=== PATIENT | female | born 1950 | race Caucasian/White ===

== ENCOUNTER → 2017-02-26 | Outpatient (CLI) | payer MEDICARE, OTHER | LOC: RAD 10:22 | PROVIDERS: ATTEND Nurse Practitioner Family | DX: Z12.31 Encounter for screening mammogram for malignant neoplasm of breast (principal) | CPT/HCPCS: 77067 ==

== ENCOUNTER → 2017-06-26 | Outpatient (CLI) | payer MEDICARE ==
[2017-06-26 11:02] LABS: BASOPHILS % (AUTO) 0 % (0-10); EOSINOPHILS # (AUTO) 0.2 10^3/uL (0.0-0.3); EOSINOPHILS % (AUTO) 4 % (0-10); HEMATOCRIT 37 % (35-52); HEMOGLOBIN 12.7 G/DL (11.5-16.0); LYMPHOCYTES # (AUTO) 1.9 X 10^3 (1.0-4.0); LYMPHOCYTES % (AUTO) 38 % (12-44); MEAN CORPUSCULAR HEMOGLOBIN 31 PG (25-34); MEAN CORPUSCULAR HGB CONC 34 G/DL (32-36); MEAN CORPUSCULAR VOLUME 91 FL (80-99); MONOCYTES # (AUTO) 0.3 X 10^3 (0.0-1.0); MONOCYTES % (AUTO) 6 % (0-12); NEUTROPHILS # (AUTO) 2.6 X 10^3 (1.8-7.8); NEUTROPHILS % (AUTO) 51 % (42-75); PLATELET COUNT 228 10^3/uL (130-400); RED CELL DISTRIBUTION WIDTH 13.8 % (10.0-14.5)
== END ==
LOC: LAB 10:26
PROVIDERS: ATTEND Nurse Practitioner Family
DX: K11.8 Other diseases of salivary glands (principal)
CPT/HCPCS: 36415; 85025; 87804

== ENCOUNTER → 2017-10-02 | Outpatient (CLI) | payer MEDICARE ==
[2017-10-02 16:45] LABS: FREE T4 (FREE THYROXINE) 0.99 NG/DL (0.70-1.48)
== END ==
LOC: LAB 15:38
PROVIDERS: ATTEND Nurse Practitioner Family
DX: R53.83 Other fatigue (principal)
CPT/HCPCS: 36415; 84439; 84443

== ENCOUNTER → 2018-08-01 | Outpatient (CLI) | payer MEDICARE ==
--- NOTE | 2018-08-01 14:21 | Diagnostic Imaging Report ---
PROCEDURE: CT chest without contrast. TECHNIQUE: Multiple contiguous axial images were obtained through the chest without the use of intravenous contrast. INDICATION: Fall approximately 6 days ago with pain to the left lower ribs. No prior studies are available for comparison. No definite mediastinal hematoma is detected. No pericardial or pleural fluid is identified. No parenchymal contusion or pneumothorax is seen. There is some subsegmental atelectasis in the lingula and left lower lobe. Some minimal scarring or subsegmental atelectasis right lower lobe is also seen. A tiny subpleural nodular density right middle lobe laterally measures 5 mm. Subpleural nodule posterolateral right lower lobe measures 5 mm. No other nodules are seen. The upper abdomen is unremarkable. No rib fracture is identified. Thoracic spine is unremarkable apart from degenerative changes. Impression: There is some subsegmental atelectasis in the left lower lobe and lingula. No parenchymal contusion, effusion, pneumothorax or left rib fracture is detected. Dictated by: Dictated on workstation # [id number]
== END ==
LOC: RAD 13:53
PROVIDERS: ATTEND Nurse Practitioner Family
DX: J98.11 Atelectasis (principal); R07.81 Pleurodynia; W19.XXXA Unspecified fall, initial encounter
CPT/HCPCS: 71250

== ENCOUNTER → 2018-10-21 | Outpatient (CLI) | payer MEDICARE ==
--- NOTE | 2018-10-21 14:07 | Diagnostic Imaging Report ---
INDICATION: Routine screening. COMPARISON: 02/26/2017 and 01/31/2016. TECHNIQUE: 2D and 3D bilateral screening mammography was performed with CAD. FINDINGS: Scattered fibroglandular densities are identified bilaterally. The parenchymal pattern is stable. No mass or malignant appearing microcalcifications are seen. The axillae are unremarkable. IMPRESSION: No mammographic features suspicious for malignancy are identified. ACR BI-RADS Category 2: Benign findings. Result letter will be mailed to the patient. Note: At least 10% of breast cancer is not imaged by mammography. Dictated by: Dictated on workstation # [id number]
== END ==
LOC: RAD 10:06
PROVIDERS: ATTEND Family Medicine
DX: Z12.31 Encounter for screening mammogram for malignant neoplasm of breast (principal)
CPT/HCPCS: 77067

== ENCOUNTER → 2018-12-03 | Outpatient (CLI) | payer MEDICARE ==
[~2018-12-03] VITALS: Ht 165.1 cm; Wt 111.6 kg
[~2018-12-03] MED LIST: CATHETER FLUSH 10 ML SYR IV PRN; REGADENOSON 0.4 MG/5 ML SYR (LEXISCAN) IV ONE
[2018-12-03 12:59] VITALS: BP 148/74
[2018-12-03 13:08] VITALS: BP 147/77
--- NOTE | 2018-12-03 15:42 | STRESS TEST ---
DATE OF SERVICE: 12/03/2018 LEXISCAN MYOVIEW STRESS TEST REPORT REFERRING PHYSICIAN: Dr. Milton. Baseline heart rate is 62. Baseline blood pressure 139/80. Baseline EKG is sinus rhythm with no ischemic changes. In summary, the patient was injected with 10.38 mCi of technetium-99 Myoview, was scheduled for exercise stress test, was able to exercise for 2 minutes and 40 seconds on standard Nguyễn protocol. Test was terminated and converted to Lexiscan Myoview stress test. The patient receive 0.4 mg of Lexiscan followed by 28.5 mCi of technetium-99 Myoview. Throughout the test, there were no EKG changes. The resting and stress images were reviewed and compared in the short axis, horizontal long axis and vertical long axis views. Review of the images showed breast attenuation with typical female pattern. There is no significant ischemia or infarction was seen. SSS is 4, SDS 3, TID value 1.03. On the gated images, the left ventricle appeared to be normal size with normal contractility. Calculated ejection fraction 66%. CONCLUSION: 1. The patient was unable to exercise beyond 2 minutes 40 seconds on standard Nguyễn protocol. Test was converted to Lexiscan Myoview stress test. 2. The patient tolerated Lexiscan well. 3. Typical female pattern with no significant ischemia or infarction on SPECT images. 4. Normal left ventricular size with normal contractility. Calculated ejection fraction of 66%. Job ID: [id number] DocumentID: [id number] Dictated Date: 12/03/2018 15:27:22 [place] Date: 12/03/2018 15:41:59 Dictated By: JULIUS DORSEY MD
== END ==
LOC: CARD 10:33
PROVIDERS: ATTEND Internal Medicine Cardiovascular Disease
DX: R07.89 Other chest pain (principal); E78.2 Mixed hyperlipidemia; I10 Essential (primary) hypertension; I08.0 Rheumatic disorders of both mitral and aortic valves; Z98.84 Bariatric surgery status
CPT/HCPCS: 78452; 93017; 93306

== ENCOUNTER → 2019-04-23 | Outpatient (CLI) | payer MEDICARE ==
[~2019-04-23] MED LIST changes: +HOLD METFORMIN - RECEIVED CONTRAST 20 ML VIAL IV SCH; +IOHEXOL 350 MG/ML 100 ML (OMNIPAQUE 350) VIAL IV ONE; +NS 100 ML (IVPB) BAG IV ONE; -REGADENOSON 0.4 MG/5 ML SYR (LEXISCAN) IV ONE
[2019-04-23 08:41] LABS: CREATININE SERUM 0.94 MG/DL (0.60-1.30)
--- NOTE | 2019-04-23 09:34 | Diagnostic Imaging Report ---
PROCEDURE: CT neck soft tissue with contrast. TECHNIQUE: Multiple contiguous axial images were obtained through the neck after the administration of contrast. Auto Exposure Controls were utilized during the CT exam to meet ALARA standards for radiation dose reduction. INDICATION: Swelling and pain in the left side of the mouth since December. Tongue lesion. COMPARISON: None. Findings: The visualized intracranial contents demonstrate no evidence of pathologic intracranial enhancement or intracranial mass effect. Visualized orbital contents are unremarkable. A few small mucous retention cysts are seen in the bilateral maxillary sinuses. The mastoids and middle ears are clear. The patient is edentulous. There is subtle asymmetric enhancement in the lateral aspect of the posterior left tongue within the oral cavity measuring approximately 0.9 x 0.8 cm. No significant mass effect is seen. No evidence of ulceration is present. The base of tongue and floor of the mouth is preserved without evidence of mass. The posterior nasopharynx and oropharynx demonstrate appropriate symmetry. There is no displacement of the parapharyngeal fat planes. There is no abnormal process evident within the prevertebral or retropharyngeal space. There is no evidence of abnormal thickening of the epiglottis or aryepiglottic folds. The vocal folds appear symmetric. The parotid, submandibular and thyroid gland are unremarkable. Mildly prominent cervical lymph nodes are seen bilaterally which are not significant based on size criteria. No focal inflammatory changes are demonstrated. No soft tissue mass or fluid collection demonstrated. The vascular structures the neck demonstrate no evidence of high-grade stenosis on this nondedicated exam. The visualized lung apices are clear. There are mild degenerative features within the cervical spine without CT evidence of an acute or suspicious osseous abnormality. Cervical spine alignment appears within normal limits. Impression: 1. Mild asymmetric enhancement in the lateral aspect of the posterior left tongue within the oral cavity. No mass effect or ulceration is present. This is nonspecific and may represent focal inflammation versus early neoplasm. Recommend direct visualization and tissue sampling if indicated. No evidence of pathologic lymphadenopathy in the neck. The base of tongue and floor of mouth is preserved without evidence of mass. Dictated by: Dictated on workstation # [id number]
== END ==
LOC: RAD 08:04
PROVIDERS: ATTEND Otolaryngology Otolaryngology/Facial Plastic Surgery
DX: K14.8 Other diseases of tongue (principal)
CPT/HCPCS: 36415; 70491; 82565; 84520

== ENCOUNTER 2019-05-13 10:50 | Outpatient (CLI) | payer MEDICARE ==
[~2019-05-13] VITALS: Ht 165.1 cm; Wt 110.9 kg
[2019-05-13 11:09] VITALS: BP 121/63
[2019-05-13 11:32] LABS: BASOPHILS % (AUTO) 1 % (0-10); EOSINOPHILS # (AUTO) 0.3 10^3/uL (0.0-0.3); EOSINOPHILS % (AUTO) 5 % (0-10); HEMATOCRIT 40 % (35-52); HEMOGLOBIN 13.1 G/DL (11.5-16.0); LYMPHOCYTES # (AUTO) 2.1 X 10^3 (1.0-4.0); LYMPHOCYTES % (AUTO) 34 % (12-44); MEAN CORPUSCULAR HEMOGLOBIN 30 PG (25-34); MEAN CORPUSCULAR HGB CONC 33 G/DL (32-36); MEAN CORPUSCULAR VOLUME 91 FL (80-99); MEAN PLATELET VOLUME 9.6 FL (7.4-10.4); MONOCYTES # (AUTO) 0.3 X 10^3 (0.0-1.0); MONOCYTES % (AUTO) 5 % (0-12); NEUTROPHILS # (AUTO) 3.4 X 10^3 (1.8-7.8); NEUTROPHILS % (AUTO) 55 % (42-75); PLATELET COUNT 211 10^3/uL (130-400); RED CELL DISTRIBUTION WIDTH 13.7 % (10.0-14.5); WHITE BLOOD COUNT 6.1 10^3/uL (4.3-11.0)
[2019-05-13] MEDS ORDERED: DOCU100T7 PO (11:53)
[2019-05-13] MEDS ORDERED: MELA1TAB20 PO (11:53)
[2019-05-13] MEDS ORDERED: DULO60CA6 PO (11:53)
[2019-05-13] MEDS ORDERED: TRAZ-222 PO (11:53)
[2019-05-13] MEDS ORDERED: POTA20TA8 PO (11:53)
[2019-05-13] MEDS ORDERED: HYDR25TA4 PO (11:53)
[2019-05-13] MEDS ORDERED: CHOL10003 PO (11:53)
[2019-05-13] MEDS ORDERED: ALPR1TAB2 PO (11:53)
[2019-05-13] MEDS ORDERED: UBID100C17 PO (11:53)
[2019-05-13 12:03] LABS: BUN/CREATININE RATIO 15; CALCIUM 9.5 MG/DL (8.5-10.1); CARBON DIOXIDE 24 MMOL/L (21-32); CHLORIDE 104 MMOL/L (98-107); CREATININE SERUM 0.87 MG/DL (0.60-1.30); GFR ESTIMATED > 60; GLUCOSE 125 MG/DL (70-105); POTASSIUM 3.6 MMOL/L (3.6-5.0); SODIUM 141 MMOL/L (135-145)
== END 2019-05-13 11:25 | disposition home or self-care (01) ==
LOC: PREOP 10:50
PROVIDERS: ATTEND Otolaryngology Otolaryngology/Facial Plastic Surgery
DX: Z01.818 Encounter for other preprocedural examination (principal); J35.1 Hypertrophy of tonsils; K14.8 Other diseases of tongue
CPT/HCPCS: 36415; 80048; 85025; 87081

== ENCOUNTER 2019-05-22 07:51 | Day surgery (SDC) | payer MEDICARE ==
[2019-05-22] VITALS (11 sets, daily range): BP systolic 123–162; BP diastolic 63–92
[~2019-05-22] VITALS: Ht 165.1 cm; Wt 110.9 kg
[~2019-05-22 07:51] MED LIST changes: +ALPR1TAB2 PO; -CATHETER FLUSH 10 ML SYR IV PRN; +CHOL10003 PO; +DOCU100T7 PO; +DULO60CA6 PO; -HOLD METFORMIN - RECEIVED CONTRAST 20 ML VIAL IV SCH; +HYDR25TA4 PO; -IOHEXOL 350 MG/ML 100 ML (OMNIPAQUE 350) VIAL IV ONE; +MELA1TAB20 PO; -NS 100 ML (IVPB) BAG IV ONE; +POTA20TA8 PO; +TRZ50T PO; +UBID100C17 PO
[2019-05-22] MEDS ORDERED: LIDOCAINE/EPI 1%-1:100,000 (XYLOCAINE) 20ML ONE (08:06)
[2019-05-22] MEDS ORDERED: LACTATED RINGERS 1,000 ML IV PRN (08:10)
[2019-05-22] MEDS ORDERED: RT-ALBUTEROL SULF 2.5 MG/3 ML PRE-MIX VIAL ONE (09:14)
--- NOTE | 2019-05-22 09:24 | Progress Note-Pre Operative ---
Pre-Operative Progress Note H&P Reviewed The H&P was reviewed, patient examined and no changes noted. Date Seen by Provider: May 22, 2019 Time Seen by Provider: 08:30 Date H&P Reviewed: May 22, 2019 Time H&P Reviewed: 08:30 Pre-Operative Diagnosis: left psot tongue lesion abnormal tonsil left QUIRINO YOUNG MD May 22, 2019 09:24 POS
--- NOTE | 2019-05-22 09:25 | Progress Note-Post Operative ---
Post-Operative Progess Note Surgeon (s)/Financial Reporting Manager (s) Surgeon QUIRINO YOUNG MD Financial Reporting Manager n/a Pre-Operative Diagnosis left psot tongue lesion abnormal tonsil left Post-Operative Diagnosis same Post-Op Procedure Note Date of Procedure: May 22, 2019 Name of Procedure Performed: Excision of Left Post Tongue Lesion, Direct Laryngosocpy Description & Findings Description and Findings: n/a Anesthesia Type get Estimated Blood Loss minimal Packing none. Specimen(s) collected/removed left post tongue lesion for perm no abnormality found in tonsil QUIRINO YOUNG MD May 22, 2019 09:25 POS
[2019-05-22] MEDS ORDERED: LIDOCAINE 2% VISCOUS 15 ML UDC PO PRN (09:30)
[2019-05-22] MEDS ORDERED: ONDANSETRON 4 MG/2 ML (SDV) Z0FRAN IVP PRN (09:30)
[2019-05-22] MEDS ORDERED: ACETAMINOPHEN 325 MG TABLET PO PRN (09:30)
[2019-05-22] MEDS ORDERED: morphine INJ 10 MG/ML 1ML (SYR OR VIAL) IVP ONE (09:30)
[2019-05-22] MEDS ORDERED: 2% VISCOUS LIDOCAINE PO (10:48)
[2019-05-22] MEDS ORDERED: HYDR15SO8 PO (10:48)
--- NOTE | 2019-05-22 12:42 | Anesthesia-General Post-Op ---
General Patient Condition Mental Status/LOC: Same as Preop Cardiovascular: Satisfactory Nausea/Vomiting: Absent Respiratory: Satisfactory Pain: Controlled Complications: Absent Post Op Complications Complications None Follow Up Care/Instructions Patient Instructions None needed. Anesthesia/Patient Condition Patient Condition Patient was seen after the procedure and she was doing well, no complaints, stable vital signs, no apparent adverse anesthesia problems. ADALBERTO MEJIA DO May 22, 2019 12:42 POS
--- OUTSIDE RECORDS SUMMARY | 2019-06-17 09:16 | XMS REPORT | CCD ---
Author Author Evangelina Milton Organization Stacie Milton MD, [facility] Address [address] [place] [address] Phone Care Team Providers Care Appeals Coordinator Name Role Phone PP Unavailable CCM Unavailable Summary Purpose Interface Exchange Insurance Providers Payer name Policy type / Coverage type Covered libertarian ID Effective Begin Date Effective End Date [facility] Commercial Insurance [id number] Unknown Family history Mother Diagnosis Age At Onset Hyperlipidemia Unknown Stroke Unknown Diabetes mellitus Type 2 Unknown Heart Attack Unknown Colon cancer Unknown Hypertension Unknown Brother Diagnosis Age At Onset Diabetes mellitus Type 2 Unknown Father Diagnosis Age At Onset Diabetes mellitus Type 2 Unknown kidney disease Unknown Heart Attack Unknown Skin cancer Unknown Hypertension Unknown Hyperlipidemia Unknown Social History Social History Element Codes Description Effective Dates Marital status Unknown D ivorced 10/08/2016 Number of children Unknown 0 10/08/2016 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 Unknown Has never used illegal drugs 017 Allergies, Adverse Reactions, Alerts Substance Reaction Codes Entered Date Inactivated Date Status * OTHER REACTION - S EE ANSWER BOX Vitamins CSynthroid Unknown 10/08/2016 No Inactive Date Active * NO KNOWN FOOD MENDEZ RGIES Unknown 10/08/2016 No Inactive Date Active [id number] REDU CTASE INHIBITORS Unknown 07/07/2018 No Inactive Date Active Past Medical History Illness Codes Condition Status Onset Date Resolved Date Essential (primary) hypertension ICD-9: 401.1 ICD-10: I10 Active 10/08/2016 Unknown Impaired fasting glu cose ICD-9: 790.29 ICD-10: R73.01 Active 02/19/2019 Unknown Major depressive dis order, recurrent, moderate ICD-9: 296.32 ICD-10: F33.1 Active 10/08/2016 Unknown Generalized anxiety disorder ICD-9: 300.00 ICD-10: F41.1 Active 10/16/2018 Unknown Candidal stomatitis ICD- 9: 112.0 ICD-10: B37.0 Active 12/15/2018 Unknown Dry mouth, unspecified ICD-9: 527.7 ICD-10: R68.2 Active 12/15/2018 Unknown Encounter for screen ing mammogram for malignant neoplasm of breast ICD-9: V76.10 ICD-10: Z12.31 Active 10/22/2018 Unknown Primary insomnia ICD-9: 307.42 ICD-10: F51.01 Active 10/16/2018 Unknown Adverse effect of an tiallergic and antiemetic drugs, initial encounter ICD-9: E933.0 ICD-10: T45.0X5A Active 09/25/2018 Unknown 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 ICD-10: E03.4 Active 10/08/2016 Unknown Recurrent oral aphthae ICD-9: 528.2 ICD-10: K12.0 Active 07/07/2018 Unknown Other allergic rhinitis ICD-9: 477.8 ICD-10: J30.89 Active 06/25/2017 Unknown Insect bite (nonveno mous), left lower leg, subsequent encounter ICD-9: V58.89 ICD-10: S80.862D Active 01/06/2018 Unknown Insect bite (nonveno mous), right lower leg, subsequent encounter ICD-9: V58.89 ICD-10: S80.861D Active 01/06/2018 Unknown Rash and other nonsp ecific skin eruption ICD-9: 782.1 ICD-10: R21 Active 05/15/2017 Unknown Encounter for genera l adult medical examination with abnormal findings ICD-9: V70.0 ICD-10: Z00.01 Active 10/02/2017 Unknown Otalgia, bilateral ICD- 9: 388.70 ICD-10: H92.03 Active 06/25/2017 Unknown Zoster without compl ications ICD-9: 053.9 ICD-10: B02.9 Active 01/28/[address] [place] ICD-9: V45.86 ICD-10: Z98.84 Active 10/08/2016 Unknown Problems Condition Codes Effectiv e Dates Condition Status Essential (primary) hypertension ICD-9: 401.1 ICD-10: I10 10/08/2016 Active Impaired fasting glu cose ICD-9: 790.29 ICD-10: R73.01 02/19/2019 Active Major depressive dis order, recurrent, moderate ICD-9: 296.32 ICD-10: F33.1 10/08/2016 Active Generalized anxiety disorder ICD-9: 300.00 ICD-10: F41.1 10/16/2018 Active Candidal stomatitis ICD- 9: 112.0 ICD-10: B37.0 12/15/2018 Active Dry mouth, unspecified ICD-9: 527.7 ICD-10: R68.2 12/15/2018 Active Encounter for screen ing mammogram for malignant neoplasm of breast ICD-9: V76.10 ICD-10: Z12.31 10/22/2018 Active Primary insomnia ICD-9: 307.42 ICD-10: F51.01 10/16/2018 Active Adverse effect of an tiallergic and antiemetic drugs, initial encounter ICD-9: E933.0 ICD-10: T45.0X5A 09/25/2018 Active 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 ICD-10: E03.4 10/08/2016 Active Recurrent oral aphthae ICD-9: 528.2 ICD-10: K12.0 07/07/2018 Active Other allergic rhinitis ICD-9: 477.8 ICD-10: J30.89 06/25/2017 Active Insect bite (nonveno mous), left lower leg, subsequent encounter ICD-9: V58.89 ICD-10: S80.862D 01/06/2018 Active Insect bite (nonveno mous), right lower leg, subsequent encounter ICD-9: V58.89 ICD-10: S80.861D 01/06/2018 Active Rash and other nonsp ecific skin eruption ICD-9: 782.1 ICD-10: R21 05/15/2017 Active Encounter for genera l adult medical examination with abnormal findings ICD-9: V70.0 ICD-10: Z00.01 10/02/2017 Active Otalgia, bilateral ICD- 9: 388.70 ICD-10: H92.03 06/25/2017 Active Zoster without compl ications ICD-9: 053.9 ICD-10: B02.9 01/28/[address] [place]us ICD-9: V45.86 ICD-10: Z98.84 10/08/2016 Active Medications Medication Codes Instruc tions Start Date Stop Date Sta tus Fill Instructions trazodone 50 mg tablet RxNorm: 277869 1 Tablet(s) PO QHS 02/19/2019 02/13/2020 Active trazodone 50 mg tablet RxNorm: 486341 1 Tablet(s) PO QHS 02/19/2019 02/18/2019 Inactive potassium chloride E R 20 mEq tablet,extended release RxNorm: 084916 Tablet(s) TAKE ONE TABLET BY MOUTH ONCE DAILY IN THE MORNING 01/07/2019 01/01/2020 Active Pristiq 25 mg tablet ,extended release RxNorm: 1512043 1 Tablet(s) PO daily 01/06/2019 02/18/2019 In active Cymbalta 30 mg capsu le,delayed release RxNorm: 966716 1 Capsule(s) PO daily 12/22/2018 12/22/2018 In active nystatin 100,000 uni t/mL oral suspension RxNorm: 550443 5 Milliliter(s) PO QI D 12/15/2018 12/21/2018 In active hydrochlorothiazide 25 mg tablet RxNorm: 340359 Tablet(s) TAKE ONE TA BLET BY MOUTH ONCE DAILY IN THE MORNING 11/14/2018 11/08/2019 Active Effexor XR 150 mg ca psule,extended release RxNorm: 424891 1 Capsule(s) PO daily 10/16/2018 12/21/2018 In active Xanax 1 mg tablet RxNorm: 580788 Tablet(s) TAKE ONE TABLET BY MOUTH ONCE DAILY AT BEDTIME 09/30/2018 12/28/2018 Inactive Vitamin D3 2,000 uni t capsule RxNorm: 029445 125mcg Capsule(s) PO daily 09/25/2018 12/23/2018 In active Effexor XR 75 mg cap rashid,extended release RxNorm: 655133 1 Capsule(s) PO daily 09/25/2018 09/24/2018 In active Effexor XR 75 mg cap rashid,extended release RxNorm: 675179 1 Capsule(s) PO daily 09/25/2018 10/15/2018 In active trazodone 50 mg tablet RxNorm: 572241 1/2 Tablet(s) PO QHS 09/25/2018 09/24/2018 Inactive trazodone 50 mg tablet RxNorm: 599213 1/2 Tablet(s) PO QHS 09/25/2018 02/18/2019 Inactive acyclovir 400 mg tablet RxNorm: 679123 1 Tablet(s) PO TID 07/07/2018 07/13/2018 Inactive Xanax 1 mg tablet RxNorm: 229990 Tablet(s) TAKE ONE TABLET BY MOUTH ONCE DAILY AT BEDTIME 06/27/2018 09/29/2018 Inactive Livalo 2 mg tablet RxNorm: 227082 1 Tablet(s) PO QHS 06/25/2018 06/24/2018 Inactive Livalo 2 mg tablet RxNorm: 459590 1 Tablet(s) PO QHS 06/25/2018 09/24/2018 Inactive Lexapro 20 mg tablet RxNorm: 332032 TAKE 1/2 (ONE-HALF) TABLET BY MOUTH ONCE DAILY FOR ONE WEEK, THEN INCREASE TO 1 ONCE DAILY IN THE EVENING. 05/05/2018 09/24/2018 Inactive Xanax 1 mg tablet RxNorm: 034901 Tablet(s) TAKE ONE TABLET BY MOUTH ONCE DAILY AT BEDTIME 04/01/2018 06/26/2018 Inactive Lexapro 20 mg tablet RxNorm: 282212 1 Tablet(s) PO QPM 12/31/2017 05/05/2018 Inactive 1/2 tab daily x 1 week then increase to a full tab mupirocin 2 % topica l ointment RxNorm: 327959 1 Application TOP BID 12/31/2017 01/09/2018 Inactive potassium chloride E R 20 mEq tablet,extended release RxNorm: 649736 TAKE ONE TABLET BY MOUTH ONCE DAILY IN THE MORNING 12/11/2017 01/06/2019 Inactive hydrochlorothiazide 25 mg tablet RxNorm: 479844 TAKE ONE TABLET BY MO [facility] ONCE DAILY IN THE MORNING 12/11/2017 11/13/2018 Inactive Effexor XR 75 mg cap rashid,extended release RxNorm: 067019 1 Capsule(s) PO daily 12/09/2017 12/30/2017 In active permethrin 5 % topic al cream RxNorm: 309619 1 Application TOP onc e, may repeat in 14 days. 11/27/2017 01/06/2018 Inactive Xanax 1 mg tablet RxNorm: 685025 1 Tablet(s) PO QHS 09/30/2017 06/24/2018 Inactive citalopram 40 mg tablet RxNorm: 708832 TAKE ONE TABLET BY MOUTH ONCE DAILY IN T HE EVENING 08/05/2017 12/08/2017 Inactive Flagyl 500 mg tablet RxNorm: 910106 1 Tablet(s) PO TID 08/01/2017 08/05/2017 Inactive Xanax 1 mg tablet RxNorm: 003571 1 Tablet(s) PO QHS 07/05/2017 09/29/2017 Inactive Xanax 1 mg tablet RxNorm: 006146 TAKE ONE TABLET BY MOUTH ONCE DAILY AT B EDTIME 07/05/2017 03/31/2018 Inactive Zithromax Z-Cornell 250 mg tablet RxNorm: 442653 1 Tablet(s) PO UD 06/25/2017 07/04/2017 Inactive Trilipix 135 mg caps ule,delayed release RxNorm: 104088 1 Capsule(s) PO daily 05/22/2017 06/24/2018 In active triamcinolone aceton kaity 0.025 % topical cream RxNorm: 4463114 1 Application TOP BI D 05/15/2017 No Stop Date Active ketoconazole 2 % top ical cream RxNorm: 781743 1 TOP daily 05/15/2017 05/21/2017 Inactive Trilipix 135 mg caps ule,delayed release RxNorm: 496020 1 Capsule(s) PO daily 02/12/2017 05/21/2017 In active Trilipix 135 mg caps ule,delayed release RxNorm: 726793 1 Capsule(s) PO daily 02/12/2017 02/11/2017 In active acyclovir 800 mg tablet RxNorm: 877257 1 Tablet(s) PO QID 01/28/2017 02/06/2017 Inactive Fish Oil 1,000 mg ca psule RxNorm: 1 Capsule(s) PO BID 10/17/2016 10/16/2016 Inactive Vitamin D2 50,000 un it capsule RxNorm: 494238 1 Capsule(s) PO QW 10/17/2016 10/16/2016 Inactive Vitamin D3 2,000 uni t capsule RxNorm: 349564 1 Capsule(s) PO daily 10/17/2016 10/16/2016 Inactive Vitamin D2 50,000 un it capsule RxNorm: 865047 1 Capsule(s) PO QW 10/17/2016 01/14/2017 Inactive Vitamin D3 2,000 uni t capsule RxNorm: 412711 1 Capsule(s) PO daily 10/17/2016 01/14/2017 Inactive Fish Oil 1,000 mg ca psule RxNorm: 1 Capsule(s) PO BID 10/17/2016 09/24/2018 Inactive citalopram 40 mg tablet RxNorm: 233997 1 Tablet(s) PO QPM 10/08/2016 07/04/2017 Inactive potassium chloride E R 20 mEq tablet,extended release RxNorm: 803427 1 Tablet(s) PO QAM 10/08/2016 10/02/2017 Inactive hydrochlorothiazide 25 mg tablet RxNorm: 046957 1 Tablet(s) PO QAM 10/08/2016 10/02/2017 Inactive Co Q-10 100 mg capsule RxNorm: 647110 1 Capsule(s) PO daily No Start Date Active Colace 100 mg capsule RxNorm: 9482027 1 Capsule(s) PO BID No Start Date Active melatonin 10 mg tablet RxNorm: 4061354 1 Tablet(s) PO QHS No Start Date Active Cymbalta 60 mg capsu le,delayed release RxNorm: 300028 1 Capsule(s) PO daily No Start Date Active hydrochlorothiazide 25 mg tablet RxNorm: 613828 1 Tablet(s) PO QAM No Start Date 10/07/2016 Inactive folic acid 400 mcg t ablet RxNorm: 888101 1 Tablet(s) PO daily No Start Date 01/05/2019 Inactive fenofibrate microniz ed 130 mg capsule RxNorm: 524628 1 Capsule(s) PO daily No Start Date 01/05/2019 Inactive Xanax 1 mg tablet RxNorm: 413559 1 Tablet(s) PO QHS et PRN as needed No Start Date 07/05/2017 Inactive biotin 1 mg tablet RxNorm: 289744 1 Tablet(s) PO daily No Start Date 01/05/2019 Inactive citalopram 40 mg tablet RxNorm: 983010 1 Tablet(s) PO QPM No Start Date 10/07/2016 Inactive potassium chloride E R 20 mEq tablet,extended release RxNorm: 142990 1 Tablet(s) PO QAM No Start Date 10/07/2016 Inactive permethrin 5 % topic al cream RxNorm: 899204 1 Application TOP onc e, may repeat in 14 days. No Start Date 11/26/2017 Inactive ferrous sulfate 325 mg (65 mg iron) tablet RxNorm: 629155 1 Tablet(s) PO daily No Start Date 01/05/2019 Inactive Unisom Sleepgels 50 mg capsule RxNorm: 8300840 1 Capsule(s) PO QHS No Start Date 09/24/2018 Inactive Medication Administered No Medication Administered data Immunizations No Immunization data Assessments Condition Codes Effectiv e Dates Essential (primary) hypertension ICD -10: I10 ICD-9: 401.1 02/19/2019 Major depressive disorder, recurrent, moderate ICD-10: F33.1 ICD-9: 296.32 02/19/2019 Impaired fasting glucose ICD-10: R73 .01 ICD-9: 790.29 02/19/2019 Generalized anxiety disorder ICD-10: F41.1 ICD-9: 300.00 01/06/2019 Candidal stomatitis ICD-10: B37.0 ICD-9: 112.0 12/15/2018 Dry mouth, unspecified ICD-10: R68.2 ICD-9: 527.7 12/15/2018 Encounter for screening mammogram for ma lignant neoplasm of breast ICD-10: Z12.31 ICD-9: V76.10 10/22/2018 Primary insomnia ICD-10: F51.01 ICD-9: 307.42 10/16/2018 Adverse effect of antiallergic and antie metic drugs, initial encounter ICD-10: T45.0X5A ICD-9: E933.0 09/25/2018 Atrophy of thyroid (acquired) ICD-10 : E03.4 ICD-9: 244.8 09/25/2018 Recurrent oral aphthae ICD-10: K12.0 ICD-9: 528.2 07/07/2018 Other allergic rhinitis ICD-10: J30. 89 ICD-9: 477.8 04/30/2018 Insect bite (nonvenomous), right lower l eg, subsequent encounter ICD-10: S80.861D ICD-9: V58.89 01/06/2018 Insect bite (nonvenomous), left lower le g, subsequent encounter ICD-10: S80.862D ICD-9: V58.89 01/06/2018 Rash and other nonspecific skin eruption ICD-10: R21 ICD-9: 782.1 12/31/2017 Encounter for general adult medical exam ination with abnormal findings ICD-10: Z00.01 ICD-9: V70.0 10/02/2017 Otalgia, bilateral ICD-10: H92.03 ICD-9: 388.70 06/25/2017 Zoster without complications ICD-10: B02.9 ICD-9: 053.9 01/28/2017 Bariatric surgery status ICD-10: Z98 .84 ICD-9: V45.86 10/08/2016 Reason For Visit Reason For Visit Effective Dates Notes Hospital Follow Up 02/19/2019 depression 01/06/2019 depression 12/22/2018 oral pain 12/15/2018 depression 11/17/2018 depression 10/16/2018 depression 09/25/2018 sores in the mouth 07/07/2018 chest pain/pressure 04/30/2018 depression 01/06/2018 depression 12/31/2017 depression 12/09/2017 Annual Medicare Wellness Exam 10/02/2017 hypothyroid 08/01/2017 earache 06/25/2017 rash 05/15/2017 rash 01/28/2017 hypothyroid 10/08/2016 Results Observation Observation Code Item Item Code Result Date Lipid Ord30 CHOL 234 mg/dL 10/16/2018 Lipid Ord30 HDL 40.0 mg/dl 10/16/2018 Lipid Ord30 TRIG 383 mg/dL 10/16/2018 Lipid Ord30 LDL 117 mg/dL 10/16/2018 Lipid Ord30 C/HDL 5.9 Ratio 10/16/2018 Comp Metabolic Kxl904 NA 143 mEq/L 10/16/2018 Comp Metabolic Cdk181 K 4.3 mEq/L 10/16/2018 Comp Metabolic Azz126 CL 101 mEq/L 10/16/2018 Comp Metabolic Fmg795 CO2 31.0 mEq/L 10/16/2018 Comp Metabolic Xld748 AN ION GAP 15 10/16/2018 Comp Metabolic Ejd033 GL UCOSE 90 mg/dL 10/16/2018 Comp Metabolic Xap723 Cr eat 0.9 mg/dL 10/16/2018 Comp Metabolic Fdj831 eG FR 70 ml/min/1.73m2 10/16 Comp Metabolic Fgp348 BUN 14 mg/dL 10/16/2018 Comp Metabolic Ytp911 B/ C Ratio 16.5 Ratio 10/16/2018 Comp Metabolic Gyv252 CA LCIUM 9.8 mg/dL 10/16/2018 Comp Metabolic Vht056 AL K PHOS 76 U/L 10/16/2018 Comp Metabolic Sly995 T(SGOT) 17 U/L 10/16/2018 Comp Metabolic Zpj338 AL T(SGPT) 18 U/L 10/16/2018 Comp Metabolic Wjf624 BI LI T 0.5 mg/dL 10/16/2018 Comp Metabolic Hwv254 AL BUMIN 4.2 g/dL 10/16/2018 Comp Metabolic Lym333 TP RO 6.7 g/dL 10/16/2018 Comp Metabolic Fki452 GL OB 2.5 g/dL 10/16/2018 Comp Metabolic Prj989 A/ G Ratio 1.7 Ratio 10/16/2018 Comp Metabolic Gfm014 Os mo 285 mOsmo 10/16/2018 Cbc With Differential Ord2 WBC 5.36 K/ul 06/18/2018 Cbc With Differential Ord2 RBC 4.17 M/ul 06/18/2018 Cbc With Differential Ord2 HGB 12.5 g/dl 06/18/2018 Cbc With Differential Ord2 HCT 38.4 % 06/18/2018 Cbc With Differential Ord2 Neut% 50.9 % 06/18/2018 Cbc With Differential Ord2 MCV 92.1 fl 06/18/2018 Cbc With Differential Ord2 Lymph% 37.5 % 06/18/2018 Cbc With Differential Ord2 MCH 30.0 pg 06/18/2018 Cbc With Differential Ord2 Hooker% 6.0 % 06/18/2018 Cbc With Differential Ord2 MCHC 32.6 pg 06/18/2018 Cbc With Differential Ord2 Eos% 5.2 % 06/18/2018 Cbc With Differential Ord2 PLT 203 K/ul 06/18/2018 Cbc With Differential Ord2 Baso% 0.4 % 06/18/2018 Cbc With Differential Ord2 RDW 14.9 % 06/18/2018 Cbc With Differential Ord2 Neut ABS# 2.73 K/ul 06/18/2018 Cbc With Differential Ord2 Lymph ABS# 2.01 K/ul 06/18/2018 Cbc With Differential Ord2 Hooker ABS# 0.3 K/ul 06/18/2018 Cbc With Differential Ord2 Eos ABS# 0.3 K/ul 06/18/2018 Cbc With Differential Ord2 Baso ABS# 0.0 K/ul 06/18/2018 Comp Metabolic Zbo146 NA 141 mEq/L 06/18/2018 Comp Metabolic Duc971 K 3.7 mEq/L 06/18/2018 Comp Metabolic Jyl378 CL 101 mEq/L 06/18/2018 Comp Metabolic Mrv198 CO2 31.0 mEq/L 06/18/2018 Comp Metabolic Vtp150 AN ION GAP 13 06/18/2018 Comp Metabolic Ijp450 GL UCOSE 106 mg/dL 06/18/2018 Comp Metabolic Prm446 Cr eat 0.9 mg/dL 06/18/2018 Comp Metabolic Rii828 eG FR 68 ml/min/1.73m2 06/18 Comp Metabolic Usr317 BUN 16 mg/dL 06/18/2018 Comp Metabolic Rnm015 B/ C Ratio 18.2 Ratio 06/18/2018 Comp Metabolic Ocg957 CA LCIUM 9.5 mg/dL 06/18/2018 Comp Metabolic Dol232 AL K PHOS 82 U/L 06/18/2018 Comp Metabolic Hvc650 T(SGOT) 19 U/L 06/18/2018 Comp Metabolic Hny617 AL T(SGPT) 18 U/L 06/18/2018 Comp Metabolic Olr571 BI LI T 0.5 mg/dL 06/18/2018 Comp Metabolic Wtb441 AL BUMIN 4.0 g/dL 06/18/2018 Comp Metabolic Hef638 TP RO 6.5 g/dL 06/18/2018 Comp Metabolic Qyu553 GL OB 2.5 g/dL 06/18/2018 Comp Metabolic Cie014 A/ G Ratio 1.6 Ratio 06/18/2018 Comp Metabolic Xte991 Os mo 283 mOsmo 06/18/2018 Tsh Ord6 TSH (3rd IS) 4.02 uIU/mL 06/18/2018 Lipid Ord30 CHOL 238 mg/dL 06/18/2018 Lipid Ord30 HDL 38.0 mg/dl 06/18/2018 Lipid Ord30 TRIG 369 mg/dL 06/18/2018 Lipid Ord30 LDL Unable to calculate Due to elevated trig lycerides mg/dL 06/18/2018 Lipid Ord30 C/HDL 6.3 Ratio 06/18/2018 Influenza A+B Ogi716 Inf paul A+B Negative 06/18/2018 Free T4 Wub089 FREE T4 0.95 ng/dL 05/15/2017 Tsh Ord6 hTSH II 4.18 uIU/mL 05/15/2017 Lipid Ord30 CHOL 207 mg/dL 05/15/2017 Lipid Ord30 HDL 51.0 mg/dl 05/15/2017 Lipid Ord30 TRIG 211 mg/dL 05/15/2017 Lipid Ord30 LDL 114 mg/dL 05/15/2017 Lipid Ord30 C/HDL 4.1 Ratio 05/15/2017 Cbc With Differential Ord2 WBC 5.82 K/ul 05/15/2017 Cbc With Differential Ord2 RBC 4.24 M/ul 05/15/2017 Cbc With Differential Ord2 HGB 12.9 g/dl 05/15/2017 Cbc With Differential Ord2 HCT 39.7 % 05/15/2017 Cbc With Differential Ord2 Neut% 53.0 % 05/15/2017 Cbc With Differential Ord2 MCV 93.6 fl 05/15/2017 Cbc With Differential Ord2 Lymph% 37.6 % 05/15/2017 Cbc With Differential Ord2 MCH 30.4 pg 05/15/2017 Cbc With Differential Ord2 Hooker% 6.2 % 05/15/2017 Cbc With Differential Ord2 MCHC 32.5 pg 05/15/2017 Cbc With Differential Ord2 Eos% 2.9 % 05/15/2017 Cbc With Differential Ord2 PLT 249 K/ul 05/15/2017 Cbc With Differential Ord2 Baso% 0.3 % 05/15/2017 Cbc With Differential Ord2 RDW 14.3 % 05/15/2017 Cbc With Differential Ord2 Neut ABS# 3.08 K/ul 05/15/2017 Cbc With Differential Ord2 Lymph ABS# 2.19 K/ul 05/15/2017 Cbc With Differential Ord2 Hooker ABS# 0.4 K/ul 05/15/2017 Cbc With Differential Ord2 Eos ABS# 0.2 K/ul 05/15/2017 Cbc With Differential Ord2 Baso ABS# 0.0 K/ul 05/15/2017 Vitamin D 25 Oh Hrp3362 VITAMIN D, 25 HYDROXY 50.18 ng/mL 05/15/2017 Comp Metabolic Jst245 NA 141 mEq/L 05/15/2017 Comp Metabolic Mlk040 K 3.9 mEq/L 05/15/2017 Comp Metabolic Lxh839 CL 103 mEq/L 05/15/2017 Comp Metabolic Izg510 CO2 29.0 mEq/L 05/15/2017 Comp Metabolic Caf318 AN ION GAP 13 05/15/2017 Comp Metabolic Jjx722 GL UCOSE 84 mg/dL 05/15/2017 Comp Metabolic Uii740 Cr eat 1.1 mg/dL 05/15/2017 Comp Metabolic Jwv951 eG FR 55 ml/min/1.73m2 05/15 Comp Metabolic Twn212 BUN 19 mg/dL 05/15/2017 Comp Metabolic Ybw306 B/ C Ratio 18.1 Ratio 05/15/2017 Comp Metabolic Ecj453 CA LCIUM 9.7 mg/dL 05/15/2017 Comp Metabolic Zmw219 AL K PHOS 38 U/L 05/15/2017 Comp Metabolic Fud776 T(SGOT) 21 U/L 05/15/2017 Comp Metabolic Hpu564 AL T(SGPT) 17 U/L 05/15/2017 Comp Metabolic Was340 BI LI T 0.4 mg/dL 05/15/2017 Comp Metabolic Axu017 AL BUMIN 4.3 g/dL 05/15/2017 Comp Metabolic Aiu100 TP RO 6.5 g/dL 05/15/2017 Comp Metabolic Civ103 GL OB 2.3 g/dL 05/15/2017 Comp Metabolic Fpb029 A/ G Ratio 1.9 Ratio 05/15/2017 Comp Metabolic Adn236 Os mo 283 mOsmo 05/15/2017 Lipid Ord30 CHOL 231 mg/dL 01/18/2017 Lipid Ord30 HDL 48.0 mg/dl 01/18/2017 Lipid Ord30 TRIG 213 mg/dL 01/18/2017 Lipid Ord30 LDL 140 mg/dL 01/18/2017 Lipid Ord30 C/HDL 4.8 Ratio 01/18/2017 Vitamin D 25 Oh [id number] VITAMIN D, 25 HYDROXY 33.28 ng/mL 10/10/2016 B12 Ttr863 B12 377.00 pg/ml 10/10/2016 Comp Metabolic Res864 NA 142 mEq/L 10/10/2016 Comp Metabolic Gnw033 K 4.0 mEq/L 10/10/2016 Comp Metabolic Faz794 CL 103 mEq/L 10/10/2016 Comp Metabolic Fjc614 CO2 29.0 mEq/L 10/10/2016 Comp Metabolic Fqp362 AN ION GAP 14 10/10/2016 Comp Metabolic Enw355 GL UCOSE 82 mg/dL 10/10/2016 Comp Metabolic Hfx412 Cr eat 0.8 mg/dL 10/10/2016 Comp Metabolic Ory373 eG FR 77 ml/min/1.73m2 10/10 Comp Metabolic Wfs621 BUN 19 mg/dL 10/10/2016 Comp Metabolic Mcr006 B/ C Ratio 24.1 Ratio 10/10/2016 Comp Metabolic Mnn420 CA LCIUM 9.8 mg/dL 10/10/2016 Comp Metabolic Gas933 AL K PHOS 87 U/L 10/10/2016 Comp Metabolic Med711 T(SGOT) 20 U/L 10/10/2016 Comp Metabolic Bjf372 AL T(SGPT) 16 U/L 10/10/2016 Comp Metabolic Hai619 BI LI T 0.5 mg/dL 10/10/2016 Comp Metabolic Azg084 AL BUMIN 4.0 g/dL 10/10/2016 Comp Metabolic Aek792 TP RO 6.7 g/dL 10/10/2016 Comp Metabolic Dee538 GL OB 2.7 g/dL 10/10/2016 Comp Metabolic Uoa270 A/ G Ratio 1.5 Ratio 10/10/2016 Comp Metabolic Ugo608 Os mo 284 mOsmo 10/10/2016 Free T4 Isr559 FREE T4 0.68 ng/dL 10/10/2016 Cbc With Differential Ord2 WBC 5.53 K/ul 10/10/2016 Cbc With Differential Ord2 RBC 4.28 M/ul 10/10/2016 Cbc With Differential Ord2 HGB 13.1 g/dl 10/10/2016 Cbc With Differential Ord2 HCT 39.7 % 10/10/2016 Cbc With Differential Ord2 Neut% 48.6 % 10/10/2016 Cbc With Differential Ord2 MCV 92.8 fl 10/10/2016 Cbc With Differential Ord2 Lymph% 38.2 % 10/10/2016 Cbc With Differential Ord2 MCH 30.6 pg 10/10/2016 Cbc With Differential Ord2 Hooker% 5.2 % 10/10/2016 Cbc With Differential Ord2 MCHC 33.0 pg 10/10/2016 Cbc With Differential Ord2 Eos% 7.8 % 10/10/2016 Cbc With Differential Ord2 PLT 229 K/ul 10/10/2016 Cbc With Differential Ord2 Baso% 0.2 % 10/10/2016 Cbc With Differential Ord2 RDW 14.6 % 10/10/2016 Cbc With Differential Ord2 Neut ABS# 2.69 K/ul 10/10/2016 Cbc With Differential Ord2 Lymph ABS# 2.11 K/ul 10/10/2016 Cbc With Differential Ord2 Hooker ABS# 0.3 K/ul 10/10/2016 Cbc With Differential Ord2 Eos ABS# 0.4 K/ul 10/10/2016 Cbc With Differential Ord2 Baso ABS# 0.0 K/ul 10/10/2016 Lipid Ord30 CHOL 216 mg/dL 10/10/2016 Lipid Ord30 HDL 44.0 mg/dl 10/10/2016 Lipid Ord30 TRIG 267 mg/dL 10/10/2016 Lipid Ord30 LDL 119 mg/dL 10/10/2016 Lipid Ord30 C/HDL 4.9 Ratio 10/10/2016 Tsh Ord6 hTSH II 3.74 uIU/mL 10/10/2016 Review of Systems System Result Effective Dates Constitutional recent illness 02/19/2019 Constitutional No chills 02/19/2019 Constitutional No diaphoresis 02/19/2019 Constitutional No fever 02/19/2019 Eyes No eye pain 019 Eyes No vision change Ears/Nose/Throat/Neck nasal allergies 02/19/2019 Ears/Nose/Throat/Neck No nasal discharge 02/19/2019 Ears/Nose/Throat/Neck No sore throat 02/19/2019 Cardiovascular No chest pain/pressure 02/19/2019 Cardiovascular No dyspnea 02/19/2019 Respiratory No chest congestion 02/19/2019 Respiratory No cough 10/2018 Respiratory No dyspnea 0 02/19/2019 Gastrointestinal No abdominal pain 02/19/2019 Gastrointestinal No constipation 02/19/2019 Gastrointestinal No diarrhea 02/19/2019 Gastrointestinal No hematochezia 02/19/2019 Gastrointestinal No melena 02/19/2019 Gastrointestinal No nausea 02/19/2019 Gastrointestinal No vomiting 02/19/2019 Dermatologic No rash 10/2018 Neurologic No alteration of consciousness 02/19/2019 Neurologic No mental status change 02/19/2019 Psychiatric anxiety 0910/2018 Psychiatric depression 0 02/19/2019 Psychiatric disturbances of memory 02/19/2019 Constitutional No recent illness 01/06/2019 Constitutional No chills 01/06/2019 Constitutional No diaphoresis 01/06/2019 Constitutional No fever 01/06/2019 Eyes No eye pain 019 Eyes No vision change Ears/Nose/Throat/Neck nasal allergies 01/06/2019 Ears/Nose/Throat/Neck No nasal discharge 01/06/2019 Ears/Nose/Throat/Neck No sore throat 01/06/2019 Cardiovascular No chest pain/pressure 01/06/2019 Cardiovascular No dyspnea 01/06/2019 Respiratory No chest congestion 01/06/2019 Respiratory No cough Respiratory No dyspnea 0 01/06/2019 Gastrointestinal No abdominal pain 01/06/2019 Gastrointestinal No constipation 01/06/2019 Gastrointestinal No diarrhea 01/06/2019 Gastrointestinal No hematochezia 01/06/2019 Gastrointestinal No melena 01/06/2019 Gastrointestinal No nausea 01/06/2019 Gastrointestinal No vomiting 01/06/2019 Dermatologic No rash Neurologic No alteration of consciousness 01/06/2019 Neurologic No mental status change 01/06/2019 Psychiatric anxiety 12/16 Psychiatric depression 0 01/06/2019 Psychiatric disturbances of memory 01/06/2019 Ears/Nose/Throat/Neck oral pain 01/06/2019 Constitutional No recent illness 12/22/2018 Constitutional No chills 12/22/2018 Constitutional No diaphoresis 12/22/2018 Constitutional No fever 12/22/2018 Eyes No eye pain 019 Eyes No vision change Ears/Nose/Throat/Neck No nasal discharge 12/22/2018 Ears/Nose/Throat/Neck No sore throat 12/22/2018 Ears/Nose/Throat/Neck otalgia 12/22/2018 Ears/Nose/Throat/Neck No sinus congestion 12/22/2018 Cardiovascular No chest pain/pressure 12/22/2018 Cardiovascular No dyspnea 12/22/2018 Respiratory No chest congestion 12/22/2018 Respiratory No cough 01/2019 Respiratory No dyspnea 0 12/22/2018 Gastrointestinal No abdominal pain 12/22/2018 Gastrointestinal No constipation 12/22/2018 Gastrointestinal No diarrhea 12/22/2018 Gastrointestinal No hematochezia 12/22/2018 Gastrointestinal No melena 12/22/2018 Gastrointestinal No nausea 12/22/2018 Gastrointestinal No vomiting 12/22/2018 Musculoskeletal joint complaint 12/22/2018 Dermatologic No rash 01/2019 Neurologic No alteration of consciousness 12/22/2018 Neurologic No mental status change 12/22/2018 Psychiatric anxiety 070 01/2019 Psychiatric depression 0 12/22/2018 Psychiatric confusion Psychiatric disturbances of memory 12/22/2018 Psychiatric disturbances of thinking 12/22/2018 Constitutional No recent illness 12/15/2018 Constitutional No anorexia 12/15/2018 Constitutional No night sweats 12/15/2018 Constitutional No chills 12/15/2018 Constitutional No diaphoresis 12/15/2018 Constitutional No fatigue 12/15/2018 Constitutional No fever 12/15/2018 Constitutional No insomnia 12/15/2018 Constitutional No malaise 12/15/2018 Constitutional No weight loss 12/15/2018 Constitutional No weight gain 12/15/2018 Eyes No eye discharge Ears/Nose/Throat/Neck No nasal discharge 12/15/2018 Ears/Nose/Throat/Neck oral pain 12/15/2018 Ears/Nose/Throat/Neck No otalgia 12/15/2018 Cardiovascular No chest pain/pressure 12/15/2018 Cardiovascular No dyspnea 12/15/2018 Cardiovascular No edema 12/15/2018 Respiratory No cough 06/2018 Gastrointestinal No vomiting 12/15/2018 Gastrointestinal No nausea 12/15/2018 Musculoskeletal No joint complaint 12/15/2018 Dermatologic No rash 06/2018 Neurologic No alteration of consciousness 12/15/2018 Constitutional No recent illness 11/17/2018 Constitutional No chills 11/17/2018 Constitutional No diaphoresis 11/17/2018 Constitutional No fever 11/17/2018 Eyes No eye pain 019 Eyes No vision change Ears/Nose/Throat/Neck No nasal discharge 11/17/2018 Ears/Nose/Throat/Neck No sore throat 11/17/2018 Ears/Nose/Throat/Neck otalgia 11/17/2018 Ears/Nose/Throat/Neck No sinus congestion 11/17/2018 Cardiovascular No chest pain/pressure 11/17/2018 Cardiovascular No dyspnea 11/17/2018 Respiratory No chest congestion 11/17/2018 Respiratory No cough 08/2018 Respiratory No dyspnea 0 11/17/2018 Gastrointestinal No abdominal pain 11/17/2018 Gastrointestinal No constipation 11/17/2018 Gastrointestinal No diarrhea 11/17/2018 Gastrointestinal No hematochezia 11/17/2018 Gastrointestinal No melena 11/17/2018 Gastrointestinal No nausea 11/17/2018 Gastrointestinal No vomiting 11/17/2018 Musculoskeletal joint complaint 11/17/2018 Dermatologic No rash 08/2018 Neurologic No alteration of consciousness 11/17/2018 Neurologic No mental status change 11/17/2018 Psychiatric anxiety 06/0 08/2018 Psychiatric depression 0 11/17/2018 Psychiatric confusion Psychiatric disturbances of memory 11/17/2018 Psychiatric disturbances of thinking 11/17/2018 Constitutional No recent illness 10/16/2018 Constitutional No chills 10/16/2018 Constitutional No diaphoresis 10/16/2018 Constitutional No fever 10/16/2018 Eyes No eye pain 019 Eyes No vision change Ears/Nose/Throat/Neck nasal allergies 10/16/2018 Ears/Nose/Throat/Neck No nasal discharge 10/16/2018 Ears/Nose/Throat/Neck No sore throat 10/16/2018 Ears/Nose/Throat/Neck otalgia 10/16/2018 Ears/Nose/Throat/Neck No sinus congestion 10/16/2018 Cardiovascular No chest pain/pressure 10/16/2018 Cardiovascular No dyspnea 10/16/2018 Respiratory No chest congestion 10/16/2018 Respiratory No cough 07/2018 Respiratory No dyspnea 0 10/16/2018 Gastrointestinal No abdominal pain 10/16/2018 Gastrointestinal No constipation 10/16/2018 Gastrointestinal No diarrhea 10/16/2018 Gastrointestinal No hematochezia 10/16/2018 Gastrointestinal No melena 10/16/2018 Gastrointestinal No nausea 10/16/2018 Gastrointestinal No vomiting 10/16/2018 Musculoskeletal joint complaint 10/16/2018 Dermatologic No rash 07/2018 Neurologic No alteration of consciousness 10/16/2018 Neurologic No mental status change 10/16/2018 Psychiatric anxiety 07/2018 Psychiatric depression 0 10/16/2018 Psychiatric confusion Psychiatric disturbances of memory 10/16/2018 Psychiatric disturbances of thinking 10/16/2018 Constitutional No recent illness 09/25/2018 Constitutional No chills 09/25/2018 Constitutional No diaphoresis 09/25/2018 Constitutional No fever 09/25/2018 Eyes No eye pain 019 Eyes No vision change Ears/Nose/Throat/Neck nasal allergies 09/25/2018 Ears/Nose/Throat/Neck No nasal discharge 09/25/2018 Ears/Nose/Throat/Neck otalgia 09/25/2018 Ears/Nose/Throat/Neck No sinus congestion 09/25/2018 Ears/Nose/Throat/Neck No sore throat 09/25/2018 Cardiovascular No chest pain/pressure 09/25/2018 Cardiovascular No dyspnea 09/25/2018 Respiratory No chest congestion 09/25/2018 Respiratory No cough 04/2019 Respiratory No dyspnea 0 09/25/2018 Gastrointestinal No abdominal pain 09/25/2018 Gastrointestinal No constipation 09/25/2018 Gastrointestinal No diarrhea 09/25/2018 Gastrointestinal No hematochezia 09/25/2018 Gastrointestinal No melena 09/25/2018 Gastrointestinal No nausea 09/25/2018 Gastrointestinal No vomiting 09/25/2018 Musculoskeletal joint complaint 09/25/2018 Dermatologic No rash 04/2019 Neurologic No alteration of consciousness 09/25/2018 Neurologic No mental status change 09/25/2018 Psychiatric anxiety 09/15 Psychiatric depression 0 09/25/2018 Psychiatric confusion Psychiatric disturbances of memory 09/25/2018 Psychiatric disturbances of thinking 09/25/2018 Constitutional recent illness 07/07/2018 Constitutional No anorexia 07/07/2018 Constitutional No night sweats 07/07/2018 Constitutional No chills 07/07/2018 Constitutional No fatigue 07/07/2018 Constitutional fever Constitutional No insomnia 07/07/2018 Constitutional No malaise 07/07/2018 Constitutional No weight loss 07/07/2018 Constitutional No weight gain 07/07/2018 Constitutional No diaphoresis 07/07/2018 Eyes No eye erythema Eyes No eye discharge Ears/Nose/Throat/Neck No dizziness 07/07/2018 Ears/Nose/Throat/Neck otalgia 07/07/2018 Ears/Nose/Throat/Neck oral pain 07/07/2018 Cardiovascular No chest pain/pressure 07/07/2018 Respiratory No cough Gastrointestinal No vomiting 07/07/2018 Gastrointestinal nausea 07/07/2018 Gastrointestinal No abdominal pain 07/07/2018 Genitourinary/Nephrology No dysuria 07/07/2018 Musculoskeletal No joint complaint 07/07/2018 Dermatologic sores 07/07 Neurologic No alteration of consciousness 07/07/2018 Constitutional No recent illness 04/30/2018 Constitutional No chills 04/30/2018 Constitutional No diaphoresis 04/30/2018 Constitutional No fever 04/30/2018 Eyes No eye pain 018 Eyes No vision change Cardiovascular No chest pain/pressure 04/30/2018 Cardiovascular No dyspnea 04/30/2018 Respiratory No cough Gastrointestinal No abdominal pain 04/30/2018 Gastrointestinal No constipation 04/30/2018 Gastrointestinal No diarrhea 04/30/2018 Gastrointestinal No nausea 04/30/2018 Gastrointestinal No vomiting 04/30/2018 Ears/Nose/Throat/Neck otalgia 04/30/2018 Ears/Nose/Throat/Neck nasal allergies 04/30/2018 Ears/Nose/Throat/Neck No nasal discharge 04/30/2018 Ears/Nose/Throat/Neck No sore throat 04/30/2018 Ears/Nose/Throat/Neck No sinus congestion 04/30/2018 Respiratory No chest congestion 04/30/2018 Respiratory No dyspnea 1 06/30/2017 Gastrointestinal No melena 04/30/2018 Gastrointestinal No hematochezia 04/30/2018 Musculoskeletal joint complaint 04/30/2018 Dermatologic No rash Neurologic No alteration of consciousness 04/30/2018 Neurologic No mental status change 04/30/2018 Constitutional No recent illness 01/06/2018 Constitutional No anorexia 01/06/2018 Constitutional No night sweats 01/06/2018 Constitutional No chills 01/06/2018 Constitutional No diaphoresis 01/06/2018 Constitutional fatigue 0 01/06/2018 Constitutional No fever 01/06/2018 Constitutional No insomnia 01/06/2018 Ears/Nose/Throat/Neck No dizziness 01/06/2018 Ears/Nose/Throat/Neck No headache 01/06/2018 Cardiovascular No chest pain/pressure 01/06/2018 Cardiovascular No dyspnea 01/06/2018 Respiratory No chest tightness 01/06/2018 Respiratory No cigarette smoking 01/06/2018 Respiratory No cough Gastrointestinal No abdominal pain 01/06/2018 Gastrointestinal No constipation 01/06/2018 Gastrointestinal No diarrhea 01/06/2018 Gastrointestinal No nausea 01/06/2018 Gastrointestinal No vomiting 01/06/2018 Genitourinary/Nephrology No anuria/oliguri a 01/06/2018 Genitourinary/Nephrology No dysuria 01/06/2018 Dermatologic rash 2017 Dermatologic No sores Neurologic No dizziness 01/06/2018 Psychiatric No anxiety 0 01/06/2018 Psychiatric No depression 01/06/2018 Constitutional No recent illness 12/31/2017 Constitutional No anorexia 12/31/2017 Constitutional No night sweats 12/31/2017 Constitutional No chills 12/31/2017 Constitutional No diaphoresis 12/31/2017 Constitutional fatigue 0 12/31/2017 Constitutional No fever 12/31/2017 Constitutional No insomnia 12/31/2017 Eyes No eye pain 018 Eyes No vision change Ears/Nose/Throat/Neck No dizziness 12/31/2017 Ears/Nose/Throat/Neck No headache 12/31/2017 Cardiovascular No chest pain/pressure 12/31/2017 Cardiovascular No dyspnea 12/31/2017 Respiratory No chest tightness 12/31/2017 Respiratory No cigarette smoking 12/31/2017 Respiratory No cough Gastrointestinal No abdominal pain 12/31/2017 Gastrointestinal No constipation 12/31/2017 Gastrointestinal No diarrhea 12/31/2017 Gastrointestinal No nausea 12/31/2017 Gastrointestinal No vomiting 12/31/2017 Genitourinary/Nephrology No anuria/oliguri a 12/31/2017 Genitourinary/Nephrology No dysuria 12/31/2017 Dermatologic rash 2017 Dermatologic No sores Dermatologic skin lesion 12/31/2017 Neurologic No alteration of consciousness 12/31/2017 Neurologic No dizziness 12/31/2017 Neurologic No mental status change 12/31/2017 Psychiatric No anxiety 0 12/31/2017 Psychiatric No depression 12/31/2017 Endocrine No polydipsia 12/31/2017 Endocrine No polyuria Endocrine No sweating Constitutional No recent illness 12/09/2017 Constitutional No anorexia 12/09/2017 Constitutional No night sweats 12/09/2017 Constitutional No chills 12/09/2017 Constitutional No diaphoresis 12/09/2017 Constitutional fatigue 0 12/09/2017 Constitutional No fever 12/09/2017 Constitutional No insomnia 12/09/2017 Constitutional malaise 0 12/09/2017 Constitutional weight loss 12/09/2017 Eyes No eye pain 018 Eyes No vision change Ears/Nose/Throat/Neck No dizziness 12/09/2017 Ears/Nose/Throat/Neck No headache 12/09/2017 Cardiovascular No chest pain/pressure 12/09/2017 Cardiovascular No dyspnea 12/09/2017 Respiratory No chest tightness 12/09/2017 Respiratory No cigarette smoking 12/09/2017 Respiratory No cough Gastrointestinal No abdominal pain 12/09/2017 Gastrointestinal No constipation 12/09/2017 Gastrointestinal No diarrhea 12/09/2017 Gastrointestinal No nausea 12/09/2017 Gastrointestinal No vomiting 12/09/2017 Genitourinary/Nephrology No anuria/oliguri a 12/09/2017 Genitourinary/Nephrology No dysuria 12/09/2017 Musculoskeletal stiffness 12/09/2017 Musculoskeletal swelling 12/09/2017 Musculoskeletal arthralgia(s) 12/09/2017 Musculoskeletal bone pain 12/09/2017 Dermatologic No rash Dermatologic No sores Dermatologic skin lesion 12/09/2017 Neurologic No alteration of consciousness 12/09/2017 Neurologic No dizziness 12/09/2017 Neurologic No mental status change 12/09/2017 Psychiatric No anxiety 0 12/09/2017 Psychiatric No depression 12/09/2017 Endocrine dry or coarse skin 12/09/2017 Endocrine No polydipsia 12/09/2017 Endocrine No polyuria Endocrine No sweating Endocrine diabetes mellitus type 2 12/09/2017 Constitutional No recent illness 10/02/2017 Constitutional No chills 10/02/2017 Constitutional No diaphoresis 10/02/2017 Constitutional No fever 10/02/2017 Eyes No eye erythema Ears/Nose/Throat/Neck No nasal discharge 10/02/2017 Cardiovascular No chest pain/pressure 10/02/2017 Cardiovascular No dyspnea 10/02/2017 Respiratory No cough Respiratory No dyspnea 0 10/02/2017 Neurologic No alteration of consciousness 10/02/2017 Neurologic No mental status change 10/02/2017 Constitutional No recent illness 08/01/2017 Constitutional No anorexia 08/01/2017 Constitutional No night sweats 08/01/2017 Constitutional No chills 08/01/2017 Constitutional No diaphoresis 08/01/2017 Constitutional No fatigue 08/01/2017 Constitutional No fever 08/01/2017 Constitutional No insomnia 08/01/2017 Constitutional malaise 0 08/01/2017 Constitutional weight loss 08/01/2017 Eyes No eye pain 018 Eyes No vision change Ears/Nose/Throat/Neck No dizziness 08/01/2017 Ears/Nose/Throat/Neck No headache 08/01/2017 Cardiovascular No chest pain/pressure 08/01/2017 Cardiovascular No dyspnea 08/01/2017 Respiratory No chest tightness 08/01/2017 Respiratory No cigarette smoking 08/01/2017 Respiratory No cough Gastrointestinal No abdominal pain 08/01/2017 Gastrointestinal No constipation 08/01/2017 Gastrointestinal No diarrhea 08/01/2017 Gastrointestinal No nausea 08/01/2017 Gastrointestinal No vomiting 08/01/2017 Genitourinary/Nephrology No anuria/oliguri a 08/01/2017 Genitourinary/Nephrology No dysuria 08/01/2017 Musculoskeletal stiffness 08/01/2017 Musculoskeletal swelling 08/01/2017 Musculoskeletal arthralgia(s) 08/01/2017 Musculoskeletal bone pain 08/01/2017 Dermatologic No rash Dermatologic No sores Dermatologic skin lesion 08/01/2017 Neurologic No alteration of consciousness 08/01/2017 Neurologic No dizziness 08/01/2017 Neurologic No mental status change 08/01/2017 Psychiatric No anxiety 0 08/01/2017 Psychiatric No depression 08/01/2017 Endocrine dry or coarse skin 08/01/2017 Endocrine No polydipsia 08/01/2017 Endocrine No polyuria Endocrine No sweating Endocrine diabetes mellitus type 2 08/01/2017 Constitutional recent illness 06/25/2017 Constitutional No chills 06/25/2017 Constitutional No diaphoresis 06/25/2017 Constitutional No fever 06/25/2017 Eyes No eye erythema 02/2018 Ears/Nose/Throat/Neck nasal allergies 06/25/2017 Ears/Nose/Throat/Neck nasal discharge 06/25/2017 Ears/Nose/Throat/Neck otalgia 06/25/2017 Ears/Nose/Throat/Neck sinus congestion 06/25/2017 Cardiovascular No chest pain/pressure 06/25/2017 Respiratory No dyspnea 0 06/25/2017 Gastrointestinal No abdominal pain 06/25/2017 Neurologic No alteration of consciousness 06/25/2017 Neurologic No mental status change 06/25/2017 Constitutional No recent illness 05/15/2017 Constitutional No chills 05/15/2017 Constitutional No diaphoresis 05/15/2017 Constitutional No fever 05/15/2017 Eyes No eye erythema Ears/Nose/Throat/Neck No nasal discharge 05/15/2017 Cardiovascular No chest pain/pressure 05/15/2017 Cardiovascular No dyspnea 05/15/2017 Respiratory No cough Respiratory No chest congestion 05/15/2017 Respiratory No dyspnea 1 07/15/2016 Respiratory No dyspnea on exertion 05/15/2017 Dermatologic rash 2016 Neurologic No alteration of consciousness 05/15/2017 Neurologic No mental status change 05/15/2017 Constitutional No recent illness 01/28/2017 Constitutional No anorexia 01/28/2017 Constitutional No night sweats 01/28/2017 Constitutional No chills 01/28/2017 Constitutional No diaphoresis 01/28/2017 Constitutional No fatigue 01/28/2017 Constitutional No fever 01/28/2017 Constitutional No insomnia 01/28/2017 Eyes No eye pain 017 Eyes No vision change Cardiovascular No chest pain/pressure 01/28/2017 Cardiovascular No dyspnea 01/28/2017 Respiratory No chest tightness 01/28/2017 Respiratory No cigarette smoking 01/28/2017 Respiratory No cough Gastrointestinal No abdominal pain 01/28/2017 Gastrointestinal No constipation 01/28/2017 Gastrointestinal No diarrhea 01/28/2017 Gastrointestinal No nausea 01/28/2017 Gastrointestinal No vomiting 01/28/2017 Musculoskeletal stiffness 01/28/2017 Musculoskeletal swelling 01/28/2017 Musculoskeletal arthralgia(s) 01/28/2017 Musculoskeletal bone pain 01/28/2017 Dermatologic rash 2016 Dermatologic No sores Dermatologic skin lesion 01/28/2017 Psychiatric No anxiety 0 01/28/2017 Psychiatric No depression 01/28/2017 Constitutional No recent illness 10/08/2016 Constitutional No anorexia 10/08/2016 Constitutional No night sweats 10/08/2016 Constitutional No chills 10/08/2016 Constitutional No diaphoresis 10/08/2016 Constitutional No fatigue 10/08/2016 Constitutional No fever 10/08/2016 Constitutional No insomnia 10/08/2016 Constitutional malaise 0 10/08/2016 Constitutional weight loss 10/08/2016 Eyes No eye pain 017 Eyes No vision change Ears/Nose/Throat/Neck No dizziness 10/08/2016 Ears/Nose/Throat/Neck No headache 10/08/2016 Cardiovascular No chest pain/pressure 10/08/2016 Cardiovascular No dyspnea 10/08/2016 Respiratory No cough Respiratory No cigarette smoking 10/08/2016 Respiratory No chest tightness 10/08/2016 Gastrointestinal No constipation 10/08/2016 Gastrointestinal No abdominal pain 10/08/2016 Gastrointestinal No diarrhea 10/08/2016 Gastrointestinal No vomiting 10/08/2016 Gastrointestinal No nausea 10/08/2016 Genitourinary/Nephrology No anuria/oliguri a 10/08/2016 Genitourinary/Nephrology No dysuria 10/08/2016 Musculoskeletal stiffness 10/08/2016 Musculoskeletal swelling 10/08/2016 Musculoskeletal arthralgia(s) 10/08/2016 Musculoskeletal bone pain 10/08/2016 Dermatologic No rash Dermatologic No sores Dermatologic skin lesion 10/08/2016 Neurologic No dizziness 10/08/2016 Neurologic No mental status change 10/08/2016 Neurologic No alteration of consciousness 10/08/2016 Psychiatric No anxiety 0 10/08/2016 Psychiatric No depression 10/08/2016 Endocrine No polydipsia 10/08/2016 Endocrine No polyuria Endocrine No sweating Endocrine dry or coarse skin 10/08/2016 Endocrine diabetes mellitus type 2 10/08/2016 Physical Exam Exam Name System Name It em Name Status Result Effective Dates Notes Full Exam - General 1994 Constitutional general appearance Overall: well developed 02/19/2019 None Full Exam - General 1994 Constitutional general appearance Overall: in no acute distress 02/19/2019 None Full Exam - General 1994 Constitutional general appearance Overall: well nourished 02/19/2019 None Full Exam - General 1994 Eyes conjunctiva/eyelids Overall: conjunctiva clear 02/19/2019 None Full Exam - General 1994 Eyes conjunctiva/eyelids Overall: cornea clear 02/19/2019 None Full Exam - General 1994 Eyes conjunctiva/eyelids Overall: eyelids normal 02/19/2019 None Full Exam - General 1994 Eyes pupils and irises Overall: pupils equal, round, reactive to light and accomodation 02/19/2019 None Full Exam - General 1994 Ears/Nose/Throat lips/teeth/gingiva Overall: benign lips 02/19/2019 None Full Exam - General 1994 Ears/Nose/Throat oral cavity/pharynx/larynx Overall: oral mucosa clear 02/19/2019 None Full Exam - General 1994 Respiratory auscultation Overall: breath sounds clear bilaterally 02/19/2019 None Full Exam - General 1994 Respiratory respiratory effort/rhythm Overall: no retractions 02/19/2019 None Full Exam - General 1994 Respiratory respiratory effort/rhythm Overall: normal rate 02/19/2019 None Full Exam - General 1994 Cardiovascular auscultation of heart Overall: regular rate 02/19/2019 None Full Exam - General 1994 Cardiovascular auscultation of heart Overall: normal heart sounds 02/19/2019 None Full Exam - General 1994 Abdomen abdominal exam Overall: no tenderness 02/19/2019 None Full Exam - General 1994 Abdomen abdominal exam Overall: normal bowel sounds 02/19/2019 None Full Exam - General 1994 Musculoskeletal head and neck Overall: head atraumatic 02/19/2019 None Full Exam - General 1994 Musculoskeletal head and neck Overall: cervical spine benign 02/19/2019 None Full Exam - General 1994 Psychiatric orientation/consciousness Overall: oriented to person, place and time 02/19/2019 None Full Exam - General 1994 Psychiatric mood and affect Overall: normal mood and affect 02/19/2019 None Full Exam - General 1994 Psychiatric mood and affect Mood: happy 02/19/2019 None Full Exam - General 1994 Constitutional general appearance Overall: well developed 01/06/2019 None Full Exam - General 1994 Constitutional general appearance Overall: in no acute distress 01/06/2019 None Full Exam - General 1994 Constitutional general appearance Overall: well nourished 01/06/2019 None Full Exam - General 1994 Eyes conjunctiva/eyelids Overall: conjunctiva clear 01/06/2019 None Full Exam - General 1994 Eyes conjunctiva/eyelids Overall: cornea clear 01/06/2019 None Full Exam - General 1994 Eyes conjunctiva/eyelids Overall: eyelids normal 01/06/2019 None Full Exam - General 1994 Eyes pupils and irises Overall: pupils equal, round, reactive to light and accomodation 01/06/2019 None Full Exam - General 1994 Ears/Nose/Throat lips/teeth/gingiva Overall: benign lips 01/06/2019 None Full Exam - General 1994 Ears/Nose/Throat oral cavity/pharynx/larynx Overall: oral mucosa clear 01/06/2019 None Full Exam - General 1994 Respiratory auscultation Overall: breath sounds clear bilaterally 01/06/2019 None Full Exam - General 1994 Respiratory respiratory effort/rhythm Overall: no retractions 01/06/2019 None Full Exam - General 1994 Respiratory respiratory effort/rhythm Overall: normal rate 01/06/2019 None Full Exam - General 1994 Cardiovascular auscultation of heart Overall: regular rate 01/06/2019 None Full Exam - General 1994 Cardiovascular auscultation of heart Overall: normal heart sounds 01/06/2019 None Full Exam - General 1994 Abdomen abdominal exam Overall: no tenderness 01/06/2019 None Full Exam - General 1994 Abdomen abdominal exam Overall: normal bowel sounds 01/06/2019 None Full Exam - General 1994 Musculoskeletal head and neck Overall: head atraumatic 01/06/2019 None Full Exam - General 1994 Musculoskeletal head and neck Overall: cervical spine benign 01/06/2019 None Full Exam - General 1994 Psychiatric orientation/consciousness Overall: oriented to person, place and time 01/06/2019 None Full Exam - General 1994 Psychiatric mood and affect Overall: normal mood and affect 01/06/2019 None Full Exam - General 1994 Psychiatric mood and affect Mood: happy 01/06/2019 None Full Exam - General 1994 Constitutional general appearance Overall: well developed 12/22/2018 None Full Exam - General 1994 Constitutional general appearance Overall: in no acute distress 12/22/2018 None Full Exam - General 1994 Constitutional general appearance Overall: well nourished 12/22/2018 None Full Exam - General 1994 Eyes conjunctiva/eyelids Overall: conjunctiva clear 12/22/2018 None Full Exam - General 1994 Eyes conjunctiva/eyelids Overall: cornea clear 12/22/2018 None Full Exam - General 1994 Eyes conjunctiva/eyelids Overall: eyelids normal 12/22/2018 None Full Exam - General 1994 Eyes pupils and irises Overall: pupils equal, round, reactive to light and accomodation 12/22/2018 None Full Exam - General 1994 Respiratory auscultation Overall: breath sounds clear bilaterally 12/22/2018 None Full Exam - General 1994 Respiratory respiratory effort/rhythm Overall: no retractions 12/22/2018 None Full Exam - General 1994 Respiratory respiratory effort/rhythm Overall: normal rate 12/22/2018 None Full Exam - General 1994 Cardiovascular auscultation of heart Overall: regular rate 12/22/2018 None Full Exam - General 1994 Cardiovascular auscultation of heart Overall: normal heart sounds 12/22/2018 None Full Exam - General 1994 Musculoskeletal gait and station Overall: normal gait 12/22/2018 None Full Exam - General 1994 Musculoskeletal gait and station Overall: normal station 12/22/2018 None Full Exam - General 1994 Musculoskeletal head and neck Overall: head atraumatic 12/22/2018 None Full Exam - General 1994 Psychiatric orientation/consciousness Overall: oriented to person, place and time 12/22/2018 None Full Exam - General 1994 Psychiatric mood and affect Overall: normal mood and affect 12/22/2018 None Full Exam - General 1994 Psychiatric mood and affect Mood: happy 12/22/2018 None Full Exam - General 1994 Constitutional general appearance Overall: well developed 12/15/2018 None Full Exam - General 1994 Constitutional general appearance Overall: in no acute distress 12/15/2018 None Full Exam - General 1994 Constitutional general appearance Overall: well nourished 12/15/2018 None Full Exam - General 1994 Eyes conjunctiva/eyelids Overall: conjunctiva clear 12/15/2018 None Full Exam - General 1994 Eyes conjunctiva/eyelids Overall: cornea clear 12/15/2018 None Full Exam - General 1994 Eyes conjunctiva/eyelids Overall: eyelids normal 12/15/2018 None Full Exam - General 1994 Eyes pupils and irises Overall: pupils equal, round, reactive to light and accomodation 12/15/2018 None Full Exam - General 1994 Respiratory auscultation Overall: breath sounds clear bilaterally 12/15/2018 None Full Exam - General 1994 Respiratory respiratory effort/rhythm Overall: no retractions 12/15/2018 None Full Exam - General 1994 Respiratory respiratory effort/rhythm Overall: normal rate 12/15/2018 None Full Exam - General 1994 Cardiovascular auscultation of heart Overall: regular rate 12/15/2018 None Full Exam - General 1994 Cardiovascular auscultation of heart Overall: normal heart sounds 12/15/2018 None Full Exam - General 1994 Musculoskeletal gait and station Overall: normal gait 12/15/2018 None Full Exam - General 1994 Musculoskeletal gait and station Overall: normal station 12/15/2018 None Full Exam - General 1994 Musculoskeletal head and neck Overall: head atraumatic 12/15/2018 None Full Exam - General 1994 Psychiatric orientation/consciousness Overall: oriented to person, place and time 12/15/2018 None Full Exam - General 1994 Psychiatric mood and affect Overall: normal mood and affect 12/15/2018 None Full Exam - General 1994 Psychiatric mood and affect Mood: happy 12/15/2018 None Full Exam - Cardiology Ears/Nose/Throat oral mucosa Oral mucosa: thrush 12/15/2018 None Full Exam - Cardiology Ears/Nose/Throat oral mucosa Oral mucosa: dry 12/15/2018 None Full Exam - General 1994 Constitutional general appearance Overall: well developed 11/17/2018 None Full Exam - General 1995 Constitutional general appearance Overall: in no acute distress 11/17/2018 None Full Exam - General 1995 Constitutional general appearance Overall: well nourished 11/17/2018 None Full Exam - General 1995 Eyes conjunctiva/eyelids Overall: conjunctiva clear 11/17/2018 None Full Exam - General 1995 Eyes conjunctiva/eyelids Overall: cornea clear 11/17/2018 None Full Exam - General 1995 Eyes conjunctiva/eyelids Overall: eyelids normal 11/17/2018 None Full Exam - General 1995 Eyes pupils and irises Overall: pupils equal, round, reactive to light and accomodation 11/17/2018 None Full Exam - General 1994 Respiratory auscultation Overall: breath sounds clear bilaterally 11/17/2018 None Full Exam - General 1994 Respiratory respiratory effort/rhythm Overall: no retractions 11/17/2018 None Full Exam - General 1994 Respiratory respiratory effort/rhythm Overall: normal rate 11/17/2018 None Full Exam - General 1994 Cardiovascular auscultation of heart Overall: regular rate 11/17/2018 None Full Exam - General 1994 Cardiovascular auscultation of heart Overall: normal heart sounds 11/17/2018 None Full Exam - General 1994 Musculoskeletal gait and station Overall: normal gait 11/17/2018 None Full Exam - General 1994 Musculoskeletal gait and station Overall: normal station 11/17/2018 None Full Exam - General 1994 Musculoskeletal head and neck Overall: head atraumatic 11/17/2018 None Full Exam - General 1994 Psychiatric orientation/consciousness Overall: oriented to person, place and time 11/17/2018 None Full Exam - General 1994 Psychiatric mood and affect Overall: normal mood and affect 11/17/2018 None Full Exam - General 1994 Psychiatric mood and affect Mood: happy 11/17/2018 None Full Exam - General 1994 Constitutional general appearance Overall: well developed 10/16/2018 None Full Exam - General 1994 Constitutional general appearance Overall: in no acute distress 10/16/2018 None Full Exam - General 1994 Constitutional general appearance Overall: well nourished 10/16/2018 None Full Exam - General 1994 Eyes conjunctiva/eyelids Overall: conjunctiva clear 10/16/2018 None Full Exam - General 1994 Eyes conjunctiva/eyelids Overall: cornea clear 10/16/2018 None Full Exam - General 1994 Eyes conjunctiva/eyelids Overall: eyelids normal 10/16/2018 None Full Exam - General 1994 Eyes pupils and irises Overall: pupils equal, round, reactive to light and accomodation 10/16/2018 None Full Exam - General 1994 Ears/Nose/Throat otoscopic exam Overall: external auditory canals clear 10/16/2018 None Full Exam - General 1995 Ears/Nose/Throat otoscopic exam Overall: tympanic membranes clear 10/16/2018 None Full Exam - General 1994 Ears/Nose/Throat otoscopic exam Tympanic membrane: retracted 10/16/2018 None Full Exam - General 1994 Ears/Nose/Throat lips/teeth/gingiva Overall: benign lips 10/16/2018 None Full Exam - General 1994 Ears/Nose/Throat oral cavity/pharynx/larynx Overall: oral mucosa clear 10/16/2018 None Full Exam - General 1994 Respiratory auscultation Overall: breath sounds clear bilaterally 10/16/2018 None Full Exam - General 1994 Respiratory respiratory effort/rhythm Overall: no retractions 10/16/2018 None Full Exam - General 1994 Respiratory respiratory effort/rhythm Overall: normal rate 10/16/2018 None Full Exam - General 1994 Cardiovascular auscultation of heart Overall: regular rate 10/16/2018 None Full Exam - General 1994 Cardiovascular auscultation of heart Overall: normal heart sounds 10/16/2018 None Full Exam - General 1994 Abdomen abdominal exam Overall: no tenderness 10/16/2018 None Full Exam - General 1994 Abdomen abdominal exam Overall: normal bowel sounds 10/16/2018 None Full Exam - General 1994 Musculoskeletal gait and station Overall: normal gait 10/16/2018 None Full Exam - General 1994 Musculoskeletal gait and station Overall: normal station 10/16/2018 None Full Exam - General 1994 Musculoskeletal head and neck Overall: head atraumatic 10/16/2018 None Full Exam - General 1994 Musculoskeletal head and neck Overall: cervical spine benign 10/16/2018 None Full Exam - General 1994 Neurologic cranial nerves Overall: crainial nerves 2 - 12 grossly intact 10/16/2018 None Full Exam - General 1994 Psychiatric orientation/consciousness Overall: oriented to person, place and time 10/16/2018 None Full Exam - General 1994 Psychiatric mood and affect Overall: normal mood and affect 10/16/2018 None Full Exam - General 1994 Psychiatric mood and affect Mood: happy 10/16/2018 None Full Exam - General 1994 Constitutional general appearance Overall: well developed 09/25/2018 None Full Exam - General 1994 Constitutional general appearance Overall: in no acute distress 09/25/2018 None Full Exam - General 1994 Constitutional general appearance Overall: well nourished 09/25/2018 None Full Exam - General 1994 Eyes conjunctiva/eyelids Overall: conjunctiva clear 09/25/2018 None Full Exam - General 1994 Eyes conjunctiva/eyelids Overall: cornea clear 09/25/2018 None Full Exam - General 1994 Eyes conjunctiva/eyelids Overall: eyelids normal 09/25/2018 None Full Exam - General 1994 Eyes pupils and irises Overall: pupils equal, round, reactive to light and accomodation 09/25/2018 None Full Exam - General 1994 Ears/Nose/Throat otoscopic exam Overall: external auditory canals clear 09/25/2018 None Full Exam - General 1994 Ears/Nose/Throat otoscopic exam Overall: tympanic membranes clear 09/25/2018 None Full Exam - General 1994 Ears/Nose/Throat otoscopic exam Tympanic membrane: retracted 09/25/2018 None Full Exam - General 1994 Ears/Nose/Throat lips/teeth/gingiva Overall: benign lips 09/25/2018 None Full Exam - General 1994 Ears/Nose/Throat oral cavity/pharynx/larynx Overall: oral mucosa clear 09/25/2018 None Full Exam - General 1994 Respiratory auscultation Overall: breath sounds clear bilaterally 09/25/2018 None Full Exam - General 1994 Respiratory respiratory effort/rhythm Overall: no retractions 09/25/2018 None Full Exam - General 1994 Respiratory respiratory effort/rhythm Overall: normal rate 09/25/2018 None Full Exam - General 1994 Cardiovascular auscultation of heart Overall: regular rate 09/25/2018 None Full Exam - General 1994 Cardiovascular auscultation of heart Overall: normal heart sounds 09/25/2018 None Full Exam - General 1994 Abdomen abdominal exam Overall: no tenderness 09/25/2018 None Full Exam - General 1994 Abdomen abdominal exam Overall: normal bowel sounds 09/25/2018 None Full Exam - General 1994 Musculoskeletal gait and station Overall: normal gait 09/25/2018 None Full Exam - General 1994 Musculoskeletal gait and station Overall: normal station 09/25/2018 None Full Exam - General 1994 Musculoskeletal head and neck Overall: head atraumatic 09/25/2018 None Full Exam - General 1994 Musculoskeletal head and neck Overall: cervical spine benign 09/25/2018 None Full Exam - General 1994 Neurologic cranial nerves Overall: crainial nerves 2 - 12 grossly intact 09/25/2018 None Full Exam - General 1994 Psychiatric orientation/consciousness Overall: oriented to person, place and time 09/25/2018 None Full Exam - General 1994 Psychiatric mood and affect Overall: normal mood and affect 09/25/2018 None Full Exam - General 1994 Psychiatric mood and affect Mood: happy 09/25/2018 None Full Exam - ENT Constitutional general appearance Overall: well nourished 07/07/2018 None Full Exam - ENT Constitutional general appearance Overall: well developed 07/07/2018 None Full Exam - ENT Constitutional general appearance Overall: in no acute distress 07/07/2018 None Full Exam - ENT Neurologic orientation Overall: oriented to person, place a nd time 07/07/2018 None Full Exam - ENT Integument inspection of skin Overall: no rash, lesions 07/07/2018 None Full Exam - ENT Lymphatic palpation of lymph nodes Overall: shotty lymphadenopathy 07/07/2018 None Full Exam - ENT Cardiovascular auscultation of heart Overall: regular rate 07/07/2018 None Full Exam - ENT Cardiovascular auscultation of heart Overall: normal heart sounds 07/07/2018 None Full Exam - ENT Respiratory auscultation Overall: breath sounds clear bilater ally 07/07/2018 None Full Exam - ENT Respiratory inspection Overall: normal rate None Full Exam - ENT Respiratory inspection Overall: no retractions 07/07/2018 None Full Exam - ENT Face and Head palpation Overall: no sinus tenderness 07/07/2018 None Full Exam - ENT Ears/Nose/Throat otoscopic exam Overall: external auditory canals normal 07/07/2018 None Full Exam - ENT Ears/Nose/Throat otoscopic exam Overall: tympanic membranes normal 07/07/2018 None Full Exam - ENT Ears/Nose/Throat oropharynx Oral mucosa: aphthous ulcer 07/07/2018 on upper gums left and ri ght sides Full Exam - General 1994 Eyes conjunctiva/eyelids Overall: conjunctiva clear 04/30/2018 None Full Exam - General 1994 Eyes conjunctiva/eyelids Overall: cornea clear 04/30/2018 None Full Exam - General 1994 Eyes conjunctiva/eyelids Overall: eyelids normal 04/30/2018 None Full Exam - General 1994 Eyes pupils and irises Overall: pupils equal, round, reactive to light and accomodation 04/30/2018 None Full Exam - General 1994 Ears/Nose/Throat lips/teeth/gingiva Overall: benign lips 04/30/2018 None Full Exam - General 1994 Ears/Nose/Throat oral cavity/pharynx/larynx Overall: oral mucosa clear 04/30/2018 None Full Exam - General 1994 Respiratory auscultation Overall: breath sounds clear bilaterally 04/30/2018 None Full Exam - General 1994 Respiratory respiratory effort/rhythm Overall: no retractions 04/30/2018 None Full Exam - General 1994 Respiratory respiratory effort/rhythm Overall: normal rate 04/30/2018 None Full Exam - General 1994 Cardiovascular auscultation of heart Overall: regular rate 04/30/2018 None Full Exam - General 1994 Cardiovascular auscultation of heart Overall: normal heart sounds 04/30/2018 None Full Exam - General 1994 Musculoskeletal gait and station Overall: normal gait 04/30/2018 None Full Exam - General 1994 Musculoskeletal gait and station Overall: normal station 04/30/2018 None Full Exam - General 1994 Musculoskeletal head and neck Overall: head atraumatic 04/30/2018 None Full Exam - General 1994 Musculoskeletal head and neck Overall: cervical spine benign 04/30/2018 None Full Exam - General 1994 Psychiatric orientation/consciousness Overall: oriented to person, place and time 04/30/2018 None Full Exam - General 1994 Psychiatric mood and affect Overall: normal mood and affect 04/30/2018 None Full Exam - General 1994 Psychiatric mood and affect Mood: happy 04/30/2018 None Full Exam - General 1994 Ears/Nose/Throat otoscopic exam Overall: external auditory canals clear 04/30/2018 None Full Exam - General 1994 Abdomen abdominal exam Overall: no tenderness 04/30/2018 None Full Exam - General 1994 Abdomen abdominal exam Overall: normal bowel sounds 04/30/2018 None Full Exam - General 1994 Constitutional general appearance Overall: well developed 04/30/2018 None Full Exam - General 1994 Constitutional general appearance Overall: in no acute distress 04/30/2018 None Full Exam - General 1994 Constitutional general appearance Overall: well nourished 04/30/2018 None Full Exam - General 1994 Ears/Nose/Throat otoscopic exam Overall: tympanic membranes clear 04/30/2018 None Full Exam - General 1994 Ears/Nose/Throat otoscopic exam Tympanic membrane: retracted 04/30/2018 None Full Exam - General 1994 Neurologic cranial nerves Overall: crainial nerves 2 - 12 grossly intact 04/30/2018 None Full Exam - General 1994 Constitutional general appearance Development: well developed 01/06/2018 None Full Exam - General 1994 Constitutional general appearance Development: appears stated age 0701/06/2018 None Full Exam - General 1994 Eyes conjunctiva/eyelids Overall: conjunctiva clear 01/06/2018 None Full Exam - General 1994 Eyes conjunctiva/eyelids Overall: cornea clear 01/06/2018 None Full Exam - General 1994 Eyes conjunctiva/eyelids Overall: eyelids normal 01/06/2018 None Full Exam - General 1994 Eyes pupils and irises Overall: pupils equal, round, reactive to light and accomodation 01/06/2018 None Full Exam - General 1994 Ears/Nose/Throat lips/teeth/gingiva Overall: benign lips 01/06/2018 None Full Exam - General 1994 Ears/Nose/Throat oral cavity/pharynx/larynx Overall: oral mucosa clear 01/06/2018 None Full Exam - General 1994 Respiratory auscultation Overall: breath sounds clear bilaterally 01/06/2018 None Full Exam - General 1994 Respiratory respiratory effort/rhythm Overall: no retractions 01/06/2018 None Full Exam - General 1994 Respiratory respiratory effort/rhythm Overall: normal rate 01/06/2018 None Full Exam - General 1994 Cardiovascular auscultation of heart Overall: regular rate 01/06/2018 None Full Exam - General 1994 Cardiovascular auscultation of heart Overall: normal heart sounds 01/06/2018 None Full Exam - General 1994 Musculoskeletal gait and station Overall: normal gait 01/06/2018 None Full Exam - General 1994 Musculoskeletal gait and station Overall: normal station 01/06/2018 None Full Exam - General 1994 Musculoskeletal head and neck Overall: head atraumatic 01/06/2018 None Full Exam - General 1994 Musculoskeletal head and neck Overall: cervical spine benign 01/06/2018 None Full Exam - General 1994 Integument inspection of skin Location: left leg 01/06/2018 follicular rash Full Exam - General 1994 Integument inspection of skin Location: right leg 01/06/2018 None Full Exam - General 1994 Psychiatric orientation/consciousness Overall: oriented to person, place and time 01/06/2018 None Full Exam - General 1994 Psychiatric mood and affect Overall: normal mood and affect 01/06/2018 None Full Exam - General 1994 Psychiatric mood and affect Mood: happy 01/06/2018 None Full Exam - General 1994 Constitutional general appearance Development: well developed 12/31/2017 None Full Exam - General 1994 Constitutional general appearance Development: appears stated age 0712/31/2017 None Full Exam - General 1994 Eyes conjunctiva/eyelids Overall: conjunctiva clear 12/31/2017 None Full Exam - General 1994 Eyes conjunctiva/eyelids Overall: cornea clear 12/31/2017 None Full Exam - General 1994 Eyes conjunctiva/eyelids Overall: eyelids normal 12/31/2017 None Full Exam - General 1994 Eyes pupils and irises Overall: pupils equal, round, reactive to light and accomodation 12/31/2017 None Full Exam - General 1994 Ears/Nose/Throat otoscopic exam Overall: external auditory canals clear 12/31/2017 None Full Exam - General 1994 Ears/Nose/Throat otoscopic exam Overall: tympanic membranes clear 12/31/2017 None Full Exam - General 1994 Ears/Nose/Throat lips/teeth/gingiva Overall: benign lips 12/31/2017 None Full Exam - General 1994 Ears/Nose/Throat oral cavity/pharynx/larynx Overall: oral mucosa clear 12/31/2017 None Full Exam - General 1994 Respiratory auscultation Overall: breath sounds clear bilaterally 12/31/2017 None Full Exam - General 1994 Respiratory respiratory effort/rhythm Overall: no retractions 12/31/2017 None Full Exam - General 1994 Respiratory respiratory effort/rhythm Overall: normal rate 12/31/2017 None Full Exam - General 1994 Cardiovascular auscultation of heart Overall: regular rate 12/31/2017 None Full Exam - General 1994 Cardiovascular auscultation of heart Overall: normal heart sounds 12/31/2017 None Full Exam - General 1994 Abdomen abdominal exam Overall: no tenderness 12/31/2017 None Full Exam - General 1994 Abdomen abdominal exam Overall: normal bowel sounds 12/31/2017 None Full Exam - General 1994 Musculoskeletal gait and station Overall: normal gait 12/31/2017 None Full Exam - General 1994 Musculoskeletal gait and station Overall: normal station 12/31/2017 None Full Exam - General 1994 Musculoskeletal head and neck Overall: head atraumatic 12/31/2017 None Full Exam - General 1994 Musculoskeletal head and neck Overall: cervical spine benign 12/31/2017 None Full Exam - General 1994 Psychiatric orientation/consciousness Overall: oriented to person, place and time 12/31/2017 None Full Exam - General 1994 Psychiatric mood and affect Overall: normal mood and affect 12/31/2017 None Full Exam - General 1994 Psychiatric mood and affect Mood: happy 12/31/2017 None Full Exam - General 1994 Integument inspection of skin Location: left leg 12/31/2017 follicular rash Full Exam - General 1994 Integument inspection of skin Location: right leg 12/31/2017 None Full Exam - General 1994 Constitutional general appearance Development: well developed 12/09/2017 None Full Exam - General 1994 Constitutional general appearance Development: appears stated age 0612/09/2017 None Full Exam - General 1994 Eyes conjunctiva/eyelids Overall: conjunctiva clear 12/09/2017 None Full Exam - General 1994 Eyes conjunctiva/eyelids Overall: cornea clear 12/09/2017 None Full Exam - General 1994 Eyes conjunctiva/eyelids Overall: eyelids normal 12/09/2017 None Full Exam - General 1994 Eyes pupils and irises Overall: pupils equal, round, reactive to light and accomodation 12/09/2017 None Full Exam - General 1994 Ears/Nose/Throat otoscopic exam Overall: external auditory canals clear 12/09/2017 None Full Exam - General 1994 Ears/Nose/Throat otoscopic exam Overall: tympanic membranes clear 12/09/2017 None Full Exam - General 1994 Ears/Nose/Throat lips/teeth/gingiva Overall: benign lips 12/09/2017 None Full Exam - General 1994 Ears/Nose/Throat oral cavity/pharynx/larynx Overall: oral mucosa clear 12/09/2017 None Full Exam - General 1994 Respiratory auscultation Overall: breath sounds clear bilaterally 12/09/2017 None Full Exam - General 1994 Respiratory respiratory effort/rhythm Overall: no retractions 12/09/2017 None Full Exam - General 1994 Respiratory respiratory effort/rhythm Overall: normal rate 12/09/2017 None Full Exam - General 1994 Cardiovascular auscultation of heart Overall: regular rate 12/09/2017 None Full Exam - General 1994 Cardiovascular auscultation of heart Overall: normal heart sounds 12/09/2017 None Full Exam - General 1994 Abdomen abdominal exam Overall: no tenderness 12/09/2017 None Full Exam - General 1994 Abdomen abdominal exam Overall: normal bowel sounds 12/09/2017 None Full Exam - General 1994 Musculoskeletal gait and station Overall: normal gait 12/09/2017 None Full Exam - General 1994 Musculoskeletal gait and station Overall: normal station 12/09/2017 None Full Exam - General 1994 Musculoskeletal head and neck Overall: head atraumatic 12/09/2017 None Full Exam - General 1994 Musculoskeletal head and neck Overall: cervical spine benign 12/09/2017 None Full Exam - General 1994 Psychiatric orientation/consciousness Overall: oriented to person, place and time 12/09/2017 None Full Exam - General 1994 Psychiatric mood and affect Overall: normal mood and affect 12/09/2017 None Full Exam - General 1994 Psychiatric mood and affect Mood: happy 12/09/2017 None Full Exam - General 1994 Constitutional general appearance Overall: well developed 10/02/2017 None Full Exam - General 1994 Constitutional general appearance Overall: in no acute distress 10/02/2017 None Full Exam - General 1994 Constitutional general appearance Overall: well nourished 10/02/2017 None Full Exam - General 1994 Eyes conjunctiva/eyelids Overall: conjunctiva clear 10/02/2017 None Full Exam - General 1994 Eyes conjunctiva/eyelids Overall: eyelids normal 10/02/2017 None Full Exam - General 1994 Ears/Nose/Throat lips/teeth/gingiva Overall: benign lips 10/02/2017 None Full Exam - General 1994 Respiratory respiratory effort/rhythm Overall: no retractions 10/02/2017 None Full Exam - General 1994 Respiratory respiratory effort/rhythm Overall: normal rate 10/02/2017 None Full Exam - General 1994 Musculoskeletal head and neck Overall: head atraumatic 10/02/2017 None Full Exam - General 1994 Neurologic cranial nerves Overall: crainial nerves 2 - 12 grossly intact 10/02/2017 None Full Exam - General 1994 Psychiatric orientation/consciousness Overall: oriented to person, place and time 10/02/2017 None Full Exam - General 1994 Psychiatric mood and affect Overall: normal mood and affect 10/02/2017 None Full Exam - General 1994 Psychiatric appearance Overall: well-groomed, good eye contact 10/02/2017 None Full Exam - General 1994 Eyes conjunctiva/eyelids Overall: cornea clear 10/02/2017 None Full Exam - General 1994 Constitutional general appearance Development: well developed 08/01/2017 None Full Exam - General 1994 Constitutional general appearance Development: appears stated age 0208/01/2017 None Full Exam - General 1994 Eyes conjunctiva/eyelids Overall: conjunctiva clear 08/01/2017 None Full Exam - General 1994 Eyes conjunctiva/eyelids Overall: cornea clear 08/01/2017 None Full Exam - General 1994 Eyes conjunctiva/eyelids Overall: eyelids normal 08/01/2017 None Full Exam - General 1994 Eyes pupils and irises Overall: pupils equal, round, reactive to light and accomodation 08/01/2017 None Full Exam - General 1994 Ears/Nose/Throat otoscopic exam Overall: external auditory canals clear 08/01/2017 None Full Exam - General 1994 Ears/Nose/Throat otoscopic exam Overall: tympanic membranes clear 08/01/2017 None Full Exam - General 1994 Ears/Nose/Throat lips/teeth/gingiva Overall: benign lips 08/01/2017 None Full Exam - General 1994 Ears/Nose/Throat oral cavity/pharynx/larynx Overall: oral mucosa clear 08/01/2017 None Full Exam - General 1994 Respiratory auscultation Overall: breath sounds clear bilaterally 08/01/2017 None Full Exam - General 1994 Respiratory respiratory effort/rhythm Overall: no retractions 08/01/2017 None Full Exam - General 1994 Respiratory respiratory effort/rhythm Overall: normal rate 08/01/2017 None Full Exam - General 1994 Cardiovascular auscultation of heart Overall: regular rate 08/01/2017 None Full Exam - General 1994 Cardiovascular auscultation of heart Overall: normal heart sounds 08/01/2017 None Full Exam - General 1994 Abdomen abdominal exam Overall: no tenderness 08/01/2017 None Full Exam - General 1994 Abdomen abdominal exam Overall: normal bowel sounds 08/01/2017 None Full Exam - General 1994 Musculoskeletal gait and station Overall: normal gait 08/01/2017 None Full Exam - General 1994 Musculoskeletal gait and station Overall: normal station 08/01/2017 None Full Exam - General 1994 Musculoskeletal head and neck Overall: head atraumatic 08/01/2017 None Full Exam - General 1994 Musculoskeletal head and neck Overall: cervical spine benign 08/01/2017 None Full Exam - General 1994 Integument inspection of skin Overall: few scattered moles, no gross abnormalities 08/01/2017 seborrheic keratosis of back - under breasts, benign appearing Full Exam - General 1994 Neurologic cranial nerves Overall: crainial nerves 2 - 12 grossly intact 08/01/2017 None Full Exam - General 1994 Psychiatric orientation/consciousness Overall: oriented to person, place and time 08/01/2017 None Full Exam - General 1994 Psychiatric mood and affect Overall: normal mood and affect 08/01/2017 None Full Exam - General 1994 Psychiatric mood and affect Mood: happy 08/01/2017 None Full Exam - ENT Constitutional general appearance Overall: well nourished 06/25/2017 None Full Exam - ENT Constitutional general appearance Overall: well developed 06/25/2017 None Full Exam - ENT Constitutional general appearance Overall: in no acute distress 06/25/2017 None Full Exam - ENT Ears/Nose/Throat otoscopic exam Left external auditory canal: partia l cerumen occlusion 06/25/2017 None Full Exam - ENT Ears/Nose/Throat otoscopic exam Right external auditory canal: parti al cerumen occlusion 06/25/2017 None Full Exam - ENT Ears/Nose/Throat otoscopic exam Left tympanic membrane: erythematous 06/25/2017 None Full Exam - ENT Ears/Nose/Throat otoscopic exam Left tympanic membrane: air-fluid le art 06/25/2017 None Full Exam - ENT Ears/Nose/Throat otoscopic exam Right tympanic membrane: erythematou s 06/25/2017 None Full Exam - ENT Ears/Nose/Throat otoscopic exam Right tympanic membrane: air-fluid level 06/25/2017 None Full Exam - ENT Ears/Nose/Throat lips/teeth/gingiva Overall: benign lips 06/25/2017 None Full Exam - ENT Ears/Nose/Throat oropharynx Overall: oral mucosa clear 06/25/2017 None Full Exam - ENT Ears/Nose/Throat oropharynx Posterior Pharynx: clear post nasal drainage 06/25/2017 None Full Exam - ENT Respiratory auscultation Overall: breath sounds clear bilater ally 06/25/2017 None Full Exam - ENT Respiratory inspection Overall: normal rate 02/2018 None Full Exam - ENT Respiratory inspection Overall: no retractions 06/25/2017 None Full Exam - ENT Cardiovascular auscultation of heart Overall: normal heart sounds 06/25/2017 None Full Exam - ENT Cardiovascular auscultation of heart Overall: regular rate 06/25/2017 None Full Exam - ENT Lymphatic palpation of lymph nodes Overall: shotty lymphadenopathy 06/25/2017 None Full Exam - ENT Musculoskeletal head and neck Overall: head atraumatic 06/25/2017 None Full Exam - ENT Neurologic mood and affect Overall: normal mood 06/25/2017 None Full Exam - ENT Neurologic mood and affect Overall: normal affect 06/25/2017 None Full Exam - ENT Neurologic orientation Overall: oriented to person, place a nd time 06/25/2017 None Full Exam - Dermatology Constitutional general appearance Overall: well nourished 05/15/2017 None Full Exam - Dermatology Constitutional general appearance Overall: well developed 05/15/2017 None Full Exam - Dermatology Constitutional general appearance Overall: in no acute distress 05/15/2017 None Full Exam - Dermatology Eyes conjunctiva/eyelids Overall: clear conjunctiva bilaterally 05/15/2017 None Full Exam - Dermatology Eyes conjunctiva/eyelids Overall: clear corneas 05/15/2017 None Full Exam - Dermatology Eyes conjunctiva/eyelids Overall: normal eyelids 05/15/2017 None Full Exam - Dermatology Ears/Nose/Throat lips/teeth/gingiva Overall: benign lips 05/15/2017 None Full Exam - Dermatology Ears/Nose/Throat oropharynx Overall: clear oral mucosa 05/15/2017 None Full Exam - Dermatology Respiratory respiratory effort/rhythm Overall: no retractions 05/15/2017 None Full Exam - Dermatology Respiratory respiratory effort/rhythm Overall: normal rate 05/15/2017 None Full Exam - Dermatology Musculoskeletal head and neck Overall: head atraumatic 05/15/2017 None Full Exam - Dermatology Musculoskeletal gait and station Overall: normal station 05/15/2017 None Full Exam - Dermatology Musculoskeletal gait and station Overall: normal gait 05/15/2017 None Full Exam - Dermatology Integument insp & palp - chest/axillae Lesion: patch 05/15/2017 irritated Full Exam - Dermatology Integument insp & palp - chest/axillae Location: on the left upper chest 05/15/2017 None Full Exam - Dermatology Integument insp & palp - chest/axillae Color: erythematous 05/15/2017 None Full Exam - Dermatology Integument insp & palp - head/face Location: on the right cheek 05/15/2017 None Full Exam - Dermatology Integument insp & palp - head/face Color: erythematous 05/15/2017 None Full Exam - Dermatology Integument insp & palp - head/face Length: 5-10mm 05/15/2017 None Full Exam - Dermatology Integument insp & palp - head/face Width: 5-10mm 05/15/2017 None Full Exam - Dermatology Psychiatric orientation Overall: oriented to person, place and time 05/15/2017 None Full Exam - Dermatology Psychiatric mood and affect Overall: normal mood and affect 05/15/2017 None Full Exam - General 1994 Constitutional general appearance Development: well developed 01/28/2017 None Full Exam - General 1994 Constitutional general appearance Development: appears stated age 0801/28/2017 None Full Exam - General 1994 Eyes conjunctiva/eyelids Overall: conjunctiva clear 01/28/2017 None Full Exam - General 1994 Eyes conjunctiva/eyelids Overall: cornea clear 01/28/2017 None Full Exam - General 1994 Eyes conjunctiva/eyelids Overall: eyelids normal 01/28/2017 None Full Exam - General 1994 Eyes pupils and irises Overall: pupils equal, round, reactive to light and accomodation 01/28/2017 None Full Exam - General 1994 Respiratory auscultation Overall: breath sounds clear bilaterally 01/28/2017 None Full Exam - General 1994 Respiratory respiratory effort/rhythm Overall: no retractions 01/28/2017 None Full Exam - General 1994 Respiratory respiratory effort/rhythm Overall: normal rate 01/28/2017 None Full Exam - General 1994 Cardiovascular auscultation of heart Overall: regular rate 01/28/2017 None Full Exam - General 1994 Cardiovascular auscultation of heart Overall: normal heart sounds 01/28/2017 None Full Exam - General 1994 Neurologic cranial nerves Overall: crainial nerves 2 - 12 grossly intact 01/28/2017 None Full Exam - General 1994 Psychiatric orientation/consciousness Overall: oriented to person, place and time 01/28/2017 None Full Exam - General 1994 Psychiatric mood and affect Overall: normal mood and affect 01/28/2017 None Full Exam - General 1994 Psychiatric mood and affect Mood: happy 01/28/2017 None Full Exam - General 1994 Integument inspection of skin Location: right arm 01/28/2017 vesicular lesions followi ng dermatomal line Full Exam - General 1994 Constitutional general appearance Development: well developed 10/08/2016 None Full Exam - General 1994 Constitutional general appearance Development: appears stated age 0410/08/2016 None Full Exam - General 1994 Eyes conjunctiva/eyelids Overall: conjunctiva clear 10/08/2016 None Full Exam - General 1994 Eyes conjunctiva/eyelids Overall: cornea clear 10/08/2016 None Full Exam - General 1994 Eyes conjunctiva/eyelids Overall: eyelids normal 10/08/2016 None Full Exam - General 1994 Eyes pupils and irises Overall: pupils equal, round, reactive to light and accomodation 10/08/2016 None Full Exam - General 1994 Ears/Nose/Throat otoscopic exam Overall: external auditory canals clear 10/08/2016 None Full Exam - General 1994 Ears/Nose/Throat otoscopic exam Overall: tympanic membranes clear 10/08/2016 None Full Exam - General 1994 Ears/Nose/Throat oral cavity/pharynx/larynx Overall: oral mucosa clear 10/08/2016 None Full Exam - General 1994 Ears/Nose/Throat lips/teeth/gingiva Overall: benign lips 10/08/2016 None Full Exam - General 1994 Neck thyroid Overall: normal size None Full Exam - General 1994 Neck thyroid Overall: normal consistency 10/08/2016 None Full Exam - General 1994 Neck thyroid Overall: nontender 10/08 None Full Exam - General 1994 Neck inspection of neck Overall: normal size 10/08/2016 None Full Exam - General 1994 Neck inspection of neck Overall: normal appearance 10/08/2016 None Full Exam - General 1994 Neck inspection of neck Overall: no masses 10/08/2016 None Full Exam - General 1994 Respiratory auscultation Overall: breath sounds clear bilaterally 10/08/2016 None Full Exam - General 1994 Respiratory respiratory effort/rhythm Overall: no retractions 10/08/2016 None Full Exam - General 1994 Respiratory respiratory effort/rhythm Overall: normal rate 10/08/2016 None Full Exam - General 1994 Cardiovascular auscultation of heart Overall: regular rate 10/08/2016 None Full Exam - General 1994 Cardiovascular auscultation of heart Overall: normal heart sounds 10/08/2016 None Full Exam - General 1994 Abdomen abdominal exam Overall: no tenderness 10/08/2016 None Full Exam - General 1994 Abdomen abdominal exam Overall: normal bowel sounds 10/08/2016 None Full Exam - General 1994 Musculoskeletal gait and station Overall: normal station 10/08/2016 None Full Exam - General 1994 Musculoskeletal gait and station Overall: normal gait 10/08/2016 None Full Exam - General 1994 Musculoskeletal head and neck Overall: cervical spine benign 10/08/2016 None Full Exam - General 1994 Musculoskeletal head and neck Overall: head atraumatic 10/08/2016 None Full Exam - General 1994 Psychiatric mood and affect Mood: happy 10/08/2016 None Full Exam - General 1994 Psychiatric mood and affect Overall: normal mood and affect 10/08/2016 None Full Exam - General 1994 Psychiatric orientation/consciousness Overall: oriented to person, place and time 10/08/2016 None Full Exam - General 1994 Neurologic cranial nerves Overall: crainial nerves 2 - 12 grossly intact 10/08/2016 None Full Exam - General 1994 Integument inspection of skin Overall: few scattered moles, no gross abnormalities 10/08/2016 seborrheic keratosis of back - under breasts, benign appearing Procedures Procedure Codes Date PPPS, SUBSEQ VISIT CPT- 4: G0439 10/02/2017 Vital Signs Date Vital 02/19/2019 Blood Pressure 1: 132/76 Code: 8480-6 BMI: 40.4 Code: 34126-2 Heart Rate 1: 80 bpm Height: 5'5" SpO2: 98% Weight: 243 lbs 01/06/2019 Blood Pressure 1: 112/82 Code: 8480-6 BMI: 39.9 Code: 50908-8 Heart Rate 1: 77 bpm Height: 5'5" SpO2: 94% Weight: 240 lbs 12/22/2018 Blood Pressure 1: 128/74 Code: 8480-6 BMI: 39.9 Code: 33214-9 Heart Rate 1: 80 bpm Height: 5'5" SpO2: 94% Weight: 240 lbs 12/15/2018 Blood Pressure 1: 130/86 Code: 8480-6 Heart Rate 1: 74 bpm Height: SpO2: 94% Weight: 11/17/2018 Blood Pressure 1: 128/78 Code: 8480-6 BMI: 41.4 Code: 55335-2 Heart Rate 1: 65 bpm Height: 5'5" SpO2: 92% Weight: 248 lbs 10 o z 10/16/2018 Blood Pressure 1: 138/82 Code: 8480-6 BMI: 42.1 Code: 99437-9 Heart Rate 1: 80 bpm Height: 5'5" SpO2: 96% Weight: 253 lbs 09/25/2018 Blood Pressure 1: 138/88 Code: 8480-6 BMI: 41.8 Code: 37632-5 Heart Rate 1: 78 bpm Height: 5'5" SpO2: 91% Weight: 251 lbs 07/07/2018 Blood Pressure 1: 140/90 Code: 8480-6 BMI: 41.3 Code: 16828-3 Heart Rate 1: 82 bpm Height: 5'5" SpO2: 92% Temperature: 36.1 (C ) / 96.9 (F) Weight: 248 lbs 04/30/2018 Blood Pressure 1: 128/64 Code: 8480-6 BMI: 41.3 Code: 30520-7 Heart Rate 1: 68 bpm Height: 5'5" SpO2: 96% Weight: 248 lbs 01/06/2018 Blood Pressure 1: 136/78 Code: 8480-6 Heart Rate 1: 71 bpm Height: 5'5" SpO2: 95% Weight: 12/31/2017 Blood Pressure 1: 134/76 Code: 8480-6 BMI: 39.8 Code: 12825-3 Heart Rate 1: 87 bpm Height: 5'5" SpO2: 97% Weight: 239 lbs 12/09/2017 Blood Pressure 1: 136/82 Code: 8480-6 BMI: 39.8 Code: 83150-7 Heart Rate 1: 73 bpm Height: 5'5" SpO2: 97% Weight: 239 lbs 10/02/2017 Blood Pressure 1: 130/72 Code: 8480-6 BMI: 39.4 Code: 67192-9 Heart Rate 1: 74 bpm Height: 5'5" SpO2: 93% Waist Measure (cm): 104 cm Weight: 237 lbs 08/01/2017 Blood Pressure 1: 132/74 Code: 8480-6 BMI: 39.3 Code: 78503-8 Heart Rate 1: 66 bpm Height: 5'5" SpO2: 92% Weight: 236 lbs 06/25/2017 Blood Pressure 1: 136/74 Code: 8480-6 BMI: 38.6 Code: 25402-7 Heart Rate 1: 61 bpm Height: 5'5" SpO2: 95% Weight: 232 lbs 05/15/2017 Blood Pressure 1: 143/76 Code: 8480-6 BMI: 38.6 Code: 05827-8 Heart Rate 1: 65 bpm Height: 5'5" SpO2: 97% Weight: 232 lbs 01/28/2017 Blood Pressure 1: 120/80 Code: 8480-6 BMI: 38.1 Code: 08736-0 Heart Rate 1: 55 bpm Height: 5'5" SpO2: 96% Weight: 229 lbs 10/08/2016 Blood Pressure 1: 130/74 Code: 8480-6 BMI: 36.9 Code: 47869-5 Heart Rate 1: 62 bpm Height: 5'5" SpO2: 92% Weight: 221 lbs 8 oz Functional Status No Functional Status data History of Present Illness Symptom Name Status Resu lt Effective Date Notes _ Other: _ 02/19/2019 None Quality chronic 02/19/2019 None Onset and Resolution o ngoing 02/19/2019 None Alleviating Factors me dication 02/19/2019 None Quality chronic 01/06/2019 None Onset and Resolution o ngoing 01/06/2019 None Alleviating Factors me dication 01/06/2019 None Pertinent Findings anx iety 01/06/2019 None Pertinent Findings los s of interest in activities 01/06/2019 None Pertinent Findings sle ep disturbance 01/06/2019 None Location diffusely 01/06/2019 None Quality aching 01/06/2019 None Quality burning 01/06/2019 None Quality constant 01/06/2019 None Onset and Resolution o ngoing 01/06/2019 None Quality chronic 12/22/2018 None Onset and Resolution o ngoing 12/22/2018 None Alleviating Factors me dication 12/22/2018 None Pertinent Findings anx iety 12/22/2018 None Pertinent Findings los s of interest in activities 12/22/2018 None Pertinent Findings sle ep disturbance 12/22/2018 None Quality worsening 12/22/2018 None Frequency of Episodes increasing 12/22/2018 None Location diffusely 12/22/2018 None Quality aching 12/22/2018 None Quality burning 12/22/2018 None Quality constant 12/22/2018 None Onset and Resolution o ngoing 12/22/2018 None Location on both sides 12/15/2018 None Location on the mobile tongue 12/15/2018 None Onset and Resolution o ngoing 12/15/2018 None Onset of Symptom 2 mon ths ago 12/15/2018 None Limitation on Activities does not limit oral intake 12/15/2018 but painful to eat yesterday Frequency of Episodes increasing 12/15/2018 None Triggers no known asso ciated factors 12/15/2018 None Pertinent Findings Den ies cough 12/15/2018 None Pertinent Findings Den ies decreased energy level 12/15/2018 None Pertinent Findings Den ies fever 12/15/2018 None Quality chronic 11/17/2018 None Onset and Resolution o ngoing 11/17/2018 None Alleviating Factors me dication 11/17/2018 None Pertinent Findings anx iety 11/17/2018 None Pertinent Findings los s of interest in activities 11/17/2018 None Quality improving 11/17/2018 None Frequency of Episodes decreasing 11/17/2018 None Pertinent Findings sle ep disturbance 11/17/2018 -improved Quality chronic 10/16/2018 None Quality worsening 10/16/2018 None Onset and Resolution o ngoing 10/16/2018 None Frequency of Episodes increasing 10/16/2018 None Alleviating Factors me dication 10/16/2018 None Pertinent Findings anx iety 10/16/2018 None Pertinent Findings Den ies depressed mood 10/16/2018 None Pertinent Findings los s of interest in activities 10/16/2018 None Quality chronic 09/25/2018 None Quality worsening 09/25/2018 None Onset and Resolution o ngoing 09/25/2018 None Frequency of Episodes increasing 09/25/2018 None Alleviating Factors me dication 09/25/2018 None Pertinent Findings los s of interest in activities 09/25/2018 None Pertinent Findings anx iety 09/25/2018 None Pertinent Findings dep ressed mood 09/25/2018 None Frequency of Episodes increasing 07/07/2018 None Location mucous membra edgardo 07/07/2018 None Onset of Symptom 1 wee ks ago 07/07/2018 None depression Quality chron ic 04/30/2018 None depression Quality worse favian 04/30/2018 None depression Onset and Resolution ongoing 04/30/2018 None depression Frequency of Episodes increasing 04/30/2018 None depression Alleviating Factors medication 04/30/2018 None depression Pertinent Findings loss of interest in activities 04/30/2018 None chest pain/pressure Location on the left side of on the chest 04/30/2018 rib pain chest pain/pressure Quality aching 04/30/2018 None chest pain/pressure Quality sharp 04/30/2018 None chest pain/pressure Quality intermittent 04/30/2018 None chest pain/pressure Onset and Resolution sudden in onset 04/30/2018 None chest pain/pressure Onset of Symptom 10 days ago 04/30/2018 None depression Quality chron ic 01/06/2018 None depression Quality worse favian 01/06/2018 None depression Onset and Resolution ongoing 01/06/2018 None depression Frequency of Episodes increasing 01/06/2018 None depression Alleviating Factors medication 01/06/2018 None depression Pertinent Findings loss of interest in activities 01/06/2018 None rash Location-Major on t he legs 01/06/2018 None rash Color red 01/06/2018 None rash Quality pruritic 01/06/2018 None rash Quality recurrent 01/06/2018 None rash Quality acute 01/06/2018 None rash Triggers certain me dications 01/06/2018 None depression Quality chron ic 12/31/2017 None depression Quality worse favian 12/31/2017 None depression Onset and Resolution ongoing 12/31/2017 None depression Frequency of Episodes increasing 12/31/2017 None depression Alleviating Factors medication 12/31/2017 None depression Pertinent Findings loss of interest in activities 12/31/2017 None depression Quality chron ic 12/09/2017 None depression Quality worse favian 12/09/2017 None depression Onset and Resolution ongoing 12/09/2017 None depression Frequency of Episodes increasing 12/09/2017 None depression Alleviating Factors medication 12/09/2017 None Annual Medicare Wellness Exam Alcohol Use does not drink any alcohol 10/02/2017 None Annual Medicare Wellness Exam Aspirin Use no 10/02/2017 None Annual Medicare Wellness Exam Blood Glucose (self reported) borderline high (100-125) 10/02/2017 None Annual Medicare Wellness Exam Blood Pressure (self reported) borderline (120/80 - 139/89) 018 None Annual Medicare Wellness Exam Choles terol (self reported) don't know 10/02/2017 No ne Annual Medicare Wellness Exam Depres candida (last 6 months) some of the time 10/02/2017 None Annual Medicare Wellness Exam Depres candida or Hopelessness some of the time 10/02/2017 None Annual Medicare Wellness Exam Descri be Your Health good 10/02/2017 None Annual Medicare Wellness Exam Exerci se Habits does not exercise 10/02/2017 None Annual Medicare Wellness Exam Handli ng Stress often has problems coping 10/02/2017 None Annual Medicare Wellness Exam Hemagl obin A-1C (self reported) don't know 10/02/2017 No ne Annual Medicare Wellness Exam Hours of Sleep 8 10/02/2017 None Annual Medicare Wellness Exam Intera ction with Friends yes 10/02/2017 None Annual Medicare Wellness Exam Intere sts & Pleasure most of the time 10/02/2017 None Annual Medicare Wellness Exam Life S atisfaction satisfied 10/02/2017 Non e Annual Medicare Wellness Exam Motor Vehicle Safety always fastens seat belt: y 10/03/19 18 None Annual Medicare Wellness Exam Motor Vehicle Safety drives after drinking: n 10/02/2017 None Annual Medicare Wellness Exam Motor Vehicle Safety rides with someone who has been drinking: n 10/02/2017 None Annual Medicare Wellness Exam Nutrition servings of fried food / high fat foods per day: 4 10/02/2017 None Annual Medicare Wellness Exam Nutrition servings of high fiber / whole grain per day: 3 10/02/2017 None Annual Medicare Wellness Exam Nutrition servings of vegetables / fruit per day: 2 10/02/2017 None Annual Medicare Wellness Exam Smokin g and Tobacco Use non smoker 10/02/2017 No ne Annual Medicare Wellness Exam Social & Emotional Support always 10/02/2017 None Annual Medicare Wellness Exam Stress almost all of the time 10/02/2017 None Annual Medicare Wellness Exam Sun Exposure protects skin when outdoors: y 10/02/2017 None 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 [place] 08/01/2017 None hypothyroid Onset and Resolution ongoing 08/01/2017 None hypothyroid Triggers no known associated factors 08/01/2017 None hypothyroid Pertinent Findings Denies brittle nails 08/01/2017 None hypothyroid Pertinent Findings coarse hair 08/01/2017 None hypothyroid Pertinent Findings decreased energy 08/01/2017 None hypothyroid Pertinent Findings dry skin 08/01/2017 None hypothyroid Pertinent Findings Denies dyspnea 08/01/2017 None hypothyroid Pertinent Findings Denies edema 08/01/2017 None hypothyroid Pertinent Findings family history of thyroid disease 08/01/2017 None hypothyroid Pertinent Findings hair loss 08/01/2017 None hypothyroid Pertinent Findings increased need for sleep 08/01/2017 None vaginal discharge Onset and Resolution sudden in onset 08/01/2017 None vaginal discharge Onset of Symptom 3-4 days ago 08/01/2017 None vaginal discharge Quality acute 08/01/2017 None vaginal discharge Quality green 08/01/2017 None vaginal discharge Pertinent Findings back pain 08/01/2017 None vaginal discharge Pertinent Findings Denies bladder pain 08/01/2017 None vaginal discharge Pertinent Findings Denies fever 08/01/2017 None vaginal discharge Pertinent Findings Denies oliguria 08/01/2017 None vaginal discharge Pertinent Findings Denies nocturia 08/01/2017 None vaginal discharge Pertinent Findings Denies urinary urgency 08/01/2017 None vaginal discharge Pertinent Findings Denies vaginal pruritus 08/01/2017 None vaginal discharge Pertinent Findings Denies pelvic pain 08/01/2017 None vaginal discharge Triggers no known associated factors 08/01/2017 None earache Location left ear 06/25/2017 None earache Quality acute 06/25/2017 None earache Onset and Resolution ongoing 06/25/2017 None neck swelling Location o n the right 06/25/2017 None neck swelling Quality ac [place] 06/25/2017 None neck swelling Onset and Resolution sudden in onset 06/25/2017 None neck swelling Onset of Symptom 1 days ago 06/25/2017 None neck swelling Triggers n o known associated factors 06/25/2017 None neck swelling Pertinent Findings Denies fever 06/25/2017 None rash Location-Major on t he neck 05/15/2017 None rash Location-Major on t he chest 05/15/2017 None rash Color red 05/15/2017 None rash Onset and Resolution sudden in onset 05/15/2017 None rash Onset of Symptom 1 weeks ago 05/15/2017 None rash Location-Major on t he arms 01/28/2017 None rash Quality recurrent 01/28/2017 None rash Color red 01/28/2017 None rash Onset and Resolution sudden in onset 01/28/2017 None rash Onset of Symptom 1 days ago 01/28/2017 None rash Pertinent Findings Denies pain 01/28/2017 None rash Pertinent Findings itching 01/28/2017 None 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 [place] 10/08/2016 None hypothyroid Onset and Resolution ongoing 10/08/2016 None hypothyroid Pertinent Findings Denies brittle nails 10/08/2016 None hypothyroid Pertinent Findings coarse hair 10/08/2016 None hypothyroid Pertinent Findings decreased energy 10/08/2016 None hypothyroid Pertinent Findings dry skin 10/08/2016 None hypothyroid Pertinent Findings Denies dyspnea 10/08/2016 None hypothyroid Pertinent Findings Denies edema 10/08/2016 None hypothyroid Pertinent Findings family history of thyroid disease 10/08/2016 None hypothyroid Pertinent Findings hair loss 10/08/2016 None hypothyroid Pertinent Findings increased need for sleep 10/08/2016 None hypothyroid Triggers no known associated factors 10/08/2016 None Advance Directives No Advance Directive data Encounters Encounter Performer Loca tion Codes Date ([id number]) [id number] EST. P ATIENT, LEVEL III Diagnosis: Essential (primary) hypertension[ICD10: I10] Diagnosis: Major depressive disorder, recurrent, moderate[ICD10: F33.1] Diagnosis: Impaired fasting glucose[ICD10: R73.01] [facility] CPT-4: 60618 02/19/2019 ([id number]) 43411 EST. P ATIENT, LEVEL III Diagnosis: Generalized anxiety disorder[ICD10: F41.1] Diagnosis: Major depressive disorder, recurrent, moderate[ICD10: F33.1] [facility] CPT-4: 05000 01/06/2019 ([id number]) 50456 EST. P ATIENT, LEVEL III Diagnosis: Essential (primary) hypertension[ICD10: I10] Diagnosis: Major depressive disorder, recurrent, moderate[ICD10: F33.1] Stacie Milton MD, [facility] CPT-4: 35242 12/22/2018 ([id number]) 02867 EST. P ATIENT, LEVEL III Diagnosis: Candidal stomatitis[ICD10: B37.0] Diagnosis: Dry mouth, unspecified[ICD10: R68.2] Renetta Milton MD, [facility] CPT-4: 05470 12/15/2018 ([id number]) 13228 EST. P ATIENT, LEVEL III Diagnosis: Essential (primary) hypertension[ICD10: I10] Diagnosis: Generalized anxiety disorder[ICD10: F41.1] Stacie Milton MD, [facility] CPT-4: 06563 11/17/2018 ([id number]) 71232 EST. P ATIENT, LEVEL IV Diagnosis: Generalized anxiety disorder[ICD10: F41.1] Diagnosis: Major depressive disorder, recurrent, moderate[ICD10: F33.1] Diagnosis: Primary insomnia[ICD10: F51.01] Stacie Milton MD, [facility] CPT-4: 26617 10/16/2018 ([id number]) 14642 EST. P ATIENT, LEVEL IV Diagnosis: Atrophy of thyroid (acquired)[ICD10: E03.4] Diagnosis: Essential (primary) hypertension[ICD10: I10] Diagnosis: Major depressive disorder, recurrent, moderate[ICD10: F33.1] Diagnosis: Adverse effect of antiallergic and antiemetic drugs, initial encounter[ICD10: T45.0X5A] Stacie Milton MD, [facility] CPT-4: 12728 09/25/2018 64113 EST. 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 PATIENT, LEVEL IV Diagnosis: Essential (primary) hypertension[ICD10: I10] Diagnosis: Major depressive disorder, recurrent, moderate[ICD10: F33.1] Diagnosis: Other allergic rhinitis[ICD10: J30.89] Analisa Milton MD, [facility] CPT-4: 96649 04/30/2018 ([id number]) 78622 EST. P ATIENT, LEVEL III Diagnosis: Insect bite (nonvenomous), left lower leg, subsequent encounter[ICD10: S80.862D] Diagnosis: Insect bite (nonvenomous), right lower leg, subsequent encounter[ICD10: S80.861D] Stacie Milton MD, [facility] CPT-4: 61375 01/06/2018 ([id number]) 73534 EST. P ATIENT, LEVEL III Diagnosis: Rash and other nonspecific skin eruption[ICD10: R21] Diagnosis: Major depressive disorder, recurrent, moderate[ICD10: F33.1] Renetta Milton MD, [facility] CPT-4: 58325 12/31/2017 ([id number]) 15156 EST. P ATIENT, LEVEL III Diagnosis: Essential (primary) hypertension[ICD10: I10] Diagnosis: Major depressive disorder, recurrent, moderate[ICD10: F33.1] Stacie Milton MD, [facility] CPT-4: 85201 12/09/2017 ([id number]) 35918 EST. P ATIENT, LEVEL IV Diagnosis: Atrophy of thyroid (acquired)[ICD10: E03.4] Diagnosis: Essential (primary) hypertension[ICD10: I10] Diagnosis: Other allergic rhinitis[ICD10: J30.89] Stacie Milton MD, [facility] CPT-4: 01885 08/01/2017 48397 EST. PATIENT, LEVEL III Diagnosis: Other allergic rhinitis[ICD10: J30.89] Diagnosis: Otalgia, bilateral[ICD10: H92.03] Analisa Milton MD, [facility] CPT-4: 14402 06/25/2017 10195 EST. PATIENT, LEVEL III Diagnosis: Rash and other nonspecific skin eruption[ICD10: R21] Analisa Milton MD, [facility] CPT-4: 74434 05/15/2017 ([id number]) 94114 EST. P ATIENT, LEVEL III Diagnosis: Zoster without complications[ICD10: B02.9] Stacie Milton MD, [facility] CPT-4: 79395 01/28/2017 ([id number]) OFFICE VISI T, NEW - LEVEL 4 Diagnosis: Essential (primary) hypertension[ICD10: I10] Diagnosis: Bariatric surgery status[ICD10: Z98.84] Diagnosis: Atrophy of thyroid (acquired)[ICD10: E03.4] Diagnosis: Major depressive disorder, recurrent, moderate[ICD10: F33.1] Stacie Milton MD, [facility] CPT-4: 31150 10/08/2016 Plan of Care Planned Activity Notes C odes Status Date Visit Plan: Hypertension - well con trolled - continue with current medications, continue with no added salt diet. Pt has been encouraged to exercise daily. The pt has been advised to call the office if there are any acute concerns about change in blood pressure readings at home. Chronic Depression and anxiety - the pt has symptoms of chronic anxiety and depression that have been fairly well controlled since the last office visit. The pt has expected periods of exacerbation with abatement of the symptoms with change in situational exposure. No change in current medications. 02/19/2019 Patient Education: Patient Medication Summary Completed 02/19/2019 Patient Education: Depression Completed 02/19/2019 Care Plan: %Hba1C LOIN C : 47099-0 Pending 02/19/2019 Care Plan: Comp Metabolic Pending 02/19/2019 Appointment: Stacie Milton WPtel: [facility] (15 min) Moderate 01/19/2019 Appointment: Stacie Milton WPtel: [address] [place], [place] [id number] (15 min) Moderate 01/15/2019 Visit Plan: Anxiety - the patient h as uncontrolled anxiety and will benefit from a higher dose of SNRI/SSRI on a daily basis to attempt control of the symptoms of anxiety (tachycardia, overwhelming sensations, stre ss, insomnia, etc). I also believe that the patient will benefit from very low dose of prn benzodiazepine. Pt is aware of the risks and benefits of treatment with the above medications. Stop the cymbalta - start on pristiq 25mg daily. 01/06/2019 Appointment: Stacie Milton WPtel: [facility] (15 min) Moderate 01/06/2019 Patient Education: Patient Medication Summary Completed 01/06/2019 Patient Education: Depression Completed 01/06/2019 Appointment: Stacie Milton WPtel: [phone] [facility] (15 min) Moderate 01/05/2019 Visit Plan: Hypertension - well con trolled - continue with current medications, continue with no added salt diet. Pt has been encouraged to exercise daily. The pt has been advised to call the office if there are any acute concerns about change in blood pressure readings at home. Depression - uncontrolled - Pt has been counseled about the diagnosis of depression, the potential causes, and risks associated with the diagnosis. The pt denies suicidal ideation, or plans. The patient has been counseled about treatment options, and understands the risks associated with treatment of depression, as well as the risks associated with NOT treating the depression. I believe the pt will benefit from medical intervention and an antidepressant has been appropriately prescribed for this patient. Cymbalta 30mg daily - stop the Wellbutrin. 12/22/2018 Appointment: Stacie Milton WPtel: [phone] [facility] (15 min) Moderate 12/22/2018 Patient Education: Patient Medication Summary Completed 12/22/2018 Patient Education: Depression Completed 12/22/2018 Visit Plan: Thrush -dry mouth -disc ussed natural and expected course of this diagnosis and to alert me if symptoms do not resolve or if any worse- discussed medications as possible cause of dry mouth -patient verbalized understanding of plan. 12/15/2018 Appointment: [phone] [place] (30 min) Complex 12/15/2018 Patient Education: Patient Medication Summary Completed 12/15/2018 Visit Plan: Hypertension - well con trolled - continue with current medications, continue with no added salt diet. Pt has been encouraged to exercise daily. The pt has been advised to call the office if there are any acute concerns about change in blood pressure readings at home. Chronic Depression and anxiety - the pt has symptoms of chronic anxiety and depression that have been fairly well controlled since the last office visit. The pt has expected periods of exacerbation with abatement of the symptoms with change in situational exposure. No change in current medications. 11/17/2018 Appointment: tSacie Milton WPtel[facility] (15 min) Moderate 11/17/2018 Patient Education: Patient Medication Summary Completed 11/17/2018 Patient Education: Patient Medication Summary Completed 10/22/2018 Visit Plan: Anxiety - the patient h as uncontrolled anxiety and will benefit from a higher dose of SNRI/SSRI on a daily basis to attempt control of the symptoms of anxiety (tachycardia, overwhelming sensations, stre ss, insomnia, etc). I also believe that the patient will benefit from very low dose of prn benzodiazepine. Pt is aware of the risks and benefits of treatment with the above medications. increase effexor to 150mg daily - double your current medication of 75mg and take two pills one time daily - then when that is gone, start on the new RX for 150mg effexor one time a day. Insomnia - get extended release MELATONIN - 10mg - take this at bedtime to see if it helps to keep you asleep or if you wake up at 2am - it should help you get back to sleep easier. 10/16/2018 Appointment: Stacie Milton WPtel: [facility] (15 min) Moderate 10/16/2018 Patient Education: Patient Medication Summary Completed 10/16/2018 Patient Education: Depression Completed 10/16/2018 Appointment: Stacie Milton WPtel: [address] [place], [place] [id number] (15 min) Moderate 10/07/2018 Visit Plan: Hypothyroidism - pt wit h chronic hypothyroidism, continue with current medication, will monitor pt to signs or symptoms of lack of adequate supplementation. Pt is to continue with current dose of medication unless directed otherwise. Check labs at regular intervals q 3 months or q 6 months based on previous levels of control. Hypertension - well controlled - continue with current medications, continue with no added salt diet. Pt has been encouraged to exercise daily. The pt has been advised to call the office if there are any acute concerns about change in blood pressure readings at home. Adverse effect of benadryl - recommended pt to stop this medication - for her insomnia - she is to start on trazodone for insomnia instead of the benadryl. Depression - uncontrolled - Pt has been counseled about the diagnosis of depression, the potential causes, and risks associated with the diagnosis. The pt denies suicidal ideation, or plans. The patient has been counseled about treatment options, and understands the risks associated with treatment of depression, as well as the risks associated with NOT treating the depression. I believe the pt will benefit from medical intervention and an antidepressant has been appropriately prescribed for this patient. stop lexapro start on effexor tomorrow morning 09/25/2018 Appointment: Stacie Milton WPtel: [facility] (15 min) Moderate 09/25/2018 Patient Education: Patient Medication Summary Completed 09/25/2018 Patient Education: Depression Completed 09/25/2018 Appointment: Renetta Leigh WPtel: [address] [place], [place] [phone] (30 min) Complex 07/15/2018 Visit Plan: Oral aphthae -rx for ac yclovir provided and instructed on use -follow up in 1 week for re-eval -sooner if needed -call with any concerns or worsening symptoms. 07/07/2018 Appointment: Renetta Leigh WPtel: [facility]5 [phone] (30 min) Complex 07/07/2018 Patient Education: Patient Medication Summary Completed 07/07/2018 Visit Plan: Hypertension - well con trolled - continue with current medications, continue with no added salt diet. Pt has been encouraged to exercise daily. The pt has been advised to call the office if there are any acute concerns about change in blood pressure readings at home. Chronic Depression and anxiety - the pt has symptoms of chronic anxiety and depression that have been fairly well controlled since the last office visit. The pt has expected periods of exacerbation with abatement of the symptoms with change in situational exposure. No change in current medications. Allergies - chronic - recommended pt to use allergy medication as prescribed. Pt has been counseled as to the appropriate use of the medication. Pt to call if allergy symptoms are not controlled with the medication. If using nasal spray, instructions as follows: Nasal spray- use twice daily, one spray per nostril twice daily, after 30 minutes, rinse out nose with saline spray.. Use opposite hand per nostril to spray in the nasal steroid allergy spray. 04/30/2018 Appointment: Analisa Jin WPtel: [phone] [facility] (15 min) Moderate 04/30/2018 Patient Education: Patient Medication Summary Completed 04/30/2018 Patient Education: Depression Completed 04/30/2018 Visit Plan: Rash - not due to her m edication - it is due to the fact that the patient is walking in her pastures with flip-flops and short pants without use of insect spray. I have recommended that the patient wear jeans, boots, and bug spray when going outside. 01/06/2018 Appointment: Stacie Milton WPtel: [facility] (15 min) Moderate 01/06/2018 Patient Education: Patient Medication Summary Completed 01/06/2018 Visit Plan: Rash-bilateral legs-cul ture for bacteria -rx for bactroban ointment provided and instructed on use-no shaving until rash resolves Depression - uncontrolled - Pt has been counseled about the diagnosis of depression, the potential causes, and risks associated with the diagnosis. The pt denies suicidal ideation, or plans. The patient has been counseled about treatment options, and understands the risks associated with treatment of depression, as well as the risks associated with NOT treating the depression. I believe the pt will benefit from medical intervention and an antidepressant has been appropriately prescribed for this patient. Stay off effexor -start lexapro 12/31/2017 Appointment: Renetta Leigh WPtel: [phone] [phone] [place] (15 min) Moderate 12/31/2017 Patient Education: Patient Medication Summary Completed 12/31/2017 Visit Plan: Hypertension - well con trolled - continue with current medications, continue with no added salt diet. Pt has been encouraged to exercise daily. The pt has been advised to call the office if there are any acute concerns about change in blood pressure readings at home. Depression - uncontrolled - Pt has been counseled about the diagnosis of depression, the potential causes, and risks associated with the diagnosis. The pt denies suicidal ideation, or plans. The patient has been counseled about treatment options, and understands the risks associated with treatment of depression, as well as the risks associated with NOT treating the depression. I believe the pt will benefit from medical intervention and an antidepressant has been appropriately prescribed for this patient. Stop citalopram and start on venlafaxine. 12/09/2017 Appointment: Stacie Milton [facility]Ptel[phone] [facility] (15 min) Moderate 12/09/2017 Patient Education: Patient Medication Summary Completed 12/09/2017 Visit Plan: Medicare Exam - today w e discussed the patients past history, immunizations, preventative exams/evaluations - colonoscopy, fecal occult blood testing, routine labs for renal function, glucose, cholesterol, osteoporosis evaluations, cardiovascular testing and cancer screenings. We have also discussed mental health and the signs/symptoms of depression. The patient was advised of home safety evaluations and the need to make sure that as the aging process continues, we need to be aware of different ways to make the home a safer place to reside. The patient has also been counseled that exercise is necessary - and of utmost importance as we age to help decrease fall risk and to maintain independece in the home. Today we discussed the need for the patient to create paperwork for Advanced directives as well as for the patient to provide this office with a copy of her DOPA paperwork for health care surrogate. 10/02/2017 Patient Education: Patient Medication Summary Completed 10/02/2017 Visit Plan: Hypertension - well con trolled - continue with current medications, continue with no added salt diet. Pt has been encouraged to exercise daily. The pt has been advised to call the office if there are any acute concerns about change in blood pressure readings at home. Hypothyroidism - pt with chronic hypothyroidism, continue with current medication, will monitor pt to signs or symptoms of lack of adequate supplementation. Pt is to continue with current dose of medication unless directed otherwise. Check labs at regular intervals wither q 3 months or q 6 months based on previous levels of control. A llergies - recommended - pt to start on claritin or sarah daily. Vaginal discharge - rx for flagyl 08/01/2017 Appointment: Stacie Milton WPtel: [phone] [facility] (15 min) Moderate 08/01/2017 Patient Education: Patient Medication Summary Completed 08/01/2017 Visit Plan: Allergies - chronic - r ecommended pt to use allergy medication as prescribed. Pt has been counseled as to the appropriate use of the medication. Pt to call if allergy symptoms are not controlled with th e medication. If using nasal spray, instructions as follows: Nasal spray- use twice daily, one spray per nostril twice daily, after 30 minutes, rinse out nose with saline spray.. Use opposite hand per nostril to spray in the nasal steroid allergy spray. Otitis Media - discussed the diagnosis with the patient, script sent electronically to the pharmacy for treatment of the infection. The disease course was discussed and the need to notify the clinic if symptoms do not improve or if they acutely worsen. 06/25/2017 Appointment: Analisa Jin WPtel: [facility]4 [facility] (15 min) Moderate 06/25/2017 Patient Education: Patient Medication Summary Completed 06/25/2017 Visit Plan: Rash - Pt is to NOT use bleach on any skin lesions, discussed the risks of using bleach on the skin - The patient was instructed in appropriate wound care. The patient was instructed to use the ointment as per RX. The patient is to call for any change in symptoms, increase in size of the lesion, increase in pain, worsening redness, warmth, discharge. 05/15/2017 Appointment: Analisa Jin WPtel: [phone] [facility] (15 min) Moderate 05/15/2017 Patient Education: Patient Medication Summary Completed 05/15/2017 Patient Education: Obesity Completed 05/15/2017 Visit Plan: Shingles - Herpes Zoste r - acute in onset - pt started on acyclovir and instructed to call if symptoms worsen or if the pt is concerned about the symptoms. Pt has been advised to avoid contact with persons who may be , or infants, or immunocompromised individuals. Pt has been instructed that shingles will continue to break out and eventually scab over a two week period, until all of the vesicles are scabbed, the pt is to be considered contagious. 01/28/2017 Appointment: Stacie Milton WPtel: [facility]5 [place] [id number] (15 min) Moderate 01/28/2017 Patient Education: Patient Medication Summary Completed 01/28/2017 Patient Education: Obesity Completed 01/28/2017 Visit Plan: Hypertension - well con trolled - continue with current medications, continue with no added salt diet. Pt has been encouraged to exercise daily. The pt has been advised to call the office if there are any acute concerns about change in blood pressure readings at home. Chronic Depression and anxiety - the pt has symptoms of chronic anxiety and depression that have been fairly well controlled since the last office visit. The pt has expected periods of exacerbation with abatement of the symptoms with change in situational exposure. No change in current medications. Check labs - pt not on any thyroid medication - if needed pt to start on armour thyroid - continue with supportive care. 10/08/2016 Visit Plan: Hypertension - well con trolled - continue with current medications, continue with no added salt diet. Pt has been encouraged to exercise daily. The pt has been advised to call the office if there are any acute concerns about change in blood pressure readings at home. Chronic Depression and anxiety - the pt has symptoms of chronic anxiety and depression that have been fairly well controlled since the last office visit. The pt has expected periods of exacerbation with abatement of the symptoms with change in situational exposure. No change in current medications. Check labs - pt not on any thyroid medication - if needed pt to start on armour thyroid - continue with supportive care. 10/08/2016 Appointment: Stac[facility] Milton [facility]Ptel[phone] [facility] 10/08/2016 Patient Education: Patient Medication Summary Completed 10/08/2016 Instructions Comment . Hypertension - wel l controlled - continue with current medications, continue with no added salt diet. Pt has been encouraged to exercise daily. The pt has been advised to call the office if there are any acute concerns about change in blood pressure readings at home. Depression - uncontrolled - Pt has been counseled about the diagnosis of depression, the potential causes, and risks associated with the diagnosis. The pt denies suicidal ideation, or plans. The patient has been counseled about treatment options, and understands the risks associated with treatment of depression, as well as the risks associated with NOT treating the depression. I believe the pt will benefit from medical intervention and an antidepressant has been appropriately prescribed for this patient. Stop citalopram and start on venlafaxine. . Hypertension - wel l controlled - continue with current medications, continue with no added salt diet. Pt has been encouraged to exercise daily. The pt has been advised to call the office if there are any acute concerns about change in blood pressure readings at home. Chronic Depression and anxiety - the pt has symptoms of chronic anxiety and depression that have been fairly well controlled since the last office visit. The pt has expected periods of exacerbation with abatement of the symptoms with change in situational exposure. No change in current medications. Allergies - chronic - recommended pt to use allergy medication as prescribed. Pt has been counseled as to the appropriate use of the medication. Pt to call if allergy symptoms are not controlled with the medication. If using nasal spray, instructions as follows: Nasal spray- use twice daily, one spray per nostril twice daily, after 30 minutes, rinse out nose with saline spray.. Use opposite hand per nostril to spray in the nasal steroid allergy spray. increase effexor to 150mg daily - double your current medication of 75mg and take two pills one time daily - then when that is gone, start on the new RX for 150mg effexor one time a day. get extended release MELATONIN - 10mg - take this at bedtime to see if it helps to keep you asleep or if you wake up at 2am - it should help you get back to sleep easier. . Anxiety - the patient has uncontrolled anxiety and will benefit from a higher dose of SNRI/SSRI on a daily basis to attempt control of the symptoms of anxiety (tachycardia, overwhelming sensations, stress, insomnia, etc). I also believe that the patient will benefit from very low dose of prn benzodiazepine. Pt is aware of the risks and benefits of treatment with the above medications. increase effexor to 150mg daily - double your current medication of 75mg and take two pills one time daily - then when that is gone, start on the new RX for 150mg effexor one time a day. Insomnia - get extended release MELATONIN - 10mg - take this at bedtime to see if it helps to keep you asleep or if you wake up at 2am - it should help you get back to sleep easier. . Oral aphthae -rx f or acyclovir provided and instructed on use -follow up in 1 week for re-eval -sooner if needed -call with any concerns or worsening symptoms. . Rash - not due to her medication - it is due to the fact that the patient is walking in her pastures with flip-flops and short pants without use of insect spray. I have recommended that the patient wear jeans, boots, and bug spray when going outside. . Hypertension - wel l controlled - continue with current medications, continue with no added salt diet. Pt has been encouraged to exercise daily. The pt has been advised to call the office if there are any acute concerns about change in blood pressure readings at home. Chronic Depression and anxiety - the pt has symptoms of chronic anxiety and depression that have been fairly well controlled since the last office visit. The pt has expected periods of exacerbation with abatement of the symptoms with change in situational exposure. No change in current medications. . Medicare Exam - to day we discussed the patients past history, immunizations, preventative exams/evaluations - colonoscopy, fecal occult blood testing, routine labs for renal function, glucose, cholesterol, osteoporosis evaluations, cardiovascular testing and cancer screenings. We have also discussed mental health and the signs/symptoms of depression. The patient was advised of home safety evaluations and the need to make sure that as the aging process continues, we need to be aware of different ways to make the home a safer place to reside. The patient has also been counseled that exercise is necessary - and of utmost importance as we age to help decrease fall risk and to maintain independece in the home. Today we discussed the need for the patient to create paperwork for Advanced directives as well as for the patient to provide this office with a copy of her [employer] paperwork for health care surrogate. . Shingles - Herpes Zoster - acute in onset - pt started on acyclovir and instructed to call if symptoms worsen or if the pt is concerned about the symptoms. Pt has been advised to avoid contact with persons who may be , or infants, or immunocompromised individuals. Pt has been instructed that shingles will continue to break out and eventually scab over a two week period, until all of the vesicles are scabbed, the pt is to be considered contagious. . Allergies - chroni c - recommended pt to use allergy medication as prescribed. Pt has been counseled as to the appropriate use of the medication. Pt to call if allergy symptoms are not controlled with the medication. If using nasal spray, instructions as follows: Nasal spray- use twice daily, one spray per nostril twice daily, after 30 minutes, rinse out nose with saline spray.. Use opposite hand per nostril to spray in the nasal steroid allergy spray. Otitis Media - discussed the diagnosis with the patient, script sent electronically to the pharmacy for treatment of the infection. The disease course was discussed and the need to notify the clinic if symptoms do not improve or if they acutely worsen. . Rash - Pt is to NO T use bleach on any skin lesions, discussed the risks of using bleach on the skin - The patient was instructed in appropriate wound care. The patient was instructed to use the ointment as per RX. The patient is to call for any change in symptoms, increase in size of the lesion, increase in pain, worsening redness, warmth, discharge. . Hypertension - wel l controlled - continue with current medications, continue with no added salt diet. Pt has been encouraged to exercise daily. The pt has been advised to call the office if there are any acute concerns about change in blood pressure readings at home. Depression - uncontrolled - Pt has been counseled about the diagnosis of depression, the potential causes, and risks associated with the diagnosis. The pt denies suicidal ideation, or plans. The patient has been counseled about treatment options, and understands the risks associated with treatment of depression, as well as the risks associated with NOT treating the depression. I believe the pt will benefit from medical intervention and an antidepressant has been appropriately prescribed for this patient. Cymbalta 30mg daily - stop the Wellbutrin. No shaving lexapro mupirocin ointment no shaving . Rash-bilateral legs-culture for bacter ia -rx for bactroban ointment provided and instructed on use-no shaving until rash resolves Depression - uncontrolled - Pt has been counseled about the diagnosis of depression, the potential causes, and risks associated with the diagnosis. The pt denies suicidal ideation, or plans. The patient has been counseled about treatment options, and understands the risks associated with treatment of depression, as well as the risks associated with NOT treating the depression. I believe the pt will benefit from medical intervention and an antidepressant has been appropriately prescribed for this patient. Stay off effexor -start lexapro Fasting lab work, in cluding Vitamin D and TSH. Consider [place] thyroid for hypothyroidism Saline spray before using CPAP at night to moisturize nasal passages . Hypertension - well controlled - williams nue with current medications, continue with no added salt diet. Pt has been encouraged to exercise daily. The pt has been advised to call the office if there are any acute concerns about change in blood pressure readings at home. Chronic Depression and anxiety - the pt has symptoms of chronic anxiety and depression that have been fairly well controlled since the last office visit. The pt has expected periods of exacerbation with abatement of the symptoms with change in situational exposure. No change in current medications. Check labs - pt not on any thyroid medication - if needed pt to start on armour thyroid - continue with supportive care. Fasting lab work, in cluding Vitamin D and TSH. Consider [place] thyroid for hypothyroidism Saline spray before using CPAP at night to moisturize nasal passages . Hypertension - well controlled - williams nue with current medications, continue with no added salt diet. Pt has been encouraged to exercise daily. The pt has been advised to call the office if there are any acute concerns about change in blood pressure readings at home. Chronic Depression and anxiety - the pt has symptoms of chronic anxiety and depression that have been fairly well controlled since the last office visit. The pt has expected periods of exacerbation with abatement of the symptoms with change in situational exposure. No change in current medications. Check labs - pt not on any thyroid medication - if needed pt to start on armour thyroid - continue with supportive care. stop lexapro start on effexor tomorrow morning stop the benadryl start on trazodone 1/2 of a tablet at bedtime to help you sleep . Hypothyroidism - pt with chronic hypot hyroidism, continue with current medication, will monitor pt to signs or symptoms of lack of adequate supplementation. Pt is to continue with current dose of medication unless directed otherwise. Check labs at regular intervals q 3 months or q 6 months based on previous levels of control. Hypertension - well controlled - continue with current medications, continue with no added salt diet. Pt has been encouraged to exercise daily. The pt has been advised to call the office if there are any acute concerns about change in blood pressure readings at home. Adverse effect of benadryl - recommended pt to stop this medication - for her insomnia - she is to start on trazodone for insomnia instead of the benadryl. Depression - uncontrolled - Pt has been counseled about the diagnosis of depression, the potential causes, and risks associated with the diagnosis. The pt denies suicidal ideation, or plans. The patient has been counseled about treatment options, and understands the risks associated with treatment of depression, as well as the risks associated with NOT treating the depression. I believe the pt will benefit from medical intervention and an antidepressant has been appropriately prescribed for this patient. stop lexapro start on effexor tomorrow morning claritin or sarah daily - . Hypertension - well controlled - williams nue with current medications, continue with no added salt diet. Pt has been encouraged to exercise daily. The pt has been advised to call the office if there are any acute concerns about change in blood pressure readings at home. Hypothyroidism - pt with chronic hypothyroidism, continue with current medication, will monitor pt to signs or symptoms of lack of adequate supplementation. Pt is to continue with current dose of medication unless directed otherwise. Check labs at regular intervals wither q 3 months or q 6 months based on previous levels of control. Allergies - recommended - pt to start on claritin or sarah daily. Vaginal discharge - rx for flagyl . Anxiety - the clifton ent has uncontrolled anxiety and will benefit from a higher dose of SNRI/SSRI on a daily basis to attempt control of the symptoms of anxiety (tachycardia, overwhelming sensations, stress, insomnia, etc). I also believe that the patient will benefit from very low dose of prn benzodiazepine. Pt is aware of the risks and benefits of treatment with the above medications. Stop the cymbalta - start on pristiq 25mg daily. . Hypertension - wel l controlled - continue with current medications, continue with no added salt diet. Pt has been encouraged to exercise daily. The pt has been advised to call the office if there are any acute concerns about change in blood pressure readings at home. Chronic Depression and anxiety - the pt has symptoms of chronic anxiety and depression that have been fairly well controlled since the last office visit. The pt has expected periods of exacerbation with abatement of the symptoms with change in situational exposure. No change in current medications. . Thrush -dry mouth -discussed natural and expected course of this diagnosis and to alert me if symptoms do not resolve or if any worse- discussed medications as possible cause of dry mouth -patient verbalized understanding of plan.
--- OUTSIDE RECORDS SUMMARY | 2019-06-17 09:17 | XMS REPORT | CCD ---
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 Unknown Has never used illegal drugs 017 Allergies, Adverse Reactions, Alerts Substance Reaction Codes Entered Date Inactivated Date Status * OTHER REACTION - S EE ANSWER BOX Vitamins CSynthroid Unknown 10/08/2016 No Inactive Date Active * NO KNOWN FOOD MENDEZ RGIES Unknown 10/08/2016 No Inactive Date Active [id number] REDU CTASE INHIBITORS Unknown 07/07/2018 No Inactive Date Active Past Medical History Illness Codes Condition Status Onset Date Resolved Date Generalized anxiety disorder ICD-9: 300.00 ICD-10: F41.1 Active 10/16/2018 Unknown Major depressive dis order, recurrent, moderate ICD-9: 296.32 ICD-10: F33.1 Active 10/08/2016 Unknown Essential (primary) hypertension ICD-9: 401.1 ICD-10: I10 Active 10/08/2016 Unknown Candidal stomatitis ICD- 9: 112.0 ICD-10: [...] Condition Codes Effectiv e Dates Condition Status Generalized anxiety disorder ICD-9: 300.00 ICD-10: F41.1 10/16/2018 Active Major depressive dis order, recurrent, moderate ICD-9: 296.32 ICD-10: F33.1 10/08/2016 Active Essential (primary) hypertension ICD-9: 401.1 ICD-10: I10 10/08/2016 Active Candidal stomatitis ICD- 9: 112.0 ICD-10: [...] Fill Instructions trazodone 50 mg tablet RxNorm: 326795 1 Tablet(s) PO QHS 02/19/2019 02/13/2020 Active potassium chloride E R 20 mEq tablet,extended release RxNorm: 004885 Tablet(s) TAKE ONE TABLET BY MOUTH ONCE DAILY IN THE MORNING 01/07/2019 01/01/2020 Active Pristiq 25 mg tablet ,extended release RxNorm: 1612158 1 Tablet(s) PO daily 01/06/2019 02/18/2019 In active Cymbalta 30 mg capsu le,delayed release RxNorm: 927351 1 Capsule(s) PO daily 12/22/2018 12/22/2018 In active nystatin 100,000 uni t/mL oral suspension RxNorm: 579574 5 Milliliter(s) PO QI D 12/15/2018 12/21/2018 In active hydrochlorothiazide 25 mg tablet RxNorm: 433950 Tablet(s) TAKE ONE TA BLET BY MOUTH ONCE DAILY IN THE MORNING 11/14/2018 11/08/2019 Active Effexor XR 150 mg ca psule,extended release RxNorm: 336393 1 Capsule(s) PO daily 10/16/2018 12/21/2018 In active Xanax 1 mg tablet RxNorm: 984144 Tablet(s) TAKE ONE TABLET BY MOUTH ONCE DAILY AT BEDTIME 09/30/2018 12/28/2018 Inactive Vitamin D3 2,000 uni t capsule RxNorm: 630977 125mcg Capsule(s) PO daily 09/25/2018 12/23/2018 In active Effexor XR 75 mg cap rashid,extended release RxNorm: 511717 1 Capsule(s) PO daily 09/25/2018 09/24/2018 In active Effexor XR 75 mg cap rashid,extended release RxNorm: 421117 1 Capsule(s) PO daily 09/25/2018 10/15/2018 In active trazodone 50 mg tablet RxNorm: 488367 1/2 Tablet(s) PO QHS 09/25/2018 09/24/2018 Inactive trazodone 50 mg tablet RxNorm: 802534 1/2 Tablet(s) PO QHS 09/25/2018 02/18/2019 Inactive acyclovir 400 mg tablet RxNorm: 679564 1 Tablet(s) PO TID 07/07/2018 07/13/2018 Inactive Xanax 1 mg tablet RxNorm: 376476 Tablet(s) TAKE ONE TABLET BY MOUTH ONCE DAILY AT BEDTIME 06/27/2018 09/29/2018 Inactive Livalo 2 mg tablet RxNorm: 100090 1 Tablet(s) PO QHS 06/25/2018 06/24/2018 Inactive Livalo 2 mg tablet RxNorm: 483655 1 Tablet(s) PO QHS 06/25/2018 09/24/2018 Inactive Lexapro 20 mg tablet RxNorm: 438662 TAKE 1/2 (ONE-HALF) TABLET BY MOUTH ONCE DAILY FOR ONE WEEK, THEN INCREASE TO 1 ONCE DAILY IN THE EVENING. 05/05/2018 09/24/2018 Inactive Xanax 1 mg tablet RxNorm: 777254 Tablet(s) TAKE ONE TABLET BY MOUTH ONCE DAILY AT BEDTIME 04/01/2018 06/26/2018 Inactive Lexapro 20 mg tablet RxNorm: 748552 1 Tablet(s) PO QPM 12/31/2017 05/05/2018 Inactive 1/2 tab daily x 1 week then increase to a full tab mupirocin 2 % topica l ointment RxNorm: 558751 1 Application TOP BID 12/31/2017 01/09/2018 Inactive potassium chloride E R 20 mEq tablet,extended release RxNorm: 969148 TAKE ONE TABLET BY MOUTH ONCE DAILY IN THE MORNING 12/11/2017 01/06/2019 Inactive hydrochlorothiazide 25 mg tablet RxNorm: 786672 TAKE ONE TABLET BY MO UTH ONCE DAILY IN THE MORNING 12/11/2017 11/13/2018 Inactive Effexor XR 75 mg cap rashid,extended release RxNorm: 329998 1 Capsule(s) PO daily 12/09/2017 12/30/2017 In active permethrin 5 % topic al cream RxNorm: 025318 1 Application TOP onc e, may repeat in 14 days. 11/27/2017 01/06/2018 Inactive Xanax 1 mg tablet RxNorm: 192671 1 Tablet(s) PO QHS 09/30/2017 06/24/2018 Inactive citalopram 40 mg tablet RxNorm: 729387 TAKE ONE TABLET BY MOUTH ONCE DAILY IN T HE EVENING 08/05/2017 12/08/2017 Inactive Flagyl 500 mg tablet RxNorm: 667933 1 Tablet(s) PO TID 08/01/2017 08/05/2017 Inactive Xanax 1 mg tablet RxNorm: 857628 1 Tablet(s) PO QHS 07/05/2017 09/29/2017 Inactive Xanax 1 mg tablet RxNorm: 065611 TAKE ONE TABLET BY MOUTH ONCE DAILY AT B EDTIME 07/05/2017 03/31/2018 Inactive Zithromax Z-Cornell 250 mg tablet RxNorm: 428130 1 Tablet(s) PO UD 06/25/2017 07/04/2017 Inactive Trilipix 135 mg caps ule,delayed release RxNorm: 326982 1 Capsule(s) PO daily 05/22/2017 06/24/2018 In active triamcinolone aceton kaity 0.025 % topical cream RxNorm: 4957096 1 Application TOP BI D 05/15/2017 No Stop Date Active ketoconazole 2 % top ical cream RxNorm: 753330 1 TOP daily 05/15/2017 05/21/2017 Inactive Trilipix 135 mg caps ule,delayed release RxNorm: 891653 1 Capsule(s) PO daily 02/12/2017 05/21/2017 In active Trilipix 135 mg caps ule,delayed release RxNorm: 812332 1 Capsule(s) PO daily 02/12/2017 02/11/2017 In active acyclovir 800 mg tablet RxNorm: 597282 1 Tablet(s) PO QID 01/28/2017 02/06/2017 Inactive Fish Oil 1,000 mg ca psule RxNorm: 1 Capsule(s) PO BID 10/17/2016 10/16/2016 Inactive Vitamin D2 50,000 un it capsule RxNorm: 398929 1 Capsule(s) PO QW 10/17/2016 10/16/2016 Inactive Vitamin D3 2,000 uni t capsule RxNorm: 786357 1 Capsule(s) PO daily 10/17/2016 10/16/2016 Inactive Vitamin D2 50,000 un it capsule RxNorm: 912907 1 Capsule(s) PO QW 10/17/2016 01/14/2017 Inactive Vitamin D3 2,000 uni t capsule RxNorm: 071752 1 Capsule(s) PO daily 10/17/2016 01/14/2017 Inactive Fish Oil 1,000 mg ca psule RxNorm: 1 Capsule(s) PO BID 10/17/2016 09/24/2018 Inactive citalopram 40 mg tablet RxNorm: 627043 1 Tablet(s) PO QPM 10/08/2016 07/04/2017 Inactive potassium chloride E R 20 mEq tablet,extended release RxNorm: 305742 1 Tablet(s) PO QAM 10/08/2016 10/02/2017 Inactive hydrochlorothiazide 25 mg tablet RxNorm: 661301 1 Tablet(s) PO QAM 10/08/2016 10/02/2017 Inactive Co Q-10 100 mg capsule RxNorm: 862795 1 Capsule(s) PO daily No Start Date Active Colace 100 mg capsule RxNorm: 9814364 1 Capsule(s) PO BID No Start Date Active melatonin 10 mg tablet RxNorm: 0843567 1 Tablet(s) PO QHS No Start Date Active Cymbalta 60 mg capsu le,delayed release RxNorm: 206093 1 Capsule(s) PO daily No Start Date Active hydrochlorothiazide 25 mg tablet RxNorm: 233802 1 Tablet(s) PO QAM No Start Date 10/07/2016 Inactive folic acid 400 mcg t ablet RxNorm: 163166 1 Tablet(s) PO daily No Start Date 01/05/2019 Inactive fenofibrate microniz ed 130 mg capsule RxNorm: 542150 1 Capsule(s) PO daily No Start Date 01/05/2019 Inactive Xanax 1 mg tablet RxNorm: 002016 1 Tablet(s) PO QHS et PRN as needed No Start Date 07/05/2017 Inactive biotin 1 mg tablet RxNorm: 988987 1 Tablet(s) PO daily No Start Date 01/05/2019 Inactive citalopram 40 mg tablet RxNorm: 580076 1 Tablet(s) PO QPM No Start Date 10/07/2016 Inactive potassium chloride E R 20 mEq tablet,extended release RxNorm: 080235 1 Tablet(s) PO QAM No Start Date 10/07/2016 Inactive permethrin 5 % topic al cream RxNorm: 989680 1 Application TOP onc e, may repeat in 14 days. No Start Date 11/26/2017 Inactive ferrous sulfate 325 mg (65 mg iron) tablet RxNorm: 371396 1 Tablet(s) PO daily No Start Date 01/05/2019 Inactive Unisom Sleepgels 50 mg capsule RxNorm: 1678602 1 Capsule(s) PO QHS No Start Date 09/24/2018 Inactive Medication Administered No Medication Administered data Immunizations No Immunization data Assessments Condition Codes Effectiv e Dates Major depressive disorder, recurrent, moderate ICD-10: F33.1 ICD-9: 296.32 01/06/2019 Generalized anxiety disorder ICD-10: F41.1 ICD-9: 300.00 01/06/2019 Essential (primary) hypertension ICD -10: I10 ICD-9: 401.1 12/22/2018 Candidal stomatitis ICD-10: B37.0 ICD-9: 112.0 12/15/2018 [...] Visit Reason For Visit Effective Dates Notes depression 01/06/2019 depression 12/22/2018 oral pain 12/15/2018 [...] Ord30 C/HDL 5.9 Ratio 10/16/2018 Comp Metabolic Jdp795 NA 143 mEq/L 10/16/2018 Comp Metabolic Ijl992 K 4.3 mEq/L 10/16/2018 Comp Metabolic Ulw571 CL 101 mEq/L 10/16/2018 Comp Metabolic Pjf401 CO2 31.0 mEq/L 10/16/2018 Comp Metabolic Vmx500 AN ION GAP 15 10/16/2018 Comp Metabolic Ftd703 GL UCOSE 90 mg/dL 10/16/2018 Comp Metabolic Guu481 Cr eat 0.9 mg/dL 10/16/2018 Comp Metabolic Gai871 eG FR 70 ml/min/1.73m2 10/16 Comp Metabolic Yme925 BUN 14 mg/dL 10/16/2018 Comp Metabolic Hzm497 B/ C Ratio 16.5 Ratio 10/16/2018 Comp Metabolic Inw680 CA LCIUM 9.8 mg/dL 10/16/2018 Comp Metabolic Nno588 AL K PHOS 76 U/L 10/16/2018 Comp Metabolic Mkx602 T(SGOT) 17 U/L 10/16/2018 Comp Metabolic Lpj202 AL T(SGPT) 18 U/L 10/16/2018 Comp Metabolic Mlk794 BI LI T 0.5 mg/dL 10/16/2018 Comp Metabolic Vml679 AL BUMIN 4.2 g/dL 10/16/2018 Comp Metabolic Nue852 TP RO 6.7 g/dL 10/16/2018 Comp Metabolic Bnf116 GL OB 2.5 g/dL 10/16/2018 Comp Metabolic Fmp544 A/ G Ratio 1.7 Ratio 10/16/2018 Comp Metabolic Dnn096 Os mo 285 mOsmo 10/16/2018 Cbc With [...] 30.0 pg 06/18/2018 Cbc With Differential Ord2 Bartholomew% 6.0 % 06/18/2018 Cbc With Differential Ord2 [...] 2.01 K/ul 06/18/2018 Cbc With Differential Ord2 Bartholomew ABS# 0.3 K/ul 06/18/2018 Cbc With Differential Ord2 Eos ABS# 0.3 K/ul 06/18/2018 Cbc With Differential Ord2 Baso ABS# 0.0 K/ul 06/18/2018 Comp Metabolic Rjy564 NA 141 mEq/L 06/18/2018 Comp Metabolic Pph137 K 3.7 mEq/L 06/18/2018 Comp Metabolic Ivw080 CL 101 mEq/L 06/18/2018 Comp Metabolic Oby070 CO2 31.0 mEq/L 06/18/2018 Comp Metabolic Vhe880 AN ION GAP 13 06/18/2018 Comp Metabolic Rmt157 GL UCOSE 106 mg/dL 06/18/2018 Comp Metabolic Kyk196 Cr eat 0.9 mg/dL 06/18/2018 Comp Metabolic Cyp601 eG FR 68 ml/min/1.73m2 06/18 Comp Metabolic Cba475 BUN 16 mg/dL 06/18/2018 Comp Metabolic Cmd646 B/ C Ratio 18.2 Ratio 06/18/2018 Comp Metabolic Rif282 CA LCIUM 9.5 mg/dL 06/18/2018 Comp Metabolic Vvu708 AL K PHOS 82 U/L 06/18/2018 Comp Metabolic Vnj992 T(SGOT) 19 U/L 06/18/2018 Comp Metabolic Npe971 AL T(SGPT) 18 U/L 06/18/2018 Comp Metabolic Wyf317 BI LI T 0.5 mg/dL 06/18/2018 Comp Metabolic Zdc172 AL BUMIN 4.0 g/dL 06/18/2018 Comp Metabolic Amj075 TP RO 6.5 g/dL 06/18/2018 Comp Metabolic Bgl530 GL OB 2.5 g/dL 06/18/2018 Comp Metabolic Epl126 A/ G Ratio 1.6 Ratio 06/18/2018 Comp Metabolic Gja829 Os mo 283 mOsmo 06/18/2018 Tsh Ord6 TSH (3rd IS) 4.02 uIU/mL 06/18/2018 Lipid Ord30 CHOL 238 mg/dL 06/18/2018 Lipid Ord30 HDL 38.0 mg/dl 06/18/2018 Lipid Ord30 TRIG 369 mg/dL 06/18/2018 Lipid Ord30 LDL Unable to calculate Due to elevated trig lycerides mg/dL 06/18/2018 Lipid Ord30 C/HDL 6.3 Ratio 06/18/2018 Influenza A+B Cck624 Inf paul A+B Negative 06/18/2018 Free T4 Npb339 FREE T4 0.95 ng/dL 05/15/2017 Tsh Ord6 [...] 30.4 pg 05/15/2017 Cbc With Differential Ord2 Bartholomew% 6.2 % 05/15/2017 Cbc With Differential Ord2 [...] 2.19 K/ul 05/15/2017 Cbc With Differential Ord2 Bartholomew ABS# 0.4 K/ul 05/15/2017 Cbc With Differential Ord2 Eos ABS# 0.2 K/ul 05/15/2017 Cbc With Differential Ord2 Baso ABS# 0.0 K/ul 05/15/2017 Vitamin D 25 Oh Ist1595 VITAMIN D, 25 HYDROXY 50.18 ng/mL 05/15/2017 Comp Metabolic Gbg132 NA 141 mEq/L 05/15/2017 Comp Metabolic Jpu820 K 3.9 mEq/L 05/15/2017 Comp Metabolic Ndm621 CL 103 mEq/L 05/15/2017 Comp Metabolic Kwl690 CO2 29.0 mEq/L 05/15/2017 Comp Metabolic Jxn665 AN ION GAP 13 05/15/2017 Comp Metabolic Jze127 GL UCOSE 84 mg/dL 05/15/2017 Comp Metabolic Rvc269 Cr eat 1.1 mg/dL 05/15/2017 Comp Metabolic Kck138 eG FR 55 ml/min/1.73m2 05/15 Comp Metabolic Rzi924 BUN 19 mg/dL 05/15/2017 Comp Metabolic Ybe018 B/ C Ratio 18.1 Ratio 05/15/2017 Comp Metabolic Krc798 CA LCIUM 9.7 mg/dL 05/15/2017 Comp Metabolic Kei585 AL K PHOS 38 U/L 05/15/2017 Comp Metabolic Jtv471 T(SGOT) 21 U/L 05/15/2017 Comp Metabolic Pym250 AL T(SGPT) 17 U/L 05/15/2017 Comp Metabolic Ira164 BI LI T 0.4 mg/dL 05/15/2017 Comp Metabolic Unr690 AL BUMIN 4.3 g/dL 05/15/2017 Comp Metabolic Eyg623 TP RO 6.5 g/dL 05/15/2017 Comp Metabolic Mud628 GL OB 2.3 g/dL 05/15/2017 Comp Metabolic Vvx585 A/ G Ratio 1.9 Ratio 05/15/2017 Comp Metabolic Ehm725 Os mo 283 mOsmo 05/15/2017 Lipid Ord30 CHOL 231 mg/dL 01/18/2017 Lipid Ord30 HDL 48.0 mg/dl 01/18/2017 Lipid Ord30 TRIG 213 mg/dL 01/18/2017 Lipid Ord30 LDL 140 mg/dL 01/18/2017 Lipid Ord30 C/HDL 4.8 Ratio 01/18/2017 Vitamin D 25 Oh Xpr6025 VITAMIN D, 25 HYDROXY 33.28 ng/mL 10/10/2016 B12 Lvb825 B12 377.00 pg/ml 10/10/2016 Comp Metabolic Smw152 NA 142 mEq/L 10/10/2016 Comp Metabolic Sgs470 K 4.0 mEq/L 10/10/2016 Comp Metabolic Var487 CL 103 mEq/L 10/10/2016 Comp Metabolic Avm161 CO2 29.0 mEq/L 10/10/2016 Comp Metabolic Crw861 AN ION GAP 14 10/10/2016 Comp Metabolic Wqg345 GL UCOSE 82 mg/dL 10/10/2016 Comp Metabolic Ozr729 Cr eat 0.8 mg/dL 10/10/2016 Comp Metabolic Oil398 eG FR 77 ml/min/1.73m2 10/10 Comp Metabolic Ytx088 BUN 19 mg/dL 10/10/2016 Comp Metabolic Drs359 B/ C Ratio 24.1 Ratio 10/10/2016 Comp Metabolic Lsj773 CA LCIUM 9.8 mg/dL 10/10/2016 Comp Metabolic Epn857 AL K PHOS 87 U/L 10/10/2016 Comp Metabolic Obl648 T(SGOT) 20 U/L 10/10/2016 Comp Metabolic Upc811 AL T(SGPT) 16 U/L 10/10/2016 Comp Metabolic Wen568 BI LI T 0.5 mg/dL 10/10/2016 Comp Metabolic Opa021 AL BUMIN 4.0 g/dL 10/10/2016 Comp Metabolic Qzb942 TP RO 6.7 g/dL 10/10/2016 Comp Metabolic Ywi480 GL OB 2.7 g/dL 10/10/2016 Comp Metabolic Cbw556 A/ G Ratio 1.5 Ratio 10/10/2016 Comp Metabolic Vrv628 Os mo 284 mOsmo 10/10/2016 Free T4 Owt044 FREE T4 0.68 ng/dL 10/10/2016 Cbc With [...] 30.6 pg 10/10/2016 Cbc With Differential Ord2 Bartholomew% 5.2 % 10/10/2016 Cbc With Differential Ord2 [...] 2.11 K/ul 10/10/2016 Cbc With Differential Ord2 Bartholomew ABS# 0.3 K/ul 10/10/2016 Cbc With Differential [...] of Systems System Result Effective Dates Constitutional No recent illness 01/06/2019 Constitutional No [...] No mental status change 12/22/2018 Psychiatric anxiety 01/2019 Psychiatric depression 0 12/22/2018 Psychiatric confusion [...] No mental status change 10/16/2018 Psychiatric anxiety 05/0 07/2018 Psychiatric depression 0 10/16/2018 Psychiatric confusion [...] gait 12/15/2018 None Full Exam - General 1995 Musculoskeletal gait and station Overall: normal station [...] developed 11/17/2018 None Full Exam - General 1994 Constitutional general appearance Overall: in no acute distress 11/17/2018 None Full Exam - General 1994 Constitutional general appearance Overall: well nourished 11/17/2018 None Full Exam - General 1994 Eyes conjunctiva/eyelids Overall: conjunctiva clear 11/17/2018 None Full Exam - General 1994 Eyes conjunctiva/eyelids Overall: cornea clear 11/17/2018 None Full Exam - General 1994 Eyes conjunctiva/eyelids Overall: eyelids normal 11/17/2018 None Full Exam - General 1994 Eyes [...] 4: G0439 10/02/2017 Vital Signs Date Vital 01/06/2019 Blood Pressure 1: 112/82 Code: 8480-6 BMI: 39.9 Code: 79035-9 Heart Rate 1: 77 bpm Height: 5'5" SpO2: 94% Weight: 240 lbs 12/22/2018 Blood Pressure 1: 128/74 Code: 8480-6 BMI: 39.9 Code: 42487-4 Heart Rate 1: 80 bpm Height: 5'5" SpO2: 94% Weight: 240 lbs 12/15/2018 Blood Pressure 1: 130/86 Code: 8480-6 Heart Rate 1: 74 bpm Height: SpO2: 94% Weight: 11/17/2018 Blood Pressure 1: 128/78 Code: 8480-6 BMI: 41.4 Code: 50112-2 Heart Rate 1: 65 bpm Height: 5'5" SpO2: 92% Weight: 248 lbs 10 o z 10/16/2018 Blood Pressure 1: 138/82 Code: 8480-6 BMI: 42.1 Code: 82215-1 Heart Rate 1: 80 bpm Height: 5'5" SpO2: 96% Weight: 253 lbs 09/25/2018 Blood Pressure 1: 138/88 Code: 8480-6 BMI: 41.8 Code: 11007-7 Heart Rate 1: 78 bpm Height: 5'5" SpO2: 91% Weight: 251 lbs 07/07/2018 Blood Pressure 1: 140/90 Code: 8480-6 BMI: 41.3 Code: 47357-8 Heart Rate 1: 82 bpm Height: 5'5" SpO2: 92% Temperature: 36.1 (C ) / 96.9 (F) Weight: 248 lbs 04/30/2018 Blood Pressure 1: 128/64 Code: 8480-6 BMI: 41.3 Code: 06830-3 Heart Rate 1: 68 bpm Height: 5'5" SpO2: 96% Weight: 248 lbs 01/06/2018 Blood Pressure 1: 136/78 Code: 8480-6 Heart Rate 1: 71 bpm Height: 5'5" SpO2: 95% Weight: 12/31/2017 Blood Pressure 1: 134/76 Code: 8480-6 BMI: 39.8 Code: 04164-7 Heart Rate 1: 87 bpm Height: 5'5" SpO2: 97% Weight: 239 lbs 12/09/2017 Blood Pressure 1: 136/82 Code: 8480-6 BMI: 39.8 Code: 90542-0 Heart Rate 1: 73 bpm Height: 5'5" SpO2: 97% Weight: 239 lbs 10/02/2017 Blood Pressure 1: 130/72 Code: 8480-6 BMI: 39.4 Code: 97011-9 Heart Rate 1: 74 bpm Height: 5'5" SpO2: 93% Waist Measure (cm): 104 cm Weight: 237 lbs 08/01/2017 Blood Pressure 1: 132/74 Code: 8480-6 BMI: 39.3 Code: 23410-4 Heart Rate 1: 66 bpm Height: 5'5" SpO2: 92% Weight: 236 lbs 06/25/2017 Blood Pressure 1: 136/74 Code: 8480-6 BMI: 38.6 Code: 57657-2 Heart Rate 1: 61 bpm Height: 5'5" SpO2: 95% Weight: 232 lbs 05/15/2017 Blood Pressure 1: 143/76 Code: 8480-6 BMI: 38.6 Code: 74320-1 Heart Rate 1: 65 bpm Height: 5'5" SpO2: 97% Weight: 232 lbs 01/28/2017 Blood Pressure 1: 120/80 Code: 8480-6 BMI: 38.1 Code: 66361-8 Heart Rate 1: 55 bpm Height: 5'5" SpO2: 96% Weight: 229 lbs 10/08/2016 Blood Pressure 1: 130/74 Code: 8480-6 BMI: 36.9 Code: 44601-8 Heart Rate 1: 62 bpm Height: 5'5" SpO2: 92% Weight: 221 lbs 8 oz Functional Status No Functional Status data History of Present Illness Symptom Name Status Resu lt Effective Date Notes Quality chronic 01/06/2019 None Onset and Resolution [...] when outdoors: y 10/02/2017 None hypothyroid 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 P ATIENT, LEVEL III Diagnosis: Generalized anxiety disorder[ICD10: F41.1] Diagnosis: Major depressive disorder, recurrent, moderate[ICD10: F33.1] Stacie Milton MD, [facility] CPT-4: 44093 01/06/2019 ([id number]) 83288 EST. P ATIENT, LEVEL III Diagnosis: Essential (primary) hypertension[ICD10: I10] Diagnosis: Major depressive disorder, recurrent, moderate[ICD10: F33.1] Stacie Milton MD, [facility] CPT-4: 52036 12/22/2018 ([id number]) 68299 EST. P ATIENT, LEVEL III Diagnosis: Candidal stomatitis[ICD10: B37.0] Diagnosis: Dry mouth, unspecified[ICD10: R68.2] Renetta Milton MD, [facility] CPT-4: 76123 12/15/2018 ([id number]) 28838 EST. P ATIENT, LEVEL III Diagnosis: Essential (primary) hypertension[ICD10: I10] Diagnosis: Generalized anxiety disorder[ICD10: F41.1] Stacie Milton MD, [facility] CPT-4: 59840 11/17/2018 ([id number]) 35991 EST. P ATIENT, LEVEL IV Diagnosis: Generalized anxiety disorder[ICD10: F41.1] Diagnosis: Major depressive disorder, recurrent, moderate[ICD10: F33.1] Diagnosis: Primary insomnia[ICD10: F51.01] Stacie Milton MD, [facility] CPT-4: 35296 10/16/2018 ([id number]) 08505 EST. P ATIENT, LEVEL IV Diagnosis: Atrophy of thyroid (acquired)[ICD10: E03.4] Diagnosis: Essential (primary) hypertension[ICD10: I10] Diagnosis: Major depressive disorder, recurrent, moderate[ICD10: F33.1] Diagnosis: Adverse effect of antiallergic and antiemetic drugs, initial encounter[ICD10: T45.0X5A] Stacie Milton MD, [facility] CPT-4: 15259 09/25/2018 15601 EST. 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 PATIENT, LEVEL IV Diagnosis: Essential (primary) hypertension[ICD10: I10] Diagnosis: Major depressive disorder, recurrent, moderate[ICD10: F33.1] Diagnosis: Other allergic rhinitis[ICD10: J30.89] Analisa Milton MD, [facility] CPT-4: 71543 04/30/2018 ([id number]) 21048 EST. P ATIENT, LEVEL III Diagnosis: Insect bite (nonvenomous), left lower leg, subsequent encounter[ICD10: S80.862D] Diagnosis: Insect bite (nonvenomous), right lower leg, subsequent encounter[ICD10: S80.861D] Stacie Milton MD, [facility] CPT-4: 93751 01/06/2018 ([id number]) 86099 EST. P ATIENT, LEVEL III Diagnosis: Rash and other nonspecific skin eruption[ICD10: R21] Diagnosis: Major depressive disorder, recurrent, moderate[ICD10: F33.1] Renetta Milton MD, [facility] CPT-4: 63402 12/31/2017 ([id number]) 25859 EST. P ATIENT, LEVEL III Diagnosis: Essential (primary) hypertension[ICD10: I10] Diagnosis: Major depressive disorder, recurrent, moderate[ICD10: F33.1] Stacie Milton MD, [facility] CPT-4: 61546 12/09/2017 ([id number]) 11469 EST. P ATIENT, LEVEL IV Diagnosis: Atrophy of thyroid (acquired)[ICD10: E03.4] Diagnosis: Essential (primary) hypertension[ICD10: I10] Diagnosis: Other allergic rhinitis[ICD10: J30.89] Stacie Milton MD, [facility] CPT-4: 75770 08/01/2017 67698 EST. PATIENT, LEVEL III Diagnosis: Other allergic rhinitis[ICD10: J30.89] Diagnosis: Otalgia, bilateral[ICD10: H92.03] Analisa Milton MD, [facility] CPT-4: 27217 06/25/2017 35600 EST. PATIENT, LEVEL III Diagnosis: Rash and other nonspecific skin eruption[ICD10: R21] Analisa Milton MD, [facility] CPT-4: 67561 05/15/2017 ([id number]) 67218 EST. P ATIENT, LEVEL III Diagnosis: Zoster without complications[ICD10: B02.9] Stacie Milton MD, [facility] CPT-4: 80544 01/28/2017 ([id number]) OFFICE VISI T, NEW - LEVEL 4 Diagnosis: Essential (primary) hypertension[ICD10: I10] Diagnosis: Bariatric surgery status[ICD10: Z98.84] Diagnosis: Atrophy of thyroid (acquired)[ICD10: E03.4] Diagnosis: Major depressive disorder, recurrent, moderate[ICD10: F33.1] [facility] CPT-4: 64765 10/08/2016 Plan of Care Planned Activity Notes C odes Status Date Appointment: Stacie Milton WPtel: [address] [place] [address] (15 min) Moderate 01/19/2019 Appointment: Stacie Milton WPtel: [address] [place] [address] (15 min) Moderate 01/15/2019 Visit Plan: Anxiety [...] start on pristiq 25mg daily. 01/06/2019 Appointment: Staice Milton WPtel: [address] [place], [place] [id number] (15 min) Moderate 01/06/2019 Patient Education: Patient Medication Summary Completed 01/06/2019 Patient Education: Depression Completed 01/06/2019 Appointment: Stacie Milton WPtel: [address] [place] [address] (15 min) Moderate 01/05/2019 Visit Plan: Hypertension [...] Wellbutrin. 12/22/2018 Appointment: Stacie Milton WPtel: [phone] [facility] (15 min) Moderate 12/22/2018 Patient Education: Patient Medication Summary Completed 12/22/2018 Patient Education: Depression Completed 12/22/2018 Visit Plan: Thrush -dry mouth -disc ussed natural and expected course of this diagnosis and to alert me if symptoms do not resolve or if any worse- discussed medications as possible cause of dry mouth -patient verbalized understanding of plan. 12/15/2018 Appointment: Renetta Leigh WPtel: [phone] [phone] (30 min) Complex 12/15/2018 Patient Education: Patient Medication Summary Completed 12/15/2018 Visit Plan: Hypertension - well parul jced - continue with current medications, continue with [...] No change in current medications. 11/17/2018 Appointment: Stacie Milton WPtel: [phone] [facility] [place] (15 min) Moderate 11/17/2018 Patient Education: Patient [...] sleep easier. 10/16/2018 Appointment: Stacie Milton WPtel: [facility] [facility] (15 min) Moderate 10/16/2018 Patient Education: Patient Medication Summary Completed 10/16/2018 Patient Education: Depression Completed 10/16/2018 Appointment: Stacie Milton [facility]Ptel: [phone] [place] (15 min) Moderate 10/07/2018 Visit Plan: Hypothyroidism [...] tomorrow morning 09/25/2018 Appointment: [facility] Milton [facility]el[id number] [place] (15 min) Moderate 09/25/2018 Patient Education: Patient Medication Summary Completed 09/25/2018 Patient Education: Depression Completed 09/25/2018 Appointment: Reese Renetta WPtel: [phone] (30 min) Complex 07/15/2018 Visit Plan: Oral aphthae -rx for ac yclovir provided and instructed on use -follow up in 1 week for re-eval -sooner if needed -call with any concerns or worsening symptoms. 07/07/2018 Appointment: Renetta Leigh WPtel: [id number] (30 min) Complex 07/07/2018 Patient Education: Patient [...] nasal steroid allergy spray. 04/30/2018 Appointment: Analisa iJn WPtel: [facility]7 [facility] (15 min) Moderate 04/30/2018 Patient Education: Patient [...] going outside. 01/06/2018 Appointment: Stacie Milton WPtel: [facility]7 [facility] (15 min) Moderate 01/06/2018 Patient Education: [...] -start lexapro 12/31/2017 Appointment: Renetta Leigh WPtel: [facility]7 [id number] [place] [address] (15 min) Moderate 12/31/2017 Patient Education: Patient [...] on venlafaxine. 12/09/2017 Appointment: Stacie Milton WPtel: [facility] (15 min) Moderate 12/09/2017 Patient Education: Patient Medication Summary Completed 12/09/2017 Visit Plan: Medicare Exam - today w ant discussed the patients past history, immunizations, preventative [...] for flagyl 08/01/2017 Appointment: Stacie Milton WPtel: [address] [place], [place] [id number] (15 min) Moderate 08/01/2017 Patient Education: Patient [...] acutely worsen. 06/25/2017 Appointment: Analisa Jin WPtel: [facility]5 [facility] (15 min) Moderate 06/25/2017 Patient Education: Patient [...] warmth, discharge. 05/15/2017 Appointment: Analisa Jin WPtel: [facility]5 [facility] (15 min) Moderate 05/15/2017 Patient Education: Patient [...] considered contagious. 01/28/2017 Appointment: Stacie Milton WPtel: [facility] (15 min) Moderate 01/28/2017 Patient Education: Patient [...] care. 10/08/2016 Visit Plan: Hypertension - well parul trujillo - continue with current medications, continue with [...] supportive care. 10/08/2016 Appointment: Stacie Milton WPtel: [address] [place], [place] [id number] New Patient 10/08/2016 Patient Education: Patient Medication Summary Completed 10/08/2016 Instructions Comment increase effexor to 150mg daily - double [...] concerns or worsening symptoms. . Rash - Pt is to NO [...] exposure. No change in current medications. . Anxiety - the [place]if[place] ent has [...] cymbalta - start on pristiq 25mg daily. claritin or sarah daily - . Hypertension [...] daily. Vaginal discharge - rx for flagyl stop lexapro start on effexor tomorrow morning [...] stop lexapro start on effexor tomorrow morning Fasting lab work, in cluding Vitamin D and TSH. Consider [place] thyroid for hypothyroidism Saline spray before using [...] in cluding Vitamin D and TSH. Consider [place] thyroid for hypothyroidism Saline spray before using [...] armour thyroid - continue with supportive care. No shaving lexapro mupirocin ointment no shaving [...] this patient. Stay off effexor -start lexapro . Hypertension - wel l controlled - [...] Cymbalta 30mg daily - stop the Wellbutrin. . Allergies - chroni c - recommended [...] improve or if they acutely worsen. . Shingles - Herpes Zoster - acute [...] pt is to be considered contagious. . 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 . Rash - not due to her [...] spray in the nasal steroid allergy spray. . Hypertension - wel l controlled - [...] Stop citalopram and start on venlafaxine. . Thrush -dry mouth -discussed natural and expected course of this diagnosis and to alert me if symptoms do not resolve or if any worse- discussed medications as possible cause of dry mouth -patient verbalized understanding of plan.
--- OUTSIDE RECORDS SUMMARY | 2019-06-17 09:18 | XMS REPORT | CCD ---
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 Unknown Has never used illegal drugs 017 Allergies, Adverse Reactions, Alerts Substance Reaction Codes Entered Date Inactivated Date Status * OTHER REACTION - S EE ANSWER BOX Vitamins CSynthroid Unknown 10/08/2016 No Inactive Date Active * NO KNOWN FOOD MENDEZ RGIES Unknown 10/08/2016 No Inactive Date Active LAEYHOX-STD-PXH REDU CTASE INHIBITORS Unknown 07/07/2018 No Inactive [...] Date Stop Date Sta tus Fill Instructions potassium chloride E R 20 mEq tablet,extended release RxNorm: 942592 Tablet(s) TAKE ONE TABLET BY MOUTH ONCE DAILY IN THE MORNING 01/07/2019 01/01/2020 Active Pristiq 25 mg tablet ,extended release RxNorm: 7639792 1 Tablet(s) PO daily 01/06/2019 03/06/2019 Ac tive Cymbalta 30 mg capsu le,delayed release RxNorm: 064815 1 Capsule(s) PO daily 12/22/2018 12/22/2018 In active nystatin 100,000 uni t/mL oral suspension RxNorm: 111296 5 Milliliter(s) PO QI D 12/15/2018 12/21/2018 In active hydrochlorothiazide 25 mg tablet RxNorm: 844608 Tablet(s) TAKE ONE TA BLET BY MOUTH ONCE DAILY IN THE MORNING 11/14/2018 11/08/2019 Active Effexor XR 150 mg ca psule,extended release RxNorm: 241539 1 Capsule(s) PO daily 10/16/2018 12/21/2018 In active Xanax 1 mg tablet RxNorm: 972762 Tablet(s) TAKE ONE TABLET BY MOUTH ONCE DAILY AT BEDTIME 09/30/2018 12/28/2018 Inactive Vitamin D3 2,000 uni t capsule RxNorm: 315191 125mcg Capsule(s) PO daily 09/25/2018 12/23/2018 In active trazodone 50 mg tablet RxNorm: 995105 1/2 Tablet(s) PO QHS 09/25/2018 05/22/2019 Active Effexor XR 75 mg cap rashid,extended release RxNorm: 778978 1 Capsule(s) PO daily 09/25/2018 09/24/2018 In active Effexor XR 75 mg cap rashid,extended release RxNorm: 350511 1 Capsule(s) PO daily 09/25/2018 10/15/2018 In active trazodone 50 mg tablet RxNorm: 096712 1/2 Tablet(s) PO QHS 09/25/2018 09/24/2018 Inactive acyclovir 400 mg tablet RxNorm: 992116 1 Tablet(s) PO TID 07/07/2018 07/13/2018 Inactive Xanax 1 mg tablet RxNorm: 902747 Tablet(s) TAKE ONE TABLET BY MOUTH ONCE DAILY AT BEDTIME 06/27/2018 09/29/2018 Inactive Livalo 2 mg tablet RxNorm: 185856 1 Tablet(s) PO QHS 06/25/2018 06/24/2018 Inactive Livalo 2 mg tablet RxNorm: 365229 1 Tablet(s) PO QHS 06/25/2018 09/24/2018 Inactive Lexapro 20 mg tablet RxNorm: 649853 TAKE 1/2 (ONE-HALF) TABLET BY MOUTH ONCE DAILY FOR ONE WEEK, THEN INCREASE TO 1 ONCE DAILY IN THE EVENING. 05/05/2018 09/24/2018 Inactive Xanax 1 mg tablet RxNorm: 504997 Tablet(s) TAKE ONE TABLET BY MOUTH ONCE DAILY AT BEDTIME 04/01/2018 06/26/2018 Inactive Lexapro 20 mg tablet RxNorm: 660743 1 Tablet(s) PO QPM 12/31/2017 05/05/2018 Inactive 1/2 tab daily x 1 week then increase to a full tab mupirocin 2 % topica l ointment RxNorm: 015510 1 Application TOP BID 12/31/2017 01/09/2018 Inactive potassium chloride E R 20 mEq tablet,extended release RxNorm: 552660 TAKE ONE TABLET BY MOUTH ONCE DAILY IN THE MORNING 12/11/2017 01/06/2019 Inactive hydrochlorothiazide 25 mg tablet RxNorm: 667968 TAKE ONE TABLET BY MO WAH ONCE DAILY IN THE MORNING 12/11/2017 11/13/2018 Inactive Effexor XR 75 mg cap rashid,extended release RxNorm: 869203 1 Capsule(s) PO daily 12/09/2017 12/30/2017 In active permethrin 5 % topic al cream RxNorm: 076624 1 Application TOP onc e, may repeat in 14 days. 11/27/2017 01/06/2018 Inactive Xanax 1 mg tablet RxNorm: 858597 1 Tablet(s) PO QHS 09/30/2017 06/24/2018 Inactive citalopram 40 mg tablet RxNorm: 131551 TAKE ONE TABLET BY MOUTH ONCE DAILY IN T HE EVENING 08/05/2017 12/08/2017 Inactive Flagyl 500 mg tablet RxNorm: 476158 1 Tablet(s) PO TID 08/01/2017 08/05/2017 Inactive Xanax 1 mg tablet RxNorm: 251326 1 Tablet(s) PO QHS 07/05/2017 09/29/2017 Inactive Xanax 1 mg tablet RxNorm: 445682 TAKE ONE TABLET BY MOUTH ONCE DAILY AT B EDTIME 07/05/2017 03/31/2018 Inactive Zithromax Z-Cornell 250 mg tablet RxNorm: 844176 1 Tablet(s) PO UD 06/25/2017 07/04/2017 Inactive Trilipix 135 mg caps ule,delayed release RxNorm: 897513 1 Capsule(s) PO daily 05/22/2017 06/24/2018 In active triamcinolone aceton kaity 0.025 % topical cream RxNorm: 6310457 1 Application TOP BI D 05/15/2017 No Stop Date Active ketoconazole 2 % top ical cream RxNorm: 673936 1 TOP daily 05/15/2017 05/21/2017 Inactive Trilipix 135 mg caps ule,delayed release RxNorm: 062469 1 Capsule(s) PO daily 02/12/2017 05/21/2017 In active Trilipix 135 mg caps ule,delayed release RxNorm: 415034 1 Capsule(s) PO daily 02/12/2017 02/11/2017 In active acyclovir 800 mg tablet RxNorm: 593778 1 Tablet(s) PO QID 01/28/2017 02/06/2017 Inactive Fish Oil 1,000 mg ca psule RxNorm: 1 Capsule(s) PO BID 10/17/2016 10/16/2016 Inactive Vitamin D2 50,000 un it capsule RxNorm: 747093 1 Capsule(s) PO QW 10/17/2016 10/16/2016 Inactive Vitamin D3 2,000 uni t capsule RxNorm: 086944 1 Capsule(s) PO daily 10/17/2016 10/16/2016 Inactive Vitamin D2 50,000 un it capsule RxNorm: 014672 1 Capsule(s) PO QW 10/17/2016 01/14/2017 Inactive Vitamin D3 2,000 uni t capsule RxNorm: 115402 1 Capsule(s) PO daily 10/17/2016 01/14/2017 Inactive Fish Oil 1,000 mg ca psule RxNorm: 1 Capsule(s) PO BID 10/17/2016 09/24/2018 Inactive citalopram 40 mg tablet RxNorm: 710398 1 Tablet(s) PO QPM 10/08/2016 07/04/2017 Inactive potassium chloride E R 20 mEq tablet,extended release RxNorm: 147851 1 Tablet(s) PO QAM 10/08/2016 10/02/2017 Inactive hydrochlorothiazide 25 mg tablet RxNorm: 924988 1 Tablet(s) PO QAM 10/08/2016 10/02/2017 Inactive Co Q-10 100 mg capsule RxNorm: 574908 1 Capsule(s) PO daily No Start Date Active Colace 100 mg capsule RxNorm: 6439049 1 Capsule(s) PO BID No Start Date Active melatonin 10 mg tablet RxNorm: 4056524 1 Tablet(s) PO QHS No Start Date Active hydrochlorothiazide 25 mg tablet RxNorm: 100865 1 Tablet(s) PO QAM No Start Date 10/07/2016 Inactive folic acid 400 mcg t ablet RxNorm: 614564 1 Tablet(s) PO daily No Start Date 01/05/2019 Inactive fenofibrate microniz ed 130 mg capsule RxNorm: 395024 1 Capsule(s) PO daily No Start Date 01/05/2019 Inactive Xanax 1 mg tablet RxNorm: 261952 1 Tablet(s) PO QHS et PRN as needed No Start Date 07/05/2017 Inactive biotin 1 mg tablet RxNorm: 781983 1 Tablet(s) PO daily No Start Date 01/05/2019 Inactive citalopram 40 mg tablet RxNorm: 819450 1 Tablet(s) PO QPM No Start Date 10/07/2016 Inactive potassium chloride E R 20 mEq tablet,extended release RxNorm: 940663 1 Tablet(s) PO QAM No Start Date 10/07/2016 Inactive permethrin 5 % topic al cream RxNorm: 004147 1 Application TOP onc e, may repeat in 14 days. No Start Date 11/26/2017 Inactive ferrous sulfate 325 mg (65 mg iron) tablet RxNorm: 776011 1 Tablet(s) PO daily No Start Date 01/05/2019 Inactive Unisom Sleepgels 50 mg capsule RxNorm: 0183748 1 Capsule(s) PO QHS No Start Date [...] Ord30 C/HDL 5.9 Ratio 10/16/2018 Comp Metabolic Fwb270 NA 143 mEq/L 10/16/2018 Comp Metabolic Ucl116 K 4.3 mEq/L 10/16/2018 Comp Metabolic Uwz779 CL 101 mEq/L 10/16/2018 Comp Metabolic Rii964 CO2 31.0 mEq/L 10/16/2018 Comp Metabolic Trv656 AN ION GAP 15 10/16/2018 Comp Metabolic Dvb349 GL UCOSE 90 mg/dL 10/16/2018 Comp Metabolic Byq347 Cr eat 0.9 mg/dL 10/16/2018 Comp Metabolic Cmb605 eG FR 70 ml/min/1.73m2 10/16 Comp Metabolic Ica778 BUN 14 mg/dL 10/16/2018 Comp Metabolic Nuv582 B/ C Ratio 16.5 Ratio 10/16/2018 Comp Metabolic Wlw508 CA LCIUM 9.8 mg/dL 10/16/2018 Comp Metabolic Vke122 AL K PHOS 76 U/L 10/16/2018 Comp Metabolic Rvh941 T(SGOT) 17 U/L 10/16/2018 Comp Metabolic Xin979 AL T(SGPT) 18 U/L 10/16/2018 Comp Metabolic Rpe541 BI LI T 0.5 mg/dL 10/16/2018 Comp Metabolic Qua157 AL BUMIN 4.2 g/dL 10/16/2018 Comp Metabolic Qwi301 TP RO 6.7 g/dL 10/16/2018 Comp Metabolic Les051 GL OB 2.5 g/dL 10/16/2018 Comp Metabolic Aiy488 A/ G Ratio 1.7 Ratio 10/16/2018 Comp Metabolic Xwz538 Os mo 285 mOsmo 10/16/2018 Cbc With [...] 30.0 pg 06/18/2018 Cbc With Differential Ord2 Kerr% 6.0 % 06/18/2018 Cbc With Differential Ord2 [...] 2.01 K/ul 06/18/2018 Cbc With Differential Ord2 Kerr ABS# 0.3 K/ul 06/18/2018 Cbc With Differential Ord2 Eos ABS# 0.3 K/ul 06/18/2018 Cbc With Differential Ord2 Baso ABS# 0.0 K/ul 06/18/2018 Comp Metabolic Vwe709 NA 141 mEq/L 06/18/2018 Comp Metabolic Aza090 K 3.7 mEq/L 06/18/2018 Comp Metabolic Ylc848 CL 101 mEq/L 06/18/2018 Comp Metabolic Xrp273 CO2 31.0 mEq/L 06/18/2018 Comp Metabolic Pvn961 AN ION GAP 13 06/18/2018 Comp Metabolic Keh033 GL UCOSE 106 mg/dL 06/18/2018 Comp Metabolic Bmb192 Cr eat 0.9 mg/dL 06/18/2018 Comp Metabolic Pgu513 eG FR 68 ml/min/1.73m2 06/18 Comp Metabolic Wrm777 BUN 16 mg/dL 06/18/2018 Comp Metabolic Cto521 B/ C Ratio 18.2 Ratio 06/18/2018 Comp Metabolic Uep323 CA LCIUM 9.5 mg/dL 06/18/2018 Comp Metabolic Ozs559 AL K PHOS 82 U/L 06/18/2018 Comp Metabolic Vqs057 T(SGOT) 19 U/L 06/18/2018 Comp Metabolic Pkk417 AL T(SGPT) 18 U/L 06/18/2018 Comp Metabolic Vbc093 BI LI T 0.5 mg/dL 06/18/2018 Comp Metabolic Sek603 AL BUMIN 4.0 g/dL 06/18/2018 Comp Metabolic Lgc272 TP RO 6.5 g/dL 06/18/2018 Comp Metabolic Xll465 GL OB 2.5 g/dL 06/18/2018 Comp Metabolic Kki343 A/ G Ratio 1.6 Ratio 06/18/2018 Comp Metabolic Ixg989 Os mo 283 mOsmo 06/18/2018 Tsh Ord6 TSH (3rd IS) 4.02 uIU/mL 06/18/2018 Lipid Ord30 CHOL 238 mg/dL 06/18/2018 Lipid Ord30 HDL 38.0 mg/dl 06/18/2018 Lipid Ord30 TRIG 369 mg/dL 06/18/2018 Lipid Ord30 LDL Unable to calculate Due to elevated trig lycerides mg/dL 06/18/2018 Lipid Ord30 C/HDL 6.3 Ratio 06/18/2018 Influenza A+B Oot176 Inf paul A+B Negative 06/18/2018 Free T4 Czm546 FREE T4 0.95 ng/dL 05/15/2017 Tsh Ord6 [...] 30.4 pg 05/15/2017 Cbc With Differential Ord2 Kerr% 6.2 % 05/15/2017 Cbc With Differential Ord2 [...] 2.19 K/ul 05/15/2017 Cbc With Differential Ord2 Kerr ABS# 0.4 K/ul 05/15/2017 Cbc With Differential Ord2 Eos ABS# 0.2 K/ul 05/15/2017 Cbc With Differential Ord2 Baso ABS# 0.0 K/ul 05/15/2017 Vitamin D 25 Oh Jjf8486 VITAMIN D, 25 HYDROXY 50.18 ng/mL 05/15/2017 Comp Metabolic Xjm955 NA 141 mEq/L 05/15/2017 Comp Metabolic Bxe637 K 3.9 mEq/L 05/15/2017 Comp Metabolic Nlp942 CL 103 mEq/L 05/15/2017 Comp Metabolic Knq579 CO2 29.0 mEq/L 05/15/2017 Comp Metabolic Ufg601 AN ION GAP 13 05/15/2017 Comp Metabolic Khf263 GL UCOSE 84 mg/dL 05/15/2017 Comp Metabolic Pey732 Cr eat 1.1 mg/dL 05/15/2017 Comp Metabolic Qqr363 eG FR 55 ml/min/1.73m2 05/15 Comp Metabolic Wov339 BUN 19 mg/dL 05/15/2017 Comp Metabolic Ajv751 B/ C Ratio 18.1 Ratio 05/15/2017 Comp Metabolic Xwq937 CA LCIUM 9.7 mg/dL 05/15/2017 Comp Metabolic Pwk484 AL K PHOS 38 U/L 05/15/2017 Comp Metabolic Pje584 T(SGOT) 21 U/L 05/15/2017 Comp Metabolic Zxa246 AL T(SGPT) 17 U/L 05/15/2017 Comp Metabolic Bem177 BI LI T 0.4 mg/dL 05/15/2017 Comp Metabolic Lwv929 AL BUMIN 4.3 g/dL 05/15/2017 Comp Metabolic Rzt659 TP RO 6.5 g/dL 05/15/2017 Comp Metabolic Nci245 GL OB 2.3 g/dL 05/15/2017 Comp Metabolic Qro260 A/ G Ratio 1.9 Ratio 05/15/2017 Comp Metabolic Aeh993 Os mo 283 mOsmo 05/15/2017 Lipid Ord30 CHOL 231 mg/dL 01/18/2017 Lipid Ord30 HDL 48.0 mg/dl 01/18/2017 Lipid Ord30 TRIG 213 mg/dL 01/18/2017 Lipid Ord30 LDL 140 mg/dL 01/18/2017 Lipid Ord30 C/HDL 4.8 Ratio 01/18/2017 Vitamin D 25 Oh Ltt4249 VITAMIN D, 25 HYDROXY 33.28 ng/mL 10/10/2016 B12 Vjf073 B12 377.00 pg/ml 10/10/2016 Comp Metabolic Vbj344 NA 142 mEq/L 10/10/2016 Comp Metabolic Iqn961 K 4.0 mEq/L 10/10/2016 Comp Metabolic Nmv016 CL 103 mEq/L 10/10/2016 Comp Metabolic Rfb983 CO2 29.0 mEq/L 10/10/2016 Comp Metabolic Cct366 AN ION GAP 14 10/10/2016 Comp Metabolic Rbg534 GL UCOSE 82 mg/dL 10/10/2016 Comp Metabolic Ujy196 Cr eat 0.8 mg/dL 10/10/2016 Comp Metabolic Etw663 eG FR 77 ml/min/1.73m2 10/10 Comp Metabolic Guj669 BUN 19 mg/dL 10/10/2016 Comp Metabolic Ovr520 B/ C Ratio 24.1 Ratio 10/10/2016 Comp Metabolic Tqb803 CA LCIUM 9.8 mg/dL 10/10/2016 Comp Metabolic Jpe343 AL K PHOS 87 U/L 10/10/2016 Comp Metabolic Hfv750 T(SGOT) 20 U/L 10/10/2016 Comp Metabolic Uhn454 AL T(SGPT) 16 U/L 10/10/2016 Comp Metabolic Tgw134 BI LI T 0.5 mg/dL 10/10/2016 Comp Metabolic Flk601 AL BUMIN 4.0 g/dL 10/10/2016 Comp Metabolic Tud047 TP RO 6.7 g/dL 10/10/2016 Comp Metabolic Swb522 GL OB 2.7 g/dL 10/10/2016 Comp Metabolic Dwe779 A/ G Ratio 1.5 Ratio 10/10/2016 Comp Metabolic Lgc498 Os mo 284 mOsmo 10/10/2016 Free T4 Vtj303 FREE T4 0.68 ng/dL 10/10/2016 Cbc With [...] 30.6 pg 10/10/2016 Cbc With Differential Ord2 Kerr% 5.2 % 10/10/2016 Cbc With Differential Ord2 [...] 2.11 K/ul 10/10/2016 Cbc With Differential Ord2 Kerr ABS# 0.3 K/ul 10/10/2016 Cbc With Differential [...] No mental status change 12/22/2018 Psychiatric anxiety 07/0 01/2019 Psychiatric depression 0 12/22/2018 Psychiatric confusion [...] No mental status change 10/16/2018 Psychiatric anxiety 050 07/2018 Psychiatric depression 0 10/16/2018 Psychiatric confusion [...] time 12/15/2018 None Full Exam - General 1995 Psychiatric mood and affect Overall: normal mood [...] 1: 112/82 Code: 8480-6 BMI: 39.9 Code: 66214-2 Heart Rate 1: 77 bpm Height: 5'5" SpO2: 94% Weight: 240 lbs 12/22/2018 Blood Pressure 1: 128/74 Code: 8480-6 BMI: 39.9 Code: 52581-9 Heart Rate 1: 80 bpm Height: 5'5" SpO2: 94% Weight: 240 lbs 12/15/2018 Blood Pressure 1: 130/86 Code: 8480-6 Heart Rate 1: 74 bpm Height: SpO2: 94% Weight: 11/17/2018 Blood Pressure 1: 128/78 Code: 8480-6 BMI: 41.4 Code: 35833-8 Heart Rate 1: 65 bpm Height: 5'5" SpO2: 92% Weight: 248 lbs 10 o z 10/16/2018 Blood Pressure 1: 138/82 Code: 8480-6 BMI: 42.1 Code: 43219-2 Heart Rate 1: 80 bpm Height: 5'5" SpO2: 96% Weight: 253 lbs 09/25/2018 Blood Pressure 1: 138/88 Code: 8480-6 BMI: 41.8 Code: 62840-3 Heart Rate 1: 78 bpm Height: 5'5" SpO2: 91% Weight: 251 lbs 07/07/2018 Blood Pressure 1: 140/90 Code: 8480-6 BMI: 41.3 Code: 67781-8 Heart Rate 1: 82 bpm Height: 5'5" SpO2: 92% Temperature: 36.1 (C ) / 96.9 (F) Weight: 248 lbs 04/30/2018 Blood Pressure 1: 128/64 Code: 8480-6 BMI: 41.3 Code: 26052-1 Heart Rate 1: 68 bpm Height: 5'5" SpO2: 96% Weight: 248 lbs 01/06/2018 Blood Pressure 1: 136/78 Code: 8480-6 Heart Rate 1: 71 bpm Height: 5'5" SpO2: 95% Weight: 12/31/2017 Blood Pressure 1: 134/76 Code: 8480-6 BMI: 39.8 Code: 55646-1 Heart Rate 1: 87 bpm Height: 5'5" SpO2: 97% Weight: 239 lbs 12/09/2017 Blood Pressure 1: 136/82 Code: 8480-6 BMI: 39.8 Code: 10180-9 Heart Rate 1: 73 bpm Height: 5'5" SpO2: 97% Weight: 239 lbs 10/02/2017 Blood Pressure 1: 130/72 Code: 8480-6 BMI: 39.4 Code: 58465-6 Heart Rate 1: 74 bpm Height: 5'5" SpO2: 93% Waist Measure (cm): 104 cm Weight: 237 lbs 08/01/2017 Blood Pressure 1: 132/74 Code: 8480-6 BMI: 39.3 Code: 27690-4 Heart Rate 1: 66 bpm Height: 5'5" SpO2: 92% Weight: 236 lbs 06/25/2017 Blood Pressure 1: 136/74 Code: 8480-6 BMI: 38.6 Code: 51052-4 Heart Rate 1: 61 bpm Height: 5'5" SpO2: 95% Weight: 232 lbs 05/15/2017 Blood Pressure 1: 143/76 Code: 8480-6 BMI: 38.6 Code: 62950-1 Heart Rate 1: 65 bpm Height: 5'5" SpO2: 97% Weight: 232 lbs 01/28/2017 Blood Pressure 1: 120/80 Code: 8480-6 BMI: 38.1 Code: 47335-7 Heart Rate 1: 55 bpm Height: 5'5" SpO2: 96% Weight: 229 lbs 10/08/2016 Blood Pressure 1: 130/74 Code: 8480-6 BMI: 36.9 Code: 21869-5 Heart Rate 1: 62 bpm Height: 5'5" [...] when outdoors: y 10/02/2017 None 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 P ATIENT, LEVEL III Diagnosis: Generalized anxiety disorder[ICD10: F41.1] Diagnosis: Major depressive disorder, recurrent, moderate[ICD10: F33.1] [facility] CPT-4: 70008 01/06/2019 ([id number]) 62279 EST. P ATIENT, LEVEL III Diagnosis: Essential (primary) hypertension[ICD10: I10] Diagnosis: Major depressive disorder, recurrent, moderate[ICD10: F33.1] [facility] CPT-4: 33261 12/22/2018 ([id number]) 67544 EST. P ATIENT, LEVEL III Diagnosis: Candidal stomatitis[ICD10: B37.0] Diagnosis: Dry mouth, unspecified[ICD10: R68.2] Renetta Milton MD, [facility] CPT-4: 81642 12/15/2018 ([id number]) 95747 EST. P ATIENT, LEVEL III Diagnosis: Essential (primary) hypertension[ICD10: I10] Diagnosis: Generalized anxiety disorder[ICD10: F41.1] Stacie Milton MD, [facility] CPT-4: 97228 11/17/2018 ([id number]) 14253 EST. P ATIENT, LEVEL IV Diagnosis: Generalized anxiety disorder[ICD10: F41.1] Diagnosis: Major depressive disorder, recurrent, moderate[ICD10: F33.1] Diagnosis: Primary insomnia[ICD10: F51.01] Stacie Milton MD, [facility] CPT-4: 95723 10/16/2018 ([id number]) 97692 EST. P ATIENT, LEVEL IV Diagnosis: Atrophy of thyroid (acquired)[ICD10: E03.4] Diagnosis: Essential (primary) hypertension[ICD10: I10] Diagnosis: Major depressive disorder, recurrent, moderate[ICD10: F33.1] Diagnosis: Adverse effect of antiallergic and antiemetic drugs, initial encounter[ICD10: T45.0X5A] Stacie Milton MD, [facility] CPT-4: 52515 09/25/2018 35732 EST. 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 PATIENT, LEVEL IV Diagnosis: Essential (primary) hypertension[ICD10: I10] Diagnosis: Major depressive disorder, recurrent, moderate[ICD10: F33.1] Diagnosis: Other allergic rhinitis[ICD10: J30.89] Analisa Milton MD, [facility] CPT-4: 54405 04/30/2018 ([id number]) 34473 EST. P ATIENT, LEVEL III Diagnosis: Insect bite (nonvenomous), left lower leg, subsequent encounter[ICD10: S80.862D] Diagnosis: Insect bite (nonvenomous), right lower leg, subsequent encounter[ICD10: S80.861D] Stacie Milton MD, [facility] CPT-4: 07201 01/06/2018 ([id number]) 77409 EST. P ATIENT, LEVEL III Diagnosis: Rash and other nonspecific skin eruption[ICD10: R21] Diagnosis: Major depressive disorder, recurrent, moderate[ICD10: F33.1] Renetta Milton MD, [facility] CPT-4: 25141 12/31/2017 ([id number]) 38207 EST. P ATIENT, LEVEL III Diagnosis: Essential (primary) hypertension[ICD10: I10] Diagnosis: Major depressive disorder, recurrent, moderate[ICD10: F33.1] Stacie Milton MD, [facility] CPT-4: 34160 12/09/2017 ([id number]) 70888 EST. P ATIENT, LEVEL IV Diagnosis: Atrophy of thyroid (acquired)[ICD10: E03.4] Diagnosis: Essential (primary) hypertension[ICD10: I10] Diagnosis: Other allergic rhinitis[ICD10: J30.89] Stacie Milton MD, [facility] CPT-4: 54659 08/01/2017 96998 EST. PATIENT, LEVEL III Diagnosis: Other allergic rhinitis[ICD10: J30.89] Diagnosis: Otalgia, bilateral[ICD10: H92.03] Analisa Milton MD, [facility] CPT-4: 56028 06/25/2017 59437 EST. PATIENT, LEVEL III Diagnosis: Rash and other nonspecific skin eruption[ICD10: R21] Analisa Milton MD, [facility] CPT-4: 41393 05/15/2017 ([id number]) 07791 EST. 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 01/06/2019 Appointment: Stacie Milton WPtel: [phone] [facility] (15 min) Moderate 01/06/2019 Patient Education: Patient Medication Summary Completed 01/06/2019 Patient Education: Depression Completed 01/06/2019 Appointment: Stacie Milton WPtel: [phone] [phone] (15 min) Moderate 01/05/2019 Visit Plan: Hypertension [...] Wellbutrin. 12/22/2018 Appointment: Stacie Milton WPtel: [phone] [phone] (15 min) Moderate 12/22/2018 Patient Education: Patient Medication Summary Completed 12/22/2018 Patient Education: Depression Completed 12/22/2018 Visit Plan: Thrush -dry mouth -disc ussed natural and expected course of this diagnosis and to alert me if symptoms do not resolve or if any worse- discussed medications as possible cause of dry mouth -patient verbalized understanding of plan. 12/15/2018 Appointment: Renetta Leigh WPtel: [facility]4 [phone] (30 min) Complex 12/15/2018 Patient Education: Patient [...] current medications. 11/17/2018 Appointment: Stacie Milton WPtel: [facility]0 [phone] (15 min) Moderate 11/17/2018 Patient Education: Patient [...] sleep easier. 10/16/2018 Appointment: Stacie Milton WPtel: [phone] [phone] (15 min) Moderate 10/16/2018 Patient Education: Patient Medication Summary Completed 10/16/2018 Patient Education: Depression Completed 10/16/2018 Appointment: Stacie Milton WPtel: [facility] (15 min) Moderate 10/07/2018 Visit Plan: Hypothyroidism [...] morning 09/25/2018 Appointment: [facility] Milton [facility]el[phone] (15 min) Moderate 09/25/2018 Patient Education: Patient Medication Summary Completed 09/25/2018 Patient Education: Depression Completed 09/25/2018 Appointment: Renetta Leigh WPtel: [phone] (30 min) Complex 07/15/2018 Visit Plan: Oral aphthae -rx for ac yclovir provided and instructed on use -follow up in 1 week for re-eval -sooner if needed -call with any concerns or worsening symptoms. 07/07/2018 Appointment: Renetta Leigh WPtel: [facility]4 [phone] (30 min) Complex 07/07/2018 Patient [...] allergy spray. 04/30/2018 Appointment: Analisa Jin [phone] (15 min) Moderate 04/30/2018 Patient Education: Patient [...] going outside. 01/06/2018 Appointment: [facility] Milton [facility]el[phone] (15 min) Moderate 01/06/2018 Patient Education: Patient [...] lexapro 12/31/2017 Appointment: Renetta Leigh WPtel: [phone] [phone] [place] [address] (15 min) Moderate 12/31/2017 Patient Education: Patient [...] on venlafaxine. 12/09/2017 Appointment: Stacie Milton WPtel: [phone] [facility] [place] (15 min) Moderate 12/09/2017 Patient Education: Patient [...] 10/02/2017 Visit Plan: Hypertension - well con babitaed - continue with current medications, continue with [...] for flagyl 08/01/2017 Appointment: Stacie Milton WPtel: [phone] [phone] (15 min) Moderate 08/01/2017 Patient Education: Patient [...] acutely worsen. 06/25/2017 Appointment: Analisa Jin [phone] (15 min) Moderate 06/25/2017 Patient Education: Patient [...] warmth, discharge. 05/15/2017 Appointment: Analisa Jin WPtel: [phone] [facility] (15 min) Moderate 05/15/2017 Patient Education: Patient [...] considered contagious. 01/28/2017 Appointment: Stacie Milton WPtel: [phone] [phone] (15 min) Moderate 01/28/2017 Patient Education: Patient [...] supportive care. 10/08/2016 Appointment: Stacie Milton [facility]: [facility] [id number] [facility] 10/08/2016 Patient Education: Patient Medication [...] and bug spray when going outside. . Medicare Exam - to day we [...] in cluding Vitamin D and TSH. Consider [place] thyroid for hypothyroidism Saline spray before using [...] in cluding Vitamin D and TSH. Consider [place] thyroid for hypothyroidism Saline spray before using [...]
--- OUTSIDE RECORDS SUMMARY | 2019-06-17 09:19 | XMS REPORT | CCD ---
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 Unknown Has never used illegal drugs 017 Allergies, Adverse Reactions, Alerts Substance Reaction Codes Entered Date Inactivated Date Status * OTHER REACTION - S EE ANSWER BOX Vitamins CSynthroid Unknown 10/08/2016 No Inactive Date Active * NO KNOWN FOOD MENDEZ RGIES Unknown 10/08/2016 No Inactive Date Active [id number] REDU CTASE INHIBITORS Unknown 07/07/2018 No Inactive [...] Date Stop Date Sta tus Fill Instructions Pristiq 25 mg tablet ,extended release RxNorm: 5198403 1 Tablet(s) PO daily 01/06/2019 03/06/2019 Ac tive Cymbalta 30 mg capsu le,delayed release RxNorm: 221126 1 Capsule(s) PO daily 12/22/2018 12/22/2018 In active nystatin 100,000 uni t/mL oral suspension RxNorm: 781383 5 Milliliter(s) PO QI D 12/15/2018 12/21/2018 In active hydrochlorothiazide 25 mg tablet RxNorm: 530658 Tablet(s) TAKE ONE TA BLET BY MOUTH ONCE DAILY IN THE MORNING 11/14/2018 11/08/2019 Active Effexor XR 150 mg ca psule,extended release RxNorm: 596911 1 Capsule(s) PO daily 10/16/2018 12/21/2018 In active Xanax 1 mg tablet RxNorm: 464214 Tablet(s) TAKE ONE TABLET BY MOUTH ONCE DAILY AT BEDTIME 09/30/2018 12/28/2018 Inactive Vitamin D3 2,000 uni t capsule RxNorm: 662428 125mcg Capsule(s) PO daily 09/25/2018 12/23/2018 In active trazodone 50 mg tablet RxNorm: 993207 1/2 Tablet(s) PO QHS 09/25/2018 05/22/2019 Active Effexor XR 75 mg cap rashid,extended release RxNorm: 078023 1 Capsule(s) PO daily 09/25/2018 09/24/2018 In active Effexor XR 75 mg cap rashid,extended release RxNorm: 133996 1 Capsule(s) PO daily 09/25/2018 10/15/2018 In active trazodone 50 mg tablet RxNorm: 828971 1/2 Tablet(s) PO QHS 09/25/2018 09/24/2018 Inactive acyclovir 400 mg tablet RxNorm: 882271 1 Tablet(s) PO TID 07/07/2018 07/13/2018 Inactive Xanax 1 mg tablet RxNorm: 885726 Tablet(s) TAKE ONE TABLET BY MOUTH ONCE DAILY AT BEDTIME 06/27/2018 09/29/2018 Inactive Livalo 2 mg tablet RxNorm: 759427 1 Tablet(s) PO QHS 06/25/2018 06/24/2018 Inactive Livalo 2 mg tablet RxNorm: 213563 1 Tablet(s) PO QHS 06/25/2018 09/24/2018 Inactive Lexapro 20 mg tablet RxNorm: 532024 TAKE 1/2 (ONE-HALF) TABLET BY MOUTH ONCE DAILY FOR ONE WEEK, THEN INCREASE TO 1 ONCE DAILY IN THE EVENING. 05/05/2018 09/24/2018 Inactive Xanax 1 mg tablet RxNorm: 404523 Tablet(s) TAKE ONE TABLET BY MOUTH ONCE DAILY AT BEDTIME 04/01/2018 06/26/2018 Inactive Lexapro 20 mg tablet RxNorm: 139204 1 Tablet(s) PO QPM 12/31/2017 05/05/2018 Inactive 1/2 tab daily x 1 week then increase to a full tab mupirocin 2 % topica l ointment RxNorm: 923655 1 Application TOP BID 12/31/2017 01/09/2018 Inactive potassium chloride E R 20 mEq tablet,extended release RxNorm: 967318 TAKE ONE TABLET BY MOUTH ONCE DAILY IN THE MORNING 12/11/2017 No Stop Date Active hydrochlorothiazide 25 mg tablet RxNorm: 185922 TAKE ONE TABLET BY MO OKH ONCE DAILY IN THE MORNING 12/11/2017 11/13/2018 Inactive Effexor XR 75 mg cap rashid,extended release RxNorm: 008199 1 Capsule(s) PO daily 12/09/2017 12/30/2017 In active permethrin 5 % topic al cream RxNorm: 669030 1 Application TOP onc e, may repeat in 14 days. 11/27/2017 01/06/2018 Inactive Xanax 1 mg tablet RxNorm: 172979 1 Tablet(s) PO QHS 09/30/2017 06/24/2018 Inactive citalopram 40 mg tablet RxNorm: 549418 TAKE ONE TABLET BY MOUTH ONCE DAILY IN T HE EVENING 08/05/2017 12/08/2017 Inactive Flagyl 500 mg tablet RxNorm: 804611 1 Tablet(s) PO TID 08/01/2017 08/05/2017 Inactive Xanax 1 mg tablet RxNorm: 911008 1 Tablet(s) PO QHS 07/05/2017 09/29/2017 Inactive Xanax 1 mg tablet RxNorm: 982011 TAKE ONE TABLET BY MOUTH ONCE DAILY AT B EDTIME 07/05/2017 03/31/2018 Inactive Zithromax Z-Cornell 250 mg tablet RxNorm: 811625 1 Tablet(s) PO UD 06/25/2017 07/04/2017 Inactive Trilipix 135 mg caps ule,delayed release RxNorm: 243227 1 Capsule(s) PO daily 05/22/2017 06/24/2018 In active triamcinolone aceton kaity 0.025 % topical cream RxNorm: 1093506 1 Application TOP BI D 05/15/2017 No Stop Date Active ketoconazole 2 % top ical cream RxNorm: 329692 1 TOP daily 05/15/2017 05/21/2017 Inactive Trilipix 135 mg caps ule,delayed release RxNorm: 641981 1 Capsule(s) PO daily 02/12/2017 05/21/2017 In active Trilipix 135 mg caps ule,delayed release RxNorm: 835544 1 Capsule(s) PO daily 02/12/2017 02/11/2017 In active acyclovir 800 mg tablet RxNorm: 451357 1 Tablet(s) PO QID 01/28/2017 02/06/2017 Inactive Fish Oil 1,000 mg ca psule RxNorm: 1 Capsule(s) PO BID 10/17/2016 10/16/2016 Inactive Vitamin D2 50,000 un it capsule RxNorm: 084355 1 Capsule(s) PO QW 10/17/2016 10/16/2016 Inactive Vitamin D3 2,000 uni t capsule RxNorm: 884983 1 Capsule(s) PO daily 10/17/2016 10/16/2016 Inactive Vitamin D2 50,000 un it capsule RxNorm: 585558 1 Capsule(s) PO QW 10/17/2016 01/14/2017 Inactive Vitamin D3 2,000 uni t capsule RxNorm: 155522 1 Capsule(s) PO daily 10/17/2016 01/14/2017 Inactive Fish Oil 1,000 mg ca psule RxNorm: 1 Capsule(s) PO BID 10/17/2016 09/24/2018 Inactive citalopram 40 mg tablet RxNorm: 863466 1 Tablet(s) PO QPM 10/08/2016 07/04/2017 Inactive potassium chloride E R 20 mEq tablet,extended release RxNorm: 120838 1 Tablet(s) PO QAM 10/08/2016 10/02/2017 Inactive hydrochlorothiazide 25 mg tablet RxNorm: 034505 1 Tablet(s) PO QAM 10/08/2016 10/02/2017 Inactive Co Q-10 100 mg capsule RxNorm: 486326 1 Capsule(s) PO daily No Start Date Active Colace 100 mg capsule RxNorm: 4796616 1 Capsule(s) PO BID No Start Date Active melatonin 10 mg tablet RxNorm: 0240864 1 Tablet(s) PO QHS No Start Date Active hydrochlorothiazide 25 mg tablet RxNorm: 316383 1 Tablet(s) PO QAM No Start Date 10/07/2016 Inactive folic acid 400 mcg t ablet RxNorm: 930257 1 Tablet(s) PO daily No Start Date 01/05/2019 Inactive fenofibrate microniz ed 130 mg capsule RxNorm: 778157 1 Capsule(s) PO daily No Start Date 01/05/2019 Inactive Xanax 1 mg tablet RxNorm: 449574 1 Tablet(s) PO QHS et PRN as needed No Start Date 07/05/2017 Inactive biotin 1 mg tablet RxNorm: 158777 1 Tablet(s) PO daily No Start Date 01/05/2019 Inactive citalopram 40 mg tablet RxNorm: 780058 1 Tablet(s) PO QPM No Start Date 10/07/2016 Inactive potassium chloride E R 20 mEq tablet,extended release RxNorm: 613693 1 Tablet(s) PO QAM No Start Date 10/07/2016 Inactive permethrin 5 % topic al cream RxNorm: 119014 1 Application TOP onc e, may repeat in 14 days. No Start Date 11/26/2017 Inactive ferrous sulfate 325 mg (65 mg iron) tablet RxNorm: 151518 1 Tablet(s) PO daily No Start Date 01/05/2019 Inactive Unisom Sleepgels 50 mg capsule RxNorm: 4530623 1 Capsule(s) PO QHS No Start Date [...] Ord30 C/HDL 5.9 Ratio 10/16/2018 Comp Metabolic Qct931 NA 143 mEq/L 10/16/2018 Comp Metabolic Bdk062 K 4.3 mEq/L 10/16/2018 Comp Metabolic Nja586 CL 101 mEq/L 10/16/2018 Comp Metabolic Khp760 CO2 31.0 mEq/L 10/16/2018 Comp Metabolic Own912 AN ION GAP 15 10/16/2018 Comp Metabolic Blb533 GL UCOSE 90 mg/dL 10/16/2018 Comp Metabolic Znx559 Cr eat 0.9 mg/dL 10/16/2018 Comp Metabolic Sur426 eG FR 70 ml/min/1.73m2 10/16 Comp Metabolic Lgn442 BUN 14 mg/dL 10/16/2018 Comp Metabolic Cnu289 B/ C Ratio 16.5 Ratio 10/16/2018 Comp Metabolic Vmb391 CA LCIUM 9.8 mg/dL 10/16/2018 Comp Metabolic Fxy518 AL K PHOS 76 U/L 10/16/2018 Comp Metabolic Xnt575 T(SGOT) 17 U/L 10/16/2018 Comp Metabolic Nns799 AL T(SGPT) 18 U/L 10/16/2018 Comp Metabolic Tzr861 BI LI T 0.5 mg/dL 10/16/2018 Comp Metabolic Ugu520 AL BUMIN 4.2 g/dL 10/16/2018 Comp Metabolic Zqt909 TP RO 6.7 g/dL 10/16/2018 Comp Metabolic Xtt580 GL OB 2.5 g/dL 10/16/2018 Comp Metabolic Zih872 A/ G Ratio 1.7 Ratio 10/16/2018 Comp Metabolic Uyn440 Os mo 285 mOsmo 10/16/2018 Cbc With [...] 30.0 pg 06/18/2018 Cbc With Differential Ord2 Payette% 6.0 % 06/18/2018 Cbc With Differential Ord2 [...] 2.01 K/ul 06/18/2018 Cbc With Differential Ord2 Payette ABS# 0.3 K/ul 06/18/2018 Cbc With Differential Ord2 Eos ABS# 0.3 K/ul 06/18/2018 Cbc With Differential Ord2 Baso ABS# 0.0 K/ul 06/18/2018 Comp Metabolic Bdu795 NA 141 mEq/L 06/18/2018 Comp Metabolic Tin163 K 3.7 mEq/L 06/18/2018 Comp Metabolic Mwa937 CL 101 mEq/L 06/18/2018 Comp Metabolic Mld930 CO2 31.0 mEq/L 06/18/2018 Comp Metabolic Ivl754 AN ION GAP 13 06/18/2018 Comp Metabolic Ncs846 GL UCOSE 106 mg/dL 06/18/2018 Comp Metabolic Xzu018 Cr eat 0.9 mg/dL 06/18/2018 Comp Metabolic Fgj681 eG FR 68 ml/min/1.73m2 06/18 Comp Metabolic Lgf457 BUN 16 mg/dL 06/18/2018 Comp Metabolic Dyu287 B/ C Ratio 18.2 Ratio 06/18/2018 Comp Metabolic Emu845 CA LCIUM 9.5 mg/dL 06/18/2018 Comp Metabolic Qiv689 AL K PHOS 82 U/L 06/18/2018 Comp Metabolic Qgc938 T(SGOT) 19 U/L 06/18/2018 Comp Metabolic Cyt792 AL T(SGPT) 18 U/L 06/18/2018 Comp Metabolic Fbu857 BI LI T 0.5 mg/dL 06/18/2018 Comp Metabolic Qnk369 AL BUMIN 4.0 g/dL 06/18/2018 Comp Metabolic Vul479 TP RO 6.5 g/dL 06/18/2018 Comp Metabolic Aow428 GL OB 2.5 g/dL 06/18/2018 Comp Metabolic Uas562 A/ G Ratio 1.6 Ratio 06/18/2018 Comp Metabolic Dls385 Os mo 283 mOsmo 06/18/2018 Tsh Ord6 TSH (3rd IS) 4.02 uIU/mL 06/18/2018 Lipid Ord30 CHOL 238 mg/dL 06/18/2018 Lipid Ord30 HDL 38.0 mg/dl 06/18/2018 Lipid Ord30 TRIG 369 mg/dL 06/18/2018 Lipid Ord30 LDL Unable to calculate Due to elevated trig lycerides mg/dL 06/18/2018 Lipid Ord30 C/HDL 6.3 Ratio 06/18/2018 Influenza A+B Nvy961 Inf paul A+B Negative 06/18/2018 Free T4 Anz680 FREE T4 0.95 ng/dL 05/15/2017 Tsh Ord6 [...] 30.4 pg 05/15/2017 Cbc With Differential Ord2 Payette% 6.2 % 05/15/2017 Cbc With Differential Ord2 [...] 2.19 K/ul 05/15/2017 Cbc With Differential Ord2 Payette ABS# 0.4 K/ul 05/15/2017 Cbc With Differential Ord2 Eos ABS# 0.2 K/ul 05/15/2017 Cbc With Differential Ord2 Baso ABS# 0.0 K/ul 05/15/2017 Vitamin D 25 Oh Cln7301 VITAMIN D, 25 HYDROXY 50.18 ng/mL 05/15/2017 Comp Metabolic Eyz509 NA 141 mEq/L 05/15/2017 Comp Metabolic Uyb867 K 3.9 mEq/L 05/15/2017 Comp Metabolic Rgl405 CL 103 mEq/L 05/15/2017 Comp Metabolic Ywq247 CO2 29.0 mEq/L 05/15/2017 Comp Metabolic Bef668 AN ION GAP 13 05/15/2017 Comp Metabolic Kkp356 GL UCOSE 84 mg/dL 05/15/2017 Comp Metabolic Wpm623 Cr eat 1.1 mg/dL 05/15/2017 Comp Metabolic Dvz190 eG FR 55 ml/min/1.73m2 05/15 Comp Metabolic Ejk158 BUN 19 mg/dL 05/15/2017 Comp Metabolic Bkc876 B/ C Ratio 18.1 Ratio 05/15/2017 Comp Metabolic Frr014 CA LCIUM 9.7 mg/dL 05/15/2017 Comp Metabolic Kwh238 AL K PHOS 38 U/L 05/15/2017 Comp Metabolic Fub252 T(SGOT) 21 U/L 05/15/2017 Comp Metabolic Wzr177 AL T(SGPT) 17 U/L 05/15/2017 Comp Metabolic Vqs314 BI LI T 0.4 mg/dL 05/15/2017 Comp Metabolic Sjd374 AL BUMIN 4.3 g/dL 05/15/2017 Comp Metabolic Khl387 TP RO 6.5 g/dL 05/15/2017 Comp Metabolic Xsk138 GL OB 2.3 g/dL 05/15/2017 Comp Metabolic Wnv172 A/ G Ratio 1.9 Ratio 05/15/2017 Comp Metabolic Llt432 Os mo 283 mOsmo 05/15/2017 Lipid Ord30 CHOL 231 mg/dL 01/18/2017 Lipid Ord30 HDL 48.0 mg/dl 01/18/2017 Lipid Ord30 TRIG 213 mg/dL 01/18/2017 Lipid Ord30 LDL 140 mg/dL 01/18/2017 Lipid Ord30 C/HDL 4.8 Ratio 01/18/2017 Vitamin D 25 Oh Rfc9398 VITAMIN D, 25 HYDROXY 33.28 ng/mL 10/10/2016 B12 Hik296 B12 377.00 pg/ml 10/10/2016 Comp Metabolic Pet258 NA 142 mEq/L 10/10/2016 Comp Metabolic Zbs948 K 4.0 mEq/L 10/10/2016 Comp Metabolic Myr330 CL 103 mEq/L 10/10/2016 Comp Metabolic Wtg439 CO2 29.0 mEq/L 10/10/2016 Comp Metabolic Xkv991 AN ION GAP 14 10/10/2016 Comp Metabolic Nwn935 GL UCOSE 82 mg/dL 10/10/2016 Comp Metabolic Arv122 Cr eat 0.8 mg/dL 10/10/2016 Comp Metabolic Seq852 eG FR 77 ml/min/1.73m2 10/10 Comp Metabolic Uin403 BUN 19 mg/dL 10/10/2016 Comp Metabolic Bup182 B/ C Ratio 24.1 Ratio 10/10/2016 Comp Metabolic Vem174 CA LCIUM 9.8 mg/dL 10/10/2016 Comp Metabolic Jii283 AL K PHOS 87 U/L 10/10/2016 Comp Metabolic Jsl655 T(SGOT) 20 U/L 10/10/2016 Comp Metabolic Kjn508 AL T(SGPT) 16 U/L 10/10/2016 Comp Metabolic Feo103 BI LI T 0.5 mg/dL 10/10/2016 Comp Metabolic Edj708 AL BUMIN 4.0 g/dL 10/10/2016 Comp Metabolic Yqr748 TP RO 6.7 g/dL 10/10/2016 Comp Metabolic Mvk276 GL OB 2.7 g/dL 10/10/2016 Comp Metabolic Xeg328 A/ G Ratio 1.5 Ratio 10/10/2016 Comp Metabolic Npv942 Os mo 284 mOsmo 10/10/2016 Free T4 Bwg328 FREE T4 0.68 ng/dL 10/10/2016 Cbc With [...] 30.6 pg 10/10/2016 Cbc With Differential Ord2 Payette% 5.2 % 10/10/2016 Cbc With Differential Ord2 [...] 2.11 K/ul 10/10/2016 Cbc With Differential Ord2 Payette ABS# 0.3 K/ul 10/10/2016 Cbc With Differential [...] atraumatic 12/22/2018 None Full Exam - General 1995 Psychiatric orientation/consciousness Overall: oriented to person, place and time 12/22/2018 None Full Exam - General 1995 Psychiatric mood and affect Overall: normal mood and affect 12/22/2018 None Full Exam - General 1994 Psychiatric mood and affect Mood: happy 12/22/2018 None Full Exam - General 1995 Constitutional general appearance Overall: well developed 12/15/2018 None Full Exam - General 1995 Constitutional general appearance Overall: in no acute distress 12/15/2018 None Full Exam - General 1995 Constitutional general appearance Overall: well nourished 12/15/2018 None Full Exam - General 1995 Eyes conjunctiva/eyelids Overall: conjunctiva clear 12/15/2018 None [...] affect 08/01/2017 None Full Exam - General 1995 Psychiatric mood and affect Mood: happy 08/01/2017 [...] 1: 112/82 Code: 8480-6 BMI: 39.9 Code: 53193-9 Heart Rate 1: 77 bpm Height: 5'5" SpO2: 94% Weight: 240 lbs 12/22/2018 Blood Pressure 1: 128/74 Code: 8480-6 BMI: 39.9 Code: 97483-3 Heart Rate 1: 80 bpm Height: 5'5" SpO2: 94% Weight: 240 lbs 12/15/2018 Blood Pressure 1: 130/86 Code: 8480-6 Heart Rate 1: 74 bpm Height: SpO2: 94% Weight: 11/17/2018 Blood Pressure 1: 128/78 Code: 8480-6 BMI: 41.4 Code: 13162-6 Heart Rate 1: 65 bpm Height: 5'5" SpO2: 92% Weight: 248 lbs 10 o z 10/16/2018 Blood Pressure 1: 138/82 Code: 8480-6 BMI: 42.1 Code: 96296-2 Heart Rate 1: 80 bpm Height: 5'5" SpO2: 96% Weight: 253 lbs 09/25/2018 Blood Pressure 1: 138/88 Code: 8480-6 BMI: 41.8 Code: 31587-3 Heart Rate 1: 78 bpm Height: 5'5" SpO2: 91% Weight: 251 lbs 07/07/2018 Blood Pressure 1: 140/90 Code: 8480-6 BMI: 41.3 Code: 76018-6 Heart Rate 1: 82 bpm Height: 5'5" SpO2: 92% Temperature: 36.1 (C ) / 96.9 (F) Weight: 248 lbs 04/30/2018 Blood Pressure 1: 128/64 Code: 8480-6 BMI: 41.3 Code: 50882-8 Heart Rate 1: 68 bpm Height: 5'5" SpO2: 96% Weight: 248 lbs 01/06/2018 Blood Pressure 1: 136/78 Code: 8480-6 Heart Rate 1: 71 bpm Height: 5'5" SpO2: 95% Weight: 12/31/2017 Blood Pressure 1: 134/76 Code: 8480-6 BMI: 39.8 Code: 39180-5 Heart Rate 1: 87 bpm Height: 5'5" SpO2: 97% Weight: 239 lbs 12/09/2017 Blood Pressure 1: 136/82 Code: 8480-6 BMI: 39.8 Code: 96910-3 Heart Rate 1: 73 bpm Height: 5'5" SpO2: 97% Weight: 239 lbs 10/02/2017 Blood Pressure 1: 130/72 Code: 8480-6 BMI: 39.4 Code: 05959-3 Heart Rate 1: 74 bpm Height: 5'5" SpO2: 93% Waist Measure (cm): 104 cm Weight: 237 lbs 08/01/2017 Blood Pressure 1: 132/74 Code: 8480-6 BMI: 39.3 Code: 04290-1 Heart Rate 1: 66 bpm Height: 5'5" SpO2: 92% Weight: 236 lbs 06/25/2017 Blood Pressure 1: 136/74 Code: 8480-6 BMI: 38.6 Code: 81822-8 Heart Rate 1: 61 bpm Height: 5'5" SpO2: 95% Weight: 232 lbs 05/15/2017 Blood Pressure 1: 143/76 Code: 8480-6 BMI: 38.6 Code: 67899-6 Heart Rate 1: 65 bpm Height: 5'5" SpO2: 97% Weight: 232 lbs 01/28/2017 Blood Pressure 1: 120/80 Code: 8480-6 BMI: 38.1 Code: 63281-8 Heart Rate 1: 55 bpm Height: 5'5" SpO2: 96% Weight: 229 lbs 10/08/2016 Blood Pressure 1: 130/74 Code: 8480-6 BMI: 36.9 Code: 71671-2 Heart Rate 1: 62 bpm Height: 5'5" [...] when outdoors: y 10/02/2017 None hypothyroid 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 P ATIENT, LEVEL III Diagnosis: Generalized anxiety disorder[ICD10: F41.1] Diagnosis: Major depressive disorder, recurrent, moderate[ICD10: F33.1] [facility] CPT-4: 80107 01/06/2019 [id number] 45400 EST. P ATIENT, LEVEL III Diagnosis: Essential (primary) hypertension[ICD10: I10] Diagnosis: Major depressive disorder, recurrent, moderate[ICD10: F33.1] [facility] CPT-4: 87865 12/22/2018 [id number] 60309 EST. P ATIENT, LEVEL III Diagnosis: Candidal stomatitis[ICD10: B37.0] Diagnosis: Dry mouth, unspecified[ICD10: R68.2] [facility] CPT-4: 36033 12/15/2018 ([id number]) 73119 EST. P ATIENT, LEVEL III Diagnosis: Essential (primary) hypertension[ICD10: I10] Diagnosis: Generalized anxiety disorder[ICD10: F41.1] Stacie Milton MD, [facility] CPT-4: 68527 11/17/2018 ([id number]) 12977 EST. P ATIENT, LEVEL IV Diagnosis: Generalized anxiety disorder[ICD10: F41.1] Diagnosis: Major depressive disorder, recurrent, moderate[ICD10: F33.1] Diagnosis: Primary insomnia[ICD10: F51.01] Stacie Milton MD, [facility] CPT-4: 20232 10/16/2018 ([id number]) 52903 EST. P ATIENT, LEVEL IV Diagnosis: Atrophy of thyroid (acquired)[ICD10: E03.4] Diagnosis: Essential (primary) hypertension[ICD10: I10] Diagnosis: Major depressive disorder, recurrent, moderate[ICD10: F33.1] Diagnosis: Adverse effect of antiallergic and antiemetic drugs, initial encounter[ICD10: T45.0X5A] Stacie Milton MD, [facility] CPT-4: 64736 09/25/2018 17352 EST. 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 PATIENT, LEVEL IV Diagnosis: Essential (primary) hypertension[ICD10: I10] Diagnosis: Major depressive disorder, recurrent, moderate[ICD10: F33.1] Diagnosis: Other allergic rhinitis[ICD10: J30.89] Analisa Milton MD, [facility] CPT-4: 20082 04/30/2018 ([id number]) 42769 EST. P ATIENT, LEVEL III Diagnosis: Insect bite (nonvenomous), left lower leg, subsequent encounter[ICD10: S80.862D] Diagnosis: Insect bite (nonvenomous), right lower leg, subsequent encounter[ICD10: S80.861D] Stacie Milton MD, [facility] CPT-4: 42165 01/06/2018 ([id number]) 52051 EST. P ATIENT, LEVEL III Diagnosis: Rash and other nonspecific skin eruption[ICD10: R21] Diagnosis: Major depressive disorder, recurrent, moderate[ICD10: F33.1] Renetta Milton MD, [facility] CPT-4: 32603 12/31/2017 ([id number]) 54537 EST. P ATIENT, LEVEL III Diagnosis: Essential (primary) hypertension[ICD10: I10] Diagnosis: Major depressive disorder, recurrent, moderate[ICD10: F33.1] Stacie Milton MD, [facility] CPT-4: 67357 12/09/2017 ([id number]) 02170 EST. P ATIENT, LEVEL IV Diagnosis: Atrophy of thyroid (acquired)[ICD10: E03.4] Diagnosis: Essential (primary) hypertension[ICD10: I10] Diagnosis: Other allergic rhinitis[ICD10: J30.89] Stacie Milton MD, [facility] CPT-4: 03330 08/01/2017 49275 EST. PATIENT, LEVEL III Diagnosis: Other allergic rhinitis[ICD10: J30.89] Diagnosis: Otalgia, bilateral[ICD10: H92.03] Analisa Milton MD, [facility] CPT-4: 02637 06/25/2017 83050 EST. PATIENT, LEVEL III Diagnosis: Rash and other nonspecific skin eruption[ICD10: R21] Analisa Milton MD, [facility] CPT-4: 29135 05/15/2017 ([id number]) 90169 EST. P ATIENT, LEVEL III Diagnosis: Zoster without complications[ICD10: B02.9] Stacie Milton MD [facility] CPT-4: 10768 01/28/2017 ([id number]) OFFICE VISI T, NEW - LEVEL 4 Diagnosis: Essential (primary) hypertension[ICD10: I10] Diagnosis: Bariatric surgery status[ICD10: Z98.84] Diagnosis: Atrophy of thyroid (acquired)[ICD10: E03.4] Diagnosis: Major depressive disorder, recurrent, moderate[ICD10: F33.1] Stacie Milton MD, [facility] CPT-4: 38793 10/08/2016 Plan of Care Planned Activity Notes [...] - start on pristiq 25mg daily. 01/06/2019 Patient Education: Patient Medication Summary Completed 01/06/2019 Patient Education: Depression Completed 01/06/2019 Appointment: Stcaie Milton WPtel: [phone] [facility] (15 min) Moderate 01/05/2019 Visit Plan: Hypertension [...] the Wellbutrin. 12/22/2018 Appointment: Stacie Milton WPtel: [facility] (15 min) Moderate 12/22/2018 Patient Education: Patient Medication Summary Completed 12/22/2018 Patient Education: Depression Completed 12/22/2018 Visit Plan: Thrush -dry mouth -disc ussed natural and expected course of this diagnosis and to alert me if symptoms do not resolve or if any worse- discussed medications as possible cause of dry mouth -patient verbalized understanding of plan. 12/15/2018 Appointment: Renetta Leigh WPtel: [phone] [phone] (30 min) Complex 12/15/2018 Patient Education: Patient [...] current medications. 11/17/2018 Appointment: Stacie Milton WPtel: [facility] (15 min) Moderate 11/17/2018 Patient Education: Patient [...] sleep easier. 10/16/2018 Appointment: [facility] Milton WPtel[facility] ([facility] min) Moderate 10/16/2018 Patient Education: Patient Medication Summary Completed 10/16/2018 Patient Education: Depression Completed 10/16/2018 Appointment: Stacie Milton WPtel[facility] (15 min) Moderate 10/07/2018 Visit Plan: Hypothyroidism [...] tomorrow morning 09/25/2018 Appointment: Stacie Milton WPtel: [address] [place], [place] [phone] (15 min) Moderate 09/25/2018 Patient Education: Patient Medication Summary Completed 09/25/2018 Patient Education: Depression Completed 09/25/2018 Appointment: Renetta Leigh WPtel: [address] [place], [place] [phone] (30 min) Complex 07/15/2018 Visit Plan: Oral aphthae -rx for ac yclovir provided and instructed on use -follow up in 1 week for re-eval -sooner if needed -call with any concerns or worsening symptoms. 07/07/2018 Appointment: Renetta Leigh WPtel: [phone] (30 min) Complex 07/07/2018 Patient Education: [...] spray. 04/30/2018 Appointment: Analisa Jin WPtel: [phone] [facility] (15 min) Moderate 04/30/2018 Patient Education: [...] outside. 01/06/2018 Appointment: Stacie Milton WPtel: [phone] [facility] (15 min) Moderate 01/06/2018 Patient Education: Patient [...] lexapro 12/31/2017 Appointment: Renetta Leigh WPtel: [phone] [phone] [place] (15 min) Moderate 12/31/2017 Patient [...] on venlafaxine. 12/09/2017 Appointment: Stacie Milton WPtel: [facility] [place] (15 min) Moderate 12/09/2017 Patient Education: [...] for flagyl 08/01/2017 Appointment: Stacie Milton WPtel: [facility] (15 min) Moderate 08/01/2017 Patient Education: Patient [...] worsen. 06/25/2017 Appointment: Analisa Jin WPtel: [phone] [facility] (15 min) Moderate 06/25/2017 Patient Education: [...] warmth, discharge. 05/15/2017 Appointment: Analisa Jin WPtel: [facility] (15 min) Moderate 05/15/2017 Patient Education: [...] considered contagious. 01/28/2017 Appointment: Stacie Milton WPtel: [facility] (15 min) Moderate 01/28/2017 Patient Education: Patient [...] supportive care. 10/08/2016 Appointment: Stacie Milton WPtel: [facility] New Patient 10/08/2016 Patient Education: Patient Medication [...] in cluding Vitamin D and TSH. Consider [place] thyroid for hypothyroidism Saline spray before using [...] in cluding Vitamin D and TSH. Consider [place] thyroid for hypothyroidism Saline spray before using [...]
--- OUTSIDE RECORDS SUMMARY | 2019-06-17 09:20 | XMS REPORT | CCD ---
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 Unknown Has never used illegal drugs 017 Allergies, Adverse Reactions, Alerts Substance Reaction Codes Entered Date Inactivated Date Status * OTHER REACTION - S EE ANSWER BOX Vitamins CSynthroid Unknown 10/08/2016 No Inactive Date Active * NO KNOWN FOOD MENDEZ RGIES Unknown 10/08/2016 No Inactive Date Active [id number] REDU CTASE INHIBITORS Unknown 07/07/2018 No Inactive Date Active Past Medical History Illness Codes Condition Status Onset Date Resolved Date Candidal stomatitis ICD- 9: 112.0 ICD-10: B37.0 Active 12/15/2018 Unknown Dry mouth, unspecified ICD-9: 527.7 ICD-10: R68.2 Active 12/15/2018 Unknown Essential (primary) hypertension ICD-9: 401.1 ICD-10: I10 Active 10/08/2016 Unknown Generalized anxiety disorder ICD-9: 300.00 ICD-10: F41.1 Active 10/16/2018 Unknown Encounter for screen ing mammogram for malignant neoplasm of breast ICD-9: V76.10 ICD-10: Z12.31 Active 10/22/2018 Unknown Major depressive dis order, recurrent, moderate ICD-9: 296.32 ICD-10: F33.1 Active 10/08/2016 Unknown Primary insomnia ICD-9: 307.42 ICD-10: F51.01 [...] Condition Codes Effectiv e Dates Condition Status Candidal stomatitis ICD- 9: 112.0 ICD-10: B37.0 12/15/2018 Active Dry mouth, unspecified ICD-9: 527.7 ICD-10: R68.2 12/15/2018 Active Essential (primary) hypertension ICD-9: 401.1 ICD-10: I10 10/08/2016 Active Generalized anxiety disorder ICD-9: 300.00 ICD-10: F41.1 10/16/2018 Active Encounter for screen ing mammogram for malignant neoplasm of breast ICD-9: V76.10 ICD-10: Z12.31 10/22/2018 Active Major depressive dis order, recurrent, moderate ICD-9: 296.32 ICD-10: F33.1 10/08/2016 Active Primary insomnia ICD-9: 307.42 ICD-10: F51.01 [...] Date Stop Date Sta tus Fill Instructions nystatin 100,000 uni t/mL oral suspension RxNorm: 514983 5 Milliliter(s) PO QI D 12/15/2018 01/11/2019 Ac tive hydrochlorothiazide 25 mg tablet RxNorm: 094238 Tablet(s) TAKE ONE TA BLET BY MOUTH ONCE DAILY IN THE MORNING 11/14/2018 11/08/2019 Active Effexor XR 150 mg ca psule,extended release RxNorm: 224192 1 Capsule(s) PO daily 10/16/2018 10/10/2019 Ac tive Xanax 1 mg tablet RxNorm: 292470 Tablet(s) TAKE ONE TABLET BY MOUTH ONCE DAILY AT BEDTIME 09/30/2018 12/28/2018 Active Vitamin D3 2,000 uni t capsule RxNorm: 109663 125mcg Capsule(s) PO daily 09/25/2018 12/23/2018 Ac tive trazodone 50 mg tablet RxNorm: 776729 1/2 Tablet(s) PO QHS 09/25/2018 05/22/2019 Active Effexor XR 75 mg cap rashid,extended release RxNorm: 357285 1 Capsule(s) PO daily 09/25/2018 09/24/2018 In active Effexor XR 75 mg cap rashid,extended release RxNorm: 628251 1 Capsule(s) PO daily 09/25/2018 10/15/2018 In active trazodone 50 mg tablet RxNorm: 029487 1/2 Tablet(s) PO QHS 09/25/2018 09/24/2018 Inactive acyclovir 400 mg tablet RxNorm: 768730 1 Tablet(s) PO TID 07/07/2018 07/13/2018 Inactive Xanax 1 mg tablet RxNorm: 480491 Tablet(s) TAKE ONE TABLET BY MOUTH ONCE DAILY AT BEDTIME 06/27/2018 09/29/2018 Inactive Livalo 2 mg tablet RxNorm: 296081 1 Tablet(s) PO QHS 06/25/2018 06/24/2018 Inactive Livalo 2 mg tablet RxNorm: 189237 1 Tablet(s) PO QHS 06/25/2018 09/24/2018 Inactive Lexapro 20 mg tablet RxNorm: 102216 TAKE 1/2 (ONE-HALF) TABLET BY MOUTH ONCE DAILY FOR ONE WEEK, THEN INCREASE TO 1 ONCE DAILY IN THE EVENING. 05/05/2018 09/24/2018 Inactive Xanax 1 mg tablet RxNorm: 354650 Tablet(s) TAKE ONE TABLET BY MOUTH ONCE DAILY AT BEDTIME 04/01/2018 06/26/2018 Inactive Lexapro 20 mg tablet RxNorm: 118588 1 Tablet(s) PO QPM 12/31/2017 05/05/2018 Inactive 1/2 tab daily x 1 week then increase to a full tab mupirocin 2 % topica l ointment RxNorm: 400961 1 Application TOP BID 12/31/2017 01/09/2018 Inactive potassium chloride E R 20 mEq tablet,extended release RxNorm: 779761 TAKE ONE TABLET BY MOUTH ONCE DAILY IN THE MORNING 12/11/2017 No Stop Date Active hydrochlorothiazide 25 mg tablet RxNorm: 733370 TAKE ONE TABLET BY MO UTH ONCE DAILY IN THE MORNING 12/11/2017 11/13/2018 Inactive Effexor XR 75 mg cap rashid,extended release RxNorm: 217008 1 Capsule(s) PO daily 12/09/2017 12/30/2017 In active permethrin 5 % topic al cream RxNorm: 966247 1 Application TOP onc e, may repeat in 14 days. 11/27/2017 01/06/2018 Inactive Xanax 1 mg tablet RxNorm: 407473 1 Tablet(s) PO QHS 09/30/2017 06/24/2018 Inactive citalopram 40 mg tablet RxNorm: 472047 TAKE ONE TABLET BY MOUTH ONCE DAILY IN T HE EVENING 08/05/2017 12/08/2017 Inactive Flagyl 500 mg tablet RxNorm: 665085 1 Tablet(s) PO TID 08/01/2017 08/05/2017 Inactive Xanax 1 mg tablet RxNorm: 325181 1 Tablet(s) PO QHS 07/05/2017 09/29/2017 Inactive Xanax 1 mg tablet RxNorm: 777996 TAKE ONE TABLET BY MOUTH ONCE DAILY AT B EDTIME 07/05/2017 03/31/2018 Inactive Zithromax Z-Cornell 250 mg tablet RxNorm: 503567 1 Tablet(s) PO UD 06/25/2017 07/04/2017 Inactive Trilipix 135 mg caps ule,delayed release RxNorm: 890603 1 Capsule(s) PO daily 05/22/2017 06/24/2018 In active triamcinolone aceton kaity 0.025 % topical cream RxNorm: 0182961 1 Application TOP BI D 05/15/2017 No Stop Date Active ketoconazole 2 % top ical cream RxNorm: 831634 1 TOP daily 05/15/2017 05/21/2017 Inactive Trilipix 135 mg caps ule,delayed release RxNorm: 382190 1 Capsule(s) PO daily 02/12/2017 05/21/2017 In active Trilipix 135 mg caps ule,delayed release RxNorm: 892766 1 Capsule(s) PO daily 02/12/2017 02/11/2017 In active acyclovir 800 mg tablet RxNorm: 394313 1 Tablet(s) PO QID 01/28/2017 02/06/2017 Inactive Fish Oil 1,000 mg ca psule RxNorm: 1 Capsule(s) PO BID 10/17/2016 10/16/2016 Inactive Vitamin D2 50,000 un it capsule RxNorm: 632336 1 Capsule(s) PO QW 10/17/2016 10/16/2016 Inactive Vitamin D3 2,000 uni t capsule RxNorm: 624161 1 Capsule(s) PO daily 10/17/2016 10/16/2016 Inactive Vitamin D2 50,000 un it capsule RxNorm: 500396 1 Capsule(s) PO QW 10/17/2016 01/14/2017 Inactive Vitamin D3 2,000 uni t capsule RxNorm: 443965 1 Capsule(s) PO daily 10/17/2016 01/14/2017 Inactive Fish Oil 1,000 mg ca psule RxNorm: 1 Capsule(s) PO BID 10/17/2016 09/24/2018 Inactive citalopram 40 mg tablet RxNorm: 866116 1 Tablet(s) PO QPM 10/08/2016 07/04/2017 Inactive potassium chloride E R 20 mEq tablet,extended release RxNorm: 895038 1 Tablet(s) PO QAM 10/08/2016 10/02/2017 Inactive hydrochlorothiazide 25 mg tablet RxNorm: 603012 1 Tablet(s) PO QAM 10/08/2016 10/02/2017 Inactive folic acid 400 mcg t ablet RxNorm: 031773 1 Tablet(s) PO daily No Start Date Active fenofibrate microniz ed 130 mg capsule RxNorm: 102363 1 Capsule(s) PO daily No Start Date Active biotin 1 mg tablet RxNorm: 083618 1 Tablet(s) PO daily No Start Date Active Co Q-10 100 mg capsule RxNorm: 456562 1 Capsule(s) PO daily No Start Date Active Colace 100 mg capsule RxNorm: 4944213 1 Capsule(s) PO BID No Start Date Active ferrous sulfate 325 mg (65 mg iron) tablet RxNorm: 496929 1 Tablet(s) PO daily No Start Date Active hydrochlorothiazide 25 mg tablet RxNorm: 723411 1 Tablet(s) PO QAM No Start Date 10/07/2016 Inactive Xanax 1 mg tablet RxNorm: 187593 1 Tablet(s) PO QHS et PRN as needed No Start Date 07/05/2017 Inactive citalopram 40 mg tablet RxNorm: 519869 1 Tablet(s) PO QPM No Start Date 10/07/2016 Inactive potassium chloride E R 20 mEq tablet,extended release RxNorm: 959741 1 Tablet(s) PO QAM No Start Date 10/07/2016 Inactive permethrin 5 % topic al cream RxNorm: 869576 1 Application TOP onc e, may repeat in 14 days. No Start Date 11/26/2017 Inactive Unisom Sleepgels 50 mg capsule RxNorm: 1934973 1 Capsule(s) PO QHS No Start Date 09/24/2018 Inactive Medication Administered No Medication Administered data Immunizations No Immunization data Assessments Condition Codes Effectiv e Dates Candidal stomatitis ICD-10: B37.0 ICD-9: 112.0 12/15/2018 Dry mouth, unspecified ICD-10: R68.2 ICD-9: 527.7 12/15/2018 Generalized anxiety disorder ICD-10: F41.1 ICD-9: 300.00 11/17/2018 Essential (primary) hypertension ICD -10: I10 ICD-9: 401.1 11/17/2018 Encounter for screening mammogram for ma lignant neoplasm of breast ICD-10: Z12.31 ICD-9: V76.10 10/22/2018 Major depressive disorder, recurrent, moderate ICD-10: F33.1 ICD-9: 296.32 10/16/2018 Primary insomnia ICD-10: F51.01 ICD-9: 307.42 10/16/2018 [...] Visit Reason For Visit Effective Dates Notes oral pain 12/15/2018 depression 11/17/2018 depression 10/16/2018 [...] Ord30 C/HDL 5.9 Ratio 10/16/2018 Comp Metabolic Ymz937 NA 143 mEq/L 10/16/2018 Comp Metabolic Fdy376 K 4.3 mEq/L 10/16/2018 Comp Metabolic Nhx799 CL 101 mEq/L 10/16/2018 Comp Metabolic Ixz336 CO2 31.0 mEq/L 10/16/2018 Comp Metabolic Eyv018 AN ION GAP 15 10/16/2018 Comp Metabolic Hxa482 GL UCOSE 90 mg/dL 10/16/2018 Comp Metabolic Bpq666 Cr eat 0.9 mg/dL 10/16/2018 Comp Metabolic Ati167 eG FR 70 ml/min/1.73m2 10/16 Comp Metabolic Vgy644 BUN 14 mg/dL 10/16/2018 Comp Metabolic Zqn588 B/ C Ratio 16.5 Ratio 10/16/2018 Comp Metabolic Eff190 CA LCIUM 9.8 mg/dL 10/16/2018 Comp Metabolic Vqg088 AL K PHOS 76 U/L 10/16/2018 Comp Metabolic Hhb014 T(SGOT) 17 U/L 10/16/2018 Comp Metabolic Ajo814 AL T(SGPT) 18 U/L 10/16/2018 Comp Metabolic Zvp908 BI LI T 0.5 mg/dL 10/16/2018 Comp Metabolic Pee826 AL BUMIN 4.2 g/dL 10/16/2018 Comp Metabolic Moo944 TP RO 6.7 g/dL 10/16/2018 Comp Metabolic Qdj881 GL OB 2.5 g/dL 10/16/2018 Comp Metabolic Zaz761 A/ G Ratio 1.7 Ratio 10/16/2018 Comp Metabolic Opg838 Os mo 285 mOsmo 10/16/2018 Cbc With [...] 30.0 pg 06/18/2018 Cbc With Differential Ord2 [place]% 6.0 % 06/18/2018 Cbc With Differential Ord2 [...] 2.01 K/ul 06/18/2018 Cbc With Differential Ord2 [place] ABS# 0.3 K/ul 06/18/2018 Cbc With Differential Ord2 Eos ABS# 0.3 K/ul 06/18/2018 Cbc With Differential Ord2 Baso ABS# 0.0 K/ul 06/18/2018 Comp Metabolic Zin962 NA 141 mEq/L 06/18/2018 Comp Metabolic Wgu892 K 3.7 mEq/L 06/18/2018 Comp Metabolic Hce337 CL 101 mEq/L 06/18/2018 Comp Metabolic Mwo055 CO2 31.0 mEq/L 06/18/2018 Comp Metabolic Pjt089 AN ION GAP 13 06/18/2018 Comp Metabolic Qrq330 GL UCOSE 106 mg/dL 06/18/2018 Comp Metabolic Mfy645 Cr eat 0.9 mg/dL 06/18/2018 Comp Metabolic Gad425 eG FR 68 ml/min/1.73m2 06/18 Comp Metabolic Bxv583 BUN 16 mg/dL 06/18/2018 Comp Metabolic Jjc608 B/ C Ratio 18.2 Ratio 06/18/2018 Comp Metabolic Zzj566 CA LCIUM 9.5 mg/dL 06/18/2018 Comp Metabolic Utv474 AL K PHOS 82 U/L 06/18/2018 Comp Metabolic Ojq481 T(SGOT) 19 U/L 06/18/2018 Comp Metabolic Mrd926 AL T(SGPT) 18 U/L 06/18/2018 Comp Metabolic Uyu323 BI LI T 0.5 mg/dL 06/18/2018 Comp Metabolic Hcw028 AL BUMIN 4.0 g/dL 06/18/2018 Comp Metabolic Oli650 TP RO 6.5 g/dL 06/18/2018 Comp Metabolic Dpk799 GL OB 2.5 g/dL 06/18/2018 Comp Metabolic Lgb888 A/ G Ratio 1.6 Ratio 06/18/2018 Comp Metabolic Ixt115 Os mo 283 mOsmo 06/18/2018 Tsh Ord6 TSH (3rd IS) 4.02 uIU/mL 06/18/2018 Lipid Ord30 CHOL 238 mg/dL 06/18/2018 Lipid Ord30 HDL 38.0 mg/dl 06/18/2018 Lipid Ord30 TRIG 369 mg/dL 06/18/2018 Lipid Ord30 LDL Unable to calculate Due to elevated trig lycerides mg/dL 06/18/2018 Lipid Ord30 C/HDL 6.3 Ratio 06/18/2018 Influenza A+B Hdi211 Inf paul A+B Negative 06/18/2018 Free T4 Gkk868 FREE T4 0.95 ng/dL 05/15/2017 Tsh Ord6 [...] 30.4 pg 05/15/2017 Cbc With Differential Ord2 [place]% 6.2 % 05/15/2017 Cbc With Differential Ord2 [...] 2.19 K/ul 05/15/2017 Cbc With Differential Ord2 [place] ABS# 0.4 K/ul 05/15/2017 Cbc With Differential Ord2 Eos ABS# 0.2 K/ul 05/15/2017 Cbc With Differential Ord2 Baso ABS# 0.0 K/ul 05/15/2017 Vitamin D 25 Oh Ero4741 VITAMIN D, 25 HYDROXY 50.18 ng/mL 05/15/2017 Comp Metabolic Yig290 NA 141 mEq/L 05/15/2017 Comp Metabolic Npv779 K 3.9 mEq/L 05/15/2017 Comp Metabolic Isv342 CL 103 mEq/L 05/15/2017 Comp Metabolic Xjh825 CO2 29.0 mEq/L 05/15/2017 Comp Metabolic Tws214 AN ION GAP 13 05/15/2017 Comp Metabolic Mwo796 GL UCOSE 84 mg/dL 05/15/2017 Comp Metabolic Kkg371 Cr eat 1.1 mg/dL 05/15/2017 Comp Metabolic Hip900 eG FR 55 ml/min/1.73m2 05/15 Comp Metabolic Srw343 BUN 19 mg/dL 05/15/2017 Comp Metabolic Iff271 B/ C Ratio 18.1 Ratio 05/15/2017 Comp Metabolic Jrj145 CA LCIUM 9.7 mg/dL 05/15/2017 Comp Metabolic Oos813 AL K PHOS 38 U/L 05/15/2017 Comp Metabolic Vzx598 T(SGOT) 21 U/L 05/15/2017 Comp Metabolic Srb566 AL T(SGPT) 17 U/L 05/15/2017 Comp Metabolic Sqp217 BI LI T 0.4 mg/dL 05/15/2017 Comp Metabolic Jax292 AL BUMIN 4.3 g/dL 05/15/2017 Comp Metabolic Xvg101 TP RO 6.5 g/dL 05/15/2017 Comp Metabolic Fey202 GL OB 2.3 g/dL 05/15/2017 Comp Metabolic Xpr698 A/ G Ratio 1.9 Ratio 05/15/2017 Comp Metabolic Fda559 Os mo 283 mOsmo 05/15/2017 Lipid Ord30 CHOL 231 mg/dL 01/18/2017 Lipid Ord30 HDL 48.0 mg/dl 01/18/2017 Lipid Ord30 TRIG 213 mg/dL 01/18/2017 Lipid Ord30 LDL 140 mg/dL 01/18/2017 Lipid Ord30 C/HDL 4.8 Ratio 01/18/2017 Vitamin D 25 Oh Fvq9099 VITAMIN D, 25 HYDROXY 33.28 ng/mL 10/10/2016 B12 Ofc339 B12 377.00 pg/ml 10/10/2016 Comp Metabolic Exo126 NA 142 mEq/L 10/10/2016 Comp Metabolic Xxy603 K 4.0 mEq/L 10/10/2016 Comp Metabolic Fpb163 CL 103 mEq/L 10/10/2016 Comp Metabolic Nxy507 CO2 29.0 mEq/L 10/10/2016 Comp Metabolic Ugq141 AN ION GAP 14 10/10/2016 Comp Metabolic Mob818 GL UCOSE 82 mg/dL 10/10/2016 Comp Metabolic Zek890 Cr eat 0.8 mg/dL 10/10/2016 Comp Metabolic Frk726 eG FR 77 ml/min/1.73m2 10/10 Comp Metabolic Nwq255 BUN 19 mg/dL 10/10/2016 Comp Metabolic Nsc325 B/ C Ratio 24.1 Ratio 10/10/2016 Comp Metabolic Jaz002 CA LCIUM 9.8 mg/dL 10/10/2016 Comp Metabolic Sxi661 AL K PHOS 87 U/L 10/10/2016 Comp Metabolic Qbw934 T(SGOT) 20 U/L 10/10/2016 Comp Metabolic Kit361 AL T(SGPT) 16 U/L 10/10/2016 Comp Metabolic Ylz076 BI LI T 0.5 mg/dL 10/10/2016 Comp Metabolic Yeu114 AL BUMIN 4.0 g/dL 10/10/2016 Comp Metabolic Hfe967 TP RO 6.7 g/dL 10/10/2016 Comp Metabolic Ryr171 GL OB 2.7 g/dL 10/10/2016 Comp Metabolic Cmo421 A/ G Ratio 1.5 Ratio 10/10/2016 Comp Metabolic Gcy169 Os mo 284 mOsmo 10/10/2016 Free T4 Oqu890 FREE T4 0.68 ng/dL 10/10/2016 Cbc With [...] 30.6 pg 10/10/2016 Cbc With Differential Ord2 [place]% 5.2 % 10/10/2016 Cbc With Differential Ord2 [...] 2.11 K/ul 10/10/2016 Cbc With Differential Ord2 [place] ABS# 0.3 K/ul 10/10/2016 Cbc With Differential [...] Result Effective Dates Constitutional No recent illness 12/15/2018 Constitutional No [...] No mental status change 11/17/2018 Psychiatric anxiety 0608/2018 Psychiatric depression 0 11/17/2018 Psychiatric confusion Psychiatric [...] age 0801/28/2017 None Full Exam - General 1996 Eyes conjunctiva/eyelids Overall: conjunctiva clear 01/28/2017 None [...] 4: G0439 10/02/2017 Vital Signs Date Vital 12/15/2018 Blood Pressure 1: 130/86 Code: 8480-6 Heart Rate 1: 74 bpm Height: SpO2: 94% Weight: 11/17/2018 Blood Pressure 1: 128/78 Code: 8480-6 BMI: 41.4 Code: 64685-6 Heart Rate 1: 65 bpm Height: 5'5" SpO2: 92% Weight: 248 lbs 10 o z 10/16/2018 Blood Pressure 1: 138/82 Code: 8480-6 BMI: 42.1 Code: 91857-1 Heart Rate 1: 80 bpm Height: 5'5" SpO2: 96% Weight: 253 lbs 09/25/2018 Blood Pressure 1: 138/88 Code: 8480-6 BMI: 41.8 Code: 97403-3 Heart Rate 1: 78 bpm Height: 5'5" SpO2: 91% Weight: 251 lbs 07/07/2018 Blood Pressure 1: 140/90 Code: 8480-6 BMI: 41.3 Code: 44407-5 Heart Rate 1: 82 bpm Height: 5'5" SpO2: 92% Temperature: 36.1 (C ) / 96.9 (F) Weight: 248 lbs 04/30/2018 Blood Pressure 1: 128/64 Code: 8480-6 BMI: 41.3 Code: 23587-0 Heart Rate 1: 68 bpm Height: 5'5" SpO2: 96% Weight: 248 lbs 01/06/2018 Blood Pressure 1: 136/78 Code: 8480-6 Heart Rate 1: 71 bpm Height: 5'5" SpO2: 95% Weight: 12/31/2017 Blood Pressure 1: 134/76 Code: 8480-6 BMI: 39.8 Code: 99889-5 Heart Rate 1: 87 bpm Height: 5'5" SpO2: 97% Weight: 239 lbs 12/09/2017 Blood Pressure 1: 136/82 Code: 8480-6 BMI: 39.8 Code: 30995-4 Heart Rate 1: 73 bpm Height: 5'5" SpO2: 97% Weight: 239 lbs 10/02/2017 Blood Pressure 1: 130/72 Code: 8480-6 BMI: 39.4 Code: 04069-3 Heart Rate 1: 74 bpm Height: 5'5" SpO2: 93% Waist Measure (cm): 104 cm Weight: 237 lbs 08/01/2017 Blood Pressure 1: 132/74 Code: 8480-6 BMI: 39.3 Code: 95107-6 Heart Rate 1: 66 bpm Height: 5'5" SpO2: 92% Weight: 236 lbs 06/25/2017 Blood Pressure 1: 136/74 Code: 8480-6 BMI: 38.6 Code: 77998-4 Heart Rate 1: 61 bpm Height: 5'5" SpO2: 95% Weight: 232 lbs 05/15/2017 Blood Pressure 1: 143/76 Code: 8480-6 BMI: 38.6 Code: 48885-6 Heart Rate 1: 65 bpm Height: 5'5" SpO2: 97% Weight: 232 lbs 01/28/2017 Blood Pressure 1: 120/80 Code: 8480-6 BMI: 38.1 Code: 57945-8 Heart Rate 1: 55 bpm Height: 5'5" SpO2: 96% Weight: 229 lbs 10/08/2016 Blood Pressure 1: 130/74 Code: 8480-6 BMI: 36.9 Code: 36103-6 Heart Rate 1: 62 bpm Height: 5'5" SpO2: 92% Weight: 221 lbs 8 oz Functional Status No Functional Status data History of Present Illness Symptom Name Status Resu lt Effective Date Notes Location on both sides 12/15/2018 None Location [...] when outdoors: y 10/02/2017 None hypothyroid 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 P ATIENT, LEVEL III Diagnosis: Candidal stomatitis[ICD10: B37.0] Diagnosis: Dry mouth, unspecified[ICD10: R68.2] Renetta Milton MD, [facility] CPT-4: 32574 12/15/2018 ([id number]) 90355 EST. P ATIENT, LEVEL III Diagnosis: Essential (primary) hypertension[ICD10: I10] Diagnosis: Generalized anxiety disorder[ICD10: F41.1] Stacie Milton MD, [facility] CPT-4: 39464 11/17/2018 ([id number]) 15882 EST. P ATIENT, LEVEL IV Diagnosis: Generalized anxiety disorder[ICD10: F41.1] Diagnosis: Major depressive disorder, recurrent, moderate[ICD10: F33.1] Diagnosis: Primary insomnia[ICD10: F51.01] Stacie Milton MD, [facility] CPT-4: 82351 10/16/2018 ([id number]) 79846 EST. P ATIENT, LEVEL IV Diagnosis: Atrophy of thyroid (acquired)[ICD10: E03.4] Diagnosis: Essential (primary) hypertension[ICD10: I10] Diagnosis: Major depressive disorder, recurrent, moderate[ICD10: F33.1] Diagnosis: Adverse effect of antiallergic and antiemetic drugs, initial encounter[ICD10: T45.0X5A] Stacie Milton MD, [facility] CPT-4: 02170 09/25/2018 [id number] EST. PATIENT, LEVEL III Diagnosis: Recurrent oral aphthae[ICD10: K12.0] Renetta Milton MD, [facility] CPT-4: 62717 07/07/2018 [id number] EST. PATIENT, LEVEL IV Diagnosis: Essential (primary) hypertension[ICD10: I10] Diagnosis: Major depressive disorder, recurrent, moderate[ICD10: F33.1] Diagnosis: Other allergic rhinitis[ICD10: J30.89] Analisa Milton MD, [facility] CPT-4: 05315 04/30/2018 ([id number]) 40286 EST. P ATIENT, LEVEL III Diagnosis: Insect bite (nonvenomous), left lower leg, subsequent encounter[ICD10: S80.862D] Diagnosis: Insect bite (nonvenomous), right lower leg, subsequent encounter[ICD10: S80.861D] Stacie Milton MD, [facility] CPT-4: 87624 01/06/2018 ([id number]) 16592 EST. P ATIENT, LEVEL III Diagnosis: Rash and other nonspecific skin eruption[ICD10: R21] Diagnosis: Major depressive disorder, recurrent, moderate[ICD10: F33.1] Renetta Milton MD, [facility] CPT-4: 38629 12/31/2017 ([id number]) 24401 EST. P ATIENT, LEVEL III Diagnosis: Essential (primary) hypertension[ICD10: I10] Diagnosis: Major depressive disorder, recurrent, moderate[ICD10: F33.1] Stacie Milton MD, [facility] CPT-4: 71055 12/09/2017 ([id number]) 42984 EST. P ATIENT, LEVEL IV Diagnosis: Atrophy of thyroid (acquired)[ICD10: E03.4] Diagnosis: Essential (primary) hypertension[ICD10: I10] Diagnosis: Other allergic rhinitis[ICD10: J30.89] Stacie Milton MD, [facility] CPT-4: 30173 08/01/2017 [id number] EST. PATIENT, LEVEL III Diagnosis: Other allergic rhinitis[ICD10: J30.89] Diagnosis: Otalgia, bilateral[ICD10: H92.03] Analisa Milton MD, [facility] CPT-4: 60236 06/25/2017 [id number] EST. PATIENT, LEVEL III Diagnosis: Rash and other nonspecific skin eruption[ICD10: R21] Analisa Milton MD, [facility] CPT-4: 64774 05/15/2017 ([id number]) 08511 EST. P ATIENT, LEVEL III Diagnosis: Zoster without complications[ICD10: B02.9] Stacie Milton MD, [facility] CPT-4: 71534 01/28/2017 ([id number]) OFFICE VISI T, NEW - LEVEL 4 Diagnosis: Essential (primary) hypertension[ICD10: I10] Diagnosis: Bariatric surgery status[ICD10: Z98.84] Diagnosis: Atrophy of thyroid (acquired)[ICD10: E03.4] Diagnosis: Major depressive disorder, recurrent, moderate[ICD10: F33.1] Stacie Milton MD, [facility] CPT-4: 84953 10/08/2016 Plan of Care Planned Activity Notes C odes Status Date Visit Plan: Thrush -dry mouth -disc ussed natural and expected course of this diagnosis and to alert me if symptoms do not resolve or if any worse- discussed medications as possible cause of dry mouth -patient verbalized understanding of plan. 12/15/2018 Patient Education: Patient Medication Summary Completed 12/15/2018 Visit Plan: Hypertension - well con tromaggied - continue with current medications, continue with [...] current medications. 11/17/2018 Appointment: Stacie Milton WPtel: [address] [place] [address] (15 min) Moderate 11/17/2018 Patient Education: Patient [...] sleep easier. 10/16/2018 Appointment: Stacie Milton WPtel: [address] [place], [place] [phone] (15 min) Moderate 10/16/2018 Patient Education: Patient Medication Summary Completed 10/16/2018 Patient Education: Depression Completed 10/16/2018 Appointment: Stacie Milton WPtel: [facility] (15 min) Moderate 10/07/2018 Visit Plan: Hypothyroidism [...] tomorrow morning 09/25/2018 Appointment: Stacie Milton WPtel: [facility] (15 min) Moderate 09/25/2018 Patient Education: Patient Medication Summary Completed 09/25/2018 Patient Education: Depression Completed 09/25/2018 Appointment: Renetta Leigh WPtel: [phone] (30 min) Complex 07/15/2018 Visit Plan: Oral aphthae -rx for ac yclovir provided and instructed on use -follow up in 1 week for re-eval -sooner if needed -call with any concerns or worsening symptoms. 07/07/2018 Appointment: Renetta Leigh WPtel: [facility]5 [facility] [place] [address] (30 min) Complex 07/07/2018 Patient Education: Patient [...] allergy spray. 04/30/2018 Appointment: Analisa Jin WPtel: [facility] (15 min) Moderate 04/30/2018 Patient Education: Patient [...] going outside. 01/06/2018 Appointment: Stacie Milton WPtel: [facility]5 [facility] (15 min) Moderate 01/06/2018 Patient Education: [...] -start lexapro 12/31/2017 Appointment: Renetta Leigh WPtel[phone] (15 min) Moderate 12/31/2017 Patient Education: Patient [...] venlafaxine. 12/09/2017 Appointment: Stacie Milton WPtel: [phone] [facility] (15 min) Moderate 12/09/2017 Patient Education: Patient [...] for flagyl 08/01/2017 Appointment: Stacie Milton W[facility]el[facility] [facility] (15 min) Moderate 08/01/2017 Patient Education: [...] acutely worsen. 06/25/2017 Appointment: Analisa Jin WPtel: [facility]3 [id number] (15 min) Moderate 06/25/2017 Patient Education: Patient [...] warmth, discharge. 05/15/2017 Appointment: Analisa Jin WPtel: [id number] (15 min) Moderate 05/15/2017 Patient Education: Patient [...] considered contagious. 01/28/2017 App[facility]ment[phone] (15 min) Moderate 01/28/2017 Patient Education: Patient [...] supportive care. 10/08/2016 App[facility]ment: [phone] [facility] Patient 10/08/2016 Patient Education: Patient Medication [...] increase in pain, worsening redness, warmth, discharge. No shaving lexapro mupirocin ointment no shaving [...] in cluding Vitamin D and TSH. Consider [place] thyroid for hypothyroidism Saline spray before using [...] in cluding Vitamin D and TSH. Consider [place] thyroid for hypothyroidism Saline spray before using [...] Vaginal discharge - rx for flagyl . Hypertension - wel l controlled - [...]
--- OUTSIDE RECORDS SUMMARY | 2019-06-17 09:20 | XMS REPORT | CCD ---
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 Unknown Has never used illegal drugs 017 Allergies, Adverse Reactions, Alerts Substance Reaction Codes Entered Date Inactivated Date Status * OTHER REACTION - S EE ANSWER BOX Vitamins CSynthroid Unknown 10/08/2016 No Inactive Date Active * NO KNOWN FOOD MENDEZ RGIES Unknown 10/08/2016 No Inactive Date Active [id number]-[id number] REDU CTASE INHIBITORS Unknown 07/07/2018 No Inactive Date Active Past Medical History Illness Codes Condition Status Onset Date Resolved Date Essential (primary) hypertension ICD-9: 401.1 ICD-10: I10 Active 10/08/2016 Unknown Major depressive dis order, recurrent, moderate ICD-9: 296.32 ICD-10: F33.1 Active 10/08/2016 Unknown Candidal stomatitis ICD- 9: 112.0 ICD-10: B37.0 Active 12/15/2018 Unknown Dry mouth, unspecified ICD-9: 527.7 ICD-10: R68.2 Active 12/15/2018 Unknown Generalized anxiety disorder ICD-9: 300.00 ICD-10: [...] hypertension ICD-9: 401.1 ICD-10: I10 10/08/2016 Active Major depressive dis order, recurrent, moderate ICD-9: 296.32 ICD-10: F33.1 10/08/2016 Active Candidal stomatitis ICD- 9: 112.0 ICD-10: B37.0 12/15/2018 Active Dry mouth, unspecified ICD-9: 527.7 ICD-10: R68.2 12/15/2018 Active Generalized anxiety disorder ICD-9: 300.00 ICD-10: [...] Date Stop Date Sta tus Fill Instructions Cymbalta 30 mg capsu le,delayed release RxNorm: 181644 1 Capsule(s) PO daily 12/22/2018 04/20/2019 Ac tive nystatin 100,000 uni t/mL oral suspension RxNorm: 493892 5 Milliliter(s) PO QI D 12/15/2018 12/21/2018 In active hydrochlorothiazide 25 mg tablet RxNorm: 509007 Tablet(s) TAKE ONE TA BLET BY MOUTH ONCE DAILY IN THE MORNING 11/14/2018 11/08/2019 Active Effexor XR 150 mg ca psule,extended release RxNorm: 737035 1 Capsule(s) PO daily 10/16/2018 12/21/2018 In active Xanax 1 mg tablet RxNorm: 051897 Tablet(s) TAKE ONE TABLET BY MOUTH ONCE DAILY AT BEDTIME 09/30/2018 12/28/2018 Active Vitamin D3 2,000 uni t capsule RxNorm: 109791 125mcg Capsule(s) PO daily 09/25/2018 12/23/2018 Ac tive trazodone 50 mg tablet RxNorm: 212043 1/2 Tablet(s) PO QHS 09/25/2018 05/22/2019 Active Effexor XR 75 mg cap rashid,extended release RxNorm: 701826 1 Capsule(s) PO daily 09/25/2018 09/24/2018 In active Effexor XR 75 mg cap rashid,extended release RxNorm: 314218 1 Capsule(s) PO daily 09/25/2018 10/15/2018 In active trazodone 50 mg tablet RxNorm: 627466 1/2 Tablet(s) PO QHS 09/25/2018 09/24/2018 Inactive acyclovir 400 mg tablet RxNorm: 160083 1 Tablet(s) PO TID 07/07/2018 07/13/2018 Inactive Xanax 1 mg tablet RxNorm: 285654 Tablet(s) TAKE ONE TABLET BY MOUTH ONCE DAILY AT BEDTIME 06/27/2018 09/29/2018 Inactive Livalo 2 mg tablet RxNorm: 547053 1 Tablet(s) PO QHS 06/25/2018 06/24/2018 Inactive Livalo 2 mg tablet RxNorm: 469633 1 Tablet(s) PO QHS 06/25/2018 09/24/2018 Inactive Lexapro 20 mg tablet RxNorm: 603057 TAKE 1/2 (ONE-HALF) TABLET BY MOUTH ONCE DAILY FOR ONE WEEK, THEN INCREASE TO 1 ONCE DAILY IN THE EVENING. 05/05/2018 09/24/2018 Inactive Xanax 1 mg tablet RxNorm: 191188 Tablet(s) TAKE ONE TABLET BY MOUTH ONCE DAILY AT BEDTIME 04/01/2018 06/26/2018 Inactive Lexapro 20 mg tablet RxNorm: 917169 1 Tablet(s) PO QPM 12/31/2017 05/05/2018 Inactive 1/2 tab daily x 1 week then increase to a full tab mupirocin 2 % topica l ointment RxNorm: 627071 1 Application TOP BID 12/31/2017 01/09/2018 Inactive potassium chloride E R 20 mEq tablet,extended release RxNorm: 663714 TAKE ONE TABLET BY MOUTH ONCE DAILY IN THE MORNING 12/11/2017 No Stop Date Active hydrochlorothiazide 25 mg tablet RxNorm: 270488 TAKE ONE TABLET BY MO UTH ONCE DAILY IN THE MORNING 12/11/2017 11/13/2018 Inactive Effexor XR 75 mg cap rashid,extended release RxNorm: 298293 1 Capsule(s) PO daily 12/09/2017 12/30/2017 In active permethrin 5 % topic al cream RxNorm: 713119 1 Application TOP onc e, may repeat in 14 days. 11/27/2017 01/06/2018 Inactive Xanax 1 mg tablet RxNorm: 251158 1 Tablet(s) PO QHS 09/30/2017 06/24/2018 Inactive citalopram 40 mg tablet RxNorm: 545163 TAKE ONE TABLET BY MOUTH ONCE DAILY IN T HE EVENING 08/05/2017 12/08/2017 Inactive Flagyl 500 mg tablet RxNorm: 941800 1 Tablet(s) PO TID 08/01/2017 08/05/2017 Inactive Xanax 1 mg tablet RxNorm: 801616 1 Tablet(s) PO QHS 07/05/2017 09/29/2017 Inactive Xanax 1 mg tablet RxNorm: 525931 TAKE ONE TABLET BY MOUTH ONCE DAILY AT B EDTIME 07/05/2017 03/31/2018 Inactive Zithromax Z-Cornell 250 mg tablet RxNorm: 689253 1 Tablet(s) PO UD 06/25/2017 07/04/2017 Inactive Trilipix 135 mg caps ule,delayed release RxNorm: 149526 1 Capsule(s) PO daily 05/22/2017 06/24/2018 In active triamcinolone aceton kaity 0.025 % topical cream RxNorm: 9037698 1 Application TOP BI D 05/15/2017 No Stop Date Active ketoconazole 2 % top ical cream RxNorm: 806982 1 TOP daily 05/15/2017 05/21/2017 Inactive Trilipix 135 mg caps ule,delayed release RxNorm: 293714 1 Capsule(s) PO daily 02/12/2017 05/21/2017 In active Trilipix 135 mg caps ule,delayed release RxNorm: 424958 1 Capsule(s) PO daily 02/12/2017 02/11/2017 In active acyclovir 800 mg tablet RxNorm: 410553 1 Tablet(s) PO QID 01/28/2017 02/06/2017 Inactive Fish Oil 1,000 mg ca psule RxNorm: 1 Capsule(s) PO BID 10/17/2016 10/16/2016 Inactive Vitamin D2 50,000 un it capsule RxNorm: 095252 1 Capsule(s) PO QW 10/17/2016 10/16/2016 Inactive Vitamin D3 2,000 uni t capsule RxNorm: 947664 1 Capsule(s) PO daily 10/17/2016 10/16/2016 Inactive Vitamin D2 50,000 un it capsule RxNorm: 398081 1 Capsule(s) PO QW 10/17/2016 01/14/2017 Inactive Vitamin D3 2,000 uni t capsule RxNorm: 422732 1 Capsule(s) PO daily 10/17/2016 01/14/2017 Inactive Fish Oil 1,000 mg ca psule RxNorm: 1 Capsule(s) PO BID 10/17/2016 09/24/2018 Inactive citalopram 40 mg tablet RxNorm: 953093 1 Tablet(s) PO QPM 10/08/2016 07/04/2017 Inactive potassium chloride E R 20 mEq tablet,extended release RxNorm: 894351 1 Tablet(s) PO QAM 10/08/2016 10/02/2017 Inactive hydrochlorothiazide 25 mg tablet RxNorm: 577209 1 Tablet(s) PO QAM 10/08/2016 10/02/2017 Inactive folic acid 400 mcg t ablet RxNorm: 189206 1 Tablet(s) PO daily No Start Date Active fenofibrate microniz ed 130 mg capsule RxNorm: 557072 1 Capsule(s) PO daily No Start Date Active biotin 1 mg tablet RxNorm: 288887 1 Tablet(s) PO daily No Start Date Active Co Q-10 100 mg capsule RxNorm: 553341 1 Capsule(s) PO daily No Start Date Active Colace 100 mg capsule RxNorm: 8113835 1 Capsule(s) PO BID No Start Date Active ferrous sulfate 325 mg (65 mg iron) tablet RxNorm: 923106 1 Tablet(s) PO daily No Start Date Active hydrochlorothiazide 25 mg tablet RxNorm: 733121 1 Tablet(s) PO QAM No Start Date 10/07/2016 Inactive Xanax 1 mg tablet RxNorm: 598900 1 Tablet(s) PO QHS et PRN as needed No Start Date 07/05/2017 Inactive citalopram 40 mg tablet RxNorm: 418260 1 Tablet(s) PO QPM No Start Date 10/07/2016 Inactive potassium chloride E R 20 mEq tablet,extended release RxNorm: 936510 1 Tablet(s) PO QAM No Start Date 10/07/2016 Inactive permethrin 5 % topic al cream RxNorm: 980470 1 Application TOP onc e, may repeat in 14 days. No Start Date 11/26/2017 Inactive Unisom Sleepgels 50 mg capsule RxNorm: 1138174 1 Capsule(s) PO QHS No Start Date 09/24/2018 Inactive Medication Administered No Medication Administered data Immunizations No Immunization data Assessments Condition Codes Effectiv e Dates Essential (primary) hypertension ICD -10: I10 ICD-9: 401.1 12/22/2018 Major depressive disorder, recurrent, moderate ICD-10: F33.1 ICD-9: 296.32 12/22/2018 Candidal stomatitis ICD-10: B37.0 ICD-9: 112.0 12/15/2018 Dry mouth, unspecified ICD-10: R68.2 ICD-9: 527.7 12/15/2018 Generalized anxiety disorder ICD-10: F41.1 ICD-9: 300.00 11/17/2018 Encounter for screening mammogram for ma [...] Reason For Visit Effective Dates Notes depression 12/22/2018 oral pain 12/15/2018 depression 11/17/2018 [...] Ord30 C/HDL 5.9 Ratio 10/16/2018 Comp Metabolic Wlv302 NA 143 mEq/L 10/16/2018 Comp Metabolic Iuy248 K 4.3 mEq/L 10/16/2018 Comp Metabolic Knq700 CL 101 mEq/L 10/16/2018 Comp Metabolic Ldv068 CO2 31.0 mEq/L 10/16/2018 Comp Metabolic Xmr992 AN ION GAP 15 10/16/2018 Comp Metabolic Ihe957 GL UCOSE 90 mg/dL 10/16/2018 Comp Metabolic Jcv175 Cr eat 0.9 mg/dL 10/16/2018 Comp Metabolic Lvt901 eG FR 70 ml/min/1.73m2 10/16 Comp Metabolic Lrz044 BUN 14 mg/dL 10/16/2018 Comp Metabolic Meb117 B/ C Ratio 16.5 Ratio 10/16/2018 Comp Metabolic Yhh830 CA LCIUM 9.8 mg/dL 10/16/2018 Comp Metabolic Fwp709 AL K PHOS 76 U/L 10/16/2018 Comp Metabolic Xom233 T(SGOT) 17 U/L 10/16/2018 Comp Metabolic Jax398 AL T(SGPT) 18 U/L 10/16/2018 Comp Metabolic Vzu559 BI LI T 0.5 mg/dL 10/16/2018 Comp Metabolic Did141 AL BUMIN 4.2 g/dL 10/16/2018 Comp Metabolic Yzr562 TP RO 6.7 g/dL 10/16/2018 Comp Metabolic Xfj892 GL OB 2.5 g/dL 10/16/2018 Comp Metabolic Sit672 A/ G Ratio 1.7 Ratio 10/16/2018 Comp Metabolic Ofk812 Os mo 285 mOsmo 10/16/2018 Cbc With [...] 30.0 pg 06/18/2018 Cbc With Differential Ord2 Ector% 6.0 % 06/18/2018 Cbc With Differential Ord2 [...] 2.01 K/ul 06/18/2018 Cbc With Differential Ord2 Ector ABS# 0.3 K/ul 06/18/2018 Cbc With Differential Ord2 Eos ABS# 0.3 K/ul 06/18/2018 Cbc With Differential Ord2 Baso ABS# 0.0 K/ul 06/18/2018 Comp Metabolic Xqf274 NA 141 mEq/L 06/18/2018 Comp Metabolic Bvm367 K 3.7 mEq/L 06/18/2018 Comp Metabolic Yxg259 CL 101 mEq/L 06/18/2018 Comp Metabolic Now547 CO2 31.0 mEq/L 06/18/2018 Comp Metabolic Udn335 AN ION GAP 13 06/18/2018 Comp Metabolic Kms942 GL UCOSE 106 mg/dL 06/18/2018 Comp Metabolic Qsu929 Cr eat 0.9 mg/dL 06/18/2018 Comp Metabolic Bjt703 eG FR 68 ml/min/1.73m2 06/18 Comp Metabolic Ufn568 BUN 16 mg/dL 06/18/2018 Comp Metabolic Jwh092 B/ C Ratio 18.2 Ratio 06/18/2018 Comp Metabolic Gpl001 CA LCIUM 9.5 mg/dL 06/18/2018 Comp Metabolic Bel480 AL K PHOS 82 U/L 06/18/2018 Comp Metabolic Xom206 T(SGOT) 19 U/L 06/18/2018 Comp Metabolic Igz852 AL T(SGPT) 18 U/L 06/18/2018 Comp Metabolic Ukc604 BI LI T 0.5 mg/dL 06/18/2018 Comp Metabolic Hgu588 AL BUMIN 4.0 g/dL 06/18/2018 Comp Metabolic Iox923 TP RO 6.5 g/dL 06/18/2018 Comp Metabolic Fmz359 GL OB 2.5 g/dL 06/18/2018 Comp Metabolic Wvc926 A/ G Ratio 1.6 Ratio 06/18/2018 Comp Metabolic Zvt630 Os mo 283 mOsmo 06/18/2018 Tsh Ord6 TSH (3rd IS) 4.02 uIU/mL 06/18/2018 Lipid Ord30 CHOL 238 mg/dL 06/18/2018 Lipid Ord30 HDL 38.0 mg/dl 06/18/2018 Lipid Ord30 TRIG 369 mg/dL 06/18/2018 Lipid Ord30 LDL Unable to calculate Due to elevated trig lycerides mg/dL 06/18/2018 Lipid Ord30 C/HDL 6.3 Ratio 06/18/2018 Influenza A+B Pwd086 Inf apul A+B Negative 06/18/2018 Free T4 Xja760 FREE T4 0.95 ng/dL 05/15/2017 Tsh Ord6 [...] 30.4 pg 05/15/2017 Cbc With Differential Ord2 Ector% 6.2 % 05/15/2017 Cbc With Differential Ord2 [...] 2.19 K/ul 05/15/2017 Cbc With Differential Ord2 Ector ABS# 0.4 K/ul 05/15/2017 Cbc With Differential Ord2 Eos ABS# 0.2 K/ul 05/15/2017 Cbc With Differential Ord2 Baso ABS# 0.0 K/ul 05/15/2017 Vitamin D 25 Oh Nvw9360 VITAMIN D, 25 HYDROXY 50.18 ng/mL 05/15/2017 Comp Metabolic Jxc022 NA 141 mEq/L 05/15/2017 Comp Metabolic Goc199 K 3.9 mEq/L 05/15/2017 Comp Metabolic Arj248 CL 103 mEq/L 05/15/2017 Comp Metabolic Rdc991 CO2 29.0 mEq/L 05/15/2017 Comp Metabolic Kys058 AN ION GAP 13 05/15/2017 Comp Metabolic Mww639 GL UCOSE 84 mg/dL 05/15/2017 Comp Metabolic Eyi219 Cr eat 1.1 mg/dL 05/15/2017 Comp Metabolic Cym926 eG FR 55 ml/min/1.73m2 05/15 Comp Metabolic Xdk939 BUN 19 mg/dL 05/15/2017 Comp Metabolic Eam574 B/ C Ratio 18.1 Ratio 05/15/2017 Comp Metabolic Ynk516 CA LCIUM 9.7 mg/dL 05/15/2017 Comp Metabolic Cgs398 AL K PHOS 38 U/L 05/15/2017 Comp Metabolic Ujv787 T(SGOT) 21 U/L 05/15/2017 Comp Metabolic Frt495 AL T(SGPT) 17 U/L 05/15/2017 Comp Metabolic Uxc578 BI LI T 0.4 mg/dL 05/15/2017 Comp Metabolic Yix742 AL BUMIN 4.3 g/dL 05/15/2017 Comp Metabolic Hdy854 TP RO 6.5 g/dL 05/15/2017 Comp Metabolic Xga876 GL OB 2.3 g/dL 05/15/2017 Comp Metabolic Dng128 A/ G Ratio 1.9 Ratio 05/15/2017 Comp Metabolic Mst150 Os mo 283 mOsmo 05/15/2017 Lipid Ord30 CHOL 231 mg/dL 01/18/2017 Lipid Ord30 HDL 48.0 mg/dl 01/18/2017 Lipid Ord30 TRIG 213 mg/dL 01/18/2017 Lipid Ord30 LDL 140 mg/dL 01/18/2017 Lipid Ord30 C/HDL 4.8 Ratio 01/18/2017 Vitamin D 25 Oh Fdx4880 VITAMIN D, 25 HYDROXY 33.28 ng/mL 10/10/2016 B12 Mpr213 B12 377.00 pg/ml 10/10/2016 Comp Metabolic Wam289 NA 142 mEq/L 10/10/2016 Comp Metabolic Lte769 K 4.0 mEq/L 10/10/2016 Comp Metabolic Skv288 CL 103 mEq/L 10/10/2016 Comp Metabolic Smz161 CO2 29.0 mEq/L 10/10/2016 Comp Metabolic Utr798 AN ION GAP 14 10/10/2016 Comp Metabolic Jtg530 GL UCOSE 82 mg/dL 10/10/2016 Comp Metabolic Gus470 Cr eat 0.8 mg/dL 10/10/2016 Comp Metabolic Xpb616 eG FR 77 ml/min/1.73m2 10/10 Comp Metabolic Fnk159 BUN 19 mg/dL 10/10/2016 Comp Metabolic Hkf224 B/ C Ratio 24.1 Ratio 10/10/2016 Comp Metabolic Zkg440 CA LCIUM 9.8 mg/dL 10/10/2016 Comp Metabolic Vgd310 AL K PHOS 87 U/L 10/10/2016 Comp Metabolic Fzi976 T(SGOT) 20 U/L 10/10/2016 Comp Metabolic Qik787 AL T(SGPT) 16 U/L 10/10/2016 Comp Metabolic Djn747 BI LI T 0.5 mg/dL 10/10/2016 Comp Metabolic Acs937 AL BUMIN 4.0 g/dL 10/10/2016 Comp Metabolic Sep069 TP RO 6.7 g/dL 10/10/2016 Comp Metabolic Aok103 GL OB 2.7 g/dL 10/10/2016 Comp Metabolic Ide520 A/ G Ratio 1.5 Ratio 10/10/2016 Comp Metabolic Lbh501 Os mo 284 mOsmo 10/10/2016 Free T4 Wbm890 FREE T4 0.68 ng/dL 10/10/2016 Cbc With [...] 30.6 pg 10/10/2016 Cbc With Differential Ord2 Ector% 5.2 % 10/10/2016 Cbc With Differential Ord2 [...] 2.11 K/ul 10/10/2016 Cbc With Differential Ord2 Ector ABS# 0.3 K/ul 10/10/2016 Cbc With Differential [...] Result Effective Dates Constitutional No recent illness 12/22/2018 Constitutional No [...] No mental status change 12/22/2018 Psychiatric anxiety 0 01/2019 Psychiatric depression 0 12/22/2018 Psychiatric confusion [...] sounds 12/15/2018 None Full Exam - General 1995 Musculoskeletal gait and station Overall: normal gait [...] ri ght sides Full Exam - General 1995 Eyes conjunctiva/eyelids Overall: conjunctiva clear 04/30/2018 None [...] 4: G0439 10/02/2017 Vital Signs Date Vital 12/22/2018 Blood Pressure 1: 128/74 Code: 8480-6 BMI: 39.9 Code: 50347-1 Heart Rate 1: 80 bpm Height: 5'5" SpO2: 94% Weight: 240 lbs 12/15/2018 Blood Pressure 1: 130/86 Code: 8480-6 Heart Rate 1: 74 bpm Height: SpO2: 94% Weight: 11/17/2018 Blood Pressure 1: 128/78 Code: 8480-6 BMI: 41.4 Code: 71324-2 Heart Rate 1: 65 bpm Height: 5'5" SpO2: 92% Weight: 248 lbs 10 o z 10/16/2018 Blood Pressure 1: 138/82 Code: 8480-6 BMI: 42.1 Code: 66389-9 Heart Rate 1: 80 bpm Height: 5'5" SpO2: 96% Weight: 253 lbs 09/25/2018 Blood Pressure 1: 138/88 Code: 8480-6 BMI: 41.8 Code: 15372-4 Heart Rate 1: 78 bpm Height: 5'5" SpO2: 91% Weight: 251 lbs 07/07/2018 Blood Pressure 1: 140/90 Code: 8480-6 BMI: 41.3 Code: 38629-3 Heart Rate 1: 82 bpm Height: 5'5" SpO2: 92% Temperature: 36.1 (C ) / 96.9 (F) Weight: 248 lbs 04/30/2018 Blood Pressure 1: 128/64 Code: 8480-6 BMI: 41.3 Code: 26974-6 Heart Rate 1: 68 bpm Height: 5'5" SpO2: 96% Weight: 248 lbs 01/06/2018 Blood Pressure 1: 136/78 Code: 8480-6 Heart Rate 1: 71 bpm Height: 5'5" SpO2: 95% Weight: 12/31/2017 Blood Pressure 1: 134/76 Code: 8480-6 BMI: 39.8 Code: 37592-2 Heart Rate 1: 87 bpm Height: 5'5" SpO2: 97% Weight: 239 lbs 12/09/2017 Blood Pressure 1: 136/82 Code: 8480-6 BMI: 39.8 Code: 44834-0 Heart Rate 1: 73 bpm Height: 5'5" SpO2: 97% Weight: 239 lbs 10/02/2017 Blood Pressure 1: 130/72 Code: 8480-6 BMI: 39.4 Code: 79171-4 Heart Rate 1: 74 bpm Height: 5'5" SpO2: 93% Waist Measure (cm): 104 cm Weight: 237 lbs 08/01/2017 Blood Pressure 1: 132/74 Code: 8480-6 BMI: 39.3 Code: 08977-4 Heart Rate 1: 66 bpm Height: 5'5" SpO2: 92% Weight: 236 lbs 06/25/2017 Blood Pressure 1: 136/74 Code: 8480-6 BMI: 38.6 Code: 72525-6 Heart Rate 1: 61 bpm Height: 5'5" SpO2: 95% Weight: 232 lbs 05/15/2017 Blood Pressure 1: 143/76 Code: 8480-6 BMI: 38.6 Code: 03768-2 Heart Rate 1: 65 bpm Height: 5'5" SpO2: 97% Weight: 232 lbs 01/28/2017 Blood Pressure 1: 120/80 Code: 8480-6 BMI: 38.1 Code: 14373-1 Heart Rate 1: 55 bpm Height: 5'5" SpO2: 96% Weight: 229 lbs 10/08/2016 Blood Pressure 1: 130/74 Code: 8480-6 BMI: 36.9 Code: 96066-5 Heart Rate 1: 62 bpm Height: 5'5" SpO2: 92% Weight: 221 lbs 8 oz Functional Status No Functional Status data History of Present Illness Symptom Name Status Resu lt Effective Date Notes Quality chronic 12/22/2018 None Onset and Resolution [...] when outdoors: y 10/02/2017 None hypothyroid 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 P ATIENT, LEVEL III Diagnosis: Essential (primary) hypertension[ICD10: I10] Diagnosis: Major depressive disorder, recurrent, moderate[ICD10: F33.1] Stacie Milton MD, [facility] CPT-4: 41298 12/22/2018 ([id number]) 43514 EST. P ATIENT, LEVEL III Diagnosis: Candidal stomatitis[ICD10: B37.0] Diagnosis: Dry mouth, unspecified[ICD10: R68.2] Renetta Milton MD, [facility] CPT-4: 70079 12/15/[id number]) 23813 EST. P ATIENT, LEVEL III Diagnosis: Essential (primary) hypertension[ICD10: I10] Diagnosis: Generalized anxiety disorder[ICD10: F41.1] Stacie Milton MD, [facility] CPT-4: 49473 11/17/2018 ([id number]) 90593 EST. P ATIENT, LEVEL IV Diagnosis: Generalized anxiety disorder[ICD10: F41.1] Diagnosis: Major depressive disorder, recurrent, moderate[ICD10: F33.1] Diagnosis: Primary insomnia[ICD10: F51.01] Stacie Milton MD, [facility] CPT-4: 00553 10/16/2018 ([id number]) 96579 EST. P ATIENT, LEVEL IV Diagnosis: Atrophy of thyroid (acquired)[ICD10: E03.4] Diagnosis: Essential (primary) hypertension[ICD10: I10] Diagnosis: Major depressive disorder, recurrent, moderate[ICD10: F33.1] Diagnosis: Adverse effect of antiallergic and antiemetic drugs, initial encounter[ICD10: T45.0X5A] Stacie Milton MD, [facility] CPT-4: 82379 09/25/2018 27710 EST. PATIENT, LEVEL III Diagnosis: Recurrent oral aphthae[ICD10: K12.0] Renetta Milton MD, [facility] CPT-4: 28118 07/07/2018 42082 EST. PATIENT, LEVEL IV Diagnosis: Essential (primary) hypertension[ICD10: I10] Diagnosis: Major depressive disorder, recurrent, moderate[ICD10: F33.1] Diagnosis: Other allergic rhinitis[ICD10: J30.89] Analisa Milton MD, [facility] CPT-4: 08659 04/30/2018 ([id number]) 38641 EST. P ATIENT, LEVEL III Diagnosis: Insect bite (nonvenomous), left lower leg, subsequent encounter[ICD10: S80.862D] Diagnosis: Insect bite (nonvenomous), right lower leg, subsequent encounter[ICD10: S80.861D] Stacie Milton MD, [facility] CPT-4: 60640 01/06/2018 ([id number]) 69524 EST. P ATIENT, LEVEL III Diagnosis: Rash and other nonspecific skin eruption[ICD10: R21] Diagnosis: Major depressive disorder, recurrent, moderate[ICD10: F33.1] Renetta Milton MD, [facility] CPT-4: 39104 12/31/2017 ([id number]) 99703 EST. P ATIENT, LEVEL III Diagnosis: Essential (primary) hypertension[ICD10: I10] Diagnosis: Major depressive disorder, recurrent, moderate[ICD10: F33.1] Stacie Milton MD, [facility] CPT-4: 96449 12/09/2017 ([id number]) 75901 EST. P ATIENT, LEVEL IV Diagnosis: Atrophy of thyroid (acquired)[ICD10: E03.4] Diagnosis: Essential (primary) hypertension[ICD10: I10] Diagnosis: Other allergic rhinitis[ICD10: J30.89] Stacie Milton MD, [facility] CPT-4: 18398 08/01/2017 40200 EST. PATIENT, LEVEL III Diagnosis: Other allergic rhinitis[ICD10: J30.89] Diagnosis: Otalgia, bilateral[ICD10: H92.03] Analisa Milton MD, [facility] CPT-4: 25251 06/25/2017 32518 EST. PATIENT, LEVEL III Diagnosis: Rash and other nonspecific skin eruption[ICD10: R21] Analisa Milton MD, [facility] CPT-4: 35927 05/15/2017 ([id number]) 20890 EST. P ATIENT, LEVEL III Diagnosis: Zoster without complications[ICD10: B02.9] Stacie Milton MD, [facility] CPT-4: 51225 01/28/2017 ([id number]) OFFICE VISI T, NEW - LEVEL 4 Diagnosis: Essential (primary) hypertension[ICD10: I10] Diagnosis: Bariatric surgery status[ICD10: Z98.84] Diagnosis: Atrophy of thyroid (acquired)[ICD10: E03.4] Diagnosis: Major depressive disorder, recurrent, moderate[ICD10: F33.1] Stacie Milton MD, [facility] CPT-4: 59270 10/08/2016 Plan of Care Planned Activity Notes [...] 30mg daily - stop the Wellbutrin. 12/22/2018 Patient Education: Patient Medication Summary Completed 12/22/2018 Patient Education: Depression Completed 12/22/2018 Visit Plan: Thrush -dry mouth -disc ussed natural and expected course of this diagnosis and to alert me if symptoms do not resolve or if any worse- discussed medications as possible cause of dry mouth -patient verbalized understanding of plan. 12/15/2018 Appointment: Renetta Leigh WPtel: [phone] [phone] (30 min) Complex 12/15/2018 Patient Education: [...] current medications. 11/17/2018 [phone] [facility] ([facility]) Moderate 11/17/2018 Patient Education: Patient [...] sleep easier. 10/16/2018 [facility]ment[phone] [facility] ([facility] min) Moderate 10/16/2018 Patient Education: Patient Medication Summary Completed 10/16/2018 Patient Education: Depression Completed 10/16/2018 [facility] [phone] [facility] (15 min) Moderate 10/07/2018 Visit Plan: [...] morning 09/25/2018 [facility]ment: [facility] [phone] [facility] (15 min) Moderate 09/25/2018 Patient Education: Patient Medication Summary Completed 09/25/2018 Patient Education: Depression Completed 09/25/2018 Appointment: Renetta Leigh WPtel: [phone] (30 min) Complex 07/15/2018 Visit Plan: Oral aphthae -rx for ac yclovir provided and instructed on use -follow up in 1 week for re-eval -sooner if needed -call with any concerns or worsening symptoms. 07/07/2018 Appointment: [phone] ([facility] min) Complex 07/07/2018 Patient Education: Patient [...] allergy spray. 04/30/2018 [facility]ment[phone] [facility] (15 min) Moderate 04/30/2018 Patient Education: Patient [...] outside. 01/06/2018 Appointment: Stacie Milton WPtel: [facility] (15 min) Moderate 01/06/2018 Patient Education: [...] -start lexapro 12/31/2017 Appointment: Renetta Leigh WPtel: [facility] (15 min) Moderate 12/31/2017 Patient Education: Patient [...] on venlafaxine. 12/09/2017 Appointment: Stacie Milton WPtel: [facility] (15 min) Moderate 12/09/2017 Patient Education: Patient [...] for flagyl 08/01/2017 Appointment: Stacie Milton WPtel[facility] (15 min) Moderate 08/01/2017 Patient Education: Patient [...] worsen. 06/25/2017 Appointment: Analisa Jin WPtel: [phone] [facility] (15 min) Moderate 06/25/2017 Patient Education: Patient [...] warmth, discharge. 05/15/2017 Appointment: Analisa Jin WPtel: [phone] [facility] (15 min) Moderate 05/15/2017 Patient Education: Patient [...] contagious. 01/28/2017 Appointment: Stacie Milton WPtel: [facility] [id number] (15 min) Moderate 01/28/2017 Patient Education: Patient [...] supportive care. 10/08/2016 Appointment: Stacie Milton WPtel[facility] [facility] 10/08/2016 Patient Education: Patient [...] in cluding Vitamin D and TSH. Consider [facility] for hypothyroidism Saline spray before using [...] in cluding Vitamin D and TSH. Consider [facility] for hypothyroidism Saline spray before using [...]
--- OUTSIDE RECORDS SUMMARY | 2019-06-17 09:21 | XMS REPORT | CCD ---
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 Unknown Has never used illegal drugs 017 Allergies, Adverse Reactions, Alerts Substance Reaction Codes Entered Date Inactivated Date Status * OTHER REACTION - S EE ANSWER BOX Vitamins CSynthroid Unknown 10/08/2016 No Inactive Date Active * NO KNOWN FOOD MENDEZ RGIES Unknown 10/08/2016 No Inactive Date Active HQWJMJY-WIY-FAL REDU CTASE INHIBITORS Unknown 07/07/2018 No Inactive [...] nystatin 100,000 uni t/mL oral suspension RxNorm: 589807 5 Milliliter(s) PO QI D 12/15/2018 01/11/2019 Ac tive hydrochlorothiazide 25 mg tablet RxNorm: 948872 Tablet(s) TAKE ONE TA BLET BY MOUTH ONCE DAILY IN THE MORNING 11/14/2018 11/08/2019 Active Effexor XR 150 mg ca psule,extended release RxNorm: 349983 1 Capsule(s) PO daily 10/16/2018 10/10/2019 Ac tive Xanax 1 mg tablet RxNorm: 568696 Tablet(s) TAKE ONE TABLET BY MOUTH ONCE DAILY AT BEDTIME 09/30/2018 12/28/2018 Active Vitamin D3 2,000 uni t capsule RxNorm: 986479 125mcg Capsule(s) PO daily 09/25/2018 12/23/2018 Ac tive trazodone 50 mg tablet RxNorm: 104663 1/2 Tablet(s) PO QHS 09/25/2018 05/22/2019 Active Effexor XR 75 mg cap rashid,extended release RxNorm: 566703 1 Capsule(s) PO daily 09/25/2018 09/24/2018 In active Effexor XR 75 mg cap rashid,extended release RxNorm: 812347 1 Capsule(s) PO daily 09/25/2018 10/15/2018 In active trazodone 50 mg tablet RxNorm: 437478 1/2 Tablet(s) PO QHS 09/25/2018 09/24/2018 Inactive acyclovir 400 mg tablet RxNorm: 001571 1 Tablet(s) PO TID 07/07/2018 07/13/2018 Inactive Xanax 1 mg tablet RxNorm: 748880 Tablet(s) TAKE ONE TABLET BY MOUTH ONCE DAILY AT BEDTIME 06/27/2018 09/29/2018 Inactive Livalo 2 mg tablet RxNorm: 057524 1 Tablet(s) PO QHS 06/25/2018 06/24/2018 Inactive Livalo 2 mg tablet RxNorm: 071197 1 Tablet(s) PO QHS 06/25/2018 09/24/2018 Inactive Lexapro 20 mg tablet RxNorm: 585939 TAKE 1/2 (ONE-HALF) TABLET BY MOUTH ONCE DAILY FOR ONE WEEK, THEN INCREASE TO 1 ONCE DAILY IN THE EVENING. 05/05/2018 09/24/2018 Inactive Xanax 1 mg tablet RxNorm: 157431 Tablet(s) TAKE ONE TABLET BY MOUTH ONCE DAILY AT BEDTIME 04/01/2018 06/26/2018 Inactive Lexapro 20 mg tablet RxNorm: 766318 1 Tablet(s) PO QPM 12/31/2017 05/05/2018 Inactive 1/2 tab daily x 1 week then increase to a full tab mupirocin 2 % topica l ointment RxNorm: 545791 1 Application TOP BID 12/31/2017 01/09/2018 Inactive potassium chloride E R 20 mEq tablet,extended release RxNorm: 126414 TAKE ONE TABLET BY MOUTH ONCE DAILY IN THE MORNING 12/11/2017 No Stop Date Active hydrochlorothiazide 25 mg tablet RxNorm: 629374 TAKE ONE TABLET BY MO UTH ONCE DAILY IN THE MORNING 12/11/2017 11/13/2018 Inactive Effexor XR 75 mg cap rashid,extended release RxNorm: 521390 1 Capsule(s) PO daily 12/09/2017 12/30/2017 In active permethrin 5 % topic al cream RxNorm: 734218 1 Application TOP onc e, may repeat in 14 days. 11/27/2017 01/06/2018 Inactive Xanax 1 mg tablet RxNorm: 690155 1 Tablet(s) PO QHS 09/30/2017 06/24/2018 Inactive citalopram 40 mg tablet RxNorm: 428197 TAKE ONE TABLET BY MOUTH ONCE DAILY IN T HE EVENING 08/05/2017 12/08/2017 Inactive Flagyl 500 mg tablet RxNorm: 775812 1 Tablet(s) PO TID 08/01/2017 08/05/2017 Inactive Xanax 1 mg tablet RxNorm: 499655 1 Tablet(s) PO QHS 07/05/2017 09/29/2017 Inactive Xanax 1 mg tablet RxNorm: 827175 TAKE ONE TABLET BY MOUTH ONCE DAILY AT B EDTIME 07/05/2017 03/31/2018 Inactive Zithromax Z-Cornell 250 mg tablet RxNorm: 816608 1 Tablet(s) PO UD 06/25/2017 07/04/2017 Inactive Trilipix 135 mg caps ule,delayed release RxNorm: 287242 1 Capsule(s) PO daily 05/22/2017 06/24/2018 In active triamcinolone aceton kaity 0.025 % topical cream RxNorm: 4884362 1 Application TOP BI D 05/15/2017 No Stop Date Active ketoconazole 2 % top ical cream RxNorm: 633234 1 TOP daily 05/15/2017 05/21/2017 Inactive Trilipix 135 mg caps ule,delayed release RxNorm: 033544 1 Capsule(s) PO daily 02/12/2017 05/21/2017 In active Trilipix 135 mg caps ule,delayed release RxNorm: 236241 1 Capsule(s) PO daily 02/12/2017 02/11/2017 In active acyclovir 800 mg tablet RxNorm: 854211 1 Tablet(s) PO QID 01/28/2017 02/06/2017 Inactive Fish Oil 1,000 mg ca psule RxNorm: 1 Capsule(s) PO BID 10/17/2016 10/16/2016 Inactive Vitamin D2 50,000 un it capsule RxNorm: 066257 1 Capsule(s) PO QW 10/17/2016 10/16/2016 Inactive Vitamin D3 2,000 uni t capsule RxNorm: 209266 1 Capsule(s) PO daily 10/17/2016 10/16/2016 Inactive Vitamin D2 50,000 un it capsule RxNorm: 055623 1 Capsule(s) PO QW 10/17/2016 01/14/2017 Inactive Vitamin D3 2,000 uni t capsule RxNorm: 180769 1 Capsule(s) PO daily 10/17/2016 01/14/2017 Inactive Fish Oil 1,000 mg ca psule RxNorm: 1 Capsule(s) PO BID 10/17/2016 09/24/2018 Inactive citalopram 40 mg tablet RxNorm: 012573 1 Tablet(s) PO QPM 10/08/2016 07/04/2017 Inactive potassium chloride E R 20 mEq tablet,extended release RxNorm: 203936 1 Tablet(s) PO QAM 10/08/2016 10/02/2017 Inactive hydrochlorothiazide 25 mg tablet RxNorm: 245307 1 Tablet(s) PO QAM 10/08/2016 10/02/2017 Inactive folic acid 400 mcg t ablet RxNorm: 209214 1 Tablet(s) PO daily No Start Date Active fenofibrate microniz ed 130 mg capsule RxNorm: 046696 1 Capsule(s) PO daily No Start Date Active biotin 1 mg tablet RxNorm: 948848 1 Tablet(s) PO daily No Start Date Active Co Q-10 100 mg capsule RxNorm: 797788 1 Capsule(s) PO daily No Start Date Active Colace 100 mg capsule RxNorm: 4259725 1 Capsule(s) PO BID No Start Date Active ferrous sulfate 325 mg (65 mg iron) tablet RxNorm: 682628 1 Tablet(s) PO daily No Start Date Active hydrochlorothiazide 25 mg tablet RxNorm: 097950 1 Tablet(s) PO QAM No Start Date 10/07/2016 Inactive Xanax 1 mg tablet RxNorm: 078307 1 Tablet(s) PO QHS et PRN as needed No Start Date 07/05/2017 Inactive citalopram 40 mg tablet RxNorm: 316659 1 Tablet(s) PO QPM No Start Date 10/07/2016 Inactive potassium chloride E R 20 mEq tablet,extended release RxNorm: 283437 1 Tablet(s) PO QAM No Start Date 10/07/2016 Inactive permethrin 5 % topic al cream RxNorm: 240879 1 Application TOP onc e, may repeat in 14 days. No Start Date 11/26/2017 Inactive Unisom Sleepgels 50 mg capsule RxNorm: 8880574 1 Capsule(s) PO QHS No Start Date [...] Ord30 C/HDL 5.9 Ratio 10/16/2018 Comp Metabolic Lnm266 NA 143 mEq/L 10/16/2018 Comp Metabolic Xjq631 K 4.3 mEq/L 10/16/2018 Comp Metabolic Drh291 CL 101 mEq/L 10/16/2018 Comp Metabolic Iij206 CO2 31.0 mEq/L 10/16/2018 Comp Metabolic Ndq207 AN ION GAP 15 10/16/2018 Comp Metabolic Ttr702 GL UCOSE 90 mg/dL 10/16/2018 Comp Metabolic Nkb242 Cr eat 0.9 mg/dL 10/16/2018 Comp Metabolic Kza761 eG FR 70 ml/min/1.73m2 10/16 Comp Metabolic Ayq414 BUN 14 mg/dL 10/16/2018 Comp Metabolic Vrp489 B/ C Ratio 16.5 Ratio 10/16/2018 Comp Metabolic Zrr379 CA LCIUM 9.8 mg/dL 10/16/2018 Comp Metabolic Zzg789 AL K PHOS 76 U/L 10/16/2018 Comp Metabolic Qyp959 T(SGOT) 17 U/L 10/16/2018 Comp Metabolic Pfq421 AL T(SGPT) 18 U/L 10/16/2018 Comp Metabolic Oax824 BI LI T 0.5 mg/dL 10/16/2018 Comp Metabolic Iju128 AL BUMIN 4.2 g/dL 10/16/2018 Comp Metabolic Gzd571 TP RO 6.7 g/dL 10/16/2018 Comp Metabolic Xex593 GL OB 2.5 g/dL 10/16/2018 Comp Metabolic Mln328 A/ G Ratio 1.7 Ratio 10/16/2018 Comp Metabolic Rbv205 Os mo 285 mOsmo 10/16/2018 Cbc With [...] 30.0 pg 06/18/2018 Cbc With Differential Ord2 [place]% 6.0 % 06/18/2018 Cbc With Differential Ord2 [...] 2.01 K/ul 06/18/2018 Cbc With Differential Ord2 [place] ABS# 0.3 K/ul 06/18/2018 Cbc With Differential Ord2 Eos ABS# 0.3 K/ul 06/18/2018 Cbc With Differential Ord2 Baso ABS# 0.0 K/ul 06/18/2018 Comp Metabolic Rxg056 NA 141 mEq/L 06/18/2018 Comp Metabolic Xth133 K 3.7 mEq/L 06/18/2018 Comp Metabolic Nau559 CL 101 mEq/L 06/18/2018 Comp Metabolic Dug453 CO2 31.0 mEq/L 06/18/2018 Comp Metabolic Eme922 AN ION GAP 13 06/18/2018 Comp Metabolic Edh445 GL UCOSE 106 mg/dL 06/18/2018 Comp Metabolic Xqd360 Cr eat 0.9 mg/dL 06/18/2018 Comp Metabolic Oyb889 eG FR 68 ml/min/1.73m2 06/18 Comp Metabolic Ify005 BUN 16 mg/dL 06/18/2018 Comp Metabolic Nuk827 B/ C Ratio 18.2 Ratio 06/18/2018 Comp Metabolic Fez596 CA LCIUM 9.5 mg/dL 06/18/2018 Comp Metabolic Cul759 AL K PHOS 82 U/L 06/18/2018 Comp Metabolic Swp621 T(SGOT) 19 U/L 06/18/2018 Comp Metabolic Poe280 AL T(SGPT) 18 U/L 06/18/2018 Comp Metabolic Rzk172 BI LI T 0.5 mg/dL 06/18/2018 Comp Metabolic Djn177 AL BUMIN 4.0 g/dL 06/18/2018 Comp Metabolic Seh958 TP RO 6.5 g/dL 06/18/2018 Comp Metabolic Yqw305 GL OB 2.5 g/dL 06/18/2018 Comp Metabolic Kxx393 A/ G Ratio 1.6 Ratio 06/18/2018 Comp Metabolic Oap830 Os mo 283 mOsmo 06/18/2018 Tsh Ord6 TSH (3rd IS) 4.02 uIU/mL 06/18/2018 Lipid Ord30 CHOL 238 mg/dL 06/18/2018 Lipid Ord30 HDL 38.0 mg/dl 06/18/2018 Lipid Ord30 TRIG 369 mg/dL 06/18/2018 Lipid Ord30 LDL Unable to calculate Due to elevated trig lycerides mg/dL 06/18/2018 Lipid Ord30 C/HDL 6.3 Ratio 06/18/2018 Influenza A+B Wyo855 Inf paul A+B Negative 06/18/2018 Free T4 Hma536 FREE T4 0.95 ng/dL 05/15/2017 Tsh Ord6 [...] 30.4 pg 05/15/2017 Cbc With Differential Ord2 [place]% 6.2 % 05/15/2017 Cbc With Differential Ord2 [...] 2.19 K/ul 05/15/2017 Cbc With Differential Ord2 [place] ABS# 0.4 K/ul 05/15/2017 Cbc With Differential Ord2 Eos ABS# 0.2 K/ul 05/15/2017 Cbc With Differential Ord2 Baso ABS# 0.0 K/ul 05/15/2017 Vitamin D 25 Oh Twa5474 VITAMIN D, 25 HYDROXY 50.18 ng/mL 05/15/2017 Comp Metabolic Kff948 NA 141 mEq/L 05/15/2017 Comp Metabolic Eta258 K 3.9 mEq/L 05/15/2017 Comp Metabolic Des049 CL 103 mEq/L 05/15/2017 Comp Metabolic Vae221 CO2 29.0 mEq/L 05/15/2017 Comp Metabolic Tkg357 AN ION GAP 13 05/15/2017 Comp Metabolic Vdk829 GL UCOSE 84 mg/dL 05/15/2017 Comp Metabolic Vjf321 Cr eat 1.1 mg/dL 05/15/2017 Comp Metabolic Ggw664 eG FR 55 ml/min/1.73m2 05/15 Comp Metabolic Dtj005 BUN 19 mg/dL 05/15/2017 Comp Metabolic Oxu491 B/ C Ratio 18.1 Ratio 05/15/2017 Comp Metabolic Kse501 CA LCIUM 9.7 mg/dL 05/15/2017 Comp Metabolic Uiy012 AL K PHOS 38 U/L 05/15/2017 Comp Metabolic Gye642 T(SGOT) 21 U/L 05/15/2017 Comp Metabolic Nvn986 AL T(SGPT) 17 U/L 05/15/2017 Comp Metabolic Bkf956 BI LI T 0.4 mg/dL 05/15/2017 Comp Metabolic Puz138 AL BUMIN 4.3 g/dL 05/15/2017 Comp Metabolic Kan097 TP RO 6.5 g/dL 05/15/2017 Comp Metabolic Byu896 GL OB 2.3 g/dL 05/15/2017 Comp Metabolic Yee113 A/ G Ratio 1.9 Ratio 05/15/2017 Comp Metabolic Bnw168 Os mo 283 mOsmo 05/15/2017 Lipid Ord30 CHOL 231 mg/dL 01/18/2017 Lipid Ord30 HDL 48.0 mg/dl 01/18/2017 Lipid Ord30 TRIG 213 mg/dL 01/18/2017 Lipid Ord30 LDL 140 mg/dL 01/18/2017 Lipid Ord30 C/HDL 4.8 Ratio 01/18/2017 Vitamin D 25 Oh Xbj7524 VITAMIN D, 25 HYDROXY 33.28 ng/mL 10/10/2016 B12 Lpk071 B12 377.00 pg/ml 10/10/2016 Comp Metabolic Jwz985 NA 142 mEq/L 10/10/2016 Comp Metabolic Vmg659 K 4.0 mEq/L 10/10/2016 Comp Metabolic Oil709 CL 103 mEq/L 10/10/2016 Comp Metabolic Rvh927 CO2 29.0 mEq/L 10/10/2016 Comp Metabolic Ggp938 AN ION GAP 14 10/10/2016 Comp Metabolic Tpm785 GL UCOSE 82 mg/dL 10/10/2016 Comp Metabolic Oyk158 Cr eat 0.8 mg/dL 10/10/2016 Comp Metabolic Ihb693 eG FR 77 ml/min/1.73m2 10/10 Comp Metabolic Mam677 BUN 19 mg/dL 10/10/2016 Comp Metabolic Zfh198 B/ C Ratio 24.1 Ratio 10/10/2016 Comp Metabolic Oth406 CA LCIUM 9.8 mg/dL 10/10/2016 Comp Metabolic Mws291 AL K PHOS 87 U/L 10/10/2016 Comp Metabolic Ebn708 T(SGOT) 20 U/L 10/10/2016 Comp Metabolic Okc989 AL T(SGPT) 16 U/L 10/10/2016 Comp Metabolic Jrp812 BI LI T 0.5 mg/dL 10/10/2016 Comp Metabolic Cib099 AL BUMIN 4.0 g/dL 10/10/2016 Comp Metabolic Qjb296 TP RO 6.7 g/dL 10/10/2016 Comp Metabolic Mls641 GL OB 2.7 g/dL 10/10/2016 Comp Metabolic Iss291 A/ G Ratio 1.5 Ratio 10/10/2016 Comp Metabolic Pui254 Os mo 284 mOsmo 10/10/2016 Free T4 Kis420 FREE T4 0.68 ng/dL 10/10/2016 Cbc With [...] 30.6 pg 10/10/2016 Cbc With Differential Ord2 [place]% 5.2 % 10/10/2016 Cbc With Differential Ord2 [...] 2.11 K/ul 10/10/2016 Cbc With Differential Ord2 [place] ABS# 0.3 K/ul 10/10/2016 Cbc With Differential [...] 1: 128/78 Code: 8480-6 BMI: 41.4 Code: 57431-8 Heart Rate 1: 65 bpm Height: 5'5" SpO2: 92% Weight: 248 lbs 10 o z 10/16/2018 Blood Pressure 1: 138/82 Code: 8480-6 BMI: 42.1 Code: 12850-9 Heart Rate 1: 80 bpm Height: 5'5" SpO2: 96% Weight: 253 lbs 09/25/2018 Blood Pressure 1: 138/88 Code: 8480-6 BMI: 41.8 Code: 30699-8 Heart Rate 1: 78 bpm Height: 5'5" SpO2: 91% Weight: 251 lbs 07/07/2018 Blood Pressure 1: 140/90 Code: 8480-6 BMI: 41.3 Code: 49417-3 Heart Rate 1: 82 bpm Height: 5'5" SpO2: 92% Temperature: 36.1 (C ) / 96.9 (F) Weight: 248 lbs 04/30/2018 Blood Pressure 1: 128/64 Code: 8480-6 BMI: 41.3 Code: 23685-1 Heart Rate 1: 68 bpm Height: 5'5" SpO2: 96% Weight: 248 lbs 01/06/2018 Blood Pressure 1: 136/78 Code: 8480-6 Heart Rate 1: 71 bpm Height: 5'5" SpO2: 95% Weight: 12/31/2017 Blood Pressure 1: 134/76 Code: 8480-6 BMI: 39.8 Code: 28775-1 Heart Rate 1: 87 bpm Height: 5'5" SpO2: 97% Weight: 239 lbs 12/09/2017 Blood Pressure 1: 136/82 Code: 8480-6 BMI: 39.8 Code: 09776-7 Heart Rate 1: 73 bpm Height: 5'5" SpO2: 97% Weight: 239 lbs 10/02/2017 Blood Pressure 1: 130/72 Code: 8480-6 BMI: 39.4 Code: 26614-0 Heart Rate 1: 74 bpm Height: 5'5" SpO2: 93% Waist Measure (cm): 104 cm Weight: 237 lbs 08/01/2017 Blood Pressure 1: 132/74 Code: 8480-6 BMI: 39.3 Code: 05790-2 Heart Rate 1: 66 bpm Height: 5'5" SpO2: 92% Weight: 236 lbs 06/25/2017 Blood Pressure 1: 136/74 Code: 8480-6 BMI: 38.6 Code: 41174-9 Heart Rate 1: 61 bpm Height: 5'5" SpO2: 95% Weight: 232 lbs 05/15/2017 Blood Pressure 1: 143/76 Code: 8480-6 BMI: 38.6 Code: 81474-2 Heart Rate 1: 65 bpm Height: 5'5" SpO2: 97% Weight: 232 lbs 01/28/2017 Blood Pressure 1: 120/80 Code: 8480-6 BMI: 38.1 Code: 50041-3 Heart Rate 1: 55 bpm Height: 5'5" SpO2: 96% Weight: 229 lbs 10/08/2016 Blood Pressure 1: 130/74 Code: 8480-6 BMI: 36.9 Code: 97925-6 Heart Rate 1: 62 bpm Height: 5'5" [...] when outdoors: y 10/02/2017 None 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 P ATIENT, LEVEL III Diagnosis: Candidal stomatitis[ICD10: B37.0] Diagnosis: Dry mouth, unspecified[ICD10: R68.2] Renetta Milton MD, [facility] CPT-4: 32487 12/15/2018 ([id number]) 18608 EST. P ATIENT, LEVEL III Diagnosis: Essential (primary) hypertension[ICD10: I10] Diagnosis: Generalized anxiety disorder[ICD10: F41.1] Stacie Milton MD, [facility] CPT-4: 54137 11/17/2018 ([id number]) 80012 EST. P ATIENT, LEVEL IV Diagnosis: Generalized anxiety disorder[ICD10: F41.1] Diagnosis: Major depressive disorder, recurrent, moderate[ICD10: F33.1] Diagnosis: Primary insomnia[ICD10: F51.01] Stacie Milton MD, [facility] CPT-4: 08618 10/16/2018 ([id number]) 06460 EST. P ATIENT, LEVEL IV Diagnosis: Atrophy of thyroid (acquired)[ICD10: E03.4] Diagnosis: Essential (primary) hypertension[ICD10: I10] Diagnosis: Major depressive disorder, recurrent, moderate[ICD10: F33.1] Diagnosis: Adverse effect of antiallergic and antiemetic drugs, initial encounter[ICD10: T45.0X5A] Stacie Milton MD, [facility] CPT-4: 40887 09/25/2018 74219 EST. 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 PATIENT, LEVEL IV Diagnosis: Essential (primary) hypertension[ICD10: I10] Diagnosis: Major depressive disorder, recurrent, moderate[ICD10: F33.1] Diagnosis: Other allergic rhinitis[ICD10: J30.89] Analisa Milton MD, [facility] CPT-4: 33791 04/30/2018 ([id number]) 12695 EST. P ATIENT, LEVEL III Diagnosis: Insect bite (nonvenomous), left lower leg, subsequent encounter[ICD10: S80.862D] Diagnosis: Insect bite (nonvenomous), right lower leg, subsequent encounter[ICD10: S80.861D] Stacie Milton MD, [facility] CPT-4: 73557 01/06/2018 ([id number]) 29526 EST. P ATIENT, LEVEL III Diagnosis: Rash and other nonspecific skin eruption[ICD10: R21] Diagnosis: Major depressive disorder, recurrent, moderate[ICD10: F33.1] Renetta Milton MD, [facility] CPT-4: 64046 12/31/2017 ([id number]) 30802 EST. P ATIENT, LEVEL III Diagnosis: Essential (primary) hypertension[ICD10: I10] Diagnosis: Major depressive disorder, recurrent, moderate[ICD10: F33.1] Stacie Milton MD, [facility] CPT-4: 71848 12/09/2017 ([id number]) 16338 EST. P ATIENT, LEVEL IV Diagnosis: Atrophy of thyroid (acquired)[ICD10: E03.4] Diagnosis: Essential (primary) hypertension[ICD10: I10] Diagnosis: Other allergic rhinitis[ICD10: J30.89] Stacie Milton MD, [facility] CPT-4: 90387 08/01/2017 65466 EST. PATIENT, LEVEL III Diagnosis: Other allergic rhinitis[ICD10: J30.89] Diagnosis: Otalgia, bilateral[ICD10: H92.03] Analisa Milton MD, [facility] CPT-4: 44920 06/25/2017 [id number] EST. PATIENT, LEVEL III Diagnosis: Rash and other nonspecific skin eruption[ICD10: R21] Analisa Milton MD, [facility] CPT-4: 41432 05/15/2017 ([id number]) 33035 EST. 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 11/17/2018 Appointment: Stacie Milton WPtel: [address] [place] [address] (15 min) Moderate 11/17/2018 Patient Education: Patient [...] sleep easier. 10/16/2018 Appointment: Stacie Milton WPtel: [address] [place], [place] [id number] (15 min) Moderate 10/16/2018 Patient Education: Patient Medication Summary Completed 10/16/2018 Patient Education: Depression Completed 10/16/2018 Appointment: Stacie Milton WPtel: [facility] (15 min) Moderate 10/07/2018 Visit Plan: Hypothyroidism [...] tomorrow morning 09/25/2018 Appointment: Stacie Milton WPtel: [facility] (15 min) Moderate 09/25/2018 Patient Education: Patient Medication Summary Completed 09/25/2018 Patient Education: Depression Completed 09/25/2018 Appointment: Renetta Leigh WPtel: [facility]5 [phone] (30 min) Complex 07/15/2018 Visit Plan: Oral aphthae -rx for ac yclovir provided and instructed on use -follow up in 1 week for re-eval -sooner if needed -call with any concerns or worsening symptoms. 07/07/2018 Appointment: Renetta Leigh WPtel: [facility]5 [facility] [place] [address] (30 min) Complex 07/07/2018 Patient Education: Patient [...] allergy spray. 04/30/2018 Appointment: Analisa Jin WPtel: [facility]6 [facility] (15 min) Moderate 04/30/2018 Patient Education: [...] going outside. 01/06/2018 Appointment: Stacie Milton WPtel: [facility]5 [facility] (15 min) Moderate 01/06/2018 Patient Education: Patient [...] -start lexapro 12/31/2017 Appointment: [facility] Leigh [facility]el[phone] (15 min) Moderate 12/31/2017 Patient Education: Patient [...] venlafaxine. 12/09/2017 Appointment: Stacie Milton WPtel: [phone] [facility] (15 min) Moderate 12/09/2017 Patient Education: Patient [...] for flagyl 08/01/2017 Appointment: Stacie Milton WPtel: [facility] (15 min) Moderate 08/01/2017 Patient Education: Patient [...] acutely worsen. 06/25/2017 Appointment: Analisa Jin WPtel: [facility]4 [facility] (15 min) Moderate 06/25/2017 Patient Education: [...] warmth, discharge. 05/15/2017 Appointment: Analisa Jin WPtel: [facility] (15 min) Moderate 05/15/2017 Patient Education: [...] considered contagious. 01/28/2017 [facility]ment[phone] ([facility] min) Moderate 01/28/2017 Patient Education: [...] supportive care. 10/08/2016 Appointment: [phone] [facility] 10/08/2016 Patient Education: Patient [...] in cluding Vitamin D and TSH. Consider [place] thyroid for hypothyroidism Saline spray before using [...] in cluding Vitamin D and TSH. Consider [place] thyroid for hypothyroidism Saline spray before using [...]
--- OUTSIDE RECORDS SUMMARY | 2019-06-17 09:22 | XMS REPORT | CCD ---
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 Unknown Has never used illegal drugs 017 Allergies, Adverse Reactions, Alerts Substance Reaction Codes Entered Date Inactivated Date Status * OTHER REACTION - S EE ANSWER BOX Vitamins CSynthroid Unknown 10/08/2016 No Inactive Date Active * NO KNOWN FOOD MENDEZ RGIES Unknown 10/08/2016 No Inactive Date Active QOLZNLT-QXC-MCO REDU CTASE INHIBITORS Unknown 07/07/2018 No Inactive [...] Instruc tions Start Date Stop Date Sta s Fill Instructions hydrochlorothiazide 25 mg tablet RxNorm: 981899 Tablet(s) TAKE ONE TA BLET BY MOUTH ONCE DAILY IN THE MORNING 11/14/2018 11/08/2019 Active Effexor XR 150 mg ca psule,extended release RxNorm: 047792 1 Capsule(s) PO daily 10/16/2018 10/10/2019 Ac tive Xanax 1 mg tablet RxNorm: 471415 Tablet(s) TAKE ONE TABLET BY MOUTH ONCE DAILY AT BEDTIME 09/30/2018 12/28/2018 Active Vitamin D3 2,000 uni t capsule RxNorm: 726640 125mcg Capsule(s) PO daily 09/25/2018 12/23/2018 Ac tive trazodone 50 mg tablet RxNorm: 197034 1/2 Tablet(s) PO QHS 09/25/2018 05/22/2019 Active Effexor XR 75 mg cap rashid,extended release RxNorm: 835571 1 Capsule(s) PO daily 09/25/2018 09/24/2018 In active Effexor XR 75 mg cap rashid,extended release RxNorm: 699008 1 Capsule(s) PO daily 09/25/2018 10/15/2018 In active trazodone 50 mg tablet RxNorm: 265763 1/2 Tablet(s) PO QHS 09/25/2018 09/24/2018 Inactive acyclovir 400 mg tablet RxNorm: 286352 1 Tablet(s) PO TID 07/07/2018 07/13/2018 Inactive Xanax 1 mg tablet RxNorm: 466548 Tablet(s) TAKE ONE TABLET BY MOUTH ONCE DAILY AT BEDTIME 06/27/2018 09/29/2018 Inactive Livalo 2 mg tablet RxNorm: 421157 1 Tablet(s) PO QHS 06/25/2018 06/24/2018 Inactive Livalo 2 mg tablet RxNorm: 817299 1 Tablet(s) PO QHS 06/25/2018 09/24/2018 Inactive Lexapro 20 mg tablet RxNorm: 347642 TAKE 1/2 (ONE-HALF) TABLET BY MOUTH ONCE DAILY FOR ONE WEEK, THEN INCREASE TO 1 ONCE DAILY IN THE EVENING. 05/05/2018 09/24/2018 Inactive Xanax 1 mg tablet RxNorm: 479450 Tablet(s) TAKE ONE TABLET BY MOUTH ONCE DAILY AT BEDTIME 04/01/2018 06/26/2018 Inactive Lexapro 20 mg tablet RxNorm: 292459 1 Tablet(s) PO QPM 12/31/2017 05/05/2018 Inactive 1/2 tab daily x 1 week then increase to a full tab mupirocin 2 % topica l ointment RxNorm: 293531 1 Application TOP BID 12/31/2017 01/09/2018 Inactive potassium chloride E R 20 mEq tablet,extended release RxNorm: 587370 TAKE ONE TABLET BY MOUTH ONCE DAILY IN THE MORNING 12/11/2017 No Stop Date Active hydrochlorothiazide 25 mg tablet RxNorm: 333912 TAKE ONE TABLET BY MO UTH ONCE DAILY IN THE MORNING 12/11/2017 11/13/2018 Inactive Effexor XR 75 mg cap rashid,extended release RxNorm: 899731 1 Capsule(s) PO daily 12/09/2017 12/30/2017 In active permethrin 5 % topic al cream RxNorm: 882086 1 Application TOP onc e, may repeat in 14 days. 11/27/2017 01/06/2018 Inactive Xanax 1 mg tablet RxNorm: 509099 1 Tablet(s) PO QHS 09/30/2017 06/24/2018 Inactive citalopram 40 mg tablet RxNorm: 810730 TAKE ONE TABLET BY MOUTH ONCE DAILY IN T HE EVENING 08/05/2017 12/08/2017 Inactive Flagyl 500 mg tablet RxNorm: 854226 1 Tablet(s) PO TID 08/01/2017 08/05/2017 Inactive Xanax 1 mg tablet RxNorm: 963800 1 Tablet(s) PO QHS 07/05/2017 09/29/2017 Inactive Xanax 1 mg tablet RxNorm: 377572 TAKE ONE TABLET BY MOUTH ONCE DAILY AT B EDTIME 07/05/2017 03/31/2018 Inactive Zithromax Z-Cornell 250 mg tablet RxNorm: 711675 1 Tablet(s) PO UD 06/25/2017 07/04/2017 Inactive Trilipix 135 mg caps ule,delayed release RxNorm: 170581 1 Capsule(s) PO daily 05/22/2017 06/24/2018 In active triamcinolone aceton kaity 0.025 % topical cream RxNorm: 8549067 1 Application TOP BI D 05/15/2017 No Stop Date Active ketoconazole 2 % top ical cream RxNorm: 786288 1 TOP daily 05/15/2017 05/21/2017 Inactive Trilipix 135 mg caps ule,delayed release RxNorm: 498700 1 Capsule(s) PO daily 02/12/2017 05/21/2017 In active Trilipix 135 mg caps ule,delayed release RxNorm: 758776 1 Capsule(s) PO daily 02/12/2017 02/11/2017 In active acyclovir 800 mg tablet RxNorm: 680954 1 Tablet(s) PO QID 01/28/2017 02/06/2017 Inactive Fish Oil 1,000 mg ca psule RxNorm: 1 Capsule(s) PO BID 10/17/2016 10/16/2016 Inactive Vitamin D2 50,000 un it capsule RxNorm: 083886 1 Capsule(s) PO QW 10/17/2016 10/16/2016 Inactive Vitamin D3 2,000 uni t capsule RxNorm: 974389 1 Capsule(s) PO daily 10/17/2016 10/16/2016 Inactive Vitamin D2 50,000 un it capsule RxNorm: 532782 1 Capsule(s) PO QW 10/17/2016 01/14/2017 Inactive Vitamin D3 2,000 uni t capsule RxNorm: 126551 1 Capsule(s) PO daily 10/17/2016 01/14/2017 Inactive Fish Oil 1,000 mg ca psule RxNorm: 1 Capsule(s) PO BID 10/17/2016 09/24/2018 Inactive citalopram 40 mg tablet RxNorm: 693794 1 Tablet(s) PO QPM 10/08/2016 07/04/2017 Inactive potassium chloride E R 20 mEq tablet,extended release RxNorm: 389248 1 Tablet(s) PO QAM 10/08/2016 10/02/2017 Inactive hydrochlorothiazide 25 mg tablet RxNorm: 128068 1 Tablet(s) PO QAM 10/08/2016 10/02/2017 Inactive folic acid 400 mcg t ablet RxNorm: 530128 1 Tablet(s) PO daily No Start Date Active fenofibrate microniz ed 130 mg capsule RxNorm: 810218 1 Capsule(s) PO daily No Start Date Active biotin 1 mg tablet RxNorm: 249162 1 Tablet(s) PO daily No Start Date Active Co Q-10 100 mg capsule RxNorm: 212630 1 Capsule(s) PO daily No Start Date Active Colace 100 mg capsule RxNorm: 8963321 1 Capsule(s) PO BID No Start Date Active ferrous sulfate 325 mg (65 mg iron) tablet RxNorm: 753297 1 Tablet(s) PO daily No Start Date Active hydrochlorothiazide 25 mg tablet RxNorm: 575856 1 Tablet(s) PO QAM No Start Date 10/07/2016 Inactive Xanax 1 mg tablet RxNorm: 832622 1 Tablet(s) PO QHS et PRN as needed No Start Date 07/05/2017 Inactive citalopram 40 mg tablet RxNorm: 283723 1 Tablet(s) PO QPM No Start Date 10/07/2016 Inactive potassium chloride E R 20 mEq tablet,extended release RxNorm: 447551 1 Tablet(s) PO QAM No Start Date 10/07/2016 Inactive permethrin 5 % topic al cream RxNorm: 583630 1 Application TOP onc e, may repeat in 14 days. No Start Date 11/26/2017 Inactive Unisom Sleepgels 50 mg capsule RxNorm: 1624914 1 Capsule(s) PO QHS No Start Date 09/24/2018 Inactive Medication Administered No Medication Administered data Immunizations No Immunization data Assessments Condition Codes Effectiv e Dates Generalized anxiety disorder ICD-10: F41.1 ICD-9: 300.00 [...] Reason For Visit Effective Dates Notes depression 11/17/2018 depression 10/16/2018 depression 09/25/2018 sores [...] Ord30 C/HDL 5.9 Ratio 10/16/2018 Comp Metabolic Gij143 NA 143 mEq/L 10/16/2018 Comp Metabolic Fxq970 K 4.3 mEq/L 10/16/2018 Comp Metabolic Vkb666 CL 101 mEq/L 10/16/2018 Comp Metabolic Cwu041 CO2 31.0 mEq/L 10/16/2018 Comp Metabolic Haq642 AN ION GAP 15 10/16/2018 Comp Metabolic Bmf623 GL UCOSE 90 mg/dL 10/16/2018 Comp Metabolic Vpg166 Cr eat 0.9 mg/dL 10/16/2018 Comp Metabolic Dss376 eG FR 70 ml/min/1.73m2 10/16 Comp Metabolic Std479 BUN 14 mg/dL 10/16/2018 Comp Metabolic Ynt170 B/ C Ratio 16.5 Ratio 10/16/2018 Comp Metabolic Hqm469 CA LCIUM 9.8 mg/dL 10/16/2018 Comp Metabolic Cem425 AL K PHOS 76 U/L 10/16/2018 Comp Metabolic Xoq504 T(SGOT) 17 U/L 10/16/2018 Comp Metabolic Bde397 AL T(SGPT) 18 U/L 10/16/2018 Comp Metabolic Tpr564 BI LI T 0.5 mg/dL 10/16/2018 Comp Metabolic Zbc986 AL BUMIN 4.2 g/dL 10/16/2018 Comp Metabolic Epu424 TP RO 6.7 g/dL 10/16/2018 Comp Metabolic Lfx708 GL OB 2.5 g/dL 10/16/2018 Comp Metabolic Vzw363 A/ G Ratio 1.7 Ratio 10/16/2018 Comp Metabolic Eju883 Os mo 285 mOsmo 10/16/2018 Cbc With [...] 30.0 pg 06/18/2018 Cbc With Differential Ord2 [place]% 6.0 % 06/18/2018 Cbc With Differential Ord2 [...] 2.01 K/ul 06/18/2018 Cbc With Differential Ord2 [place] ABS# 0.3 K/ul 06/18/2018 Cbc With Differential Ord2 Eos ABS# 0.3 K/ul 06/18/2018 Cbc With Differential Ord2 Baso ABS# 0.0 K/ul 06/18/2018 Comp Metabolic Kab026 NA 141 mEq/L 06/18/2018 Comp Metabolic Kti863 K 3.7 mEq/L 06/18/2018 Comp Metabolic Ycz077 CL 101 mEq/L 06/18/2018 Comp Metabolic Rig882 CO2 31.0 mEq/L 06/18/2018 Comp Metabolic Qbu127 AN ION GAP 13 06/18/2018 Comp Metabolic Oxy710 GL UCOSE 106 mg/dL 06/18/2018 Comp Metabolic Eqy116 Cr eat 0.9 mg/dL 06/18/2018 Comp Metabolic Iny612 eG FR 68 ml/min/1.73m2 06/18 Comp Metabolic Nwj626 BUN 16 mg/dL 06/18/2018 Comp Metabolic Abf424 B/ C Ratio 18.2 Ratio 06/18/2018 Comp Metabolic Ngt104 CA LCIUM 9.5 mg/dL 06/18/2018 Comp Metabolic Zkm563 AL K PHOS 82 U/L 06/18/2018 Comp Metabolic Xjr104 T(SGOT) 19 U/L 06/18/2018 Comp Metabolic Xdr316 AL T(SGPT) 18 U/L 06/18/2018 Comp Metabolic Xdo354 BI LI T 0.5 mg/dL 06/18/2018 Comp Metabolic Zdr521 AL BUMIN 4.0 g/dL 06/18/2018 Comp Metabolic Hjq118 TP RO 6.5 g/dL 06/18/2018 Comp Metabolic Mcb482 GL OB 2.5 g/dL 06/18/2018 Comp Metabolic Yom771 A/ G Ratio 1.6 Ratio 06/18/2018 Comp Metabolic Cgn855 Os mo 283 mOsmo 06/18/2018 Tsh Ord6 TSH (3rd IS) 4.02 uIU/mL 06/18/2018 Lipid Ord30 CHOL 238 mg/dL 06/18/2018 Lipid Ord30 HDL 38.0 mg/dl 06/18/2018 Lipid Ord30 TRIG 369 mg/dL 06/18/2018 Lipid Ord30 LDL Unable to calculate Due to elevated trig lycerides mg/dL 06/18/2018 Lipid Ord30 C/HDL 6.3 Ratio 06/18/2018 Influenza A+B Ckn910 Inf paul A+B Negative 06/18/2018 Free T4 Yyy038 FREE T4 0.95 ng/dL 05/15/2017 Tsh Ord6 [...] 30.4 pg 05/15/2017 Cbc With Differential Ord2 [place]% 6.2 % 05/15/2017 Cbc With Differential Ord2 [...] 2.19 K/ul 05/15/2017 Cbc With Differential Ord2 [place] ABS# 0.4 K/ul 05/15/2017 Cbc With Differential Ord2 Eos ABS# 0.2 K/ul 05/15/2017 Cbc With Differential Ord2 Baso ABS# 0.0 K/ul 05/15/2017 Vitamin D 25 Oh Kpr1359 VITAMIN D, 25 HYDROXY 50.18 ng/mL 05/15/2017 Comp Metabolic Qft274 NA 141 mEq/L 05/15/2017 Comp Metabolic Wpy162 K 3.9 mEq/L 05/15/2017 Comp Metabolic Krh799 CL 103 mEq/L 05/15/2017 Comp Metabolic Ymy339 CO2 29.0 mEq/L 05/15/2017 Comp Metabolic Anu431 AN ION GAP 13 05/15/2017 Comp Metabolic Jxr167 GL UCOSE 84 mg/dL 05/15/2017 Comp Metabolic Gvk750 Cr eat 1.1 mg/dL 05/15/2017 Comp Metabolic Kcn359 eG FR 55 ml/min/1.73m2 05/15 Comp Metabolic Mhq089 BUN 19 mg/dL 05/15/2017 Comp Metabolic Omt166 B/ C Ratio 18.1 Ratio 05/15/2017 Comp Metabolic Lam508 CA LCIUM 9.7 mg/dL 05/15/2017 Comp Metabolic Fhi048 AL K PHOS 38 U/L 05/15/2017 Comp Metabolic Zrq693 T(SGOT) 21 U/L 05/15/2017 Comp Metabolic Wme688 AL T(SGPT) 17 U/L 05/15/2017 Comp Metabolic Kfc755 BI LI T 0.4 mg/dL 05/15/2017 Comp Metabolic Plm311 AL BUMIN 4.3 g/dL 05/15/2017 Comp Metabolic Ttc495 TP RO 6.5 g/dL 05/15/2017 Comp Metabolic Gvi139 GL OB 2.3 g/dL 05/15/2017 Comp Metabolic Uzs140 A/ G Ratio 1.9 Ratio 05/15/2017 Comp Metabolic Osa158 Os mo 283 mOsmo 05/15/2017 Lipid Ord30 CHOL 231 mg/dL 01/18/2017 Lipid Ord30 HDL 48.0 mg/dl 01/18/2017 Lipid Ord30 TRIG 213 mg/dL 01/18/2017 Lipid Ord30 LDL 140 mg/dL 01/18/2017 Lipid Ord30 C/HDL 4.8 Ratio 01/18/2017 Vitamin D 25 Oh Bno9673 VITAMIN D, 25 HYDROXY 33.28 ng/mL 10/10/2016 B12 Oqy567 B12 377.00 pg/ml 10/10/2016 Comp Metabolic Bum594 NA 142 mEq/L 10/10/2016 Comp Metabolic Yyi997 K 4.0 mEq/L 10/10/2016 Comp Metabolic Xvv288 CL 103 mEq/L 10/10/2016 Comp Metabolic Wdg188 CO2 29.0 mEq/L 10/10/2016 Comp Metabolic Bha073 AN ION GAP 14 10/10/2016 Comp Metabolic Aal978 GL UCOSE 82 mg/dL 10/10/2016 Comp Metabolic Vet663 Cr eat 0.8 mg/dL 10/10/2016 Comp Metabolic Avo584 eG FR 77 ml/min/1.73m2 10/10 Comp Metabolic Mlf097 BUN 19 mg/dL 10/10/2016 Comp Metabolic Gmd880 B/ C Ratio 24.1 Ratio 10/10/2016 Comp Metabolic Rkg469 CA LCIUM 9.8 mg/dL 10/10/2016 Comp Metabolic Kbs866 AL K PHOS 87 U/L 10/10/2016 Comp Metabolic Vmx059 T(SGOT) 20 U/L 10/10/2016 Comp Metabolic Tul663 AL T(SGPT) 16 U/L 10/10/2016 Comp Metabolic Avy192 BI LI T 0.5 mg/dL 10/10/2016 Comp Metabolic Axc660 AL BUMIN 4.0 g/dL 10/10/2016 Comp Metabolic Cog709 TP RO 6.7 g/dL 10/10/2016 Comp Metabolic Owv304 GL OB 2.7 g/dL 10/10/2016 Comp Metabolic Jex274 A/ G Ratio 1.5 Ratio 10/10/2016 Comp Metabolic Fut173 Os mo 284 mOsmo 10/10/2016 Free T4 Wpl246 FREE T4 0.68 ng/dL 10/10/2016 Cbc With [...] 30.6 pg 10/10/2016 Cbc With Differential Ord2 [place]% 5.2 % 10/10/2016 Cbc With Differential Ord2 [...] 2.11 K/ul 10/10/2016 Cbc With Differential Ord2 [place] ABS# 0.3 K/ul 10/10/2016 Cbc With Differential [...] Result Effective Dates Constitutional No recent illness 11/17/2018 Constitutional No [...] No mental status change 11/17/2018 Psychiatric anxiety 06/08/2018 Psychiatric depression 0 11/17/2018 Psychiatric confusion Psychiatric [...] Effective Dates Notes Full Exam - General 1995 Constitutional general appearance Overall: well developed 11/17/2018 [...] 4: G0439 10/02/2017 Vital Signs Date Vital 11/17/2018 Blood Pressure 1: 128/78 Code: 8480-6 BMI: 41.4 Code: 80626-3 Heart Rate 1: 65 bpm Height: 5'5" SpO2: 92% Weight: 248 lbs 10 o z 10/16/2018 Blood Pressure 1: 138/82 Code: 8480-6 BMI: 42.1 Code: 62850-0 Heart Rate 1: 80 bpm Height: 5'5" SpO2: 96% Weight: 253 lbs 09/25/2018 Blood Pressure 1: 138/88 Code: 8480-6 BMI: 41.8 Code: 94982-2 Heart Rate 1: 78 bpm Height: 5'5" SpO2: 91% Weight: 251 lbs 07/07/2018 Blood Pressure 1: 140/90 Code: 8480-6 BMI: 41.3 Code: 27372-5 Heart Rate 1: 82 bpm Height: 5'5" SpO2: 92% Temperature: 36.1 (C ) / 96.9 (F) Weight: 248 lbs 04/30/2018 Blood Pressure 1: 128/64 Code: 8480-6 BMI: 41.3 Code: 33686-9 Heart Rate 1: 68 bpm Height: 5'5" SpO2: 96% Weight: 248 lbs 01/06/2018 Blood Pressure 1: 136/78 Code: 8480-6 Heart Rate 1: 71 bpm Height: 5'5" SpO2: 95% Weight: 12/31/2017 Blood Pressure 1: 134/76 Code: 8480-6 BMI: 39.8 Code: 17587-2 Heart Rate 1: 87 bpm Height: 5'5" SpO2: 97% Weight: 239 lbs 12/09/2017 Blood Pressure 1: 136/82 Code: 8480-6 BMI: 39.8 Code: 21183-4 Heart Rate 1: 73 bpm Height: 5'5" SpO2: 97% Weight: 239 lbs 10/02/2017 Blood Pressure 1: 130/72 Code: 8480-6 BMI: 39.4 Code: 50906-1 Heart Rate 1: 74 bpm Height: 5'5" SpO2: 93% Waist Measure (cm): 104 cm Weight: 237 lbs 08/01/2017 Blood Pressure 1: 132/74 Code: 8480-6 BMI: 39.3 Code: 00803-1 Heart Rate 1: 66 bpm Height: 5'5" SpO2: 92% Weight: 236 lbs 06/25/2017 Blood Pressure 1: 136/74 Code: 8480-6 BMI: 38.6 Code: 85433-7 Heart Rate 1: 61 bpm Height: 5'5" SpO2: 95% Weight: 232 lbs 05/15/2017 Blood Pressure 1: 143/76 Code: 8480-6 BMI: 38.6 Code: 91979-5 Heart Rate 1: 65 bpm Height: 5'5" SpO2: 97% Weight: 232 lbs 01/28/2017 Blood Pressure 1: 120/80 Code: 8480-6 BMI: 38.1 Code: 51516-5 Heart Rate 1: 55 bpm Height: 5'5" SpO2: 96% Weight: 229 lbs 10/08/2016 Blood Pressure 1: 130/74 Code: 8480-6 BMI: 36.9 Code: 80680-9 Heart Rate 1: 62 bpm Height: 5'5" SpO2: 92% Weight: 221 lbs 8 oz Functional Status No Functional Status data History of Present Illness Symptom Name Status Resu lt Effective Date Notes Quality chronic 11/17/2018 None Onset and Resolution [...] when outdoors: y 10/02/2017 None hypothyroid 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 P ATIENT, LEVEL III Diagnosis: Essential (primary) hypertension[ICD10: I10] Diagnosis: Generalized anxiety disorder[ICD10: F41.1] Stacie Milton MD, [facility] CPT-4: 41044 11/17/2018 ([id number]) 00001 EST. P ATIENT, LEVEL IV Diagnosis: Generalized anxiety disorder[ICD10: F41.1] Diagnosis: Major depressive disorder, recurrent, moderate[ICD10: F33.1] Diagnosis: Primary insomnia[ICD10: F51.01] Stacie Milton MD, [facility] CPT-4: 42957 10/16/2018 ([id number]) 08315 EST. P ATIENT, LEVEL IV Diagnosis: Atrophy of thyroid (acquired)[ICD10: E03.4] Diagnosis: Essential (primary) hypertension[ICD10: I10] Diagnosis: Major depressive disorder, recurrent, moderate[ICD10: F33.1] Diagnosis: Adverse effect of antiallergic and antiemetic drugs, initial encounter[ICD10: T45.0X5A] Stacie Milton MD, [facility] CPT-4: 09533 09/25/2018 04413 EST. 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 PATIENT, LEVEL IV Diagnosis: Essential (primary) hypertension[ICD10: I10] Diagnosis: Major depressive disorder, recurrent, moderate[ICD10: F33.1] Diagnosis: Other allergic rhinitis[ICD10: J30.89] Analisa Milton MD, [facility] CPT-4: 46319 04/30/2018 ([id number]) 25941 EST. P ATIENT, LEVEL III Diagnosis: Insect bite (nonvenomous), left lower leg, subsequent encounter[ICD10: S80.862D] Diagnosis: Insect bite (nonvenomous), right lower leg, subsequent encounter[ICD10: S80.861D] Stacie Milton MD, [facility] CPT-4: 63660 01/06/2018 ([id number]) 52128 EST. P ATIENT, LEVEL III Diagnosis: Rash and other nonspecific skin eruption[ICD10: R21] Diagnosis: Major depressive disorder, recurrent, moderate[ICD10: F33.1] Renetta Milton MD, [facility] CPT-4: 70153 12/31/2017 ([id number]) 62735 EST. P ATIENT, LEVEL III Diagnosis: Essential (primary) hypertension[ICD10: I10] Diagnosis: Major depressive disorder, recurrent, moderate[ICD10: F33.1] Stacie Milton MD, [facility] CPT-4: 72934 12/09/2017 ([id number]) 45736 EST. P ATIENT, LEVEL IV Diagnosis: Atrophy of thyroid (acquired)[ICD10: E03.4] Diagnosis: Essential (primary) hypertension[ICD10: I10] Diagnosis: Other allergic rhinitis[ICD10: J30.89] Stacie Milton MD, [facility] CPT-4: 06748 08/01/2017 96896 EST. PATIENT, LEVEL III Diagnosis: Other allergic rhinitis[ICD10: J30.89] Diagnosis: Otalgia, bilateral[ICD10: H92.03] Analisa Milton MD, [facility] CPT-4: 55240 06/25/2017 78553 EST. PATIENT, LEVEL III Diagnosis: Rash and other nonspecific skin eruption[ICD10: R21] Analisa Milton MD, [facility] CPT-4: 86591 05/15/2017 ([id number]) 82214 EST. P ATIENT, LEVEL III Diagnosis: Zoster without complications[ICD10: B02.9] Stacie Milton MD, [facility] CPT-4: 38467 01/28/2017 ([id number]) OFFICE VISI T, NEW - LEVEL 4 Diagnosis: Essential (primary) hypertension[ICD10: I10] Diagnosis: Bariatric surgery status[ICD10: Z98.84] Diagnosis: Atrophy of thyroid (acquired)[ICD10: E03.4] Diagnosis: Major depressive disorder, recurrent, moderate[ICD10: F33.1] Stacie Milton MD, [facility] CPT-4: 18853 10/08/2016 Plan of Care Planned Activity Notes [...] exposure. No change in current medications. 11/17/2018 Patient Education: Patient Medication Summary Completed [...] sleep easier. 10/16/2018 Appointment: Stacie Milton WPtel: [facility]5 [facility] (15 min) Moderate 10/16/2018 Patient Education: Patient Medication Summary Completed 10/16/2018 Patient Education: Depression Completed 10/16/2018 Appointment: Stac[facility] Milton [facility]Ptel[facility] ([facility] min) Moderate 10/07/2018 Visit Plan: Hypothyroidism [...] on effexor tomorrow morning 09/25/2018 Appointment: Stacie Mliton WPtel: [phone] [id number] (15 min) Moderate 09/25/2018 Patient Education: Patient Medication Summary Completed 09/25/2018 Patient Education: Depression Completed 09/25/2018 Appointment: Renetta Leigh WPtel: [facility]2 [address] (30 min) Complex 07/15/2018 Visit Plan: Oral aphthae -rx for ac yclovir provided and instructed on use -follow up in 1 week for re-eval -sooner if needed -call with any concerns or worsening symptoms. 07/07/2018 Appointment: Renetta Leigh WPtel: [facility]6 [phone] (30 min) Complex 07/07/2018 Patient Education: Patient [...] allergy spray. 04/30/2018 Appointment: Analisa Jin WPtel: [phone] [facility] (15 min) Moderate 04/30/2018 Patient Education: Patient [...] outside. 01/06/2018 Appointment: Stacie Milton WPtel: [phone] (15 min) Moderate 01/06/2018 Patient Education: Patient [...] lexapro 12/31/2017 Appointment: Renetta Leigh WPtel: [phone] [place] [phone] [place] [address] (15 min) Moderate 12/31/2017 Patient Education: Patient [...] venlafaxine. 12/09/2017 Appointment: [phone] (15 min) Moderate 12/09/2017 Patient Education: Patient [...] for flagyl 08/01/2017 Appointment: [phone] (15 min) Moderate 08/01/2017 Patient Education: Patient [...] acutely worsen. 06/25/2017 Appointment: Analisa Jin WPtel: [facility] (15 min) Moderate 06/25/2017 Patient Education: Patient [...] warmth, discharge. 05/15/2017 Appointment: Analisa Jin WPtel: [facility] (15 min) Moderate 05/15/2017 Patient Education: Patient [...] considered contagious. 01/28/2017 Appointment: Stacie Milton WPtel: [phone] (15 min) Moderate 01/28/2017 Patient Education: Patient [...] supportive care. 10/08/2016 Appointment: Stacie Milton WPtel: [address] [place], [place] [address] [place] New Patient 10/08/2016 Patient Education: Patient Medication [...] in cluding Vitamin D and TSH. Consider [place] thyroid for hypothyroidism Saline spray before using [...] in cluding Vitamin D and TSH. Consider [place] thyroid for hypothyroidism Saline spray before using [...]
--- OUTSIDE RECORDS SUMMARY | 2019-06-17 09:23 | XMS REPORT | CCD ---
Author Author Evangelina Milton Organization Stacie Milton MD, [facility] Address [address] [place] [address] Phone Care Team Providers Care Salesperson Parts Name Role Phone PP Unavailable CCM Unavailable Summary Purpose Interface Exchange Insurance Providers Payer name Policy type / Coverage type Covered constitution party ID Effective Begin Date Effective End Date 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 Unknown Has never used illegal drugs 017 Allergies, Adverse Reactions, Alerts Substance Reaction Codes Entered Date Inactivated Date Status * OTHER REACTION - S EE ANSWER BOX Vitamins CSynthroid Unknown 10/08/2016 No Inactive Date Active * NO KNOWN FOOD MENDEZ RGIES Unknown 10/08/2016 No Inactive Date Active [id number] REDU CTASE INHIBITORS Unknown 07/07/2018 No Inactive Date Active Past Medical History Illness Codes Condition Status Onset Date Resolved Date Encounter for screen ing mammogram for malignant neoplasm of breast ICD-9: V76.10 ICD-10: Z12.31 Active 10/22/2018 Unknown Generalized anxiety disorder ICD-9: 300.00 ICD-10: F41.1 Active 10/16/2018 Unknown Major depressive dis order, recurrent, moderate ICD-9: 296.32 ICD-10: F33.1 Active 10/08/2016 Unknown Primary insomnia ICD-9: 307.42 ICD-10: F51.01 Active 10/16/2018 Unknown Adverse effect of an tiallergic and antiemetic drugs, initial encounter ICD-9: E933.0 ICD-10: T45.0X5A Active 09/25/2018 Unknown 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 ICD-10: E03.4 Active 10/08/2016 Unknown Essential (primary) hypertension ICD-9: 401.1 ICD-10: I10 Active 10/08/2016 Unknown Recurrent oral aphthae ICD-9: [...] Condition Codes Effectiv e Dates Condition Status Encounter for screen ing mammogram for malignant neoplasm of breast ICD-9: V76.10 ICD-10: Z12.31 10/22/2018 Active Generalized anxiety disorder ICD-9: 300.00 ICD-10: F41.1 10/16/2018 Active Major depressive dis order, recurrent, moderate ICD-9: 296.32 ICD-10: F33.1 10/08/2016 Active Primary insomnia ICD-9: 307.42 ICD-10: F51.01 10/16/2018 Active Adverse effect of an tiallergic and antiemetic drugs, initial encounter ICD-9: E933.0 ICD-10: T45.0X5A 09/25/2018 Active 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 ICD-10: E03.4 10/08/2016 Active Essential (primary) hypertension ICD-9: 401.1 ICD-10: I10 10/08/2016 Active Recurrent oral aphthae ICD-9: 528.2 [...] Fill Instructions hydrochlorothiazide 25 mg tablet RxNorm: 077106 Tablet(s) TAKE ONE TA BLET BY MOUTH ONCE DAILY IN THE MORNING 11/14/2018 11/08/2019 Active Effexor XR 150 mg ca psule,extended release RxNorm: 430011 1 Capsule(s) PO daily 10/16/2018 10/10/2019 Ac tive Xanax 1 mg tablet RxNorm: 317715 Tablet(s) TAKE ONE TABLET BY MOUTH ONCE DAILY AT BEDTIME 09/30/2018 12/28/2018 Active Vitamin D3 2,000 uni t capsule RxNorm: 824988 125mcg Capsule(s) PO daily 09/25/2018 12/23/2018 Ac tive trazodone 50 mg tablet RxNorm: 629087 1/2 Tablet(s) PO QHS 09/25/2018 05/22/2019 Active Effexor XR 75 mg cap rashid,extended release RxNorm: 981581 1 Capsule(s) PO daily 09/25/2018 09/24/2018 In active Effexor XR 75 mg cap rashid,extended release RxNorm: 003634 1 Capsule(s) PO daily 09/25/2018 10/15/2018 In active trazodone 50 mg tablet RxNorm: 750802 1/2 Tablet(s) PO QHS 09/25/2018 09/24/2018 Inactive acyclovir 400 mg tablet RxNorm: 601693 1 Tablet(s) PO TID 07/07/2018 07/13/2018 Inactive Xanax 1 mg tablet RxNorm: 322082 Tablet(s) TAKE ONE TABLET BY MOUTH ONCE DAILY AT BEDTIME 06/27/2018 09/29/2018 Inactive Livalo 2 mg tablet RxNorm: 174641 1 Tablet(s) PO QHS 06/25/2018 06/24/2018 Inactive Livalo 2 mg tablet RxNorm: 027812 1 Tablet(s) PO QHS 06/25/2018 09/24/2018 Inactive Lexapro 20 mg tablet RxNorm: 649215 TAKE 1/2 (ONE-HALF) TABLET BY MOUTH ONCE DAILY FOR ONE WEEK, THEN INCREASE TO 1 ONCE DAILY IN THE EVENING. 05/05/2018 09/24/2018 Inactive Xanax 1 mg tablet RxNorm: 355745 Tablet(s) TAKE ONE TABLET BY MOUTH ONCE DAILY AT BEDTIME 04/01/2018 06/26/2018 Inactive Lexapro 20 mg tablet RxNorm: 149921 1 Tablet(s) PO QPM 12/31/2017 05/05/2018 Inactive 1/2 tab daily x 1 week then increase to a full tab mupirocin 2 % topica l ointment RxNorm: 864257 1 Application TOP BID 12/31/2017 01/09/2018 Inactive potassium chloride E R 20 mEq tablet,extended release RxNorm: 543288 TAKE ONE TABLET BY MOUTH ONCE DAILY IN THE MORNING 12/11/2017 No Stop Date Active hydrochlorothiazide 25 mg tablet RxNorm: 258274 TAKE ONE TABLET BY MO UTH ONCE DAILY IN THE MORNING 12/11/2017 11/13/2018 Inactive Effexor XR 75 mg cap rashid,extended release RxNorm: 706633 1 Capsule(s) PO daily 12/09/2017 12/30/2017 In active permethrin 5 % topic al cream RxNorm: 580562 1 Application TOP onc e, may repeat in 14 days. 11/27/2017 01/06/2018 Inactive Xanax 1 mg tablet RxNorm: 834696 1 Tablet(s) PO QHS 09/30/2017 06/24/2018 Inactive citalopram 40 mg tablet RxNorm: 405837 TAKE ONE TABLET BY MOUTH ONCE DAILY IN T HE EVENING 08/05/2017 12/08/2017 Inactive Flagyl 500 mg tablet RxNorm: 440763 1 Tablet(s) PO TID 08/01/2017 08/05/2017 Inactive Xanax 1 mg tablet RxNorm: 715568 1 Tablet(s) PO QHS 07/05/2017 09/29/2017 Inactive Xanax 1 mg tablet RxNorm: 038561 TAKE ONE TABLET BY MOUTH ONCE DAILY AT B EDTIME 07/05/2017 03/31/2018 Inactive Zithromax Z-Cornell 250 mg tablet RxNorm: 572574 1 Tablet(s) PO UD 06/25/2017 07/04/2017 Inactive Trilipix 135 mg caps ule,delayed release RxNorm: 284270 1 Capsule(s) PO daily 05/22/2017 06/24/2018 In active triamcinolone aceton kaity 0.025 % topical cream RxNorm: 1021554 1 Application TOP BI D 05/15/2017 No Stop Date Active ketoconazole 2 % top ical cream RxNorm: 906511 1 TOP daily 05/15/2017 05/21/2017 Inactive Trilipix 135 mg caps ule,delayed release RxNorm: 823522 1 Capsule(s) PO daily 02/12/2017 05/21/2017 In active Trilipix 135 mg caps ule,delayed release RxNorm: 443775 1 Capsule(s) PO daily 02/12/2017 02/11/2017 In active acyclovir 800 mg tablet RxNorm: 174130 1 Tablet(s) PO QID 01/28/2017 02/06/2017 Inactive Fish Oil 1,000 mg ca psule RxNorm: 1 Capsule(s) PO BID 10/17/2016 10/16/2016 Inactive Vitamin D2 50,000 un it capsule RxNorm: 813999 1 Capsule(s) PO QW 10/17/2016 10/16/2016 Inactive Vitamin D3 2,000 uni t capsule RxNorm: 881320 1 Capsule(s) PO daily 10/17/2016 10/16/2016 Inactive Vitamin D2 50,000 un it capsule RxNorm: 495413 1 Capsule(s) PO QW 10/17/2016 01/14/2017 Inactive Vitamin D3 2,000 uni t capsule RxNorm: 572821 1 Capsule(s) PO daily 10/17/2016 01/14/2017 Inactive Fish Oil 1,000 mg ca psule RxNorm: 1 Capsule(s) PO BID 10/17/2016 09/24/2018 Inactive citalopram 40 mg tablet RxNorm: 195530 1 Tablet(s) PO QPM 10/08/2016 07/04/2017 Inactive potassium chloride E R 20 mEq tablet,extended release RxNorm: 601873 1 Tablet(s) PO QAM 10/08/2016 10/02/2017 Inactive hydrochlorothiazide 25 mg tablet RxNorm: 887924 1 Tablet(s) PO QAM 10/08/2016 10/02/2017 Inactive folic acid 400 mcg t ablet RxNorm: 970642 1 Tablet(s) PO daily No Start Date Active biotin 1 mg tablet RxNorm: 449560 1 Tablet(s) PO daily No Start Date Active Co Q-10 100 mg capsule RxNorm: 376494 1 Capsule(s) PO daily No Start Date Active Colace 100 mg capsule RxNorm: 4412917 1 Capsule(s) PO BID No Start Date Active ferrous sulfate 325 mg (65 mg iron) tablet RxNorm: 604863 1 Tablet(s) PO daily No Start Date Active hydrochlorothiazide 25 mg tablet RxNorm: 041896 1 Tablet(s) PO QAM No Start Date 10/07/2016 Inactive Xanax 1 mg tablet RxNorm: 131858 1 Tablet(s) PO QHS et PRN as needed No Start Date 07/05/2017 Inactive citalopram 40 mg tablet RxNorm: 208526 1 Tablet(s) PO QPM No Start Date 10/07/2016 Inactive potassium chloride E R 20 mEq tablet,extended release RxNorm: 216900 1 Tablet(s) PO QAM No Start Date 10/07/2016 Inactive permethrin 5 % topic al cream RxNorm: 665368 1 Application TOP onc e, may repeat in 14 days. No Start Date 11/26/2017 Inactive Unisom Sleepgels 50 mg capsule RxNorm: 6229551 1 Capsule(s) PO QHS No Start Date 09/24/2018 Inactive Medication Administered No Medication Administered data Immunizations No Immunization data Assessments Condition Codes Effectiv e Dates Encounter for screening mammogram for ma lignant neoplasm of breast ICD-10: Z12.31 ICD-9: V76.10 10/22/2018 Major depressive disorder, recurrent, moderate ICD-10: F33.1 ICD-9: 296.32 10/16/2018 Generalized anxiety disorder ICD-10: F41.1 ICD-9: 300.00 10/16/2018 Primary insomnia ICD-10: F51.01 ICD-9: 307.42 10/16/2018 Adverse effect of antiallergic and antie metic drugs, initial encounter ICD-10: T45.0X5A ICD-9: E933.0 09/25/2018 Essential (primary) hypertension ICD -10: I10 ICD-9: 401.1 09/25/2018 Atrophy of thyroid (acquired) ICD-10 : [...] Reason For Visit Effective Dates Notes depression 10/16/2018 depression 09/25/2018 sores in the [...] Ord30 C/HDL 5.9 Ratio 10/16/2018 Comp Metabolic Ooq020 NA 143 mEq/L 10/16/2018 Comp Metabolic Hpf749 K 4.3 mEq/L 10/16/2018 Comp Metabolic Tzr923 CL 101 mEq/L 10/16/2018 Comp Metabolic Emo738 CO2 31.0 mEq/L 10/16/2018 Comp Metabolic Nzv347 AN ION GAP 15 10/16/2018 Comp Metabolic Jpj509 GL UCOSE 90 mg/dL 10/16/2018 Comp Metabolic Xos405 Cr eat 0.9 mg/dL 10/16/2018 Comp Metabolic Xhs526 eG FR 70 ml/min/1.73m2 10/16 Comp Metabolic Krj117 BUN 14 mg/dL 10/16/2018 Comp Metabolic Gev969 B/ C Ratio 16.5 Ratio 10/16/2018 Comp Metabolic Kps483 CA LCIUM 9.8 mg/dL 10/16/2018 Comp Metabolic Tfb734 AL K PHOS 76 U/L 10/16/2018 Comp Metabolic Xql321 T(SGOT) 17 U/L 10/16/2018 Comp Metabolic Vax096 AL T(SGPT) 18 U/L 10/16/2018 Comp Metabolic Zun696 BI LI T 0.5 mg/dL 10/16/2018 Comp Metabolic Tyq284 AL BUMIN 4.2 g/dL 10/16/2018 Comp Metabolic Jiz332 TP RO 6.7 g/dL 10/16/2018 Comp Metabolic Ydk140 GL OB 2.5 g/dL 10/16/2018 Comp Metabolic Fgi942 A/ G Ratio 1.7 Ratio 10/16/2018 Comp Metabolic Vew312 Os mo 285 mOsmo 10/16/2018 Cbc With [...] 30.0 pg 06/18/2018 Cbc With Differential Ord2 [place]% 6.0 % 06/18/2018 Cbc With Differential Ord2 [...] 2.01 K/ul 06/18/2018 Cbc With Differential Ord2 [place] ABS# 0.3 K/ul 06/18/2018 Cbc With Differential Ord2 Eos ABS# 0.3 K/ul 06/18/2018 Cbc With Differential Ord2 Baso ABS# 0.0 K/ul 06/18/2018 Comp Metabolic Kiv612 NA 141 mEq/L 06/18/2018 Comp Metabolic Ufb129 K 3.7 mEq/L 06/18/2018 Comp Metabolic Ioh892 CL 101 mEq/L 06/18/2018 Comp Metabolic Dvv797 CO2 31.0 mEq/L 06/18/2018 Comp Metabolic Irp601 AN ION GAP 13 06/18/2018 Comp Metabolic Lbe465 GL UCOSE 106 mg/dL 06/18/2018 Comp Metabolic Rqb716 Cr eat 0.9 mg/dL 06/18/2018 Comp Metabolic Ooa148 eG FR 68 ml/min/1.73m2 06/18 Comp Metabolic Skc369 BUN 16 mg/dL 06/18/2018 Comp Metabolic Kxi657 B/ C Ratio 18.2 Ratio 06/18/2018 Comp Metabolic Mlo079 CA LCIUM 9.5 mg/dL 06/18/2018 Comp Metabolic Pnc294 AL K PHOS 82 U/L 06/18/2018 Comp Metabolic Wvt774 T(SGOT) 19 U/L 06/18/2018 Comp Metabolic Qbd142 AL T(SGPT) 18 U/L 06/18/2018 Comp Metabolic Ijo008 BI LI T 0.5 mg/dL 06/18/2018 Comp Metabolic Eio518 AL BUMIN 4.0 g/dL 06/18/2018 Comp Metabolic Jde882 TP RO 6.5 g/dL 06/18/2018 Comp Metabolic Vqi190 GL OB 2.5 g/dL 06/18/2018 Comp Metabolic Hrg962 A/ G Ratio 1.6 Ratio 06/18/2018 Comp Metabolic Tkd602 Os mo 283 mOsmo 06/18/2018 Tsh Ord6 TSH (3rd IS) 4.02 uIU/mL 06/18/2018 Lipid Ord30 CHOL 238 mg/dL 06/18/2018 Lipid Ord30 HDL 38.0 mg/dl 06/18/2018 Lipid Ord30 TRIG 369 mg/dL 06/18/2018 Lipid Ord30 LDL Unable to calculate Due to elevated trig lycerides mg/dL 06/18/2018 Lipid Ord30 C/HDL 6.3 Ratio 06/18/2018 Influenza A+B Jex543 Inf paul A+B Negative 06/18/2018 Free T4 Qsv386 FREE T4 0.95 ng/dL 05/15/2017 Tsh Ord6 [...] 30.4 pg 05/15/2017 Cbc With Differential Ord2 [place]% 6.2 % 05/15/2017 Cbc With Differential Ord2 [...] 2.19 K/ul 05/15/2017 Cbc With Differential Ord2 [place] ABS# 0.4 K/ul 05/15/2017 Cbc With Differential Ord2 Eos ABS# 0.2 K/ul 05/15/2017 Cbc With Differential Ord2 Baso ABS# 0.0 K/ul 05/15/2017 Vitamin D 25 Oh Ekr8303 VITAMIN D, 25 HYDROXY 50.18 ng/mL 05/15/2017 Comp Metabolic Xaq534 NA 141 mEq/L 05/15/2017 Comp Metabolic Znc682 K 3.9 mEq/L 05/15/2017 Comp Metabolic Nez573 CL 103 mEq/L 05/15/2017 Comp Metabolic Kvi307 CO2 29.0 mEq/L 05/15/2017 Comp Metabolic Uly643 AN ION GAP 13 05/15/2017 Comp Metabolic Vaz906 GL UCOSE 84 mg/dL 05/15/2017 Comp Metabolic Bzq510 Cr eat 1.1 mg/dL 05/15/2017 Comp Metabolic Sdo042 eG FR 55 ml/min/1.73m2 05/15 Comp Metabolic Siw278 BUN 19 mg/dL 05/15/2017 Comp Metabolic Dak118 B/ C Ratio 18.1 Ratio 05/15/2017 Comp Metabolic Sbm029 CA LCIUM 9.7 mg/dL 05/15/2017 Comp Metabolic Lge344 AL K PHOS 38 U/L 05/15/2017 Comp Metabolic Jnc784 T(SGOT) 21 U/L 05/15/2017 Comp Metabolic Rlu967 AL T(SGPT) 17 U/L 05/15/2017 Comp Metabolic Ryl857 BI LI T 0.4 mg/dL 05/15/2017 Comp Metabolic Vza604 AL BUMIN 4.3 g/dL 05/15/2017 Comp Metabolic Whg786 TP RO 6.5 g/dL 05/15/2017 Comp Metabolic Hio805 GL OB 2.3 g/dL 05/15/2017 Comp Metabolic Fsx985 A/ G Ratio 1.9 Ratio 05/15/2017 Comp Metabolic Lsg111 Os mo 283 mOsmo 05/15/2017 Lipid Ord30 CHOL 231 mg/dL 01/18/2017 Lipid Ord30 HDL 48.0 mg/dl 01/18/2017 Lipid Ord30 TRIG 213 mg/dL 01/18/2017 Lipid Ord30 LDL 140 mg/dL 01/18/2017 Lipid Ord30 C/HDL 4.8 Ratio 01/18/2017 Vitamin D 25 Oh Wnw7359 VITAMIN D, 25 HYDROXY 33.28 ng/mL 10/10/2016 B12 Jdz528 B12 377.00 pg/ml 10/10/2016 Comp Metabolic Lel318 NA 142 mEq/L 10/10/2016 Comp Metabolic Itk144 K 4.0 mEq/L 10/10/2016 Comp Metabolic Ptx877 CL 103 mEq/L 10/10/2016 Comp Metabolic Yqu805 CO2 29.0 mEq/L 10/10/2016 Comp Metabolic Lhh273 AN ION GAP 14 10/10/2016 Comp Metabolic Qja397 GL UCOSE 82 mg/dL 10/10/2016 Comp Metabolic Iil191 Cr eat 0.8 mg/dL 10/10/2016 Comp Metabolic Fxn069 eG FR 77 ml/min/1.73m2 10/10 Comp Metabolic Mdq843 BUN 19 mg/dL 10/10/2016 Comp Metabolic Npt730 B/ C Ratio 24.1 Ratio 10/10/2016 Comp Metabolic Lsy502 CA LCIUM 9.8 mg/dL 10/10/2016 Comp Metabolic Php191 AL K PHOS 87 U/L 10/10/2016 Comp Metabolic Zpa679 T(SGOT) 20 U/L 10/10/2016 Comp Metabolic Ypf195 AL T(SGPT) 16 U/L 10/10/2016 Comp Metabolic Wqy121 BI LI T 0.5 mg/dL 10/10/2016 Comp Metabolic Kph699 AL BUMIN 4.0 g/dL 10/10/2016 Comp Metabolic Ofj469 TP RO 6.7 g/dL 10/10/2016 Comp Metabolic Jsq360 GL OB 2.7 g/dL 10/10/2016 Comp Metabolic Oyc547 A/ G Ratio 1.5 Ratio 10/10/2016 Comp Metabolic Amt632 Os mo 284 mOsmo 10/10/2016 Free T4 Ncp427 FREE T4 0.68 ng/dL 10/10/2016 Cbc With [...] 30.6 pg 10/10/2016 Cbc With Differential Ord2 [place]% 5.2 % 10/10/2016 Cbc With Differential Ord2 [...] 2.11 K/ul 10/10/2016 Cbc With Differential Ord2 [place] ABS# 0.3 K/ul 10/10/2016 Cbc With Differential [...] Result Effective Dates Constitutional No recent illness 10/16/2018 Constitutional No [...] No mental status change 10/16/2018 Psychiatric anxiety 05/07/2018 Psychiatric depression 0 10/16/2018 Psychiatric confusion Psychiatric [...] 4: G0439 10/02/2017 Vital Signs Date Vital 10/16/2018 Blood Pressure 1: 138/82 Code: 8480-6 BMI: 42.1 Code: 61403-8 Heart Rate 1: 80 bpm Height: 5'5" SpO2: 96% Weight: 253 lbs 09/25/2018 Blood Pressure 1: 138/88 Code: 8480-6 BMI: 41.8 Code: 61798-0 Heart Rate 1: 78 bpm Height: 5'5" SpO2: 91% Weight: 251 lbs 07/07/2018 Blood Pressure 1: 140/90 Code: 8480-6 BMI: 41.3 Code: 92466-6 Heart Rate 1: 82 bpm Height: 5'5" SpO2: 92% Temperature: 36.1 (C ) / 96.9 (F) Weight: 248 lbs 04/30/2018 Blood Pressure 1: 128/64 Code: 8480-6 BMI: 41.3 Code: 26106-4 Heart Rate 1: 68 bpm Height: 5'5" SpO2: 96% Weight: 248 lbs 01/06/2018 Blood Pressure 1: 136/78 Code: 8480-6 Heart Rate 1: 71 bpm Height: 5'5" SpO2: 95% Weight: 12/31/2017 Blood Pressure 1: 134/76 Code: 8480-6 BMI: 39.8 Code: 61828-8 Heart Rate 1: 87 bpm Height: 5'5" SpO2: 97% Weight: 239 lbs 12/09/2017 Blood Pressure 1: 136/82 Code: 8480-6 BMI: 39.8 Code: 01306-1 Heart Rate 1: 73 bpm Height: 5'5" SpO2: 97% Weight: 239 lbs 10/02/2017 Blood Pressure 1: 130/72 Code: 8480-6 BMI: 39.4 Code: 88832-4 Heart Rate 1: 74 bpm Height: 5'5" SpO2: 93% Waist Measure (cm): 104 cm Weight: 237 lbs 08/01/2017 Blood Pressure 1: 132/74 Code: 8480-6 BMI: 39.3 Code: 82656-4 Heart Rate 1: 66 bpm Height: 5'5" SpO2: 92% Weight: 236 lbs 06/25/2017 Blood Pressure 1: 136/74 Code: 8480-6 BMI: 38.6 Code: 49093-3 Heart Rate 1: 61 bpm Height: 5'5" SpO2: 95% Weight: 232 lbs 05/15/2017 Blood Pressure 1: 143/76 Code: 8480-6 BMI: 38.6 Code: 54151-5 Heart Rate 1: 65 bpm Height: 5'5" SpO2: 97% Weight: 232 lbs 01/28/2017 Blood Pressure 1: 120/80 Code: 8480-6 BMI: 38.1 Code: 58381-6 Heart Rate 1: 55 bpm Height: 5'5" SpO2: 96% Weight: 229 lbs 10/08/2016 Blood Pressure 1: 130/74 Code: 8480-6 BMI: 36.9 Code: 70795-0 Heart Rate 1: 62 bpm Height: 5'5" SpO2: 92% Weight: 221 lbs 8 oz Functional Status No Functional Status data History of Present Illness Symptom Name Status Resu lt Effective Date Notes Quality chronic 10/16/2018 None Quality worsening 10/16/2018 [...] when outdoors: y 10/02/2017 None hypothyroid 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 P ATIENT, LEVEL IV Diagnosis: Generalized anxiety disorder[ICD10: F41.1] Diagnosis: Major depressive disorder, recurrent, moderate[ICD10: F33.1] Diagnosis: Primary insomnia[ICD10: F51.01] Stacie Milton MD, [facility] CPT-4: 86251 10/16/2018 ([id number]) 26748 EST. P ATIENT, LEVEL IV Diagnosis: Atrophy of thyroid (acquired)[ICD10: E03.4] Diagnosis: Essential (primary) hypertension[ICD10: I10] Diagnosis: Major depressive disorder, recurrent, moderate[ICD10: F33.1] Diagnosis: Adverse effect of antiallergic and antiemetic drugs, initial encounter[ICD10: T45.0X5A] Stacie Milton MD, [facility] CPT-4: 20697 09/25/2018 [id number] EST. PATIENT, LEVEL III Diagnosis: Recurrent oral aphthae[ICD10: K12.0] Renetta Milton MD, [facility] CPT-4: 34925 07/07/2018 95541 EST. PATIENT, LEVEL IV Diagnosis: Essential (primary) hypertension[ICD10: I10] Diagnosis: Major depressive disorder, recurrent, moderate[ICD10: F33.1] Diagnosis: Other allergic rhinitis[ICD10: J30.89] Analisa Milton MD, [facility] CPT-4: 42637 04/30/2018 ([id number]) 65116 EST. P ATIENT, LEVEL III Diagnosis: Insect bite (nonvenomous), left lower leg, subsequent encounter[ICD10: S80.862D] Diagnosis: Insect bite (nonvenomous), right lower leg, subsequent encounter[ICD10: S80.861D] Stacie Milton MD, [facility] CPT-4: 85895 01/06/2018 ([id number]) 49331 EST. P ATIENT, LEVEL III Diagnosis: Rash and other nonspecific skin eruption[ICD10: R21] Diagnosis: Major depressive disorder, recurrent, moderate[ICD10: F33.1] Renetta Milton MD, [facility] CPT-4: 60890 12/31/2017 ([id number]) 11548 EST. P ATIENT, LEVEL III Diagnosis: Essential (primary) hypertension[ICD10: I10] Diagnosis: Major depressive disorder, recurrent, moderate[ICD10: F33.1] Stacie Milton MD, [facility] CPT-4: 77319 12/09/2017 ([id number]) 52880 EST. P ATIENT, LEVEL IV Diagnosis: Atrophy of thyroid (acquired)[ICD10: E03.4] Diagnosis: Essential (primary) hypertension[ICD10: I10] Diagnosis: Other allergic rhinitis[ICD10: J30.89] Stacie Milton MD, [facility] CPT-4: 66576 08/01/2017 32456 EST. PATIENT, LEVEL III Diagnosis: Other allergic rhinitis[ICD10: J30.89] Diagnosis: Otalgia, bilateral[ICD10: H92.03] Analisa Milton MD, [facility] CPT-4: 41961 06/25/2017 95832 EST. PATIENT, LEVEL III Diagnosis: Rash and other nonspecific skin eruption[ICD10: R21] Analisa Milton MD, [facility] CPT-4: 28599 05/15/2017 ([id number]) 17770 EST. P ATIENT, LEVEL III Diagnosis: Zoster without complications[ICD10: B02.9] Stacie Milton MD, [facility] CPT-4: 66642 01/28/2017 ([id number]) OFFICE VISI T, NEW - LEVEL 4 Diagnosis: Essential (primary) hypertension[ICD10: I10] Diagnosis: Bariatric surgery status[ICD10: Z98.84] Diagnosis: Atrophy of thyroid (acquired)[ICD10: E03.4] Diagnosis: Major depressive disorder, recurrent, moderate[ICD10: F33.1] Stacie Milton MD, [facility] CPT-4: 77633 10/08/2016 Plan of Care Planned Activity Notes C odes Status Date Patient Education: Patient Medication Summary Completed 10/22/2018 [...] sleep easier. 10/16/2018 Appointment: Stacie Milton WPtel: [facility] (15 min) Moderate 10/16/2018 Patient Education: Patient Medication Summary Completed 10/16/2018 Patient Education: Depression Completed 10/16/2018 Appointment: Stacie Milton WPtel: [phone] [facility] (15 min) Moderate 10/07/2018 Visit Plan: [...] tomorrow morning 09/25/2018 [phone] ([facility] min) Moderate 09/25/2018 Patient Education: Patient Medication Summary Completed 09/25/2018 Patient Education: Depression Completed 09/25/2018 Appointment: Renetta Leigh WPtel: [phone] (30 min) Complex 07/15/2018 Visit Plan: Oral aphthae -rx for ac yclovir provided and instructed on use -follow up in 1 week for re-eval -sooner if needed -call with any concerns or worsening symptoms. 07/07/2018 Appointment: Renetta Leigh WPtel: [phone] [phone] (30 min) Complex 07/07/2018 Patient Education: [...] allergy spray. 04/30/2018 [phone] ([facility] min) Moderate 04/30/2018 Patient Education: Patient [...] going outside. 01/06/2018 Appointment: Stacie Milton WPtel: [facility] [address] (15 min) Moderate 01/06/2018 Patient Education: [...] -start lexapro 12/31/2017 Appointment: Renetta Leigh WPtel: [facility] [address] (15 min) Moderate 12/31/2017 Patient Education: [...] on venlafaxine. 12/09/2017 Appointment: Stacie Milton WPtel: [facility] [place] [phone] (15 min) Moderate 12/09/2017 Patient Education: Patient [...] Completed 10/02/2017 Visit Plan: Hypertension - well parul babitaed - continue with current medications, continue [...] for flagyl 08/01/2017 Appointment: Stacie Milton WPtel: [address] [place], [place] [address] (15 min) Moderate 08/01/2017 Patient Education: Patient [...] acutely worsen. 06/25/2017 Appointment: Analisa Jin WPtel: [facility] (15 min) Moderate 06/25/2017 Patient Education: [...] warmth, discharge. 05/15/2017 Appointment: Analisa Jin WPtel: [facility] (15 min) Moderate 05/15/2017 Patient Education: [...] considered contagious. 01/28/2017 Appointment: Stacie Milton WPtel: [facility] (15 min) Moderate 01/28/2017 Patient Education: Patient [...] supportive care. 10/08/2016 Appointment: Stacie Milton WPtel: [address] [place], [place] [address] New Patient 10/08/2016 Patient Education: Patient Medication [...] in cluding Vitamin D and TSH. Consider [place] thyroid for hypothyroidism Saline spray before using [...] in cluding Vitamin D and TSH. Consider [place] thyroid for hypothyroidism Saline spray before using [...]
--- OUTSIDE RECORDS SUMMARY | 2019-06-17 09:23 | XMS REPORT | CCD ---
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 Unknown Has never used illegal drugs 017 Allergies, Adverse Reactions, Alerts Substance Reaction Codes Entered Date Inactivated Date Status * OTHER REACTION - S EE ANSWER BOX Vitamins CSynthroid Unknown 10/08/2016 No Inactive Date Active * NO KNOWN FOOD MENDEZ RGIES Unknown 10/08/2016 No Inactive Date Active [id number] REDU CTASE INHIBITORS Unknown 07/07/2018 No Inactive [...] Date Stop Date Sta tus Fill Instructions Effexor XR 150 mg ca psule,extended release RxNorm: 767439 1 Capsule(s) PO daily 10/16/2018 10/10/2019 Ac tive Xanax 1 mg tablet RxNorm: 485397 Tablet(s) TAKE ONE TABLET BY MOUTH ONCE DAILY AT BEDTIME 09/30/2018 12/28/2018 Active Vitamin D3 2,000 uni t capsule RxNorm: 257494 125mcg Capsule(s) PO daily 09/25/2018 12/23/2018 Ac tive trazodone 50 mg tablet RxNorm: 053560 1/2 Tablet(s) PO QHS 09/25/2018 05/22/2019 Active Effexor XR 75 mg cap rashid,extended release RxNorm: 924842 1 Capsule(s) PO daily 09/25/2018 09/24/2018 In active Effexor XR 75 mg cap rashid,extended release RxNorm: 682165 1 Capsule(s) PO daily 09/25/2018 10/15/2018 In active trazodone 50 mg tablet RxNorm: 217243 1/2 Tablet(s) PO QHS 09/25/2018 09/24/2018 Inactive acyclovir 400 mg tablet RxNorm: 222261 1 Tablet(s) PO TID 07/07/2018 07/13/2018 Inactive Xanax 1 mg tablet RxNorm: 291328 Tablet(s) TAKE ONE TABLET BY MOUTH ONCE DAILY AT BEDTIME 06/27/2018 09/29/2018 Inactive Livalo 2 mg tablet RxNorm: 474994 1 Tablet(s) PO QHS 06/25/2018 06/24/2018 Inactive Livalo 2 mg tablet RxNorm: 910458 1 Tablet(s) PO QHS 06/25/2018 09/24/2018 Inactive Lexapro 20 mg tablet RxNorm: 304550 TAKE 1/2 (ONE-HALF) TABLET BY MOUTH ONCE DAILY FOR ONE WEEK, THEN INCREASE TO 1 ONCE DAILY IN THE EVENING. 05/05/2018 09/24/2018 Inactive Xanax 1 mg tablet RxNorm: 959221 Tablet(s) TAKE ONE TABLET BY MOUTH ONCE DAILY AT BEDTIME 04/01/2018 06/26/2018 Inactive Lexapro 20 mg tablet RxNorm: 069706 1 Tablet(s) PO QPM 12/31/2017 05/05/2018 Inactive 1/2 tab daily x 1 week then increase to a full tab mupirocin 2 % topica l ointment RxNorm: 663019 1 Application TOP BID 12/31/2017 01/09/2018 Inactive potassium chloride E R 20 mEq tablet,extended release RxNorm: 331171 TAKE ONE TABLET BY MOUTH ONCE DAILY IN THE MORNING 12/11/2017 No Stop Date Active hydrochlorothiazide 25 mg tablet RxNorm: 465920 TAKE ONE TABLET BY MO UTH ONCE DAILY IN THE MORNING 12/11/2017 No Stop Date Active Effexor XR 75 mg cap rashid,extended release RxNorm: 989057 1 Capsule(s) PO daily 12/09/2017 12/30/2017 In active permethrin 5 % topic al cream RxNorm: 645463 1 Application TOP onc e, may repeat in 14 days. 11/27/2017 01/06/2018 Inactive Xanax 1 mg tablet RxNorm: 129453 1 Tablet(s) PO QHS 09/30/2017 06/24/2018 Inactive citalopram 40 mg tablet RxNorm: 569352 TAKE ONE TABLET BY MOUTH ONCE DAILY IN T HE EVENING 08/05/2017 12/08/2017 Inactive Flagyl 500 mg tablet RxNorm: 659156 1 Tablet(s) PO TID 08/01/2017 08/05/2017 Inactive Xanax 1 mg tablet RxNorm: 105118 1 Tablet(s) PO QHS 07/05/2017 09/29/2017 Inactive Xanax 1 mg tablet RxNorm: 758262 TAKE ONE TABLET BY MOUTH ONCE DAILY AT B EDTIME 07/05/2017 03/31/2018 Inactive Zithromax Z-Cornell 250 mg tablet RxNorm: 637544 1 Tablet(s) PO UD 06/25/2017 07/04/2017 Inactive Trilipix 135 mg caps ule,delayed release RxNorm: 559170 1 Capsule(s) PO daily 05/22/2017 06/24/2018 In active triamcinolone aceton kaity 0.025 % topical cream RxNorm: 2754799 1 Application TOP BI D 05/15/2017 No Stop Date Active ketoconazole 2 % top ical cream RxNorm: 760463 1 TOP daily 05/15/2017 05/21/2017 Inactive Trilipix 135 mg caps ule,delayed release RxNorm: 882773 1 Capsule(s) PO daily 02/12/2017 05/21/2017 In active Trilipix 135 mg caps ule,delayed release RxNorm: 935988 1 Capsule(s) PO daily 02/12/2017 02/11/2017 In active acyclovir 800 mg tablet RxNorm: 334373 1 Tablet(s) PO QID 01/28/2017 02/06/2017 Inactive Fish Oil 1,000 mg ca psule RxNorm: 1 Capsule(s) PO BID 10/17/2016 10/16/2016 Inactive Vitamin D2 50,000 un it capsule RxNorm: 757780 1 Capsule(s) PO QW 10/17/2016 10/16/2016 Inactive Vitamin D3 2,000 uni t capsule RxNorm: 602378 1 Capsule(s) PO daily 10/17/2016 10/16/2016 Inactive Vitamin D2 50,000 un it capsule RxNorm: 506121 1 Capsule(s) PO QW 10/17/2016 01/14/2017 Inactive Vitamin D3 2,000 uni t capsule RxNorm: 682891 1 Capsule(s) PO daily 10/17/2016 01/14/2017 Inactive Fish Oil 1,000 mg ca psule RxNorm: 1 Capsule(s) PO BID 10/17/2016 09/24/2018 Inactive citalopram 40 mg tablet RxNorm: 727863 1 Tablet(s) PO QPM 10/08/2016 07/04/2017 Inactive potassium chloride E R 20 mEq tablet,extended release RxNorm: 113607 1 Tablet(s) PO QAM 10/08/2016 10/02/2017 Inactive hydrochlorothiazide 25 mg tablet RxNorm: 318181 1 Tablet(s) PO QAM 10/08/2016 10/02/2017 Inactive folic acid 400 mcg t ablet RxNorm: 531726 1 Tablet(s) PO daily No Start Date Active biotin 1 mg tablet RxNorm: 107698 1 Tablet(s) PO daily No Start Date Active Co Q-10 100 mg capsule RxNorm: 659300 1 Capsule(s) PO daily No Start Date Active Colace 100 mg capsule RxNorm: 5994418 1 Capsule(s) PO BID No Start Date Active ferrous sulfate 325 mg (65 mg iron) tablet RxNorm: 819244 1 Tablet(s) PO daily No Start Date Active hydrochlorothiazide 25 mg tablet RxNorm: 419647 1 Tablet(s) PO QAM No Start Date 10/07/2016 Inactive Xanax 1 mg tablet RxNorm: 194432 1 Tablet(s) PO QHS et PRN as needed No Start Date 07/05/2017 Inactive citalopram 40 mg tablet RxNorm: 595496 1 Tablet(s) PO QPM No Start Date 10/07/2016 Inactive potassium chloride E R 20 mEq tablet,extended release RxNorm: 086667 1 Tablet(s) PO QAM No Start Date 10/07/2016 Inactive permethrin 5 % topic al cream RxNorm: 012269 1 Application TOP onc e, may repeat in 14 days. No Start Date 11/26/2017 Inactive Unisom Sleepgels 50 mg capsule RxNorm: 7688275 1 Capsule(s) PO QHS No Start Date [...] Ord30 C/HDL 5.9 Ratio 10/16/2018 Comp Metabolic Spv293 NA 143 mEq/L 10/16/2018 Comp Metabolic Omf098 K 4.3 mEq/L 10/16/2018 Comp Metabolic Fpj981 CL 101 mEq/L 10/16/2018 Comp Metabolic Yek526 CO2 31.0 mEq/L 10/16/2018 Comp Metabolic Rxe550 AN ION GAP 15 10/16/2018 Comp Metabolic Ezl609 GL UCOSE 90 mg/dL 10/16/2018 Comp Metabolic Jys082 Cr eat 0.9 mg/dL 10/16/2018 Comp Metabolic Mck279 eG FR 70 ml/min/1.73m2 10/16 Comp Metabolic Kzs288 BUN 14 mg/dL 10/16/2018 Comp Metabolic Hsh325 B/ C Ratio 16.5 Ratio 10/16/2018 Comp Metabolic Xei788 CA LCIUM 9.8 mg/dL 10/16/2018 Comp Metabolic Obz340 AL K PHOS 76 U/L 10/16/2018 Comp Metabolic Xrf687 T(SGOT) 17 U/L 10/16/2018 Comp Metabolic Nnt110 AL T(SGPT) 18 U/L 10/16/2018 Comp Metabolic Ifv392 BI LI T 0.5 mg/dL 10/16/2018 Comp Metabolic Ovv386 AL BUMIN 4.2 g/dL 10/16/2018 Comp Metabolic Kcx928 TP RO 6.7 g/dL 10/16/2018 Comp Metabolic Eeq471 GL OB 2.5 g/dL 10/16/2018 Comp Metabolic Qgs922 A/ G Ratio 1.7 Ratio 10/16/2018 Comp Metabolic Shv767 Os mo 285 mOsmo 10/16/2018 Cbc With [...] 30.0 pg 06/18/2018 Cbc With Differential Ord2 Forest% 6.0 % 06/18/2018 Cbc With Differential Ord2 [...] 2.01 K/ul 06/18/2018 Cbc With Differential Ord2 [place] ABS# 0.3 K/ul 06/18/2018 Cbc With Differential Ord2 Eos ABS# 0.3 K/ul 06/18/2018 Cbc With Differential Ord2 Baso ABS# 0.0 K/ul 06/18/2018 Comp Metabolic Ygs496 NA 141 mEq/L 06/18/2018 Comp Metabolic Qxh831 K 3.7 mEq/L 06/18/2018 Comp Metabolic Qta010 CL 101 mEq/L 06/18/2018 Comp Metabolic Crk790 CO2 31.0 mEq/L 06/18/2018 Comp Metabolic Ngp981 AN ION GAP 13 06/18/2018 Comp Metabolic Hkb317 GL UCOSE 106 mg/dL 06/18/2018 Comp Metabolic Zcs288 Cr eat 0.9 mg/dL 06/18/2018 Comp Metabolic Vcq722 eG FR 68 ml/min/1.73m2 06/18 Comp Metabolic Rlb029 BUN 16 mg/dL 06/18/2018 Comp Metabolic Eoa785 B/ C Ratio 18.2 Ratio 06/18/2018 Comp Metabolic Kiw413 CA LCIUM 9.5 mg/dL 06/18/2018 Comp Metabolic Qrq627 AL K PHOS 82 U/L 06/18/2018 Comp Metabolic Hgc281 T(SGOT) 19 U/L 06/18/2018 Comp Metabolic Ozt349 AL T(SGPT) 18 U/L 06/18/2018 Comp Metabolic Fsj552 BI LI T 0.5 mg/dL 06/18/2018 Comp Metabolic Yqn011 AL BUMIN 4.0 g/dL 06/18/2018 Comp Metabolic Zeq058 TP RO 6.5 g/dL 06/18/2018 Comp Metabolic Kna098 GL OB 2.5 g/dL 06/18/2018 Comp Metabolic Jzo160 A/ G Ratio 1.6 Ratio 06/18/2018 Comp Metabolic Zqs041 Os mo 283 mOsmo 06/18/2018 Tsh Ord6 TSH (3rd IS) 4.02 uIU/mL 06/18/2018 Lipid Ord30 CHOL 238 mg/dL 06/18/2018 Lipid Ord30 HDL 38.0 mg/dl 06/18/2018 Lipid Ord30 TRIG 369 mg/dL 06/18/2018 Lipid Ord30 LDL Unable to calculate Due to elevated trig lycerides mg/dL 06/18/2018 Lipid Ord30 C/HDL 6.3 Ratio 06/18/2018 Influenza A+B Zqe222 Inf paul A+B Negative 06/18/2018 Free T4 Ppp647 FREE T4 0.95 ng/dL 05/15/2017 Tsh Ord6 [...] 30.4 pg 05/15/2017 Cbc With Differential Ord2 [place]% 6.2 % 05/15/2017 Cbc With Differential Ord2 [...] 2.19 K/ul 05/15/2017 Cbc With Differential Ord2 [place] ABS# 0.4 K/ul 05/15/2017 Cbc With Differential Ord2 Eos ABS# 0.2 K/ul 05/15/2017 Cbc With Differential Ord2 Baso ABS# 0.0 K/ul 05/15/2017 Vitamin D 25 Oh Lge8693 VITAMIN D, 25 HYDROXY 50.18 ng/mL 05/15/2017 Comp Metabolic Wtf344 NA 141 mEq/L 05/15/2017 Comp Metabolic Xmz817 K 3.9 mEq/L 05/15/2017 Comp Metabolic Gdy799 CL 103 mEq/L 05/15/2017 Comp Metabolic Eay693 CO2 29.0 mEq/L 05/15/2017 Comp Metabolic Oym690 AN ION GAP 13 05/15/2017 Comp Metabolic Liw706 GL UCOSE 84 mg/dL 05/15/2017 Comp Metabolic Idb904 Cr eat 1.1 mg/dL 05/15/2017 Comp Metabolic Kxs204 eG FR 55 ml/min/1.73m2 05/15 Comp Metabolic Rls331 BUN 19 mg/dL 05/15/2017 Comp Metabolic Mnr034 B/ C Ratio 18.1 Ratio 05/15/2017 Comp Metabolic Bcn494 CA LCIUM 9.7 mg/dL 05/15/2017 Comp Metabolic Mrl324 AL K PHOS 38 U/L 05/15/2017 Comp Metabolic Cfa430 T(SGOT) 21 U/L 05/15/2017 Comp Metabolic Xxx694 AL T(SGPT) 17 U/L 05/15/2017 Comp Metabolic Ngy995 BI LI T 0.4 mg/dL 05/15/2017 Comp Metabolic Dat823 AL BUMIN 4.3 g/dL 05/15/2017 Comp Metabolic Seg612 TP RO 6.5 g/dL 05/15/2017 Comp Metabolic Ruo276 GL OB 2.3 g/dL 05/15/2017 Comp Metabolic Oec313 A/ G Ratio 1.9 Ratio 05/15/2017 Comp Metabolic Hha939 Os mo 283 mOsmo 05/15/2017 Lipid Ord30 CHOL 231 mg/dL 01/18/2017 Lipid Ord30 HDL 48.0 mg/dl 01/18/2017 Lipid Ord30 TRIG 213 mg/dL 01/18/2017 Lipid Ord30 LDL 140 mg/dL 01/18/2017 Lipid Ord30 C/HDL 4.8 Ratio 01/18/2017 Vitamin D 25 Oh Amv8541 VITAMIN D, 25 HYDROXY 33.28 ng/mL 10/10/2016 B12 Szn405 B12 377.00 pg/ml 10/10/2016 Comp Metabolic Luj775 NA 142 mEq/L 10/10/2016 Comp Metabolic Muq678 K 4.0 mEq/L 10/10/2016 Comp Metabolic Ovr430 CL 103 mEq/L 10/10/2016 Comp Metabolic Fsl509 CO2 29.0 mEq/L 10/10/2016 Comp Metabolic Mve306 AN ION GAP 14 10/10/2016 Comp Metabolic Cyy724 GL UCOSE 82 mg/dL 10/10/2016 Comp Metabolic Vob720 Cr eat 0.8 mg/dL 10/10/2016 Comp Metabolic Mzl024 eG FR 77 ml/min/1.73m2 10/10 Comp Metabolic Bbz047 BUN 19 mg/dL 10/10/2016 Comp Metabolic Tow175 B/ C Ratio 24.1 Ratio 10/10/2016 Comp Metabolic Xrz917 CA LCIUM 9.8 mg/dL 10/10/2016 Comp Metabolic Qae636 AL K PHOS 87 U/L 10/10/2016 Comp Metabolic Daq565 T(SGOT) 20 U/L 10/10/2016 Comp Metabolic Mpw824 AL T(SGPT) 16 U/L 10/10/2016 Comp Metabolic Dja141 BI LI T 0.5 mg/dL 10/10/2016 Comp Metabolic Bqu459 AL BUMIN 4.0 g/dL 10/10/2016 Comp Metabolic Ydh267 TP RO 6.7 g/dL 10/10/2016 Comp Metabolic Lbg304 GL OB 2.7 g/dL 10/10/2016 Comp Metabolic Kxv498 A/ G Ratio 1.5 Ratio 10/10/2016 Comp Metabolic Qsy813 Os mo 284 mOsmo 10/10/2016 Free T4 Tan988 FREE T4 0.68 ng/dL 10/10/2016 Cbc With [...] 30.6 pg 10/10/2016 Cbc With Differential Ord2 [place]% 5.2 % 10/10/2016 Cbc With Differential Ord2 [...] 2.11 K/ul 10/10/2016 Cbc With Differential Ord2 [place] ABS# 0.3 K/ul 10/10/2016 Cbc With Differential [...] 1: 138/82 Code: 8480-6 BMI: 42.1 Code: 52456-3 Heart Rate 1: 80 bpm Height: 5'5" SpO2: 96% Weight: 253 lbs 09/25/2018 Blood Pressure 1: 138/88 Code: 8480-6 BMI: 41.8 Code: 35612-9 Heart Rate 1: 78 bpm Height: 5'5" SpO2: 91% Weight: 251 lbs 07/07/2018 Blood Pressure 1: 140/90 Code: 8480-6 BMI: 41.3 Code: 43635-6 Heart Rate 1: 82 bpm Height: 5'5" SpO2: 92% Temperature: 36.1 (C ) / 96.9 (F) Weight: 248 lbs 04/30/2018 Blood Pressure 1: 128/64 Code: 8480-6 BMI: 41.3 Code: 73991-9 Heart Rate 1: 68 bpm Height: 5'5" SpO2: 96% Weight: 248 lbs 01/06/2018 Blood Pressure 1: 136/78 Code: 8480-6 Heart Rate 1: 71 bpm Height: 5'5" SpO2: 95% Weight: 12/31/2017 Blood Pressure 1: 134/76 Code: 8480-6 BMI: 39.8 Code: 09550-8 Heart Rate 1: 87 bpm Height: 5'5" SpO2: 97% Weight: 239 lbs 12/09/2017 Blood Pressure 1: 136/82 Code: 8480-6 BMI: 39.8 Code: 21144-3 Heart Rate 1: 73 bpm Height: 5'5" SpO2: 97% Weight: 239 lbs 10/02/2017 Blood Pressure 1: 130/72 Code: 8480-6 BMI: 39.4 Code: 97517-5 Heart Rate 1: 74 bpm Height: 5'5" SpO2: 93% Waist Measure (cm): 104 cm Weight: 237 lbs 08/01/2017 Blood Pressure 1: 132/74 Code: 8480-6 BMI: 39.3 Code: 16871-0 Heart Rate 1: 66 bpm Height: 5'5" SpO2: 92% Weight: 236 lbs 06/25/2017 Blood Pressure 1: 136/74 Code: 8480-6 BMI: 38.6 Code: 59975-9 Heart Rate 1: 61 bpm Height: 5'5" SpO2: 95% Weight: 232 lbs 05/15/2017 Blood Pressure 1: 143/76 Code: 8480-6 BMI: 38.6 Code: 49991-2 Heart Rate 1: 65 bpm Height: 5'5" SpO2: 97% Weight: 232 lbs 01/28/2017 Blood Pressure 1: 120/80 Code: 8480-6 BMI: 38.1 Code: 23979-6 Heart Rate 1: 55 bpm Height: 5'5" SpO2: 96% Weight: 229 lbs 10/08/2016 Blood Pressure 1: 130/74 Code: 8480-6 BMI: 36.9 Code: 13634-5 Heart Rate 1: 62 bpm Height: 5'5" [...] when outdoors: y 10/02/2017 None hypothyroid 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 P ATIENT, LEVEL IV Diagnosis: Generalized anxiety disorder[ICD10: F41.1] Diagnosis: Major depressive disorder, recurrent, moderate[ICD10: F33.1] Diagnosis: Primary insomnia[ICD10: F51.01] Stacie Milton MD, [facility] CPT-4: 98502 10/16/2018 ([id number]) 50562 EST. 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 PATIENT, LEVEL IV Diagnosis: Essential (primary) hypertension[ICD10: I10] Diagnosis: Major depressive disorder, recurrent, moderate[ICD10: F33.1] Diagnosis: Other allergic rhinitis[ICD10: J30.89] Analisa Milton MD, [facility] CPT-4: 54433 04/30/2018 ([id number]) 65843 EST. P ATIENT, LEVEL III Diagnosis: Insect bite (nonvenomous), left lower leg, subsequent encounter[ICD10: S80.862D] Diagnosis: Insect bite (nonvenomous), right lower leg, subsequent encounter[ICD10: S80.861D] Stacie Milton MD, [facility] CPT-4: 93618 01/06/2018 ([id number]) 29314 EST. P ATIENT, LEVEL III Diagnosis: Rash and other nonspecific skin eruption[ICD10: R21] Diagnosis: Major depressive disorder, recurrent, moderate[ICD10: F33.1] Renetta Milton MD, [facility] CPT-4: 64688 12/31/2017 ([id number]) 39040 EST. P ATIENT, LEVEL III Diagnosis: Essential (primary) hypertension[ICD10: I10] Diagnosis: Major depressive disorder, recurrent, moderate[ICD10: F33.1] Stacie Milton MD, [facility] CPT-4: 06167 12/09/2017 ([id number] 47556 EST. P ATIENT, LEVEL IV Diagnosis: Atrophy of thyroid (acquired)[ICD10: E03.4] Diagnosis: Essential (primary) hypertension[ICD10: I10] Diagnosis: Other allergic rhinitis[ICD10: J30.89] Stacie Milton MD, [facility] CPT-4: 49522 08/01/2017 39279 EST. PATIENT, LEVEL III Diagnosis: Other allergic rhinitis[ICD10: J30.89] Diagnosis: Otalgia, bilateral[ICD10: H92.03] Analisa Milton MD, [facility] CPT-4: 56436 06/25/2017 35945 EST. PATIENT, LEVEL III Diagnosis: Rash and other nonspecific skin eruption[ICD10: R21] Analisa Milton MD, [facility] CPT-4: 76373 05/15/2017 ([id number]) 07115 EST. 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 10/16/2018 Appointment: Stacie Milton WPtel: [phone] [facility] (15 min) Moderate 10/16/2018 Patient Education: Patient Medication Summary Completed 10/16/2018 Patient Education: Depression Completed 10/16/2018 Appointment: Stacie Milton WPtel: [phone] [facility] (15 min) Moderate 10/07/2018 Visit Plan: [...] morning 09/25/2018 [phone] ([facility]) Moderate 09/25/2018 Patient Education: Patient Medication Summary Completed 09/25/2018 Patient Education: Depression Completed 09/25/2018 Appointment: Renetta Leigh WPtel: [phone] (30 min) Complex 07/15/2018 Visit Plan: Oral aphthae -rx for ac yclovir provided and instructed on use -follow up in 1 week for re-eval -sooner if needed -call with any concerns or worsening symptoms. 07/07/2018 Appointment: Renetta Leigh WPtel: [phone] (30 min) Complex 07/07/2018 Patient Education: [...] allergy spray. 04/30/2018 Appointment: [facility] ([facility]) Moderate 04/30/2018 Patient Education: [...] going outside. 01/06/2018 Appointment: Stacie Milton WPtel: [phone] [facility] (15 min) Moderate 01/06/2018 Patient Education: [...] -start lexapro 12/31/2017 Appointment: Renetta Leigh WPtel: [phone] [phone] [place] (15 min) Moderate 12/31/2017 Patient [...] venlafaxine. 12/09/2017 Appointment: Stacie Milton WPtel: [phone] [facility] [place] (15 min) Moderate 12/09/2017 Patient Education: [...] 10/02/2017 Visit Plan: Hypertension - well parul jced [...] for flagyl 08/01/2017 Appointment: Stacie Milton WPtel: [address] [place], [place] [address] (15 min) Moderate 08/01/2017 Patient Education: Patient [...] worsen. 06/25/2017 Appointment: Analisa Jin WPtel: [phone] [facility] (15 min) Moderate 06/25/2017 Patient Education: [...] warmth, discharge. 05/15/2017 Appointment: Analisa Jin WPtel: [phone] [facility] (15 min) Moderate 05/15/2017 Patient Education: [...] contagious. 01/28/2017 Appointment: Stacie Milton WPtel: [phone] [facility] (15 min) Moderate 01/28/2017 Patient Education: [...] supportive care. 10/08/2016 Appointment: Stacie Milton WPtel: [address] [place], [place] [address] [place] New Patient 10/08/2016 Patient Education: Patient [...] in cluding Vitamin D and TSH. Consider [place] thyroid for hypothyroidism Saline spray before using [...] in cluding Vitamin D and TSH. Consider [place] thyroid for hypothyroidism Saline spray before using [...]
--- OUTSIDE RECORDS SUMMARY | 2019-06-17 09:24 | XMS REPORT | CCD ---
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 Unknown Has never used illegal drugs 017 Allergies, Adverse Reactions, Alerts Substance Reaction Codes Entered Date Inactivated Date Status * OTHER REACTION - S EE ANSWER BOX Vitamins CSynthroid Unknown 10/08/2016 No Inactive Date Active * NO KNOWN FOOD MENDEZ RGIES Unknown 10/08/2016 No Inactive Date Active TXPMCEL-AZI-QFH REDU CTASE INHIBITORS Unknown 07/07/2018 No Inactive [...] XR 150 mg ca psule,extended release RxNorm: 614884 1 Capsule(s) PO daily 10/16/2018 10/10/2019 Ac tive Xanax 1 mg tablet RxNorm: 160963 Tablet(s) TAKE ONE TABLET BY MOUTH ONCE DAILY AT BEDTIME 09/30/2018 12/28/2018 Active Vitamin D3 2,000 uni t capsule RxNorm: 714921 125mcg Capsule(s) PO daily 09/25/2018 12/23/2018 Ac tive trazodone 50 mg tablet RxNorm: 563601 1/2 Tablet(s) PO QHS 09/25/2018 05/22/2019 Active Effexor XR 75 mg cap rashid,extended release RxNorm: 985295 1 Capsule(s) PO daily 09/25/2018 09/24/2018 In active Effexor XR 75 mg cap rashid,extended release RxNorm: 193173 1 Capsule(s) PO daily 09/25/2018 10/15/2018 In active trazodone 50 mg tablet RxNorm: 276450 1/2 Tablet(s) PO QHS 09/25/2018 09/24/2018 Inactive acyclovir 400 mg tablet RxNorm: 057495 1 Tablet(s) PO TID 07/07/2018 07/13/2018 Inactive Xanax 1 mg tablet RxNorm: 841170 Tablet(s) TAKE ONE TABLET BY MOUTH ONCE DAILY AT BEDTIME 06/27/2018 09/29/2018 Inactive Livalo 2 mg tablet RxNorm: 914398 1 Tablet(s) PO QHS 06/25/2018 06/24/2018 Inactive Livalo 2 mg tablet RxNorm: 700019 1 Tablet(s) PO QHS 06/25/2018 09/24/2018 Inactive Lexapro 20 mg tablet RxNorm: 328343 TAKE 1/2 (ONE-HALF) TABLET BY MOUTH ONCE DAILY FOR ONE WEEK, THEN INCREASE TO 1 ONCE DAILY IN THE EVENING. 05/05/2018 09/24/2018 Inactive Xanax 1 mg tablet RxNorm: 998932 Tablet(s) TAKE ONE TABLET BY MOUTH ONCE DAILY AT BEDTIME 04/01/2018 06/26/2018 Inactive Lexapro 20 mg tablet RxNorm: 318035 1 Tablet(s) PO QPM 12/31/2017 05/05/2018 Inactive 1/2 tab daily x 1 week then increase to a full tab mupirocin 2 % topica l ointment RxNorm: 643270 1 Application TOP BID 12/31/2017 01/09/2018 Inactive potassium chloride E R 20 mEq tablet,extended release RxNorm: 003049 TAKE ONE TABLET BY MOUTH ONCE DAILY IN THE MORNING 12/11/2017 No Stop Date Active hydrochlorothiazide 25 mg tablet RxNorm: 607300 TAKE ONE TABLET BY MO UTH ONCE DAILY IN THE MORNING 12/11/2017 No Stop Date Active Effexor XR 75 mg cap rashid,extended release RxNorm: 337341 1 Capsule(s) PO daily 12/09/2017 12/30/2017 In active permethrin 5 % topic al cream RxNorm: 288351 1 Application TOP onc e, may repeat in 14 days. 11/27/2017 01/06/2018 Inactive Xanax 1 mg tablet RxNorm: 147734 1 Tablet(s) PO QHS 09/30/2017 06/24/2018 Inactive citalopram 40 mg tablet RxNorm: 737420 TAKE ONE TABLET BY MOUTH ONCE DAILY IN T HE EVENING 08/05/2017 12/08/2017 Inactive Flagyl 500 mg tablet RxNorm: 320213 1 Tablet(s) PO TID 08/01/2017 08/05/2017 Inactive Xanax 1 mg tablet RxNorm: 454864 1 Tablet(s) PO QHS 07/05/2017 09/29/2017 Inactive Xanax 1 mg tablet RxNorm: 346413 TAKE ONE TABLET BY MOUTH ONCE DAILY AT B EDTIME 07/05/2017 03/31/2018 Inactive Zithromax Z-Cornell 250 mg tablet RxNorm: 232645 1 Tablet(s) PO UD 06/25/2017 07/04/2017 Inactive Trilipix 135 mg caps ule,delayed release RxNorm: 547570 1 Capsule(s) PO daily 05/22/2017 06/24/2018 In active triamcinolone aceton kaity 0.025 % topical cream RxNorm: 4678548 1 Application TOP BI D 05/15/2017 No Stop Date Active ketoconazole 2 % top ical cream RxNorm: 179537 1 TOP daily 05/15/2017 05/21/2017 Inactive Trilipix 135 mg caps ule,delayed release RxNorm: 362639 1 Capsule(s) PO daily 02/12/2017 05/21/2017 In active Trilipix 135 mg caps ule,delayed release RxNorm: 759787 1 Capsule(s) PO daily 02/12/2017 02/11/2017 In active acyclovir 800 mg tablet RxNorm: 134761 1 Tablet(s) PO QID 01/28/2017 02/06/2017 Inactive Fish Oil 1,000 mg ca psule RxNorm: 1 Capsule(s) PO BID 10/17/2016 10/16/2016 Inactive Vitamin D2 50,000 un it capsule RxNorm: 948286 1 Capsule(s) PO QW 10/17/2016 10/16/2016 Inactive Vitamin D3 2,000 uni t capsule RxNorm: 173004 1 Capsule(s) PO daily 10/17/2016 10/16/2016 Inactive Vitamin D2 50,000 un it capsule RxNorm: 082529 1 Capsule(s) PO QW 10/17/2016 01/14/2017 Inactive Vitamin D3 2,000 uni t capsule RxNorm: 668752 1 Capsule(s) PO daily 10/17/2016 01/14/2017 Inactive Fish Oil 1,000 mg ca psule RxNorm: 1 Capsule(s) PO BID 10/17/2016 09/24/2018 Inactive citalopram 40 mg tablet RxNorm: 671493 1 Tablet(s) PO QPM 10/08/2016 07/04/2017 Inactive potassium chloride E R 20 mEq tablet,extended release RxNorm: 906895 1 Tablet(s) PO QAM 10/08/2016 10/02/2017 Inactive hydrochlorothiazide 25 mg tablet RxNorm: 253754 1 Tablet(s) PO QAM 10/08/2016 10/02/2017 Inactive folic acid 400 mcg t ablet RxNorm: 485288 1 Tablet(s) PO daily No Start Date Active biotin 1 mg tablet RxNorm: 849987 1 Tablet(s) PO daily No Start Date Active Co Q-10 100 mg capsule RxNorm: 569449 1 Capsule(s) PO daily No Start Date Active Colace 100 mg capsule RxNorm: 5574703 1 Capsule(s) PO BID No Start Date Active ferrous sulfate 325 mg (65 mg iron) tablet RxNorm: 529875 1 Tablet(s) PO daily No Start Date Active hydrochlorothiazide 25 mg tablet RxNorm: 208429 1 Tablet(s) PO QAM No Start Date 10/07/2016 Inactive Xanax 1 mg tablet RxNorm: 069440 1 Tablet(s) PO QHS et PRN as needed No Start Date 07/05/2017 Inactive citalopram 40 mg tablet RxNorm: 161282 1 Tablet(s) PO QPM No Start Date 10/07/2016 Inactive potassium chloride E R 20 mEq tablet,extended release RxNorm: 528490 1 Tablet(s) PO QAM No Start Date 10/07/2016 Inactive permethrin 5 % topic al cream RxNorm: 666367 1 Application TOP onc e, may repeat in 14 days. No Start Date 11/26/2017 Inactive Unisom Sleepgels 50 mg capsule RxNorm: 4012250 1 Capsule(s) PO QHS No Start Date [...] Ord30 C/HDL 5.9 Ratio 10/16/2018 Comp Metabolic Rji841 NA 143 mEq/L 10/16/2018 Comp Metabolic Mhl815 K 4.3 mEq/L 10/16/2018 Comp Metabolic Ntw480 CL 101 mEq/L 10/16/2018 Comp Metabolic Fhr357 CO2 31.0 mEq/L 10/16/2018 Comp Metabolic Bjy821 AN ION GAP 15 10/16/2018 Comp Metabolic Pdb204 GL UCOSE 90 mg/dL 10/16/2018 Comp Metabolic Ukt115 Cr eat 0.9 mg/dL 10/16/2018 Comp Metabolic Pec682 eG FR 70 ml/min/1.73m2 10/16 Comp Metabolic Zqg877 BUN 14 mg/dL 10/16/2018 Comp Metabolic Oce573 B/ C Ratio 16.5 Ratio 10/16/2018 Comp Metabolic Ani649 CA LCIUM 9.8 mg/dL 10/16/2018 Comp Metabolic Zyf540 AL K PHOS 76 U/L 10/16/2018 Comp Metabolic Ndh887 T(SGOT) 17 U/L 10/16/2018 Comp Metabolic Wuq618 AL T(SGPT) 18 U/L 10/16/2018 Comp Metabolic Fwv554 BI LI T 0.5 mg/dL 10/16/2018 Comp Metabolic Xyk629 AL BUMIN 4.2 g/dL 10/16/2018 Comp Metabolic Ymv907 TP RO 6.7 g/dL 10/16/2018 Comp Metabolic Szv574 GL OB 2.5 g/dL 10/16/2018 Comp Metabolic Whr309 A/ G Ratio 1.7 Ratio 10/16/2018 Comp Metabolic Ejc584 Os mo 285 mOsmo 10/16/2018 Cbc With [...] 30.0 pg 06/18/2018 Cbc With Differential Ord2 [place]% 6.0 % 06/18/2018 Cbc With Differential Ord2 [...] 2.01 K/ul 06/18/2018 Cbc With Differential Ord2 [place] ABS# 0.3 K/ul 06/18/2018 Cbc With Differential Ord2 Eos ABS# 0.3 K/ul 06/18/2018 Cbc With Differential Ord2 Baso ABS# 0.0 K/ul 06/18/2018 Comp Metabolic Nzh302 NA 141 mEq/L 06/18/2018 Comp Metabolic Dxr533 K 3.7 mEq/L 06/18/2018 Comp Metabolic Qkd431 CL 101 mEq/L 06/18/2018 Comp Metabolic Esf634 CO2 31.0 mEq/L 06/18/2018 Comp Metabolic Fda348 AN ION GAP 13 06/18/2018 Comp Metabolic Ahs708 GL UCOSE 106 mg/dL 06/18/2018 Comp Metabolic Yzw870 Cr eat 0.9 mg/dL 06/18/2018 Comp Metabolic Mgm143 eG FR 68 ml/min/1.73m2 06/18 Comp Metabolic Kyr411 BUN 16 mg/dL 06/18/2018 Comp Metabolic Ubo166 B/ C Ratio 18.2 Ratio 06/18/2018 Comp Metabolic Spw199 CA LCIUM 9.5 mg/dL 06/18/2018 Comp Metabolic Kez272 AL K PHOS 82 U/L 06/18/2018 Comp Metabolic Rpt768 T(SGOT) 19 U/L 06/18/2018 Comp Metabolic Tnl141 AL T(SGPT) 18 U/L 06/18/2018 Comp Metabolic Fhp219 BI LI T 0.5 mg/dL 06/18/2018 Comp Metabolic Hhl026 AL BUMIN 4.0 g/dL 06/18/2018 Comp Metabolic Vts678 TP RO 6.5 g/dL 06/18/2018 Comp Metabolic Taa030 GL OB 2.5 g/dL 06/18/2018 Comp Metabolic Zoc512 A/ G Ratio 1.6 Ratio 06/18/2018 Comp Metabolic Yis039 Os mo 283 mOsmo 06/18/2018 Tsh Ord6 TSH (3rd IS) 4.02 uIU/mL 06/18/2018 Lipid Ord30 CHOL 238 mg/dL 06/18/2018 Lipid Ord30 HDL 38.0 mg/dl 06/18/2018 Lipid Ord30 TRIG 369 mg/dL 06/18/2018 Lipid Ord30 LDL Unable to calculate Due to elevated trig lycerides mg/dL 06/18/2018 Lipid Ord30 C/HDL 6.3 Ratio 06/18/2018 Influenza A+B Gmj269 Inf paul A+B Negative 06/18/2018 Free T4 Bws502 FREE T4 0.95 ng/dL 05/15/2017 Tsh Ord6 [...] 30.4 pg 05/15/2017 Cbc With Differential Ord2 [place]% 6.2 % 05/15/2017 Cbc With Differential Ord2 [...] 2.19 K/ul 05/15/2017 Cbc With Differential Ord2 [place] ABS# 0.4 K/ul 05/15/2017 Cbc With Differential Ord2 Eos ABS# 0.2 K/ul 05/15/2017 Cbc With Differential Ord2 Baso ABS# 0.0 K/ul 05/15/2017 Vitamin D 25 Oh Mtc9696 VITAMIN D, 25 HYDROXY 50.18 ng/mL 05/15/2017 Comp Metabolic Nsy064 NA 141 mEq/L 05/15/2017 Comp Metabolic Lyu464 K 3.9 mEq/L 05/15/2017 Comp Metabolic Sfo227 CL 103 mEq/L 05/15/2017 Comp Metabolic Qdp399 CO2 29.0 mEq/L 05/15/2017 Comp Metabolic Zyh925 AN ION GAP 13 05/15/2017 Comp Metabolic Loj806 GL UCOSE 84 mg/dL 05/15/2017 Comp Metabolic Kup040 Cr eat 1.1 mg/dL 05/15/2017 Comp Metabolic Lif279 eG FR 55 ml/min/1.73m2 05/15 Comp Metabolic Vrr372 BUN 19 mg/dL 05/15/2017 Comp Metabolic Zdk301 B/ C Ratio 18.1 Ratio 05/15/2017 Comp Metabolic Tqu417 CA LCIUM 9.7 mg/dL 05/15/2017 Comp Metabolic Bip268 AL K PHOS 38 U/L 05/15/2017 Comp Metabolic Hau030 T(SGOT) 21 U/L 05/15/2017 Comp Metabolic Uat296 AL T(SGPT) 17 U/L 05/15/2017 Comp Metabolic Kjw123 BI LI T 0.4 mg/dL 05/15/2017 Comp Metabolic Gws531 AL BUMIN 4.3 g/dL 05/15/2017 Comp Metabolic Ayq299 TP RO 6.5 g/dL 05/15/2017 Comp Metabolic Ycv979 GL OB 2.3 g/dL 05/15/2017 Comp Metabolic Obs885 A/ G Ratio 1.9 Ratio 05/15/2017 Comp Metabolic Ukx850 Os mo 283 mOsmo 05/15/2017 Lipid Ord30 CHOL 231 mg/dL 01/18/2017 Lipid Ord30 HDL 48.0 mg/dl 01/18/2017 Lipid Ord30 TRIG 213 mg/dL 01/18/2017 Lipid Ord30 LDL 140 mg/dL 01/18/2017 Lipid Ord30 C/HDL 4.8 Ratio 01/18/2017 Vitamin D 25 Oh Ypm3219 VITAMIN D, 25 HYDROXY 33.28 ng/mL 10/10/2016 B12 Bgg491 B12 377.00 pg/ml 10/10/2016 Comp Metabolic Asg605 NA 142 mEq/L 10/10/2016 Comp Metabolic Hxa370 K 4.0 mEq/L 10/10/2016 Comp Metabolic Toh158 CL 103 mEq/L 10/10/2016 Comp Metabolic Tio232 CO2 29.0 mEq/L 10/10/2016 Comp Metabolic Dpv482 AN ION GAP 14 10/10/2016 Comp Metabolic Ers369 GL UCOSE 82 mg/dL 10/10/2016 Comp Metabolic Wza311 Cr eat 0.8 mg/dL 10/10/2016 Comp Metabolic Erf679 eG FR 77 ml/min/1.73m2 10/10 Comp Metabolic Omp944 BUN 19 mg/dL 10/10/2016 Comp Metabolic Voy239 B/ C Ratio 24.1 Ratio 10/10/2016 Comp Metabolic Cno307 CA LCIUM 9.8 mg/dL 10/10/2016 Comp Metabolic Nnw661 AL K PHOS 87 U/L 10/10/2016 Comp Metabolic Bvo323 T(SGOT) 20 U/L 10/10/2016 Comp Metabolic Nma984 AL T(SGPT) 16 U/L 10/10/2016 Comp Metabolic Jqo567 BI LI T 0.5 mg/dL 10/10/2016 Comp Metabolic Cca002 AL BUMIN 4.0 g/dL 10/10/2016 Comp Metabolic Tyi133 TP RO 6.7 g/dL 10/10/2016 Comp Metabolic Jts825 GL OB 2.7 g/dL 10/10/2016 Comp Metabolic Daq421 A/ G Ratio 1.5 Ratio 10/10/2016 Comp Metabolic Kvy547 Os mo 284 mOsmo 10/10/2016 Free T4 Adq689 FREE T4 0.68 ng/dL 10/10/2016 Cbc With [...] 30.6 pg 10/10/2016 Cbc With Differential Ord2 [place]% 5.2 % 10/10/2016 Cbc With Differential Ord2 [...] 2.11 K/ul 10/10/2016 Cbc With Differential Ord2 [place] ABS# 0.3 K/ul 10/10/2016 Cbc With Differential [...] 1: 138/82 Code: 8480-6 BMI: 42.1 Code: 48304-9 Heart Rate 1: 80 bpm Height: 5'5" SpO2: 96% Weight: 253 lbs 09/25/2018 Blood Pressure 1: 138/88 Code: 8480-6 BMI: 41.8 Code: 40872-2 Heart Rate 1: 78 bpm Height: 5'5" SpO2: 91% Weight: 251 lbs 07/07/2018 Blood Pressure 1: 140/90 Code: 8480-6 BMI: 41.3 Code: 37655-7 Heart Rate 1: 82 bpm Height: 5'5" SpO2: 92% Temperature: 36.1 (C ) / 96.9 (F) Weight: 248 lbs 04/30/2018 Blood Pressure 1: 128/64 Code: 8480-6 BMI: 41.3 Code: 51689-5 Heart Rate 1: 68 bpm Height: 5'5" SpO2: 96% Weight: 248 lbs 01/06/2018 Blood Pressure 1: 136/78 Code: 8480-6 Heart Rate 1: 71 bpm Height: 5'5" SpO2: 95% Weight: 12/31/2017 Blood Pressure 1: 134/76 Code: 8480-6 BMI: 39.8 Code: 92247-9 Heart Rate 1: 87 bpm Height: 5'5" SpO2: 97% Weight: 239 lbs 12/09/2017 Blood Pressure 1: 136/82 Code: 8480-6 BMI: 39.8 Code: 06557-6 Heart Rate 1: 73 bpm Height: 5'5" SpO2: 97% Weight: 239 lbs 10/02/2017 Blood Pressure 1: 130/72 Code: 8480-6 BMI: 39.4 Code: 69250-7 Heart Rate 1: 74 bpm Height: 5'5" SpO2: 93% Waist Measure (cm): 104 cm Weight: 237 lbs 08/01/2017 Blood Pressure 1: 132/74 Code: 8480-6 BMI: 39.3 Code: 80830-4 Heart Rate 1: 66 bpm Height: 5'5" SpO2: 92% Weight: 236 lbs 06/25/2017 Blood Pressure 1: 136/74 Code: 8480-6 BMI: 38.6 Code: 15983-4 Heart Rate 1: 61 bpm Height: 5'5" SpO2: 95% Weight: 232 lbs 05/15/2017 Blood Pressure 1: 143/76 Code: 8480-6 BMI: 38.6 Code: 07879-3 Heart Rate 1: 65 bpm Height: 5'5" SpO2: 97% Weight: 232 lbs 01/28/2017 Blood Pressure 1: 120/80 Code: 8480-6 BMI: 38.1 Code: 94822-4 Heart Rate 1: 55 bpm Height: 5'5" SpO2: 96% Weight: 229 lbs 10/08/2016 Blood Pressure 1: 130/74 Code: 8480-6 BMI: 36.9 Code: 20960-8 Heart Rate 1: 62 bpm Height: 5'5" [...] when outdoors: y 10/02/2017 None 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 P ATIENT, LEVEL IV Diagnosis: Generalized anxiety disorder[ICD10: F41.1] Diagnosis: Major depressive disorder, recurrent, moderate[ICD10: F33.1] Diagnosis: Primary insomnia[ICD10: F51.01] Stacie Milton MD, [facility] CPT-4: 45583 10/16/2018 ([id number]) 88650 EST. P ATIENT, LEVEL IV Diagnosis: Atrophy of thyroid (acquired)[ICD10: E03.4] Diagnosis: Essential (primary) hypertension[ICD10: I10] Diagnosis: Major depressive disorder, recurrent, moderate[ICD10: F33.1] Diagnosis: Adverse effect of antiallergic and antiemetic drugs, initial encounter[ICD10: T45.0X5A] Stacie Milton MD, [facility] CPT-4: 58945 09/25/2018 12584 EST. 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 PATIENT, LEVEL IV Diagnosis: Essential (primary) hypertension[ICD10: I10] Diagnosis: Major depressive disorder, recurrent, moderate[ICD10: F33.1] Diagnosis: Other allergic rhinitis[ICD10: J30.89] Analisa Milton MD, [facility] CPT-4: 06421 04/30/2018 ([id number]) 95710 EST. P ATIENT, LEVEL III Diagnosis: Insect bite (nonvenomous), left lower leg, subsequent encounter[ICD10: S80.862D] Diagnosis: Insect bite (nonvenomous), right lower leg, subsequent encounter[ICD10: S80.861D] Stacie Milton MD, [facility] CPT-4: 29422 01/06/2018 ([id number]) 57704 EST. P ATIENT, LEVEL III Diagnosis: Rash and other nonspecific skin eruption[ICD10: R21] Diagnosis: Major depressive disorder, recurrent, moderate[ICD10: F33.1] Renetta Milton MD, [facility] CPT-4: 87709 12/31/2017 ([id number]) 19132 EST. P ATIENT, LEVEL III Diagnosis: Essential (primary) hypertension[ICD10: I10] Diagnosis: Major depressive disorder, recurrent, moderate[ICD10: F33.1] Stacie Milton MD, [facility] CPT-4: 75559 12/09/2017 ([id number]) 95458 EST. P ATIENT, LEVEL IV Diagnosis: Atrophy of thyroid (acquired)[ICD10: E03.4] Diagnosis: Essential (primary) hypertension[ICD10: I10] Diagnosis: Other allergic rhinitis[ICD10: J30.89] Stacie Milton MD, [facility] CPT-4: 55257 08/01/2017 37572 EST. PATIENT, LEVEL III Diagnosis: Other allergic rhinitis[ICD10: J30.89] Diagnosis: Otalgia, bilateral[ICD10: H92.03] Analisa Milton MD, [facility] CPT-4: 08496 06/25/2017 37110 EST. PATIENT, LEVEL III Diagnosis: Rash and other nonspecific skin eruption[ICD10: R21] Analisa Milton MD, [facility] CPT-4: 42134 05/15/2017 ([id number]) 01073 EST. P ATIENT, LEVEL III Diagnosis: Zoster without complications[ICD10: B02.9] Stacie Milton MD, C CPT-4: 27437 01/28/2017 ([id number]) OFFICE VISI T [facility] - LEVEL 4 Diagnosis: Essential (primary) hypertension[ICD10: I10] Diagnosis: Bariatric surgery status[ICD10: Z98.84] Diagnosis: Atrophy of thyroid (acquired)[ICD10: E03.4] Diagnosis: Major depressive disorder, recurrent, moderate[ICD10: F33.1] Stacie Milton MD, [facility] CPT-4: 13826 10/08/2016 Plan of Care Planned Activity Notes [...] you get back to sleep easier. 10/16/2018 Patient Education: Patient Medication Summary Completed 10/16/2018 Patient Education: Depression Completed 10/16/2018 Appointment: Stacie Milton WPtel: [address] [place], [place] [phone] (15 min) Moderate 10/07/2018 Visit Plan: Hypothyroidism [...] tomorrow morning 09/25/2018 Appointment: Stacie Milton WPtel: [address] [place] [address] (15 min) Moderate 09/25/2018 Patient Education: Patient Medication Summary Completed 09/25/2018 Patient Education: Depression Completed 09/25/2018 Appointment: Renetta Leigh WPtel: [address] [place], [place] [phone] (30 min) Complex 07/15/2018 Visit Plan: Oral aphthae -rx for ac yclovir provided and instructed on use -follow up in 1 week for re-eval -sooner if needed -call with any concerns or worsening symptoms. 07/07/2018 Appointment: Renetta Leigh WPtel: [phone] (30 min) Complex 07/07/2018 Patient Education: [...] spray. 04/30/2018 [phone] (15 min) Moderate 04/30/2018 Patient Education: [...] going outside. 01/06/2018 [phone] (15 min) Moderate 01/06/2018 Patient Education: Patient [...] -start lexapro 12/31/2017 Appointment: Renetta Leigh WPtel: [phone] [phone] (15 min) Moderate 12/31/2017 Patient Education: Patient [...] venlafaxine. 12/09/2017 App[facility]ment[phone] [facility] (15 min) Moderate 12/09/2017 Patient Education: Patient [...] for flagyl 08/01/2017 Appointment: Stacie Milton WPtel: [facility] (15 min) Moderate 08/01/2017 Patient Education: Patient [...] worsen. 06/25/2017 Appointment: Analisa Jin WPtel: [phone] [facility] (15 min) Moderate 06/25/2017 Patient Education: Patient [...] warmth, discharge. 05/15/2017 Appointment: Analisa Jin WPtel: [facility] [place] (15 min) Moderate 05/15/2017 Patient Education: Patient [...] considered contagious. 01/28/2017 Appointment: [phone] [facility] (15 min) Moderate 01/28/2017 Patient Education: [...] care. 10/08/2016 App[facility]ment[phone] [facility] [facility] 10/08/2016 Patient Education: Patient [...] in cluding Vitamin D and TSH. Consider [place] thyroid for hypothyroidism Saline spray before using [...] in cluding Vitamin D and TSH. Consider [place] thyroid for hypothyroidism Saline spray before using [...]
--- OUTSIDE RECORDS SUMMARY | 2019-06-17 09:25 | XMS REPORT | CCD ---
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 Unknown Has never used illegal drugs 017 Allergies, Adverse Reactions, Alerts Substance Reaction Codes Entered Date Inactivated Date Status * OTHER REACTION - S EE ANSWER BOX Vitamins CSynthroid Unknown 10/08/2016 No Inactive Date Active * NO KNOWN FOOD MENDEZ RGIES Unknown 10/08/2016 No Inactive Date Active [id number] REDU CTASE INHIBITORS Unknown 07/07/2018 No Inactive Date Active Past Medical History Illness Codes Condition Status Onset Date Resolved Date Adverse effect of an tiallergic and antiemetic drugs, initial encounter ICD-9: E933.0 ICD-10: T45.0X5A Active 09/25/2018 Unknown 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 ICD-10: E03.4 Active 10/08/2016 Unknown Essential (primary) hypertension ICD-9: 401.1 ICD-10: I10 Active 10/08/2016 Unknown Major depressive dis order, recurrent, moderate ICD-9: 296.32 ICD-10: F33.1 Active 10/08/2016 Unknown Recurrent oral aphthae ICD-9: [...] Condition Codes Effectiv e Dates Condition Status Adverse effect of an tiallergic and antiemetic drugs, initial encounter ICD-9: E933.0 ICD-10: T45.0X5A 09/25/2018 Active 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 ICD-10: E03.4 10/08/2016 Active Essential (primary) hypertension ICD-9: 401.1 ICD-10: I10 10/08/2016 Active Major depressive dis order, recurrent, moderate ICD-9: 296.32 ICD-10: F33.1 10/08/2016 Active Recurrent oral aphthae ICD-9: 528.2 [...] XR 150 mg ca psule,extended release RxNorm: 946334 1 Capsule(s) PO daily 10/16/2018 10/10/2019 Ac tive Xanax 1 mg tablet RxNorm: 641369 Tablet(s) TAKE ONE TABLET BY MOUTH ONCE DAILY AT BEDTIME 09/30/2018 12/28/2018 Active Vitamin D3 2,000 uni t capsule RxNorm: 267379 125mcg Capsule(s) PO daily 09/25/2018 12/23/2018 Ac tive trazodone 50 mg tablet RxNorm: 034429 1/2 Tablet(s) PO QHS 09/25/2018 05/22/2019 Active Effexor XR 75 mg cap rashid,extended release RxNorm: 186833 1 Capsule(s) PO daily 09/25/2018 09/24/2018 In active Effexor XR 75 mg cap rashid,extended release RxNorm: 926401 1 Capsule(s) PO daily 09/25/2018 10/15/2018 In active trazodone 50 mg tablet RxNorm: 749212 1/2 Tablet(s) PO QHS 09/25/2018 09/24/2018 Inactive acyclovir 400 mg tablet RxNorm: 793814 1 Tablet(s) PO TID 07/07/2018 07/13/2018 Inactive Xanax 1 mg tablet RxNorm: 408401 Tablet(s) TAKE ONE TABLET BY MOUTH ONCE DAILY AT BEDTIME 06/27/2018 09/29/2018 Inactive Livalo 2 mg tablet RxNorm: 298529 1 Tablet(s) PO QHS 06/25/2018 06/24/2018 Inactive Livalo 2 mg tablet RxNorm: 126644 1 Tablet(s) PO QHS 06/25/2018 09/24/2018 Inactive Lexapro 20 mg tablet RxNorm: 776960 TAKE 1/2 (ONE-HALF) TABLET BY MOUTH ONCE DAILY FOR ONE WEEK, THEN INCREASE TO 1 ONCE DAILY IN THE EVENING. 05/05/2018 09/24/2018 Inactive Xanax 1 mg tablet RxNorm: 952573 Tablet(s) TAKE ONE TABLET BY MOUTH ONCE DAILY AT BEDTIME 04/01/2018 06/26/2018 Inactive Lexapro 20 mg tablet RxNorm: 295774 1 Tablet(s) PO QPM 12/31/2017 05/05/2018 Inactive 1/2 tab daily x 1 week then increase to a full tab mupirocin 2 % topica l ointment RxNorm: 579238 1 Application TOP BID 12/31/2017 01/09/2018 Inactive potassium chloride E R 20 mEq tablet,extended release RxNorm: 529057 TAKE ONE TABLET BY MOUTH ONCE DAILY IN THE MORNING 12/11/2017 No Stop Date Active hydrochlorothiazide 25 mg tablet RxNorm: 232025 TAKE ONE TABLET BY [facility] ONCE DAILY IN THE MORNING 12/11/2017 No Stop Date Active Effexor XR 75 mg cap rashid,extended release RxNorm: 925794 1 Capsule(s) PO daily 12/09/2017 12/30/2017 In active permethrin 5 % topic al cream RxNorm: 723202 1 Application TOP onc e, may repeat in 14 days. 11/27/2017 01/06/2018 Inactive Xanax 1 mg tablet RxNorm: 678943 1 Tablet(s) PO QHS 09/30/2017 06/24/2018 Inactive citalopram 40 mg tablet RxNorm: 072258 TAKE ONE TABLET BY MOUTH ONCE DAILY IN T HE EVENING 08/05/2017 12/08/2017 Inactive Flagyl 500 mg tablet RxNorm: 159070 1 Tablet(s) PO TID 08/01/2017 08/05/2017 Inactive Xanax 1 mg tablet RxNorm: 902825 1 Tablet(s) PO QHS 07/05/2017 09/29/2017 Inactive Xanax 1 mg tablet RxNorm: 549446 TAKE ONE TABLET BY MOUTH ONCE DAILY AT B EDTIME 07/05/2017 03/31/2018 Inactive Zithromax Z-Cornell 250 mg tablet RxNorm: 715037 1 Tablet(s) PO UD 06/25/2017 07/04/2017 Inactive Trilipix 135 mg caps ule,delayed release RxNorm: 425983 1 Capsule(s) PO daily 05/22/2017 06/24/2018 In active triamcinolone aceton kaity 0.025 % topical cream RxNorm: 7056915 1 Application TOP BI D 05/15/2017 No Stop Date Active ketoconazole 2 % top ical cream RxNorm: 505897 1 TOP daily 05/15/2017 05/21/2017 Inactive Trilipix 135 mg caps ule,delayed release RxNorm: 128560 1 Capsule(s) PO daily 02/12/2017 05/21/2017 In active Trilipix 135 mg caps ule,delayed release RxNorm: 014119 1 Capsule(s) PO daily 02/12/2017 02/11/2017 In active acyclovir 800 mg tablet RxNorm: 706623 1 Tablet(s) PO QID 01/28/2017 02/06/2017 Inactive Fish Oil 1,000 mg ca psule RxNorm: 1 Capsule(s) PO BID 10/17/2016 10/16/2016 Inactive Vitamin D2 50,000 un it capsule RxNorm: 173792 1 Capsule(s) PO QW 10/17/2016 10/16/2016 Inactive Vitamin D3 2,000 uni t capsule RxNorm: 114810 1 Capsule(s) PO daily 10/17/2016 10/16/2016 Inactive Vitamin D2 50,000 un it capsule RxNorm: 012375 1 Capsule(s) PO QW 10/17/2016 01/14/2017 Inactive Vitamin D3 2,000 uni t capsule RxNorm: 156195 1 Capsule(s) PO daily 10/17/2016 01/14/2017 Inactive Fish Oil 1,000 mg ca psule RxNorm: 1 Capsule(s) PO BID 10/17/2016 09/24/2018 Inactive citalopram 40 mg tablet RxNorm: 069011 1 Tablet(s) PO QPM 10/08/2016 07/04/2017 Inactive potassium chloride E R 20 mEq tablet,extended release RxNorm: 505588 1 Tablet(s) PO QAM 10/08/2016 10/02/2017 Inactive hydrochlorothiazide 25 mg tablet RxNorm: 508308 1 Tablet(s) PO QAM 10/08/2016 10/02/2017 Inactive folic acid 400 mcg t ablet RxNorm: 597413 1 Tablet(s) PO daily No Start Date Active biotin 1 mg tablet RxNorm: 389458 1 Tablet(s) PO daily No Start Date Active Co Q-10 100 mg capsule RxNorm: 325256 1 Capsule(s) PO daily No Start Date Active Colace 100 mg capsule RxNorm: 4435200 1 Capsule(s) PO BID No Start Date Active ferrous sulfate 325 mg (65 mg iron) tablet RxNorm: 743623 1 Tablet(s) PO daily No Start Date Active hydrochlorothiazide 25 mg tablet RxNorm: 373959 1 Tablet(s) PO QAM No Start Date 10/07/2016 Inactive Xanax 1 mg tablet RxNorm: 943237 1 Tablet(s) PO QHS et PRN as needed No Start Date 07/05/2017 Inactive citalopram 40 mg tablet RxNorm: 231166 1 Tablet(s) PO QPM No Start Date 10/07/2016 Inactive potassium chloride E R 20 mEq tablet,extended release RxNorm: 278808 1 Tablet(s) PO QAM No Start Date 10/07/2016 Inactive permethrin 5 % topic al cream RxNorm: 025033 1 Application TOP onc e, may repeat in 14 days. No Start Date 11/26/2017 Inactive Unisom Sleepgels 50 mg capsule RxNorm: 5741757 1 Capsule(s) PO QHS No Start Date 09/24/2018 Inactive Medication Administered No Medication Administered data Immunizations No Immunization data Assessments Condition Codes Effectiv e Dates Adverse effect of antiallergic and antie metic drugs, initial encounter ICD-10: T45.0X5A ICD-9: E933.0 09/25/2018 Major depressive disorder, recurrent, moderate ICD-10: F33.1 ICD-9: 296.32 09/25/2018 Essential (primary) hypertension ICD -10: I10 [...] Reason For Visit Effective Dates Notes depression 09/25/2018 sores in the mouth 07/07/2018 chest pain/pressure 04/30/2018 depression 01/06/2018 depression 12/31/2017 depression 12/09/2017 Annual Medicare Wellness Exam 10/02/2017 hypothyroid 08/01/2017 earache 06/25/2017 rash 05/15/2017 rash 01/28/2017 hypothyroid 10/08/2016 Results Observation Observation Code Item Item Code Result Date Comp Metabolic Vru986 NA 143 mEq/L 10/16/2018 Comp Metabolic Dwv055 K 4.3 mEq/L 10/16/2018 Comp Metabolic Muw691 CL 101 mEq/L 10/16/2018 Comp Metabolic Qyy195 CO2 31.0 mEq/L 10/16/2018 Comp Metabolic Tgy353 AN ION GAP 15 10/16/2018 Comp Metabolic Quk221 GL UCOSE 90 mg/dL 10/16/2018 Comp Metabolic Guq176 Cr eat 0.9 mg/dL 10/16/2018 Comp Metabolic Zbm769 eG FR 70 ml/min/1.73m2 10/16 Comp Metabolic Rhx070 BUN 14 mg/dL 10/16/2018 Comp Metabolic Dbq375 B/ C Ratio 16.5 Ratio 10/16/2018 Comp Metabolic Fso749 CA LCIUM 9.8 mg/dL 10/16/2018 Comp Metabolic Zxh346 AL K PHOS 76 U/L 10/16/2018 Comp Metabolic Csa793 T(SGOT) 17 U/L 10/16/2018 Comp Metabolic Nes894 AL T(SGPT) 18 U/L 10/16/2018 Comp Metabolic Zfd484 BI LI T 0.5 mg/dL 10/16/2018 Comp Metabolic Zcu854 AL BUMIN 4.2 g/dL 10/16/2018 Comp Metabolic Ubn040 TP RO 6.7 g/dL 10/16/2018 Comp Metabolic Zvp621 GL OB 2.5 g/dL 10/16/2018 Comp Metabolic Gar481 A/ G Ratio 1.7 Ratio 10/16/2018 Comp Metabolic Oaf109 Os mo 285 mOsmo 10/16/2018 Cbc With [...] 30.0 pg 06/18/2018 Cbc With Differential Ord2 Dawson% 6.0 % 06/18/2018 Cbc With Differential Ord2 [...] 2.01 K/ul 06/18/2018 Cbc With Differential Ord2 Dawson ABS# 0.3 K/ul 06/18/2018 Cbc With Differential Ord2 Eos ABS# 0.3 K/ul 06/18/2018 Cbc With Differential Ord2 Baso ABS# 0.0 K/ul 06/18/2018 Comp Metabolic Ikz734 NA 141 mEq/L 06/18/2018 Comp Metabolic Utz060 K 3.7 mEq/L 06/18/2018 Comp Metabolic Mvz639 CL 101 mEq/L 06/18/2018 Comp Metabolic Zxv462 CO2 31.0 mEq/L 06/18/2018 Comp Metabolic Clu651 AN ION GAP 13 06/18/2018 Comp Metabolic Xto842 GL UCOSE 106 mg/dL 06/18/2018 Comp Metabolic Ydb793 Cr eat 0.9 mg/dL 06/18/2018 Comp Metabolic Euz971 eG FR 68 ml/min/1.73m2 06/18 Comp Metabolic Bne104 BUN 16 mg/dL 06/18/2018 Comp Metabolic Vsz520 B/ C Ratio 18.2 Ratio 06/18/2018 Comp Metabolic Ddc287 CA LCIUM 9.5 mg/dL 06/18/2018 Comp Metabolic Ozg291 AL K PHOS 82 U/L 06/18/2018 Comp Metabolic Geh708 T(SGOT) 19 U/L 06/18/2018 Comp Metabolic Dyq282 AL T(SGPT) 18 U/L 06/18/2018 Comp Metabolic Mkw090 BI LI T 0.5 mg/dL 06/18/2018 Comp Metabolic Ueq253 AL BUMIN 4.0 g/dL 06/18/2018 Comp Metabolic Juk079 TP RO 6.5 g/dL 06/18/2018 Comp Metabolic Urf637 GL OB 2.5 g/dL 06/18/2018 Comp Metabolic Ukw526 A/ G Ratio 1.6 Ratio 06/18/2018 Comp Metabolic Noi542 Os mo 283 mOsmo 06/18/2018 Tsh Ord6 TSH (3rd IS) 4.02 uIU/mL 06/18/2018 Lipid Ord30 CHOL 238 mg/dL 06/18/2018 Lipid Ord30 HDL 38.0 mg/dl 06/18/2018 Lipid Ord30 TRIG 369 mg/dL 06/18/2018 Lipid Ord30 LDL Unable to calculate Due to elevated trig lycerides mg/dL 06/18/2018 Lipid Ord30 C/HDL 6.3 Ratio 06/18/2018 Influenza A+B Gbp481 Inf paul A+B Negative 06/18/2018 Free T4 Myk555 FREE T4 0.95 ng/dL 05/15/2017 Tsh Ord6 [...] 30.4 pg 05/15/2017 Cbc With Differential Ord2 Dawson% 6.2 % 05/15/2017 Cbc With Differential Ord2 [...] 2.19 K/ul 05/15/2017 Cbc With Differential Ord2 Dawson ABS# 0.4 K/ul 05/15/2017 Cbc With Differential Ord2 Eos ABS# 0.2 K/ul 05/15/2017 Cbc With Differential Ord2 Baso ABS# 0.0 K/ul 05/15/2017 Vitamin D 25 Oh Kuu2285 VITAMIN D, 25 HYDROXY 50.18 ng/mL 05/15/2017 Comp Metabolic Erx619 NA 141 mEq/L 05/15/2017 Comp Metabolic Usv581 K 3.9 mEq/L 05/15/2017 Comp Metabolic Fxg509 CL 103 mEq/L 05/15/2017 Comp Metabolic Erx806 CO2 29.0 mEq/L 05/15/2017 Comp Metabolic Nyv398 AN ION GAP 13 05/15/2017 Comp Metabolic Kun457 GL UCOSE 84 mg/dL 05/15/2017 Comp Metabolic Ieo115 Cr eat 1.1 mg/dL 05/15/2017 Comp Metabolic Iet884 eG FR 55 ml/min/1.73m2 05/15 Comp Metabolic Gqx878 BUN 19 mg/dL 05/15/2017 Comp Metabolic Ijf611 B/ C Ratio 18.1 Ratio 05/15/2017 Comp Metabolic Wfv014 CA LCIUM 9.7 mg/dL 05/15/2017 Comp Metabolic Fas525 AL K PHOS 38 U/L 05/15/2017 Comp Metabolic Cwu184 T(SGOT) 21 U/L 05/15/2017 Comp Metabolic Lul693 AL T(SGPT) 17 U/L 05/15/2017 Comp Metabolic Zcc167 BI LI T 0.4 mg/dL 05/15/2017 Comp Metabolic Cty582 AL BUMIN 4.3 g/dL 05/15/2017 Comp Metabolic Dlm320 TP RO 6.5 g/dL 05/15/2017 Comp Metabolic Xcb763 GL OB 2.3 g/dL 05/15/2017 Comp Metabolic Ley836 A/ G Ratio 1.9 Ratio 05/15/2017 Comp Metabolic Rsx844 Os mo 283 mOsmo 05/15/2017 Lipid Ord30 CHOL 231 mg/dL 01/18/2017 Lipid Ord30 HDL 48.0 mg/dl 01/18/2017 Lipid Ord30 TRIG 213 mg/dL 01/18/2017 Lipid Ord30 LDL 140 mg/dL 01/18/2017 Lipid Ord30 C/HDL 4.8 Ratio 01/18/2017 Vitamin D 25 Oh Hgg1011 VITAMIN D, 25 HYDROXY 33.28 ng/mL 10/10/2016 B12 Mro588 B12 377.00 pg/ml 10/10/2016 Comp Metabolic Gzt021 NA 142 mEq/L 10/10/2016 Comp Metabolic Ffq075 K 4.0 mEq/L 10/10/2016 Comp Metabolic Vle391 CL 103 mEq/L 10/10/2016 Comp Metabolic Apb038 CO2 29.0 mEq/L 10/10/2016 Comp Metabolic Zsm178 AN ION GAP 14 10/10/2016 Comp Metabolic Oww611 GL UCOSE 82 mg/dL 10/10/2016 Comp Metabolic Kil066 Cr eat 0.8 mg/dL 10/10/2016 Comp Metabolic Udb531 eG FR 77 ml/min/1.73m2 10/10 Comp Metabolic Kwt340 BUN 19 mg/dL 10/10/2016 Comp Metabolic Dge441 B/ C Ratio 24.1 Ratio 10/10/2016 Comp Metabolic Met272 CA LCIUM 9.8 mg/dL 10/10/2016 Comp Metabolic Pzp064 AL K PHOS 87 U/L 10/10/2016 Comp Metabolic Ifk881 T(SGOT) 20 U/L 10/10/2016 Comp Metabolic Xfi024 AL T(SGPT) 16 U/L 10/10/2016 Comp Metabolic Mhz296 BI LI T 0.5 mg/dL 10/10/2016 Comp Metabolic Fmk492 AL BUMIN 4.0 g/dL 10/10/2016 Comp Metabolic Xay084 TP RO 6.7 g/dL 10/10/2016 Comp Metabolic Pqo155 GL OB 2.7 g/dL 10/10/2016 Comp Metabolic Xcc334 A/ G Ratio 1.5 Ratio 10/10/2016 Comp Metabolic Eor704 Os mo 284 mOsmo 10/10/2016 Free T4 Tcq433 FREE T4 0.68 ng/dL 10/10/2016 Cbc With [...] 30.6 pg 10/10/2016 Cbc With Differential Ord2 Dawson% 5.2 % 10/10/2016 Cbc With Differential Ord2 [...] 2.11 K/ul 10/10/2016 Cbc With Differential Ord2 Dawson ABS# 0.3 K/ul 10/10/2016 Cbc With Differential [...] Result Effective Dates Constitutional No recent illness 09/25/2018 Constitutional No [...] 4: G0439 10/02/2017 Vital Signs Date Vital 09/25/2018 Blood Pressure 1: 138/88 Code: 8480-6 BMI: 41.8 Code: 18872-4 Heart Rate 1: 78 bpm Height: 5'5" SpO2: 91% Weight: 251 lbs 07/07/2018 Blood Pressure 1: 140/90 Code: 8480-6 BMI: 41.3 Code: 42910-5 Heart Rate 1: 82 bpm Height: 5'5" SpO2: 92% Temperature: 36.1 (C ) / 96.9 (F) Weight: 248 lbs 04/30/2018 Blood Pressure 1: 128/64 Code: 8480-6 BMI: 41.3 Code: 25699-0 Heart Rate 1: 68 bpm Height: 5'5" SpO2: 96% Weight: 248 lbs 01/06/2018 Blood Pressure 1: 136/78 Code: 8480-6 Heart Rate 1: 71 bpm Height: 5'5" SpO2: 95% Weight: 12/31/2017 Blood Pressure 1: 134/76 Code: 8480-6 BMI: 39.8 Code: 47576-7 Heart Rate 1: 87 bpm Height: 5'5" SpO2: 97% Weight: 239 lbs 12/09/2017 Blood Pressure 1: 136/82 Code: 8480-6 BMI: 39.8 Code: 83483-4 Heart Rate 1: 73 bpm Height: 5'5" SpO2: 97% Weight: 239 lbs 10/02/2017 Blood Pressure 1: 130/72 Code: 8480-6 BMI: 39.4 Code: 11300-0 Heart Rate 1: 74 bpm Height: 5'5" SpO2: 93% Waist Measure (cm): 104 cm Weight: 237 lbs 08/01/2017 Blood Pressure 1: 132/74 Code: 8480-6 BMI: 39.3 Code: 29739-5 Heart Rate 1: 66 bpm Height: 5'5" SpO2: 92% Weight: 236 lbs 06/25/2017 Blood Pressure 1: 136/74 Code: 8480-6 BMI: 38.6 Code: 36246-1 Heart Rate 1: 61 bpm Height: 5'5" SpO2: 95% Weight: 232 lbs 05/15/2017 Blood Pressure 1: 143/76 Code: 8480-6 BMI: 38.6 Code: 17697-9 Heart Rate 1: 65 bpm Height: 5'5" SpO2: 97% Weight: 232 lbs 01/28/2017 Blood Pressure 1: 120/80 Code: 8480-6 BMI: 38.1 Code: 59172-4 Heart Rate 1: 55 bpm Height: 5'5" SpO2: 96% Weight: 229 lbs 10/08/2016 Blood Pressure 1: 130/74 Code: 8480-6 BMI: 36.9 Code: 80509-1 Heart Rate 1: 62 bpm Height: 5'5" SpO2: 92% Weight: 221 lbs 8 oz Functional Status No Functional Status data History of Present Illness Symptom Name Status Resu lt Effective Date Notes Quality chronic 09/25/2018 None Quality worsening 09/25/2018 [...] exercise 10/02/2017 None Annual Medicare Wellness Exam Handdoreen tavares Stress often has problems coping 10/02/2017 None [...] when outdoors: y 10/02/2017 None 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 P ATIENT, LEVEL IV Diagnosis: Atrophy of thyroid (acquired)[ICD10: E03.4] Diagnosis: Essential (primary) hypertension[ICD10: I10] Diagnosis: Major depressive disorder, recurrent, moderate[ICD10: F33.1] Diagnosis: Adverse effect of antiallergic and antiemetic drugs, initial encounter[ICD10: T45.0X5A] Stacie Milton MD, [facility] CPT-4: 36658 09/25/2018 [id number] EST. PATIENT, LEVEL III Diagnosis: Recurrent oral aphthae[ICD10: K12.0] Renetta Milton MD, [facility] CPT-4: 48031 07/07/2018 15803 EST. PATIENT, LEVEL IV Diagnosis: Essential (primary) hypertension[ICD10: I10] Diagnosis: Major depressive disorder, recurrent, moderate[ICD10: F33.1] Diagnosis: Other allergic rhinitis[ICD10: J30.89] Analisa Milton MD, [facility] CPT-4: 41742 04/30/2018 ([id number]) 30017 EST. P ATIENT, LEVEL III Diagnosis: Insect bite (nonvenomous), left lower leg, subsequent encounter[ICD10: S80.862D] Diagnosis: Insect bite (nonvenomous), right lower leg, subsequent encounter[ICD10: S80.861D] Stacie Milton MD, [facility] CPT-4: 78638 01/06/2018 ([id number]) 76647 EST. P ATIENT, LEVEL III Diagnosis: Rash and other nonspecific skin eruption[ICD10: R21] Diagnosis: Major depressive disorder, recurrent, moderate[ICD10: F33.1] Renetta Milton MD, [facility] CPT-4: 39239 12/31/2017 ([id number]) 40034 EST. P ATIENT, LEVEL III Diagnosis: Essential (primary) hypertension[ICD10: I10] Diagnosis: Major depressive disorder, recurrent, moderate[ICD10: F33.1] Stacie Milton MD, [facility] CPT-4: 93809 12/09/2017 ([id number]) 45564 EST. P ATIENT, LEVEL IV Diagnosis: Atrophy of thyroid (acquired)[ICD10: E03.4] Diagnosis: Essential (primary) hypertension[ICD10: I10] Diagnosis: Other allergic rhinitis[ICD10: J30.89] Stacie Milton MD, [facility] CPT-4: 05892 08/01/2017 21858 EST. PATIENT, LEVEL III Diagnosis: Other allergic rhinitis[ICD10: J30.89] Diagnosis: Otalgia, bilateral[ICD10: H92.03] Analisa Milton MD, [facility] CPT-4: 09974 06/25/2017 34292 EST. PATIENT, LEVEL III Diagnosis: Rash and other nonspecific skin eruption[ICD10: R21] Analisa Milton MD, [facility] CPT-4: 31290 05/15/2017 ([id number]) 48514 EST. P ATIENT, LEVEL III Diagnosis: Zoster without complications[ICD10: B02.9] Stacie Milton MD, [facility] CPT-4: 76350 01/28/2017 ([id number]) OFFICE VISI T, NEW - LEVEL 4 Diagnosis: Essential (primary) hypertension[ICD10: I10] Diagnosis: Bariatric surgery status[ICD10: Z98.84] Diagnosis: Atrophy of thyroid (acquired)[ICD10: E03.4] Diagnosis: Major depressive disorder, recurrent, moderate[ICD10: F33.1] Stacie Milton MD, [facility] CPT-4: 87954 10/08/2016 Plan of Care Planned Activity Notes C odes Status Date Appointment: Stacie Milton WPtel: [address] [place], [place] [phone] (15 min) Moderate 10/07/2018 Visit Plan: Hypothyroidism [...] tomorrow morning 09/25/2018 Appointment: Stacie Milton WPtel: [facility]5 [id number] (15 min) Moderate 09/25/2018 Patient Education: Patient Medication Summary Completed 09/25/2018 Patient Education: Depression Completed 09/25/2018 Appointment: Renetta Leigh WPtel: [facility]5 [phone] (30 min) Complex 07/15/2018 Visit Plan: Oral aphthae -rx for ac yclovir provided and instructed on use -follow up in 1 week for re-eval -sooner if needed -call with any concerns or worsening symptoms. 07/07/2018 Appointment: Renetta Leigh WPtel: [facility]5 [phone] (30 min) Complex 07/07/2018 Patient Education: [...] spray. 04/30/2018 Appointment: Analisa Jin WPtel: [phone] [facility] (15 min) Moderate 04/30/2018 Patient Education: [...] outside. 01/06/2018 Appointment: Stacie Milton WPtel: [phone] [facility] (15 min) Moderate 01/06/2018 Patient Education: Patient [...] off effexor -start lexapro 12/31/2017 Appointment: Renetta Legih WPtel: [phone] [phone] [place] (15 min) Moderate 12/31/2017 Patient [...] on venlafaxine. 12/09/2017 Appointment: [facility] Milton [facility]Ptel[facility] (15 min) Moderate 12/09/2017 Patient Education: Patient [...] for flagyl 08/01/2017 Appointment: Stacie Milton WPtel: [facility]6 [facility] (15 min) Moderate 08/01/2017 Patient Education: Patient [...] acutely worsen. 06/25/2017 Appointment: Analisa Jin WPtel: [facility]4 [facility] (15 min) Moderate 06/25/2017 Patient Education: [...] discharge. 05/15/2017 App[facility]ment: [phone] (15 min) Moderate 05/15/2017 Patient Education: Patient [...] considered contagious. 01/28/2017 Appointment: Stacie Milton WPtel: [facility]5 [facility] (15 min) Moderate 01/28/2017 Patient [...] supportive care. 10/08/2016 Appointment: Stac[facility] Milton WPtel[facility] [facility] 10/08/2016 Patient Education: Patient Medication [...] in the nasal steroid allergy spray. . Oral aphthae -rx f or acyclovir [...] in cluding Vitamin D and TSH. Consider [place] thyroid for hypothyroidism Saline spray before using [...] in cluding Vitamin D and TSH. Consider [place] thyroid for hypothyroidism Saline spray before using [...]
--- OUTSIDE RECORDS SUMMARY | 2019-06-17 09:26 | XMS REPORT | CCD ---
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 Unknown Has never used illegal drugs 017 Allergies, Adverse Reactions, Alerts Substance Reaction Codes Entered Date Inactivated Date Status * OTHER REACTION - S EE ANSWER BOX Vitamins CSynthroid Unknown 10/08/2016 No Inactive Date Active * NO KNOWN FOOD MENDEZ RGIES Unknown 10/08/2016 No Inactive Date Active AMFCPGS-MAI-SAY REDU CTASE INHIBITORS Unknown 07/07/2018 No Inactive [...] Date Sta tus Fill Instructions Effexor XR 75 mg cap rashid,extended release RxNorm: 993753 1 Capsule(s) PO daily 09/25/2018 04/22/2019 Ac tive Vitamin D3 2,000 uni t capsule RxNorm: 826042 125mcg Capsule(s) PO daily 09/25/2018 12/23/2018 Ac tive trazodone 50 mg tablet RxNorm: 259946 1/2 Tablet(s) PO QHS 09/25/2018 05/22/2019 Active Effexor XR 75 mg cap rashid,extended release RxNorm: 190676 1 Capsule(s) PO daily 09/25/2018 09/24/2018 In active trazodone 50 mg tablet RxNorm: 829633 1/2 Tablet(s) PO QHS 09/25/2018 09/24/2018 Inactive acyclovir 400 mg tablet RxNorm: 961879 1 Tablet(s) PO TID 07/07/2018 07/13/2018 Inactive Xanax 1 mg tablet RxNorm: 272785 Tablet(s) TAKE ONE TABLET BY MOUTH ONCE DAILY AT BEDTIME 06/27/2018 No Stop Date Active Livalo 2 mg tablet RxNorm: 060558 1 Tablet(s) PO QHS 06/25/2018 06/24/2018 Inactive Livalo 2 mg tablet RxNorm: 380988 1 Tablet(s) PO QHS 06/25/2018 09/24/2018 Inactive Lexapro 20 mg tablet RxNorm: 367210 TAKE 1/2 (ONE-HALF) TABLET BY MOUTH ONCE DAILY FOR ONE WEEK, THEN INCREASE TO 1 ONCE DAILY IN THE EVENING. 05/05/2018 09/24/2018 Inactive Xanax 1 mg tablet RxNorm: 470612 Tablet(s) TAKE ONE TABLET BY MOUTH ONCE DAILY AT BEDTIME 04/01/2018 06/26/2018 Inactive Lexapro 20 mg tablet RxNorm: 300266 1 Tablet(s) PO QPM 12/31/2017 05/05/2018 Inactive 1/2 tab daily x 1 week then increase to a full tab mupirocin 2 % topica l ointment RxNorm: 020586 1 Application TOP BID 12/31/2017 01/09/2018 Inactive potassium chloride E R 20 mEq tablet,extended release RxNorm: 260946 TAKE ONE TABLET BY MOUTH ONCE DAILY IN THE MORNING 12/11/2017 No Stop Date Active hydrochlorothiazide 25 mg tablet RxNorm: 225124 TAKE ONE TABLET BY MO UTH ONCE DAILY IN THE MORNING 12/11/2017 No Stop Date Active Effexor XR 75 mg cap rashid,extended release RxNorm: 339177 1 Capsule(s) PO daily 12/09/2017 12/30/2017 In active permethrin 5 % topic al cream RxNorm: 262425 1 Application TOP onc e, may repeat in 14 days. 11/27/2017 01/06/2018 Inactive Xanax 1 mg tablet RxNorm: 384608 1 Tablet(s) PO QHS 09/30/2017 06/24/2018 Inactive citalopram 40 mg tablet RxNorm: 917007 TAKE ONE TABLET BY MOUTH ONCE DAILY IN T HE EVENING 08/05/2017 12/08/2017 Inactive Flagyl 500 mg tablet RxNorm: 850315 1 Tablet(s) PO TID 08/01/2017 08/05/2017 Inactive Xanax 1 mg tablet RxNorm: 250075 1 Tablet(s) PO QHS 07/05/2017 09/29/2017 Inactive Xanax 1 mg tablet RxNorm: 223425 TAKE ONE TABLET BY MOUTH ONCE DAILY AT B EDTIME 07/05/2017 03/31/2018 Inactive Zithromax Z-Cornell 250 mg tablet RxNorm: 482217 1 Tablet(s) PO UD 06/25/2017 07/04/2017 Inactive Trilipix 135 mg caps ule,delayed release RxNorm: 906788 1 Capsule(s) PO daily 05/22/2017 06/24/2018 In active triamcinolone aceton kaity 0.025 % topical cream RxNorm: 7249226 1 Application TOP BI D 05/15/2017 No Stop Date Active ketoconazole 2 % top ical cream RxNorm: 968032 1 TOP daily 05/15/2017 05/21/2017 Inactive Trilipix 135 mg caps ule,delayed release RxNorm: 097195 1 Capsule(s) PO daily 02/12/2017 05/21/2017 In active Trilipix 135 mg caps ule,delayed release RxNorm: 876758 1 Capsule(s) PO daily 02/12/2017 02/11/2017 In active acyclovir 800 mg tablet RxNorm: 445092 1 Tablet(s) PO QID 01/28/2017 02/06/2017 Inactive Fish Oil 1,000 mg ca psule RxNorm: 1 Capsule(s) PO BID 10/17/2016 10/16/2016 Inactive Vitamin D2 50,000 un it capsule RxNorm: 695616 1 Capsule(s) PO QW 10/17/2016 10/16/2016 Inactive Vitamin D3 2,000 uni t capsule RxNorm: 193394 1 Capsule(s) PO daily 10/17/2016 10/16/2016 Inactive Vitamin D2 50,000 un it capsule RxNorm: 385220 1 Capsule(s) PO QW 10/17/2016 01/14/2017 Inactive Vitamin D3 2,000 uni t capsule RxNorm: 735972 1 Capsule(s) PO daily 10/17/2016 01/14/2017 Inactive Fish Oil 1,000 mg ca psule RxNorm: 1 Capsule(s) PO BID 10/17/2016 09/24/2018 Inactive citalopram 40 mg tablet RxNorm: 852697 1 Tablet(s) PO QPM 10/08/2016 07/04/2017 Inactive potassium chloride E R 20 mEq tablet,extended release RxNorm: 659003 1 Tablet(s) PO QAM 10/08/2016 10/02/2017 Inactive hydrochlorothiazide 25 mg tablet RxNorm: 163384 1 Tablet(s) PO QAM 10/08/2016 10/02/2017 Inactive folic acid 400 mcg t ablet RxNorm: 815087 1 Tablet(s) PO daily No Start Date Active biotin 1 mg tablet RxNorm: 829741 1 Tablet(s) PO daily No Start Date Active Co Q-10 100 mg capsule RxNorm: 485591 1 Capsule(s) PO daily No Start Date Active Colace 100 mg capsule RxNorm: 1180152 1 Capsule(s) PO BID No Start Date Active ferrous sulfate 325 mg (65 mg iron) tablet RxNorm: 078035 1 Tablet(s) PO daily No Start Date Active hydrochlorothiazide 25 mg tablet RxNorm: 865166 1 Tablet(s) PO QAM No Start Date 10/07/2016 Inactive Xanax 1 mg tablet RxNorm: 389187 1 Tablet(s) PO QHS et PRN as needed No Start Date 07/05/2017 Inactive citalopram 40 mg tablet RxNorm: 201181 1 Tablet(s) PO QPM No Start Date 10/07/2016 Inactive potassium chloride E R 20 mEq tablet,extended release RxNorm: 962948 1 Tablet(s) PO QAM No Start Date 10/07/2016 Inactive permethrin 5 % topic al cream RxNorm: 539225 1 Application TOP onc e, may repeat in 14 days. No Start Date 11/26/2017 Inactive Unisom Sleepgels 50 mg capsule RxNorm: 3066353 1 Capsule(s) PO QHS No Start Date [...] Observation Code Item Item Code Result Date Cbc With Differential Ord2 WBC 5.36 K/ul [...] 30.0 pg 06/18/2018 Cbc With Differential Ord2 [place]% 6.0 % 06/18/2018 Cbc With Differential Ord2 [...] 2.01 K/ul 06/18/2018 Cbc With Differential Ord2 [place] ABS# 0.3 K/ul 06/18/2018 Cbc With Differential Ord2 Eos ABS# 0.3 K/ul 06/18/2018 Cbc With Differential Ord2 Baso ABS# 0.0 K/ul 06/18/2018 Comp Metabolic Ffr971 NA 141 mEq/L 06/18/2018 Comp Metabolic Lfo041 K 3.7 mEq/L 06/18/2018 Comp Metabolic Vna171 CL 101 mEq/L 06/18/2018 Comp Metabolic Url593 CO2 31.0 mEq/L 06/18/2018 Comp Metabolic Ibb919 AN ION GAP 13 06/18/2018 Comp Metabolic Pgv105 GL UCOSE 106 mg/dL 06/18/2018 Comp Metabolic Tro602 Cr eat 0.9 mg/dL 06/18/2018 Comp Metabolic Raq611 eG FR 68 ml/min/1.73m2 06/18 Comp Metabolic Vsx218 BUN 16 mg/dL 06/18/2018 Comp Metabolic Xyl393 B/ C Ratio 18.2 Ratio 06/18/2018 Comp Metabolic Xep425 CA LCIUM 9.5 mg/dL 06/18/2018 Comp Metabolic Gpx570 AL K PHOS 82 U/L 06/18/2018 Comp Metabolic Umz051 T(SGOT) 19 U/L 06/18/2018 Comp Metabolic Ars732 AL T(SGPT) 18 U/L 06/18/2018 Comp Metabolic Cfm398 BI LI T 0.5 mg/dL 06/18/2018 Comp Metabolic Llz987 AL BUMIN 4.0 g/dL 06/18/2018 Comp Metabolic Eri069 TP RO 6.5 g/dL 06/18/2018 Comp Metabolic Dhi462 GL OB 2.5 g/dL 06/18/2018 Comp Metabolic Jzd354 A/ G Ratio 1.6 Ratio 06/18/2018 Comp Metabolic Yab752 Os mo 283 mOsmo 06/18/2018 Tsh Ord6 TSH (3rd IS) 4.02 uIU/mL 06/18/2018 Lipid Ord30 CHOL 238 mg/dL 06/18/2018 Lipid Ord30 HDL 38.0 mg/dl 06/18/2018 Lipid Ord30 TRIG 369 mg/dL 06/18/2018 Lipid Ord30 LDL Unable to calculate Due to elevated trig lycerides mg/dL 06/18/2018 Lipid Ord30 C/HDL 6.3 Ratio 06/18/2018 Influenza A+B Ztc417 Inf paul A+B Negative 06/18/2018 Free T4 Oml416 FREE T4 0.95 ng/dL 05/15/2017 Tsh Ord6 [...] 30.4 pg 05/15/2017 Cbc With Differential Ord2 [place]% 6.2 % 05/15/2017 Cbc With Differential Ord2 [...] 2.19 K/ul 05/15/2017 Cbc With Differential Ord2 [place] ABS# 0.4 K/ul 05/15/2017 Cbc With Differential Ord2 Eos ABS# 0.2 K/ul 05/15/2017 Cbc With Differential Ord2 Baso ABS# 0.0 K/ul 05/15/2017 Vitamin D 25 Oh Bok2353 VITAMIN D, 25 HYDROXY 50.18 ng/mL 05/15/2017 Comp Metabolic Bwn290 NA 141 mEq/L 05/15/2017 Comp Metabolic Bcu888 K 3.9 mEq/L 05/15/2017 Comp Metabolic Eqg420 CL 103 mEq/L 05/15/2017 Comp Metabolic Zgp433 CO2 29.0 mEq/L 05/15/2017 Comp Metabolic Kxu539 AN ION GAP 13 05/15/2017 Comp Metabolic Tsn093 GL UCOSE 84 mg/dL 05/15/2017 Comp Metabolic Xek596 Cr eat 1.1 mg/dL 05/15/2017 Comp Metabolic Gtv326 eG FR 55 ml/min/1.73m2 05/15 Comp Metabolic Ytx678 BUN 19 mg/dL 05/15/2017 Comp Metabolic Egm606 B/ C Ratio 18.1 Ratio 05/15/2017 Comp Metabolic Ged141 CA LCIUM 9.7 mg/dL 05/15/2017 Comp Metabolic Wrn747 AL K PHOS 38 U/L 05/15/2017 Comp Metabolic Hih470 T(SGOT) 21 U/L 05/15/2017 Comp Metabolic Dqp289 AL T(SGPT) 17 U/L 05/15/2017 Comp Metabolic Rfy785 BI LI T 0.4 mg/dL 05/15/2017 Comp Metabolic Tvp337 AL BUMIN 4.3 g/dL 05/15/2017 Comp Metabolic Nyg956 TP RO 6.5 g/dL 05/15/2017 Comp Metabolic Wox956 GL OB 2.3 g/dL 05/15/2017 Comp Metabolic Lcx151 A/ G Ratio 1.9 Ratio 05/15/2017 Comp Metabolic Nbr297 Os mo 283 mOsmo 05/15/2017 Lipid Ord30 CHOL 231 mg/dL 01/18/2017 Lipid Ord30 HDL 48.0 mg/dl 01/18/2017 Lipid Ord30 TRIG 213 mg/dL 01/18/2017 Lipid Ord30 LDL 140 mg/dL 01/18/2017 Lipid Ord30 C/HDL 4.8 Ratio 01/18/2017 Vitamin D 25 Oh Cfn8386 VITAMIN D, 25 HYDROXY 33.28 ng/mL 10/10/2016 B12 Mgv800 B12 377.00 pg/ml 10/10/2016 Comp Metabolic Lsl446 NA 142 mEq/L 10/10/2016 Comp Metabolic Tsp075 K 4.0 mEq/L 10/10/2016 Comp Metabolic Ugl658 CL 103 mEq/L 10/10/2016 Comp Metabolic Ene335 CO2 29.0 mEq/L 10/10/2016 Comp Metabolic Geg503 AN ION GAP 14 10/10/2016 Comp Metabolic Doq031 GL UCOSE 82 mg/dL 10/10/2016 Comp Metabolic Gty220 Cr eat 0.8 mg/dL 10/10/2016 Comp Metabolic Fih747 eG FR 77 ml/min/1.73m2 10/10 Comp Metabolic Ehl760 BUN 19 mg/dL 10/10/2016 Comp Metabolic Dgp934 B/ C Ratio 24.1 Ratio 10/10/2016 Comp Metabolic Xdw431 CA LCIUM 9.8 mg/dL 10/10/2016 Comp Metabolic Ggb515 AL K PHOS 87 U/L 10/10/2016 Comp Metabolic Abs814 T(SGOT) 20 U/L 10/10/2016 Comp Metabolic Mbo695 AL T(SGPT) 16 U/L 10/10/2016 Comp Metabolic Swt470 BI LI T 0.5 mg/dL 10/10/2016 Comp Metabolic Yzq561 AL BUMIN 4.0 g/dL 10/10/2016 Comp Metabolic Umf758 TP RO 6.7 g/dL 10/10/2016 Comp Metabolic Dmy712 GL OB 2.7 g/dL 10/10/2016 Comp Metabolic Fmx892 A/ G Ratio 1.5 Ratio 10/10/2016 Comp Metabolic Lyp673 Os mo 284 mOsmo 10/10/2016 Free T4 Kzx087 FREE T4 0.68 ng/dL 10/10/2016 Cbc With [...] 30.6 pg 10/10/2016 Cbc With Differential Ord2 [place]% 5.2 % 10/10/2016 Cbc With Differential Ord2 [...] 2.11 K/ul 10/10/2016 Cbc With Differential Ord2 [place] ABS# 0.3 K/ul 10/10/2016 Cbc With Differential [...] 1: 138/88 Code: 8480-6 BMI: 41.8 Code: 13060-2 Heart Rate 1: 78 bpm Height: 5'5" SpO2: 91% Weight: 251 lbs 07/07/2018 Blood Pressure 1: 140/90 Code: 8480-6 BMI: 41.3 Code: 52947-6 Heart Rate 1: 82 bpm Height: 5'5" SpO2: 92% Temperature: 36.1 (C ) / 96.9 (F) Weight: 248 lbs 04/30/2018 Blood Pressure 1: 128/64 Code: 8480-6 BMI: 41.3 Code: 85746-7 Heart Rate 1: 68 bpm Height: 5'5" SpO2: 96% Weight: 248 lbs 01/06/2018 Blood Pressure 1: 136/78 Code: 8480-6 Heart Rate 1: 71 bpm Height: 5'5" SpO2: 95% Weight: 12/31/2017 Blood Pressure 1: 134/76 Code: 8480-6 BMI: 39.8 Code: 67095-8 Heart Rate 1: 87 bpm Height: 5'5" SpO2: 97% Weight: 239 lbs 12/09/2017 Blood Pressure 1: 136/82 Code: 8480-6 BMI: 39.8 Code: 06002-8 Heart Rate 1: 73 bpm Height: 5'5" SpO2: 97% Weight: 239 lbs 10/02/2017 Blood Pressure 1: 130/72 Code: 8480-6 BMI: 39.4 Code: 74154-0 Heart Rate 1: 74 bpm Height: 5'5" SpO2: 93% Waist Measure (cm): 104 cm Weight: 237 lbs 08/01/2017 Blood Pressure 1: 132/74 Code: 8480-6 BMI: 39.3 Code: 27865-2 Heart Rate 1: 66 bpm Height: 5'5" SpO2: 92% Weight: 236 lbs 06/25/2017 Blood Pressure 1: 136/74 Code: 8480-6 BMI: 38.6 Code: 41329-9 Heart Rate 1: 61 bpm Height: 5'5" SpO2: 95% Weight: 232 lbs 05/15/2017 Blood Pressure 1: 143/76 Code: 8480-6 BMI: 38.6 Code: 46469-3 Heart Rate 1: 65 bpm Height: 5'5" SpO2: 97% Weight: 232 lbs 01/28/2017 Blood Pressure 1: 120/80 Code: 8480-6 BMI: 38.1 Code: 65482-6 Heart Rate 1: 55 bpm Height: 5'5" SpO2: 96% Weight: 229 lbs 10/08/2016 Blood Pressure 1: 130/74 Code: 8480-6 BMI: 36.9 Code: 43151-9 Heart Rate 1: 62 bpm Height: 5'5" [...] Pressure (self reported) borderline (120/80 - 139/89) 04/18/2 018 None Annual Medicare Wellness Exam [place] [...] when outdoors: y 10/02/2017 None 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 P ATIENT, LEVEL IV Diagnosis: Atrophy of thyroid (acquired)[ICD10: E03.4] Diagnosis: Essential (primary) hypertension[ICD10: I10] Diagnosis: Major depressive disorder, recurrent, moderate[ICD10: F33.1] Diagnosis: Adverse effect of antiallergic and antiemetic drugs, initial encounter[ICD10: T45.0X5A] [facility]ie [facility] MD, [facility] CPT-4: 16699 09/25/2018 80643 EST. 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 PATIENT, LEVEL IV Diagnosis: Essential (primary) hypertension[ICD10: I10] Diagnosis: Major depressive disorder, recurrent, moderate[ICD10: F33.1] Diagnosis: Other allergic rhinitis[ICD10: J30.89] Analisa Milton MD, [facility] CPT-4: 19317 04/30/2018 ([id number] 48167 EST. P ATIENT, LEVEL III Diagnosis: Insect bite (nonvenomous), left lower leg, subsequent encounter[ICD10: S80.862D] Diagnosis: Insect bite (nonvenomous), right lower leg, subsequent encounter[ICD10: S80.861D] Stacie Milton MD, [facility] CPT-4: 37941 01/06/2018 ([id number]) 97690 EST. P ATIENT, LEVEL III Diagnosis: Rash and other nonspecific skin eruption[ICD10: R21] Diagnosis: Major depressive disorder, recurrent, moderate[ICD10: F33.1] Renetta Milton MD, [facility] CPT-4: 13301 12/31/2017 ([id number]) 82710 EST. P ATIENT, LEVEL III Diagnosis: Essential (primary) hypertension[ICD10: I10] Diagnosis: Major depressive disorder, recurrent, moderate[ICD10: F33.1] Stacie Milton MD, [facility] CPT-4: 31412 12/09/2017 ([id number]) 85954 EST. P ATIENT, LEVEL IV Diagnosis: Atrophy of thyroid (acquired)[ICD10: E03.4] Diagnosis: Essential (primary) hypertension[ICD10: I10] Diagnosis: Other allergic rhinitis[ICD10: J30.89] Stacie Milton MD, [facility] CPT-4: 22291 08/01/2017 45352 EST. PATIENT, LEVEL III Diagnosis: Other allergic rhinitis[ICD10: J30.89] Diagnosis: Otalgia, bilateral[ICD10: H92.03] Analisa Milton MD, [facility] CPT-4: 81501 06/25/2017 46921 EST. PATIENT, LEVEL III Diagnosis: Rash and other nonspecific skin eruption[ICD10: R21] Analisa Milton MD, [facility] CPT-4: 97266 05/15/2017 ([id number]) 54285 EST. P ATIENT, LEVEL III Diagnosis: Zoster without complications[ICD10: B02.9] Stacie Milton MD, [facility] CPT-4: 45071 01/28/2017 ([id number]) OFFICE VISI T, NEW - LEVEL 4 Diagnosis: Essential (primary) hypertension[ICD10: I10] Diagnosis: Bariatric surgery status[ICD10: Z98.84] Diagnosis: Atrophy of thyroid (acquired)[ICD10: E03.4] Diagnosis: Major depressive disorder, recurrent, moderate[ICD10: F33.1] Stacie Milton MD, [facility] CPT-4: 92428 10/08/2016 Plan of Care Planned Activity Notes C odes Status Date Visit Plan: Hypothyroidism - pt wit h [...] morning 09/25/2018 Appointment: Stacie Milton WPtel: [phone] [facility] (15 min) Moderate 09/25/2018 Patient Education: Patient Medication Summary Completed 09/25/2018 Patient Education: Depression Completed 09/25/2018 Appointment: Renetta Leigh WPtel: [phone] (30 min) Complex 07/15/2018 Visit Plan: Oral aphthae -rx for ac yclovir provided and instructed on use -follow up in 1 week for re-eval -sooner if needed -call with any concerns or worsening symptoms. 07/07/2018 Appointment: Renetta Leigh WPtel: [phone] [phone] (30 min) Complex 07/07/2018 Patient Education: [...] allergy spray. 04/30/2018 [phone] (15 min) Moderate 04/30/2018 Patient Education: [...] outside. 01/06/2018 [phone] (15 min) Moderate 01/06/2018 Patient Education: [...] lexapro 12/31/2017 Appointment: Renetta Leigh WPtel: [phone] [phone] [place] [address] (15 min) Moderate 12/31/2017 Patient Education: Patient [...] venlafaxine. 12/09/2017 Appointment: Stacie Milton WPtel: [phone] [facility] (15 min) Moderate 12/09/2017 Patient [...] flagyl 08/01/2017 Appointment: Stacie Milton WPtel: [phone] [facility] (15 min) Moderate 08/01/2017 Patient Education: [...] worsen. 06/25/2017 Appointment: Analisa Jin WPtel: [phone] [facility] (15 min) Moderate 06/25/2017 Patient Education: [...] warmth, discharge. 05/15/2017 Appointment: Analisa Jin WPtel: [facility] (15 min) Moderate 05/15/2017 Patient Education: [...] considered contagious. 01/28/2017 Appointment: Stacie Milton WPtel: [facility] (15 min) Moderate 01/28/2017 Patient Education: [...] supportive care. 10/08/2016 Appointment: Stacie Milton WPtel: [facility] New Patient 10/08/2016 Patient Education: Patient Medication [...] in cluding Vitamin D and TSH. Consider Branch thyroid for hypothyroidism Saline spray before using [...] in cluding Vitamin D and TSH. Consider Branch thyroid for hypothyroidism Saline spray before using [...]
--- OUTSIDE RECORDS SUMMARY | 2019-06-17 09:26 | XMS REPORT | CCD ---
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 Unknown Has never used illegal drugs 017 Allergies, Adverse Reactions, Alerts Substance Reaction Codes Entered Date Inactivated Date Status * OTHER REACTION - S EE ANSWER BOX Vitamins CSynthroid Unknown 10/08/2016 No Inactive Date Active * NO KNOWN FOOD MENDEZ RGIES Unknown 10/08/2016 No Inactive Date Active [id number] REDU CTASE INHIBITORS Unknown 07/07/2018 No Inactive [...] Date Stop Date Sta tus Fill Instructions Xanax 1 mg tablet RxNorm: 079810 Tablet(s) TAKE ONE TABLET BY MOUTH ONCE DAILY AT BEDTIME 09/30/2018 12/28/2018 Active Effexor XR 75 mg cap rashid,extended release RxNorm: 608636 1 Capsule(s) PO daily 09/25/2018 04/22/2019 Ac tive Vitamin D3 2,000 uni t capsule RxNorm: 018052 125mcg Capsule(s) PO daily 09/25/2018 12/23/2018 Ac tive trazodone 50 mg tablet RxNorm: 672447 1/2 Tablet(s) PO QHS 09/25/2018 05/22/2019 Active Effexor XR 75 mg cap rashid,extended release RxNorm: 151552 1 Capsule(s) PO daily 09/25/2018 09/24/2018 In active trazodone 50 mg tablet RxNorm: 888511 1/2 Tablet(s) PO QHS 09/25/2018 09/24/2018 Inactive acyclovir 400 mg tablet RxNorm: 108380 1 Tablet(s) PO TID 07/07/2018 07/13/2018 Inactive Xanax 1 mg tablet RxNorm: 589773 Tablet(s) TAKE ONE TABLET BY MOUTH ONCE DAILY AT BEDTIME 06/27/2018 09/29/2018 Inactive Livalo 2 mg tablet RxNorm: 966228 1 Tablet(s) PO QHS 06/25/2018 06/24/2018 Inactive Livalo 2 mg tablet RxNorm: 716365 1 Tablet(s) PO QHS 06/25/2018 09/24/2018 Inactive Lexapro 20 mg tablet RxNorm: 986736 TAKE 1/2 (ONE-HALF) TABLET BY MOUTH ONCE DAILY FOR ONE WEEK, THEN INCREASE TO 1 ONCE DAILY IN THE EVENING. 05/05/2018 09/24/2018 Inactive Xanax 1 mg tablet RxNorm: 471572 Tablet(s) TAKE ONE TABLET BY MOUTH ONCE DAILY AT BEDTIME 04/01/2018 06/26/2018 Inactive Lexapro 20 mg tablet RxNorm: 567066 1 Tablet(s) PO QPM 12/31/2017 05/05/2018 Inactive 1/2 tab daily x 1 week then increase to a full tab mupirocin 2 % topica l ointment RxNorm: 561420 1 Application TOP BID 12/31/2017 01/09/2018 Inactive potassium chloride E R 20 mEq tablet,extended release RxNorm: 469494 TAKE ONE TABLET BY MOUTH ONCE DAILY IN THE MORNING 12/11/2017 No Stop Date Active hydrochlorothiazide 25 mg tablet RxNorm: 047607 TAKE ONE TABLET BY MO UTH ONCE DAILY IN THE MORNING 12/11/2017 No Stop Date Active Effexor XR 75 mg cap rashid,extended release RxNorm: 658487 1 Capsule(s) PO daily 12/09/2017 12/30/2017 In active permethrin 5 % topic al cream RxNorm: 147867 1 Application TOP onc e, may repeat in 14 days. 11/27/2017 01/06/2018 Inactive Xanax 1 mg tablet RxNorm: 638022 1 Tablet(s) PO QHS 09/30/2017 06/24/2018 Inactive citalopram 40 mg tablet RxNorm: 458129 TAKE ONE TABLET BY MOUTH ONCE DAILY IN T HE EVENING 08/05/2017 12/08/2017 Inactive Flagyl 500 mg tablet RxNorm: 045351 1 Tablet(s) PO TID 08/01/2017 08/05/2017 Inactive Xanax 1 mg tablet RxNorm: 606844 1 Tablet(s) PO QHS 07/05/2017 09/29/2017 Inactive Xanax 1 mg tablet RxNorm: 337942 TAKE ONE TABLET BY MOUTH ONCE DAILY AT B EDTIME 07/05/2017 03/31/2018 Inactive Zithromax Z-Cornell 250 mg tablet RxNorm: 293588 1 Tablet(s) PO UD 06/25/2017 07/04/2017 Inactive Trilipix 135 mg caps ule,delayed release RxNorm: 737038 1 Capsule(s) PO daily 05/22/2017 06/24/2018 In active triamcinolone aceton kaity 0.025 % topical cream RxNorm: 0849715 1 Application TOP BI D 05/15/2017 No Stop Date Active ketoconazole 2 % top ical cream RxNorm: 282053 1 TOP daily 05/15/2017 05/21/2017 Inactive Trilipix 135 mg caps ule,delayed release RxNorm: 370801 1 Capsule(s) PO daily 02/12/2017 05/21/2017 In active Trilipix 135 mg caps ule,delayed release RxNorm: 229157 1 Capsule(s) PO daily 02/12/2017 02/11/2017 In active acyclovir 800 mg tablet RxNorm: 775399 1 Tablet(s) PO QID 01/28/2017 02/06/2017 Inactive Fish Oil 1,000 mg ca psule RxNorm: 1 Capsule(s) PO BID 10/17/2016 10/16/2016 Inactive Vitamin D2 50,000 un it capsule RxNorm: 291522 1 Capsule(s) PO QW 10/17/2016 10/16/2016 Inactive Vitamin D3 2,000 uni t capsule RxNorm: 971959 1 Capsule(s) PO daily 10/17/2016 10/16/2016 Inactive Vitamin D2 50,000 un it capsule RxNorm: 205212 1 Capsule(s) PO QW 10/17/2016 01/14/2017 Inactive Vitamin D3 2,000 uni t capsule RxNorm: 858496 1 Capsule(s) PO daily 10/17/2016 01/14/2017 Inactive Fish Oil 1,000 mg ca psule RxNorm: 1 Capsule(s) PO BID 10/17/2016 09/24/2018 Inactive citalopram 40 mg tablet RxNorm: 040573 1 Tablet(s) PO QPM 10/08/2016 07/04/2017 Inactive potassium chloride E R 20 mEq tablet,extended release RxNorm: 945288 1 Tablet(s) PO QAM 10/08/2016 10/02/2017 Inactive hydrochlorothiazide 25 mg tablet RxNorm: 038975 1 Tablet(s) PO QAM 10/08/2016 10/02/2017 Inactive folic acid 400 mcg t ablet RxNorm: 661493 1 Tablet(s) PO daily No Start Date Active biotin 1 mg tablet RxNorm: 509999 1 Tablet(s) PO daily No Start Date Active Co Q-10 100 mg capsule RxNorm: 555450 1 Capsule(s) PO daily No Start Date Active Colace 100 mg capsule RxNorm: 9405816 1 Capsule(s) PO BID No Start Date Active ferrous sulfate 325 mg (65 mg iron) tablet RxNorm: 803069 1 Tablet(s) PO daily No Start Date Active hydrochlorothiazide 25 mg tablet RxNorm: 596140 1 Tablet(s) PO QAM No Start Date 10/07/2016 Inactive Xanax 1 mg tablet RxNorm: 604782 1 Tablet(s) PO QHS et PRN as needed No Start Date 07/05/2017 Inactive citalopram 40 mg tablet RxNorm: 328127 1 Tablet(s) PO QPM No Start Date 10/07/2016 Inactive potassium chloride E R 20 mEq tablet,extended release RxNorm: 319588 1 Tablet(s) PO QAM No Start Date 10/07/2016 Inactive permethrin 5 % topic al cream RxNorm: 223166 1 Application TOP onc e, may repeat in 14 days. No Start Date 11/26/2017 Inactive Unisom Sleepgels 50 mg capsule RxNorm: 5866017 1 Capsule(s) PO QHS No Start Date [...] 30.0 pg 06/18/2018 Cbc With Differential Ord2 Bonner% 6.0 % 06/18/2018 Cbc With Differential Ord2 [...] 2.01 K/ul 06/18/2018 Cbc With Differential Ord2 Bonner ABS# 0.3 K/ul 06/18/2018 Cbc With Differential Ord2 Eos ABS# 0.3 K/ul 06/18/2018 Cbc With Differential Ord2 Baso ABS# 0.0 K/ul 06/18/2018 Comp Metabolic Llf903 NA 141 mEq/L 06/18/2018 Comp Metabolic Vno239 K 3.7 mEq/L 06/18/2018 Comp Metabolic Hat779 CL 101 mEq/L 06/18/2018 Comp Metabolic Kcv199 CO2 31.0 mEq/L 06/18/2018 Comp Metabolic Dfn707 AN ION GAP 13 06/18/2018 Comp Metabolic Sfl290 GL UCOSE 106 mg/dL 06/18/2018 Comp Metabolic Xih472 Cr eat 0.9 mg/dL 06/18/2018 Comp Metabolic Kag544 eG FR 68 ml/min/1.73m2 06/18 Comp Metabolic Qim430 BUN 16 mg/dL 06/18/2018 Comp Metabolic Bca077 B/ C Ratio 18.2 Ratio 06/18/2018 Comp Metabolic Flm075 CA LCIUM 9.5 mg/dL 06/18/2018 Comp Metabolic Fuo039 AL K PHOS 82 U/L 06/18/2018 Comp Metabolic Gvq223 T(SGOT) 19 U/L 06/18/2018 Comp Metabolic Vnt969 AL T(SGPT) 18 U/L 06/18/2018 Comp Metabolic Lxy072 BI LI T 0.5 mg/dL 06/18/2018 Comp Metabolic Gby945 AL BUMIN 4.0 g/dL 06/18/2018 Comp Metabolic Hoj094 TP RO 6.5 g/dL 06/18/2018 Comp Metabolic Nbl256 GL OB 2.5 g/dL 06/18/2018 Comp Metabolic Hri064 A/ G Ratio 1.6 Ratio 06/18/2018 Comp Metabolic Tyw690 Os mo 283 mOsmo 06/18/2018 Tsh Ord6 TSH (3rd IS) 4.02 uIU/mL 06/18/2018 Lipid Ord30 CHOL 238 mg/dL 06/18/2018 Lipid Ord30 HDL 38.0 mg/dl 06/18/2018 Lipid Ord30 TRIG 369 mg/dL 06/18/2018 Lipid Ord30 LDL Unable to calculate Due to elevated trig lycerides mg/dL 06/18/2018 Lipid Ord30 C/HDL 6.3 Ratio 06/18/2018 Influenza A+B Rqs016 Inf paul A+B Negative 06/18/2018 Free T4 Bos989 FREE T4 0.95 ng/dL 05/15/2017 Tsh Ord6 [...] 30.4 pg 05/15/2017 Cbc With Differential Ord2 Bonner% 6.2 % 05/15/2017 Cbc With Differential Ord2 [...] 2.19 K/ul 05/15/2017 Cbc With Differential Ord2 Bonner ABS# 0.4 K/ul 05/15/2017 Cbc With Differential Ord2 Eos ABS# 0.2 K/ul 05/15/2017 Cbc With Differential Ord2 Baso ABS# 0.0 K/ul 05/15/2017 Vitamin D 25 Oh Jqi7494 VITAMIN D, 25 HYDROXY 50.18 ng/mL 05/15/2017 Comp Metabolic Rcx397 NA 141 mEq/L 05/15/2017 Comp Metabolic Chj474 K 3.9 mEq/L 05/15/2017 Comp Metabolic Xtn505 CL 103 mEq/L 05/15/2017 Comp Metabolic Oqz403 CO2 29.0 mEq/L 05/15/2017 Comp Metabolic Fks754 AN ION GAP 13 05/15/2017 Comp Metabolic Qeo173 GL UCOSE 84 mg/dL 05/15/2017 Comp Metabolic Fot394 Cr eat 1.1 mg/dL 05/15/2017 Comp Metabolic Gon880 eG FR 55 ml/min/1.73m2 05/15 Comp Metabolic Wpw149 BUN 19 mg/dL 05/15/2017 Comp Metabolic Wys621 B/ C Ratio 18.1 Ratio 05/15/2017 Comp Metabolic Clo178 CA LCIUM 9.7 mg/dL 05/15/2017 Comp Metabolic Wtt610 AL K PHOS 38 U/L 05/15/2017 Comp Metabolic Etb604 T(SGOT) 21 U/L 05/15/2017 Comp Metabolic Yeg597 AL T(SGPT) 17 U/L 05/15/2017 Comp Metabolic Ryp088 BI LI T 0.4 mg/dL 05/15/2017 Comp Metabolic Kvq802 AL BUMIN 4.3 g/dL 05/15/2017 Comp Metabolic Fif825 TP RO 6.5 g/dL 05/15/2017 Comp Metabolic Geu708 GL OB 2.3 g/dL 05/15/2017 Comp Metabolic Dda799 A/ G Ratio 1.9 Ratio 05/15/2017 Comp Metabolic Yle554 Os mo 283 mOsmo 05/15/2017 Lipid Ord30 CHOL 231 mg/dL 01/18/2017 Lipid Ord30 HDL 48.0 mg/dl 01/18/2017 Lipid Ord30 TRIG 213 mg/dL 01/18/2017 Lipid Ord30 LDL 140 mg/dL 01/18/2017 Lipid Ord30 C/HDL 4.8 Ratio 01/18/2017 Vitamin D 25 Oh Gcc7070 VITAMIN D, 25 HYDROXY 33.28 ng/mL 10/10/2016 B12 Okt456 B12 377.00 pg/ml 10/10/2016 Comp Metabolic Qxo784 NA 142 mEq/L 10/10/2016 Comp Metabolic Fzy273 K 4.0 mEq/L 10/10/2016 Comp Metabolic Wjv232 CL 103 mEq/L 10/10/2016 Comp Metabolic Web860 CO2 29.0 mEq/L 10/10/2016 Comp Metabolic Kwn494 AN ION GAP 14 10/10/2016 Comp Metabolic Knp889 GL UCOSE 82 mg/dL 10/10/2016 Comp Metabolic Vqg785 Cr eat 0.8 mg/dL 10/10/2016 Comp Metabolic Odi381 eG FR 77 ml/min/1.73m2 10/10 Comp Metabolic Qvf273 BUN 19 mg/dL 10/10/2016 Comp Metabolic Fcq502 B/ C Ratio 24.1 Ratio 10/10/2016 Comp Metabolic Vqd882 CA LCIUM 9.8 mg/dL 10/10/2016 Comp Metabolic Jhu865 AL K PHOS 87 U/L 10/10/2016 Comp Metabolic Qkz052 T(SGOT) 20 U/L 10/10/2016 Comp Metabolic Rfc105 AL T(SGPT) 16 U/L 10/10/2016 Comp Metabolic Tfd919 BI LI T 0.5 mg/dL 10/10/2016 Comp Metabolic Omp313 AL BUMIN 4.0 g/dL 10/10/2016 Comp Metabolic Lnq119 TP RO 6.7 g/dL 10/10/2016 Comp Metabolic Hhk758 GL OB 2.7 g/dL 10/10/2016 Comp Metabolic Zxy675 A/ G Ratio 1.5 Ratio 10/10/2016 Comp Metabolic Seh640 Os mo 284 mOsmo 10/10/2016 Free T4 Uuq278 FREE T4 0.68 ng/dL 10/10/2016 Cbc With [...] 30.6 pg 10/10/2016 Cbc With Differential Ord2 Bonner% 5.2 % 10/10/2016 Cbc With Differential Ord2 [...] 2.11 K/ul 10/10/2016 Cbc With Differential Ord2 Bonner ABS# 0.3 K/ul 10/10/2016 Cbc With Differential [...] 1: 138/88 Code: 8480-6 BMI: 41.8 Code: 56383-8 Heart Rate 1: 78 bpm Height: 5'5" SpO2: 91% Weight: 251 lbs 07/07/2018 Blood Pressure 1: 140/90 Code: 8480-6 BMI: 41.3 Code: 24664-0 Heart Rate 1: 82 bpm Height: 5'5" SpO2: 92% Temperature: 36.1 (C ) / 96.9 (F) Weight: 248 lbs 04/30/2018 Blood Pressure 1: 128/64 Code: 8480-6 BMI: 41.3 Code: 32260-1 Heart Rate 1: 68 bpm Height: 5'5" SpO2: 96% Weight: 248 lbs 01/06/2018 Blood Pressure 1: 136/78 Code: 8480-6 Heart Rate 1: 71 bpm Height: 5'5" SpO2: 95% Weight: 12/31/2017 Blood Pressure 1: 134/76 Code: 8480-6 BMI: 39.8 Code: 59971-9 Heart Rate 1: 87 bpm Height: 5'5" SpO2: 97% Weight: 239 lbs 12/09/2017 Blood Pressure 1: 136/82 Code: 8480-6 BMI: 39.8 Code: 35560-2 Heart Rate 1: 73 bpm Height: 5'5" SpO2: 97% Weight: 239 lbs 10/02/2017 Blood Pressure 1: 130/72 Code: 8480-6 BMI: 39.4 Code: 37566-0 Heart Rate 1: 74 bpm Height: 5'5" SpO2: 93% Waist Measure (cm): 104 cm Weight: 237 lbs 08/01/2017 Blood Pressure 1: 132/74 Code: 8480-6 BMI: 39.3 Code: 81980-6 Heart Rate 1: 66 bpm Height: 5'5" SpO2: 92% Weight: 236 lbs 06/25/2017 Blood Pressure 1: 136/74 Code: 8480-6 BMI: 38.6 Code: 06244-0 Heart Rate 1: 61 bpm Height: 5'5" SpO2: 95% Weight: 232 lbs 05/15/2017 Blood Pressure 1: 143/76 Code: 8480-6 BMI: 38.6 Code: 35456-3 Heart Rate 1: 65 bpm Height: 5'5" SpO2: 97% Weight: 232 lbs 01/28/2017 Blood Pressure 1: 120/80 Code: 8480-6 BMI: 38.1 Code: 42117-8 Heart Rate 1: 55 bpm Height: 5'5" SpO2: 96% Weight: 229 lbs 10/08/2016 Blood Pressure 1: 130/74 Code: 8480-6 BMI: 36.9 Code: 33700-6 Heart Rate 1: 62 bpm Height: 5'5" [...] when outdoors: y 10/02/2017 None 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 P ATIENT, LEVEL IV Diagnosis: Atrophy of thyroid (acquired)[ICD10: E03.4] Diagnosis: Essential (primary) hypertension[ICD10: I10] Diagnosis: Major depressive disorder, recurrent, moderate[ICD10: F33.1] Diagnosis: Adverse effect of antiallergic and antiemetic drugs, initial encounter[ICD10: T45.0X5A] [facility] MD, [facility] CPT-4: 63431 09/25/2018 09751 EST. 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 PATIENT, LEVEL IV Diagnosis: Essential (primary) hypertension[ICD10: I10] Diagnosis: Major depressive disorder, recurrent, moderate[ICD10: F33.1] Diagnosis: Other allergic rhinitis[ICD10: J30.89] Analisa Milton MD, [facility] CPT-4: 00043 04/30/2018 [id number] 04421 EST. P ATIENT, LEVEL III Diagnosis: Insect bite (nonvenomous), left lower leg, subsequent encounter[ICD10: S80.862D] Diagnosis: Insect bite (nonvenomous), right lower leg, subsequent encounter[ICD10: S80.861D] Stacie Milton MD, [facility] CPT-4: 66242 01/06/2018 ([id number]) 20017 EST. P ATIENT, LEVEL III Diagnosis: Rash and other nonspecific skin eruption[ICD10: R21] Diagnosis: Major depressive disorder, recurrent, moderate[ICD10: F33.1] Renetta Milton MD, [facility] CPT-4: 12480 12/31/2017 ([id number]) 80390 EST. P ATIENT, LEVEL III Diagnosis: Essential (primary) hypertension[ICD10: I10] Diagnosis: Major depressive disorder, recurrent, moderate[ICD10: F33.1] Stacie Milton MD, [facility] CPT-4: 80321 12/09/2017 ([id number]) 38736 EST. P ATIENT, LEVEL IV Diagnosis: Atrophy of thyroid (acquired)[ICD10: E03.4] Diagnosis: Essential (primary) hypertension[ICD10: I10] Diagnosis: Other allergic rhinitis[ICD10: J30.89] Stacie Milton MD, [facility] CPT-4: 60225 08/01/2017 34917 EST. PATIENT, LEVEL III Diagnosis: Other allergic rhinitis[ICD10: J30.89] Diagnosis: Otalgia, bilateral[ICD10: H92.03] Analisa Milton MD, [facility] CPT-4: 67330 06/25/2017 11897 EST. PATIENT, LEVEL III Diagnosis: Rash and other nonspecific skin eruption[ICD10: R21] Analisa Milton MD, [facility] CPT-4: 45533 05/15/2017 ([id number]) 25780 EST. P ATIENT, LEVEL III Diagnosis: Zoster without complications[ICD10: B02.9] Stacie Milton MD, [facility] CPT-4: 97533 01/28/2017 ([id number]) OFFICE VISI T, NEW - LEVEL 4 Diagnosis: Essential (primary) hypertension[ICD10: I10] Diagnosis: Bariatric surgery status[ICD10: Z98.84] Diagnosis: Atrophy of thyroid (acquired)[ICD10: E03.4] Diagnosis: Major depressive disorder, recurrent, moderate[ICD10: F33.1] [facility] CPT-4: 18213 10/08/2016 Plan of Care Planned Activity Notes [...] tomorrow morning 09/25/2018 Appointment: Stacie Milton WPtel: [facility] (15 min) Moderate 09/25/2018 Patient Education: Patient Medication Summary Completed 09/25/2018 Patient Education: Depression Completed 09/25/2018 Appointment: Renetta Leigh WPtel: [address] [place], [place] [phone] (30 min) Complex 07/15/2018 Visit Plan: Oral aphthae -rx for ac yclovir provided and instructed on use -follow up in 1 week for re-eval -sooner if needed -call with any concerns or worsening symptoms. 07/07/2018 Appointment: Renetta Leigh WPtel: [address] [place], [place] [phone] (30 min) Complex 07/07/2018 Patient Education: Patient Medication Summary Completed 07/07/2018 Visit Plan: Hypertension - well con babitaed [...] spray. 04/30/2018 Appointment: [phone] (15 min) Moderate 04/30/2018 Patient Education: Patient [...] outside. 01/06/2018 Appointment: [phone] [place] [facility] [place] (15 min) Moderate 01/06/2018 Patient Education: Patient [...] -start lexapro 12/31/2017 Appointment: Renetta Leigh WPtel: [phone] [id number] (15 min) Moderate 12/31/2017 Patient Education: Patient [...] venlafaxine. 12/09/2017 Appointment: Stacie Milton WPtel: [phone] [facility] [place] (15 min) Moderate 12/09/2017 Patient Education: [...] 10/02/2017 Visit Plan: Hypertension - well parul trujillo [...] for flagyl 08/01/2017 Appointment: [facility] Milton WPtel: [phone] [place] [facility] [place] (15 min) Moderate 08/01/2017 Patient Education: Patient [...] acutely worsen. 06/25/2017 Appointment: Anal[facility] Jin [facility]el[phone] (15 min) Moderate 06/25/2017 Patient Education: Patient [...] warmth, discharge. 05/15/2017 Appointment: Analisa Jin WPtel: [phone] [facility] (15 min) Moderate 05/15/2017 Patient Education: Patient [...] contagious. 01/28/2017 Appointment: Stacie Milton WPtel: [phone] [facility] (15 min) Moderate 01/28/2017 Patient Education: Patient [...] supportive care. 10/08/2016 Appointment: Stacie Milton WPtel: [facility] [place] [facility] [place] [place] New Patient 10/08/2016 Patient Education: Patient [...] in cluding Vitamin D and TSH. Consider [place] thyroid for hypothyroidism Saline spray before using [...] in cluding Vitamin D and TSH. Consider [place] thyroid for hypothyroidism Saline spray before using [...]
--- OUTSIDE RECORDS SUMMARY | 2019-06-17 09:27 | XMS REPORT | CCD ---
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 Active 07/07/2018 Unknown Essential (primary) hypertension ICD-9: 401.1 ICD-10: I10 Active 10/08/2016 Unknown Major depressive dis order, recurrent, moderate ICD-9: 296.32 ICD-10: F33.1 Active 10/08/2016 Unknown Other allergic rhinitis ICD-9: 477.8 ICD-10: [...] ICD-9: V70.0 ICD-10: Z00.01 Active 10/02/2017 Unknown 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 ICD-10: E03.4 Active 10/08/2016 Unknown Otalgia, bilateral ICD- 9: 388.70 ICD-10: H92.03 Active 06/25/2017 Unknown Zoster without compl ications ICD-9: 053.9 ICD-10: B02.9 Active 01/28/[address] [place] ICD-9: V45.86 ICD-10: Z98.84 Active 10/08/2016 Unknown Problems Condition Codes Effectiv e Dates Condition Status Recurrent oral aphthae ICD-9: 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 ICD-10: K12.0 07/07/2018 Active Essential (primary) hypertension ICD-9: 401.1 ICD-10: I10 10/08/2016 Active Major depressive dis order, recurrent, moderate ICD-9: 296.32 ICD-10: F33.1 10/08/2016 Active Other allergic rhinitis ICD-9: 477.8 ICD-10: [...] findings ICD-9: V70.0 ICD-10: Z00.01 10/02/2017 Active 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 ICD-10: E03.4 10/08/2016 Active Otalgia, bilateral ICD- 9: 388.70 ICD-10: H92.03 06/25/2017 Active Zoster without compl ications ICD-9: 053.9 ICD-10: B02.9 01/28/[address] [place] ICD-9: V45.86 ICD-10: Z98.84 10/08/2016 Active Medications Medication Codes Instruc tions Start Date Stop Date Sta tus Fill Instructions acyclovir 400 mg tablet RxNorm: 910249 1 Tablet(s) PO TID 07/07/2018 07/13/2018 Active Xanax 1 mg tablet RxNorm: 699854 Tablet(s) TAKE ONE TABLET BY MOUTH ONCE DAILY AT BEDTIME 06/27/2018 No Stop Date Active Livalo 2 mg tablet RxNorm: 484313 1 Tablet(s) PO QHS 06/25/2018 10/22/2018 Active Livalo 2 mg tablet RxNorm: 287380 1 Tablet(s) PO QHS 06/25/2018 06/24/2018 Inactive Lexapro 20 mg tablet RxNorm: 261395 TAKE 1/2 (ONE-HALF) TABLET BY MOUTH ONCE DAILY FOR ONE WEEK, THEN INCREASE TO 1 ONCE DAILY IN THE EVENING. 05/05/2018 No Stop Date Active Xanax 1 mg tablet RxNorm: 403454 Tablet(s) TAKE ONE TABLET BY MOUTH ONCE DAILY AT BEDTIME 04/01/2018 06/26/2018 Inactive Lexapro 20 mg tablet RxNorm: 284992 1 Tablet(s) PO QPM 12/31/2017 05/05/2018 Inactive 1/2 tab daily x 1 week then increase to a full tab mupirocin 2 % topica l ointment RxNorm: 495075 1 Application TOP BID 12/31/2017 01/09/2018 Inactive potassium chloride E R 20 mEq tablet,extended release RxNorm: 678279 TAKE ONE TABLET BY MOUTH ONCE DAILY IN THE MORNING 12/11/2017 No Stop Date Active hydrochlorothiazide 25 mg tablet RxNorm: 571231 TAKE ONE TABLET BY MO UTH ONCE DAILY IN THE MORNING 12/11/2017 No Stop Date Active Effexor XR 75 mg cap rashid,extended release RxNorm: 362704 1 Capsule(s) PO daily 12/09/2017 12/30/2017 In active permethrin 5 % topic al cream RxNorm: 000885 1 Application TOP onc e, may repeat in 14 days. 11/27/2017 01/06/2018 Inactive Xanax 1 mg tablet RxNorm: 720983 1 Tablet(s) PO QHS 09/30/2017 06/24/2018 Inactive citalopram 40 mg tablet RxNorm: 168979 TAKE ONE TABLET BY MOUTH ONCE DAILY IN T HE EVENING 08/05/2017 12/08/2017 Inactive Flagyl 500 mg tablet RxNorm: 570277 1 Tablet(s) PO TID 08/01/2017 08/05/2017 Inactive Xanax 1 mg tablet RxNorm: 226482 1 Tablet(s) PO QHS 07/05/2017 09/29/2017 Inactive Xanax 1 mg tablet RxNorm: 760384 TAKE ONE TABLET BY MOUTH ONCE DAILY AT B EDTIME 07/05/2017 03/31/2018 Inactive Zithromax Z-Cornell 250 mg tablet RxNorm: 446523 1 Tablet(s) PO UD 06/25/2017 07/04/2017 Inactive Trilipix 135 mg caps ule,delayed release RxNorm: 023024 1 Capsule(s) PO daily 05/22/2017 06/24/2018 In active triamcinolone aceton kaity 0.025 % topical cream RxNorm: 6617319 1 Application TOP BI D 05/15/2017 No Stop Date Active ketoconazole 2 % top ical cream RxNorm: 685387 1 TOP daily 05/15/2017 05/21/2017 Inactive Trilipix 135 mg caps ule,delayed release RxNorm: 156352 1 Capsule(s) PO daily 02/12/2017 05/21/2017 In active Trilipix 135 mg caps ule,delayed release RxNorm: 210133 1 Capsule(s) PO daily 02/12/2017 02/11/2017 In active acyclovir 800 mg tablet RxNorm: 473450 1 Tablet(s) PO QID 01/28/2017 02/06/2017 Inactive Fish Oil 1,000 mg ca psule RxNorm: 1 Capsule(s) PO BID 10/17/2016 02/13/2017 Inactive Fish Oil 1,000 mg ca psule RxNorm: 1 Capsule(s) PO BID 10/17/2016 10/16/2016 Inactive Vitamin D2 50,000 un it capsule RxNorm: 646761 1 Capsule(s) PO QW 10/17/2016 10/16/2016 Inactive Vitamin D3 2,000 uni t capsule RxNorm: 499522 1 Capsule(s) PO daily 10/17/2016 10/16/2016 Inactive Vitamin D2 50,000 un it capsule RxNorm: 216159 1 Capsule(s) PO QW 10/17/2016 01/14/2017 Inactive Vitamin D3 2,000 uni t capsule RxNorm: 120506 1 Capsule(s) PO daily 10/17/2016 01/14/2017 Inactive citalopram 40 mg tablet RxNorm: 392603 1 Tablet(s) PO QPM 10/08/2016 07/04/2017 Inactive potassium chloride E R 20 mEq tablet,extended release RxNorm: 040069 1 Tablet(s) PO QAM 10/08/2016 10/02/2017 Inactive hydrochlorothiazide 25 mg tablet RxNorm: 305948 1 Tablet(s) PO QAM 10/08/2016 10/02/2017 Inactive hydrochlorothiazide 25 mg tablet RxNorm: 251962 1 Tablet(s) PO QAM No Start Date 10/07/2016 Inactive Xanax 1 mg tablet RxNorm: 534611 1 Tablet(s) PO QHS et PRN as needed No Start Date 07/05/2017 Inactive citalopram 40 mg tablet RxNorm: 088404 1 Tablet(s) PO QPM No Start Date 10/07/2016 Inactive potassium chloride E R 20 mEq tablet,extended release RxNorm: 174419 1 Tablet(s) PO QAM No Start Date 10/07/2016 Inactive permethrin 5 % topic al cream RxNorm: 197868 1 Application TOP onc e, may repeat in 14 days. No Start Date 11/26/2017 Inactive Medication Administered No Medication Administered data Immunizations No Immunization data Assessments Condition Codes Effectiv e Dates Recurrent oral aphthae ICD-10: K12.0 ICD-9: 528.2 07/07/2018 Other allergic rhinitis ICD-10: J30. 89 ICD-9: 477.8 04/30/2018 Essential (primary) hypertension ICD -10: I10 ICD-9: 401.1 04/30/2018 Major depressive disorder, recurrent, moderate ICD-10: F33.1 ICD-9: 296.32 04/30/2018 Insect bite (nonvenomous), right lower l eg, subsequent encounter ICD-10: S80.861D ICD-9: V58.89 01/06/2018 Insect bite (nonvenomous), left lower le g, subsequent encounter ICD-10: S80.862D ICD-9: V58.89 01/06/2018 Rash and other nonspecific skin eruption ICD-10: R21 ICD-9: 782.1 12/31/2017 Encounter for general adult medical exam ination with abnormal findings ICD-10: Z00.01 ICD-9: V70.0 10/02/2017 Atrophy of thyroid (acquired) ICD-10 : E03.4 ICD-9: 244.8 08/01/2017 Otalgia, bilateral ICD-10: H92.03 ICD-9: 388.70 06/25/2017 Zoster without complications ICD-10: B02.9 ICD-9: 053.9 01/28/2017 Bariatric surgery status ICD-10: Z98 .84 ICD-9: V45.86 10/08/2016 Reason For Visit Reason For Visit Effective Dates Notes sores in the mouth 07/07/2018 chest pain/pressure [...] 30.0 pg 06/18/2018 Cbc With Differential Ord2 [place]% 6.0 % 06/18/2018 Cbc With Differential Ord2 [...] 2.01 K/ul 06/18/2018 Cbc With Differential Ord2 [place] ABS# 0.3 K/ul 06/18/2018 Cbc With Differential Ord2 Eos ABS# 0.3 K/ul 06/18/2018 Cbc With Differential Ord2 Baso ABS# 0.0 K/ul 06/18/2018 Comp Metabolic Lng919 NA 141 mEq/L 06/18/2018 Comp Metabolic Uwl697 K 3.7 mEq/L 06/18/2018 Comp Metabolic Vms744 CL 101 mEq/L 06/18/2018 Comp Metabolic Hzy340 CO2 31.0 mEq/L 06/18/2018 Comp Metabolic Beq412 AN ION GAP 13 06/18/2018 Comp Metabolic Abd671 GL UCOSE 106 mg/dL 06/18/2018 Comp Metabolic War796 Cr eat 0.9 mg/dL 06/18/2018 Comp Metabolic Avx997 eG FR 68 ml/min/1.73m2 06/18 Comp Metabolic Vyh166 BUN 16 mg/dL 06/18/2018 Comp Metabolic Qzv417 B/ C Ratio 18.2 Ratio 06/18/2018 Comp Metabolic Cnr301 CA LCIUM 9.5 mg/dL 06/18/2018 Comp Metabolic Erk978 AL K PHOS 82 U/L 06/18/2018 Comp Metabolic Jjx289 T(SGOT) 19 U/L 06/18/2018 Comp Metabolic Vxv302 AL T(SGPT) 18 U/L 06/18/2018 Comp Metabolic Qwl199 BI LI T 0.5 mg/dL 06/18/2018 Comp Metabolic Dnh804 AL BUMIN 4.0 g/dL 06/18/2018 Comp Metabolic Ihr543 TP RO 6.5 g/dL 06/18/2018 Comp Metabolic Sxz024 GL OB 2.5 g/dL 06/18/2018 Comp Metabolic Hoh323 A/ G Ratio 1.6 Ratio 06/18/2018 Comp Metabolic Mxv099 Os mo 283 mOsmo 06/18/2018 Tsh Ord6 TSH (3rd IS) 4.02 uIU/mL 06/18/2018 Lipid Ord30 CHOL 238 mg/dL 06/18/2018 Lipid Ord30 HDL 38.0 mg/dl 06/18/2018 Lipid Ord30 TRIG 369 mg/dL 06/18/2018 Lipid Ord30 LDL Unable to calculate Due to elevated trig lycerides mg/dL 06/18/2018 Lipid Ord30 C/HDL 6.3 Ratio 06/18/2018 Influenza A+B Eqs661 Inf paul A+B Negative 06/18/2018 Free T4 Owp144 FREE T4 0.95 ng/dL 05/15/2017 Tsh Ord6 [...] 12.9 g/dl 05/15/2017 Cbc With Differential Ord2 Neut% 53.0 % 05/15/2017 Cbc With Differential Ord2 HCT 39.7 % 05/15/2017 Cbc With Differential Ord2 MCV 93.6 fl 05/15/2017 Cbc With Differential Ord2 Lymph% 37.6 % 05/15/2017 Cbc With Differential Ord2 MCH 30.4 pg 05/15/2017 Cbc With Differential Ord2 [place]% 6.2 % 05/15/2017 Cbc With Differential Ord2 Eos% 2.9 % 05/15/2017 Cbc With Differential Ord2 MCHC 32.5 pg 05/15/2017 Cbc With Differential Ord2 Baso% 0.3 % 05/15/2017 Cbc With Differential Ord2 PLT 249 K/ul 05/15/2017 Cbc With Differential Ord2 Neut ABS# 3.08 K/ul 05/15/2017 Cbc With Differential Ord2 RDW 14.3 % 05/15/2017 Cbc With Differential Ord2 Lymph ABS# 2.19 K/ul 05/15/2017 Cbc With Differential Ord2 [place] ABS# 0.4 K/ul 05/15/2017 Cbc With Differential Ord2 Eos ABS# 0.2 K/ul 05/15/2017 Cbc With Differential Ord2 Baso ABS# 0.0 K/ul 05/15/2017 Vitamin D 25 Oh Gnh9886 VITAMIN D, 25 HYDROXY 50.18 ng/mL 05/15/2017 Comp Metabolic Uue837 NA 141 mEq/L 05/15/2017 Comp Metabolic Hhu680 K 3.9 mEq/L 05/15/2017 Comp Metabolic Zxh036 CL 103 mEq/L 05/15/2017 Comp Metabolic Jsv628 CO2 29.0 mEq/L 05/15/2017 Comp Metabolic Dhs342 AN ION GAP 13 05/15/2017 Comp Metabolic Ogh857 GL UCOSE 84 mg/dL 05/15/2017 Comp Metabolic Hhs623 Cr eat 1.1 mg/dL 05/15/2017 Comp Metabolic Rnd369 eG FR 55 ml/min/1.73m2 05/15 Comp Metabolic Kgs246 BUN 19 mg/dL 05/15/2017 Comp Metabolic Qqu829 B/ C Ratio 18.1 Ratio 05/15/2017 Comp Metabolic Pgi869 CA LCIUM 9.7 mg/dL 05/15/2017 Comp Metabolic Glv276 AL K PHOS 38 U/L 05/15/2017 Comp Metabolic Dbc822 T(SGOT) 21 U/L 05/15/2017 Comp Metabolic Rfc040 AL T(SGPT) 17 U/L 05/15/2017 Comp Metabolic Ffz141 BI LI T 0.4 mg/dL 05/15/2017 Comp Metabolic Iqw008 AL BUMIN 4.3 g/dL 05/15/2017 Comp Metabolic Uwk039 TP RO 6.5 g/dL 05/15/2017 Comp Metabolic Twi634 GL OB 2.3 g/dL 05/15/2017 Comp Metabolic Iyh822 A/ G Ratio 1.9 Ratio 05/15/2017 Comp Metabolic Fhn527 Os mo 283 mOsmo 05/15/2017 Lipid Ord30 CHOL 231 mg/dL 01/18/2017 Lipid Ord30 HDL 48.0 mg/dl 01/18/2017 Lipid Ord30 TRIG 213 mg/dL 01/18/2017 Lipid Ord30 LDL 140 mg/dL 01/18/2017 Lipid Ord30 C/HDL 4.8 Ratio 01/18/2017 Vitamin D 25 Oh Ylm4999 VITAMIN D, 25 HYDROXY 33.28 ng/mL 10/10/2016 B12 Yby953 B12 377.00 pg/ml 10/10/2016 Comp Metabolic Pxm473 NA 142 mEq/L 10/10/2016 Comp Metabolic Jyx174 K 4.0 mEq/L 10/10/2016 Comp Metabolic Edg826 CL 103 mEq/L 10/10/2016 Comp Metabolic Tun404 CO2 29.0 mEq/L 10/10/2016 Comp Metabolic Kba387 AN ION GAP 14 10/10/2016 Comp Metabolic Xvt857 GL UCOSE 82 mg/dL 10/10/2016 Comp Metabolic Hys372 Cr eat 0.8 mg/dL 10/10/2016 Comp Metabolic Txz851 eG FR 77 ml/min/1.73m2 10/10 Comp Metabolic Wcf573 BUN 19 mg/dL 10/10/2016 Comp Metabolic Vmf773 B/ C Ratio 24.1 Ratio 10/10/2016 Comp Metabolic Nai460 CA LCIUM 9.8 mg/dL 10/10/2016 Comp Metabolic Uhq319 AL K PHOS 87 U/L 10/10/2016 Comp Metabolic Flp472 T(SGOT) 20 U/L 10/10/2016 Comp Metabolic Uoc441 AL T(SGPT) 16 U/L 10/10/2016 Comp Metabolic Rsm588 BI LI T 0.5 mg/dL 10/10/2016 Comp Metabolic Asl004 AL BUMIN 4.0 g/dL 10/10/2016 Comp Metabolic Xjn330 TP RO 6.7 g/dL 10/10/2016 Comp Metabolic Yqj791 GL OB 2.7 g/dL 10/10/2016 Comp Metabolic Psk103 A/ G Ratio 1.5 Ratio 10/10/2016 Comp Metabolic Oic724 Os mo 284 mOsmo 10/10/2016 Free T4 Mhk214 FREE T4 0.68 ng/dL 10/10/2016 Cbc With Differential Ord2 WBC 5.53 K/ul 10/10/2016 Cbc With Differential Ord2 RBC 4.28 M/ul 10/10/2016 Cbc With Differential Ord2 HGB 13.1 g/dl 10/10/2016 Cbc With Differential Ord2 HCT 39.7 % 10/10/2016 Cbc With Differential Ord2 Neut% 48.6 % 10/10/2016 Cbc With Differential Ord2 Lymph% 38.2 % 10/10/2016 Cbc With Differential Ord2 MCV 92.8 fl 10/10/2016 Cbc With Differential Ord2 MCH 30.6 pg 10/10/2016 Cbc With Differential Ord2 [place]% 5.2 % 10/10/2016 Cbc With Differential Ord2 MCHC 33.0 pg 10/10/2016 Cbc With Differential Ord2 Eos% 7.8 % 10/10/2016 Cbc With Differential Ord2 PLT 229 K/ul 10/10/2016 Cbc With Differential Ord2 Baso% 0.2 % 10/10/2016 Cbc With Differential Ord2 Neut ABS# 2.69 K/ul 10/10/2016 Cbc With Differential Ord2 RDW 14.6 % 10/10/2016 Cbc With Differential Ord2 Lymph ABS# 2.11 K/ul 10/10/2016 Cbc With Differential Ord2 [place] ABS# 0.3 K/ul 10/10/2016 Cbc With Differential [...] System Result Effective Dates Constitutional recent illness 07/07/2018 Constitutional No anorexia [...] Result Effective Dates Notes Full Exam - ENT Constitutional general appearance [...] 4: G0439 10/02/2017 Vital Signs Date Vital 07/07/2018 Blood Pressure 1: 140/90 Code: 8480-6 BMI: 41.3 Code: 59457-9 Heart Rate 1: 82 bpm Height: 5'5" SpO2: 92% Temperature: 36.1 (C ) / 96.9 (F) Weight: 248 lbs 04/30/2018 Blood Pressure 1: 128/64 Code: 8480-6 BMI: 41.3 Code: 25676-8 Heart Rate 1: 68 bpm Height: 5'5" SpO2: 96% Weight: 248 lbs 01/06/2018 Blood Pressure 1: 136/78 Code: 8480-6 Heart Rate 1: 71 bpm Height: 5'5" SpO2: 95% Weight: 12/31/2017 Blood Pressure 1: 134/76 Code: 8480-6 BMI: 39.8 Code: 91266-7 Heart Rate 1: 87 bpm Height: 5'5" SpO2: 97% Weight: 239 lbs 12/09/2017 Blood Pressure 1: 136/82 Code: 8480-6 BMI: 39.8 Code: 99756-7 Heart Rate 1: 73 bpm Height: 5'5" SpO2: 97% Weight: 239 lbs 10/02/2017 Blood Pressure 1: 130/72 Code: 8480-6 BMI: 39.4 Code: 63848-3 Heart Rate 1: 74 bpm Height: 5'5" SpO2: 93% Waist Measure (cm): 104 cm Weight: 237 lbs 08/01/2017 Blood Pressure 1: 132/74 Code: 8480-6 BMI: 39.3 Code: 75955-8 Heart Rate 1: 66 bpm Height: 5'5" SpO2: 92% Weight: 236 lbs 06/25/2017 Blood Pressure 1: 136/74 Code: 8480-6 BMI: 38.6 Code: 63472-8 Heart Rate 1: 61 bpm Height: 5'5" SpO2: 95% Weight: 232 lbs 05/15/2017 Blood Pressure 1: 143/76 Code: 8480-6 BMI: 38.6 Code: 91721-6 Heart Rate 1: 65 bpm Height: 5'5" SpO2: 97% Weight: 232 lbs 01/28/2017 Blood Pressure 1: 120/80 Code: 8480-6 BMI: 38.1 Code: 58519-0 Heart Rate 1: 55 bpm Height: 5'5" SpO2: 96% Weight: 229 lbs 10/08/2016 Blood Pressure 1: 130/74 Code: 8480-6 BMI: 36.9 Code: 42209-5 Heart Rate 1: 62 bpm Height: 5'5" SpO2: 92% Weight: 221 lbs 8 oz Functional Status No Functional Status data History of Present Illness Symptom Name Status Resu lt Effective Date Notes Frequency of Episodes increasing 07/07/2018 None Location [...] when outdoors: y 10/02/2017 None 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 PATIENT, LEVEL III Diagnosis: Recurrent oral aphthae[ICD10: K12.0] Renetta Milton MD, [facility] CPT-4: 81281 07/07/2018 [id number] EST. PATIENT, LEVEL IV Diagnosis: Essential (primary) hypertension[ICD10: I10] Diagnosis: Major depressive disorder, recurrent, moderate[ICD10: F33.1] Diagnosis: Other allergic rhinitis[ICD10: J30.89] Analisa Milton MD, [facility] CPT-4: 00298 04/30/2018 ([id number]) [id number] EST. P ATIENT, LEVEL III Diagnosis: Insect bite (nonvenomous), left lower leg, subsequent encounter[ICD10: S80.862D] Diagnosis: Insect bite (nonvenomous), right lower leg, subsequent encounter[ICD10: S80.861D] Stacie Milton MD, [facility] CPT-4: 44164 01/06/2018 ([id number]) 28757 EST. P ATIENT, LEVEL III Diagnosis: Rash and other nonspecific skin eruption[ICD10: R21] Diagnosis: Major depressive disorder, recurrent, moderate[ICD10: F33.1] Renetta Milton MD, [facility] CPT-4: 09145 12/31/2017 ([id number]) 12565 EST. P ATIENT, LEVEL III Diagnosis: Essential (primary) hypertension[ICD10: I10] Diagnosis: Major depressive disorder, recurrent, moderate[ICD10: F33.1] Stacie Milton MD, [facility] CPT-4: 22365 12/09/2017 ([id number]) 73868 EST. P ATIENT, LEVEL IV Diagnosis: Atrophy of thyroid (acquired)[ICD10: E03.4] Diagnosis: Essential (primary) hypertension[ICD10: I10] Diagnosis: Other allergic rhinitis[ICD10: J30.89] Stacie Milton MD, [facility] CPT-4: 81819 08/01/2017 [id number] EST. PATIENT, LEVEL III Diagnosis: Other allergic rhinitis[ICD10: J30.89] Diagnosis: Otalgia, bilateral[ICD10: H92.03] Analisa Milton MD, [facility] CPT-4: 32772 06/25/2017 [id number] EST. PATIENT, LEVEL III Diagnosis: Rash and other nonspecific skin eruption[ICD10: R21] Analisa Milton MD, [facility] CPT-4: 83095 05/15/2017 ([id number]) 29195 EST. P ATIENT, LEVEL III Diagnosis: Zoster without complications[ICD10: B02.9] Stacie Milton MD, [facility] CPT-4: 79620 01/28/2017 ([id number]) OFFICE VISI T, NEW - LEVEL 4 Diagnosis: Essential (primary) hypertension[ICD10: I10] Diagnosis: Bariatric surgery status[ICD10: Z98.84] Diagnosis: Atrophy of thyroid (acquired)[ICD10: E03.4] Diagnosis: Major depressive disorder, recurrent, moderate[ICD10: F33.1] Stacie Milton MD, [facility] CPT-4: 59636 10/08/2016 Plan of Care Planned Activity Notes C odes Status Date Visit Plan: Oral aphthae -rx for ac yclovir provided and instructed on use -follow up in 1 week for re-eval -sooner if needed -call with any concerns or worsening symptoms. 07/07/2018 Appointment: Renetta Leigh WPtel: [address] [place], [place] [phone] (30 min) [facility] 07/07/2018 Patient Education: Patient Medication Summary Completed [...] spray. 04/30/2018 Appointment: Analisa Jin WPtel: [phone] [id number] (15 min) Moderate 04/30/2018 Patient Education: Patient [...] outside. 01/06/2018 [phone] ([facility] Moderate 01/06/2018 Patient Education: Patient [...] lexapro 12/31/2017 Appointment: Renetta Leigh WPtel: [phone] [id number] (15 min) Moderate 12/31/2017 [...] venlafaxine. 12/09/2017 App[phone] ([facility] min) Moderate 12/09/2017 Patient Education: [...] flagyl 08/01/2017 Appointment: Stacie Milton WPtel: [phone] (15 min) Moderate 08/01/2017 Patient Education: [...] worsen. 06/25/2017 Appointment: Analisa Jin WPtel: [phone] [id number] (15 min) Moderate 06/25/2017 Patient Education: Patient [...] discharge. 05/15/2017 [phone] ([facility]) Moderate 05/15/2017 Patient Education: Patient [...] contagious. 01/28/2017 [phone] ([facility] min) Moderate 01/28/2017 Patient Education: Patient [...] care. 10/08/2016 App[facility]ment[phone] [facility] [place] New Patient 10/08/2016 Patient Education: Patient [...] in cluding Vitamin D and TSH. Consider [place] thyroid for hypothyroidism Saline spray before using [...] in cluding Vitamin D and TSH. Consider [place] thyroid for hypothyroidism Saline spray before using [...] armour thyroid - continue with supportive care. claritin or sarah daily - . Hypertension [...]
--- OUTSIDE RECORDS SUMMARY | 2019-06-17 09:27 | XMS REPORT | CCD ---
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/[address]: 364928989 Never smoker 10/08/[address]: 050176703 Never drinks alcohol 10/08/2016 Has the patient [...] RGIES Unknown 10/08/2016 No Inactive Date Active [id number] REDU CTASE INHIBITORS Unknown 07/07/2018 No Inactive [...] Fill Instructions acyclovir 400 mg tablet RxNorm: 573290 1 Tablet(s) PO TID 07/07/2018 07/13/2018 Inactive Xanax 1 mg tablet RxNorm: 679742 Tablet(s) TAKE ONE TABLET BY MOUTH ONCE DAILY AT BEDTIME 06/27/2018 No Stop Date Active Livalo 2 mg tablet RxNorm: 194848 1 Tablet(s) PO QHS 06/25/2018 10/22/2018 Active Livalo 2 mg tablet RxNorm: 366150 1 Tablet(s) PO QHS 06/25/2018 06/24/2018 Inactive Lexapro 20 mg tablet RxNorm: 293063 TAKE 1/2 (ONE-HALF) TABLET BY MOUTH ONCE DAILY FOR ONE WEEK, THEN INCREASE TO 1 ONCE DAILY IN THE EVENING. 05/05/2018 No Stop Date Active Xanax 1 mg tablet RxNorm: 050640 Tablet(s) TAKE ONE TABLET BY MOUTH ONCE DAILY AT BEDTIME 04/01/2018 06/26/2018 Inactive Lexapro 20 mg tablet RxNorm: 978055 1 Tablet(s) PO QPM 12/31/2017 05/05/2018 Inactive 1/2 tab daily x 1 week then increase to a full tab mupirocin 2 % topica l ointment RxNorm: 188545 1 Application TOP BID 12/31/2017 01/09/2018 Inactive potassium chloride E R 20 mEq tablet,extended release RxNorm: 589964 TAKE ONE TABLET BY MOUTH ONCE DAILY IN THE MORNING 12/11/2017 No Stop Date Active hydrochlorothiazide 25 mg tablet RxNorm: 628482 TAKE ONE TABLET BY MO UTH ONCE DAILY IN THE MORNING 12/11/2017 No Stop Date Active Effexor XR 75 mg cap rashid,extended release RxNorm: 555231 1 Capsule(s) PO daily 12/09/2017 12/30/2017 In active permethrin 5 % topic al cream RxNorm: 059714 1 Application TOP onc e, may repeat in 14 days. 11/27/2017 01/06/2018 Inactive Xanax 1 mg tablet RxNorm: 010065 1 Tablet(s) PO QHS 09/30/2017 06/24/2018 Inactive citalopram 40 mg tablet RxNorm: 354863 TAKE ONE TABLET BY MOUTH ONCE DAILY IN T HE EVENING 08/05/2017 12/08/2017 Inactive Flagyl 500 mg tablet RxNorm: 412741 1 Tablet(s) PO TID 08/01/2017 08/05/2017 Inactive Xanax 1 mg tablet RxNorm: 207890 1 Tablet(s) PO QHS 07/05/2017 09/29/2017 Inactive Xanax 1 mg tablet RxNorm: 327166 TAKE ONE TABLET BY MOUTH ONCE DAILY AT B EDTIME 07/05/2017 03/31/2018 Inactive Zithromax Z-Cornell 250 mg tablet RxNorm: 758954 1 Tablet(s) PO UD 06/25/2017 07/04/2017 Inactive Trilipix 135 mg caps ule,delayed release RxNorm: 412597 1 Capsule(s) PO daily 05/22/2017 06/24/2018 In active triamcinolone aceton kaity 0.025 % topical cream RxNorm: 9792134 1 Application TOP BI D 05/15/2017 No Stop Date Active ketoconazole 2 % top ical cream RxNorm: 339294 1 TOP daily 05/15/2017 05/21/2017 Inactive Trilipix 135 mg caps ule,delayed release RxNorm: 722109 1 Capsule(s) PO daily 02/12/2017 05/21/2017 In active Trilipix 135 mg caps ule,delayed release RxNorm: 666829 1 Capsule(s) PO daily 02/12/2017 02/11/2017 In active acyclovir 800 mg tablet RxNorm: 495862 1 Tablet(s) PO QID 01/28/2017 02/06/2017 Inactive Fish Oil 1,000 mg ca psule RxNorm: 1 Capsule(s) PO BID 10/17/2016 02/13/2017 Inactive Fish Oil 1,000 mg ca psule RxNorm: 1 Capsule(s) PO BID 10/17/2016 10/16/2016 Inactive Vitamin D2 50,000 un it capsule RxNorm: 700126 1 Capsule(s) PO QW 10/17/2016 10/16/2016 Inactive Vitamin D3 2,000 uni t capsule RxNorm: 695257 1 Capsule(s) PO daily 10/17/2016 10/16/2016 Inactive Vitamin D2 50,000 un it capsule RxNorm: 225499 1 Capsule(s) PO QW 10/17/2016 01/14/2017 Inactive Vitamin D3 2,000 uni t capsule RxNorm: 829299 1 Capsule(s) PO daily 10/17/2016 01/14/2017 Inactive citalopram 40 mg tablet RxNorm: 763792 1 Tablet(s) PO QPM 10/08/2016 07/04/2017 Inactive potassium chloride E R 20 mEq tablet,extended release RxNorm: 001595 1 Tablet(s) PO QAM 10/08/2016 10/02/2017 Inactive hydrochlorothiazide 25 mg tablet RxNorm: 962516 1 Tablet(s) PO QAM 10/08/2016 10/02/2017 Inactive hydrochlorothiazide 25 mg tablet RxNorm: 724449 1 Tablet(s) PO QAM No Start Date 10/07/2016 Inactive Xanax 1 mg tablet RxNorm: 588516 1 Tablet(s) PO QHS et PRN as needed No Start Date 07/05/2017 Inactive citalopram 40 mg tablet RxNorm: 934446 1 Tablet(s) PO QPM No Start Date 10/07/2016 Inactive potassium chloride E R 20 mEq tablet,extended release RxNorm: 220966 1 Tablet(s) PO QAM No Start Date 10/07/2016 Inactive permethrin 5 % topic al cream RxNorm: 862110 1 Application TOP onc e, may repeat [...] 30.0 pg 06/18/2018 Cbc With Differential Ord2 Winn% 6.0 % 06/18/2018 Cbc With Differential Ord2 [...] 2.01 K/ul 06/18/2018 Cbc With Differential Ord2 Winn ABS# 0.3 K/ul 06/18/2018 Cbc With Differential Ord2 Eos ABS# 0.3 K/ul 06/18/2018 Cbc With Differential Ord2 Baso ABS# 0.0 K/ul 06/18/2018 Comp Metabolic Pjq588 NA 141 mEq/L 06/18/2018 Comp Metabolic Wqy765 K 3.7 mEq/L 06/18/2018 Comp Metabolic Czl757 CL 101 mEq/L 06/18/2018 Comp Metabolic Tpa592 CO2 31.0 mEq/L 06/18/2018 Comp Metabolic Ypb337 AN ION GAP 13 06/18/2018 Comp Metabolic Ivy740 GL UCOSE 106 mg/dL 06/18/2018 Comp Metabolic Xog190 Cr eat 0.9 mg/dL 06/18/2018 Comp Metabolic Sfw425 eG FR 68 ml/min/1.73m2 06/18 Comp Metabolic Vcz772 BUN 16 mg/dL 06/18/2018 Comp Metabolic Pzh105 B/ C Ratio 18.2 Ratio 06/18/2018 Comp Metabolic Wtf061 CA LCIUM 9.5 mg/dL 06/18/2018 Comp Metabolic Enp832 AL K PHOS 82 U/L 06/18/2018 Comp Metabolic Bce564 T(SGOT) 19 U/L 06/18/2018 Comp Metabolic Ydr210 AL T(SGPT) 18 U/L 06/18/2018 Comp Metabolic Yvr266 BI LI T 0.5 mg/dL 06/18/2018 Comp Metabolic Wjr170 AL BUMIN 4.0 g/dL 06/18/2018 Comp Metabolic Snj078 TP RO 6.5 g/dL 06/18/2018 Comp Metabolic Sjp534 GL OB 2.5 g/dL 06/18/2018 Comp Metabolic Toa738 A/ G Ratio 1.6 Ratio 06/18/2018 Comp Metabolic Xng419 Os mo 283 mOsmo 06/18/2018 Tsh Ord6 TSH (3rd IS) 4.02 uIU/mL 06/18/2018 Lipid Ord30 CHOL 238 mg/dL 06/18/2018 Lipid Ord30 HDL 38.0 mg/dl 06/18/2018 Lipid Ord30 TRIG 369 mg/dL 06/18/2018 Lipid Ord30 LDL Unable to calculate Due to elevated trig lycerides mg/dL 06/18/2018 Lipid Ord30 C/HDL 6.3 Ratio 06/18/2018 Influenza A+B Lgp511 Inf paul A+B Negative 06/18/2018 Free T4 Uff643 FREE T4 0.95 ng/dL 05/15/2017 Tsh Ord6 [...] 30.4 pg 05/15/2017 Cbc With Differential Ord2 Winn% 6.2 % 05/15/2017 Cbc With Differential Ord2 [...] 2.19 K/ul 05/15/2017 Cbc With Differential Ord2 Winn ABS# 0.4 K/ul 05/15/2017 Cbc With Differential Ord2 Eos ABS# 0.2 K/ul 05/15/2017 Cbc With Differential Ord2 Baso ABS# 0.0 K/ul 05/15/2017 Vitamin D 25 Oh Nng1774 VITAMIN D, 25 HYDROXY 50.18 ng/mL 05/15/2017 Comp Metabolic Lcy470 NA 141 mEq/L 05/15/2017 Comp Metabolic Kzd130 K 3.9 mEq/L 05/15/2017 Comp Metabolic Fjf421 CL 103 mEq/L 05/15/2017 Comp Metabolic Ncr933 CO2 29.0 mEq/L 05/15/2017 Comp Metabolic Zym803 AN ION GAP 13 05/15/2017 Comp Metabolic Hsb339 GL UCOSE 84 mg/dL 05/15/2017 Comp Metabolic Nkd369 Cr eat 1.1 mg/dL 05/15/2017 Comp Metabolic Xme852 eG FR 55 ml/min/1.73m2 05/15 Comp Metabolic Ydi106 BUN 19 mg/dL 05/15/2017 Comp Metabolic Wic085 B/ C Ratio 18.1 Ratio 05/15/2017 Comp Metabolic Sam336 CA LCIUM 9.7 mg/dL 05/15/2017 Comp Metabolic Bhj706 AL K PHOS 38 U/L 05/15/2017 Comp Metabolic Rcu758 T(SGOT) 21 U/L 05/15/2017 Comp Metabolic Yhm699 AL T(SGPT) 17 U/L 05/15/2017 Comp Metabolic Jvd653 BI LI T 0.4 mg/dL 05/15/2017 Comp Metabolic Xzu672 AL BUMIN 4.3 g/dL 05/15/2017 Comp Metabolic Jbc200 TP RO 6.5 g/dL 05/15/2017 Comp Metabolic Nla799 GL OB 2.3 g/dL 05/15/2017 Comp Metabolic Yzs105 A/ G Ratio 1.9 Ratio 05/15/2017 Comp Metabolic Ftb057 Os mo 283 mOsmo 05/15/2017 Lipid Ord30 CHOL 231 mg/dL 01/18/2017 Lipid Ord30 HDL 48.0 mg/dl 01/18/2017 Lipid Ord30 TRIG 213 mg/dL 01/18/2017 Lipid Ord30 LDL 140 mg/dL 01/18/2017 Lipid Ord30 C/HDL 4.8 Ratio 01/18/2017 Vitamin D 25 Oh Krg6581 VITAMIN D, 25 HYDROXY 33.28 ng/mL 10/10/2016 B12 Vmo129 B12 377.00 pg/ml 10/10/2016 Comp Metabolic Yzh593 NA 142 mEq/L 10/10/2016 Comp Metabolic Cfj456 K 4.0 mEq/L 10/10/2016 Comp Metabolic Jkt629 CL 103 mEq/L 10/10/2016 Comp Metabolic Keb223 CO2 29.0 mEq/L 10/10/2016 Comp Metabolic Mys447 AN ION GAP 14 10/10/2016 Comp Metabolic Orn353 GL UCOSE 82 mg/dL 10/10/2016 Comp Metabolic Euj343 Cr eat 0.8 mg/dL 10/10/2016 Comp Metabolic Lxr119 eG FR 77 ml/min/1.73m2 10/10 Comp Metabolic Ajn224 BUN 19 mg/dL 10/10/2016 Comp Metabolic Iln312 B/ C Ratio 24.1 Ratio 10/10/2016 Comp Metabolic Chd397 CA LCIUM 9.8 mg/dL 10/10/2016 Comp Metabolic Xif575 AL K PHOS 87 U/L 10/10/2016 Comp Metabolic Ncp735 T(SGOT) 20 U/L 10/10/2016 Comp Metabolic Duc316 AL T(SGPT) 16 U/L 10/10/2016 Comp Metabolic Gvy150 BI LI T 0.5 mg/dL 10/10/2016 Comp Metabolic Fbo145 AL BUMIN 4.0 g/dL 10/10/2016 Comp Metabolic Tjm274 TP RO 6.7 g/dL 10/10/2016 Comp Metabolic Anz244 GL OB 2.7 g/dL 10/10/2016 Comp Metabolic Uma350 A/ G Ratio 1.5 Ratio 10/10/2016 Comp Metabolic Qna690 Os mo 284 mOsmo 10/10/2016 Free T4 Mwg664 FREE T4 0.68 ng/dL 10/10/2016 Cbc With [...] 30.6 pg 10/10/2016 Cbc With Differential Ord2 Winn% 5.2 % 10/10/2016 Cbc With Differential Ord2 [...] 2.11 K/ul 10/10/2016 Cbc With Differential Ord2 Winn ABS# 0.3 K/ul 10/10/2016 Cbc With Differential [...] 1: 140/90 Code: 8480-6 BMI: 41.3 Code: 47635-1 Heart Rate 1: 82 bpm Height: 5'5" SpO2: 92% Temperature: 36.1 (C ) / 96.9 (F) Weight: 248 lbs 04/30/2018 Blood Pressure 1: 128/64 Code: 8480-6 BMI: 41.3 Code: 28247-0 Heart Rate 1: 68 bpm Height: 5'5" SpO2: 96% Weight: 248 lbs 01/06/2018 Blood Pressure 1: 136/78 Code: 8480-6 Heart Rate 1: 71 bpm Height: 5'5" SpO2: 95% Weight: 12/31/2017 Blood Pressure 1: 134/76 Code: 8480-6 BMI: 39.8 Code: 03296-2 Heart Rate 1: 87 bpm Height: 5'5" SpO2: 97% Weight: 239 lbs 12/09/2017 Blood Pressure 1: 136/82 Code: 8480-6 BMI: 39.8 Code: 29689-9 Heart Rate 1: 73 bpm Height: 5'5" SpO2: 97% Weight: 239 lbs 10/02/2017 Blood Pressure 1: 130/72 Code: 8480-6 BMI: 39.4 Code: 49192-1 Heart Rate 1: 74 bpm Height: 5'5" SpO2: 93% Waist Measure (cm): 104 cm Weight: 237 lbs 08/01/2017 Blood Pressure 1: 132/74 Code: 8480-6 BMI: 39.3 Code: 78583-9 Heart Rate 1: 66 bpm Height: 5'5" SpO2: 92% Weight: 236 lbs 06/25/2017 Blood Pressure 1: 136/74 Code: 8480-6 BMI: 38.6 Code: 39680-0 Heart Rate 1: 61 bpm Height: 5'5" SpO2: 95% Weight: 232 lbs 05/15/2017 Blood Pressure 1: 143/76 Code: 8480-6 BMI: 38.6 Code: 16815-4 Heart Rate 1: 65 bpm Height: 5'5" SpO2: 97% Weight: 232 lbs 01/28/2017 Blood Pressure 1: 120/80 Code: 8480-6 BMI: 38.1 Code: 09794-4 Heart Rate 1: 55 bpm Height: 5'5" SpO2: 96% Weight: 229 lbs 10/08/2016 Blood Pressure 1: 130/74 Code: 8480-6 BMI: 36.9 Code: 61644-8 Heart Rate 1: 62 bpm Height: 5'5" [...] when outdoors: y 10/02/2017 None hypothyroid [employer] [place] 08/01/2017 None hypothyroid Onset and Resolution [...] right 06/25/2017 None neck swelling Quality ac [place] 06/25/2017 None neck swelling Onset and Resolution [...] Pertinent Findings itching 01/28/2017 None hypothyroid [employer] [place] 10/08/2016 None hypothyroid Onset and Resolution [...] Recurrent oral aphthae[ICD10: K12.0] Renetta Milton MD, [facility] CPT-4: 03583 07/07/2018 [id number] EST. PATIENT, LEVEL IV Diagnosis: Essential (primary) hypertension[ICD10: I10] Diagnosis: Major depressive disorder, recurrent, moderate[ICD10: F33.1] Diagnosis: Other allergic rhinitis[ICD10: J30.89] Analisa Milton MD, [facility] CPT-4: 38731 04/30/2018 ([id number]) 92615 EST. P ATIENT, LEVEL III Diagnosis: Insect bite (nonvenomous), left lower leg, subsequent encounter[ICD10: S80.862D] Diagnosis: Insect bite (nonvenomous), right lower leg, subsequent encounter[ICD10: S80.861D] Stacie Milton MD, [facility] CPT-4: 41024 01/06/2018 ([id number]) 66273 EST. P ATIENT, LEVEL III Diagnosis: Rash and other nonspecific skin eruption[ICD10: R21] Diagnosis: Major depressive disorder, recurrent, moderate[ICD10: F33.1] Renetta Milton MD, [facility] CPT-4: 20109 12/31/2017 ([id number]) 37709 EST. P ATIENT, LEVEL III Diagnosis: Essential (primary) hypertension[ICD10: I10] Diagnosis: Major depressive disorder, recurrent, moderate[ICD10: F33.1] Stacie Milton MD, [facility] CPT-4: 86708 12/09/2017 ([id number]) 99046 EST. P ATIENT, LEVEL IV Diagnosis: Atrophy of thyroid (acquired)[ICD10: E03.4] Diagnosis: Essential (primary) hypertension[ICD10: I10] Diagnosis: Other allergic rhinitis[ICD10: J30.89] Stacie Milton MD, [facility] CPT-4: 59219 08/01/2017 19883 EST. PATIENT, LEVEL III Diagnosis: Other allergic rhinitis[ICD10: J30.89] Diagnosis: Otalgia, bilateral[ICD10: H92.03] Analisa Milton MD, [facility] CPT-4: 20225 06/25/2017 [id number] EST. PATIENT, LEVEL III Diagnosis: Rash and other nonspecific skin eruption[ICD10: R21] Analisa Milton MD, [facility] CPT-4: 52907 05/15/2017 ([id number]) 52345 EST. P ATIENT, LEVEL III Diagnosis: Zoster without complications[ICD10: B02.9] Stacie Milton MD, [facility] CPT-4: 94341 01/28/2017 ([id number]) OFFICE VISI T, NEW - LEVEL 4 Diagnosis: Essential (primary) hypertension[ICD10: I10] Diagnosis: Bariatric surgery status[ICD10: Z98.84] Diagnosis: Atrophy of thyroid (acquired)[ICD10: E03.4] Diagnosis: Major depressive disorder, recurrent, moderate[ICD10: F33.1] Stacie Milton MD, [facility] CPT-4: 96060 10/08/2016 Plan of Care Planned Activity Notes C odes Status Date Visit Plan: Oral aphthae -rx for ac yclovir provided and instructed on use -follow up in 1 week for re-eval -sooner if needed -call with any concerns or worsening symptoms. 07/07/2018 Appointment: Renetta Leigh WPtel: [address] [place], [place] [phone] (30 min) [facility] 07/07/2018 Patient Education: Patient Medication Summary Completed [...] spray. 04/30/2018 Appointment: Analisa Jin WPtel: [phone] [facility] (15 min) Moderate 04/30/2018 Patient [...] outside. 01/06/2018 [phone] ([facility]) Moderate 01/06/2018 Patient Education: [...] lexapro 12/31/2017 Appointment: Renetta Leigh WPtel: [phone] [facility] (15 min) Moderate 12/31/2017 Patient Education: Patient [...] venlafaxine. 12/09/2017 App[facility]ment: [phone] [facility] (15 min) Moderate 12/09/2017 Patient Education: [...] flagyl 08/01/2017 Appointment: Stacie Milton WPtel: [phone] (15 min) Moderate 08/01/2017 Patient Education: [...] worsen. 06/25/2017 Appointment: Analisa Jin WPtel: [phone] [facility] (15 min) Moderate 06/25/2017 Patient Education: [...] discharge. 05/15/2017 [phone] (15 min) Moderate 05/15/2017 Patient Education: [...] considered contagious. 01/28/2017 App[facility]ment: [facility] Milton [facility]el[facility] [phone] [facility] (15 min) Moderate 01/28/2017 Patient Education: [...] care. 10/08/2016 Appointment: [facility] Milton [facility]el[facility] [phone] [facility] [place] New Patient 10/08/2016 Patient Education: [...] in cluding Vitamin D and TSH. Consider [place] thyroid for hypothyroidism Saline spray before using [...] in cluding Vitamin D and TSH. Consider [place] thyroid for hypothyroidism Saline spray before using [...]
--- OUTSIDE RECORDS SUMMARY | 2019-06-17 09:28 | XMS REPORT | CCD ---
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/[address]: 985680810 Never smoker 10/08/[address]: 080755935 Never drinks alcohol 10/08/2016 Has the patient [...] RGIES Unknown 10/08/2016 No Inactive Date Active Past Medical History [...] ICD-10: B02.9 01/28/[address] [facility] ICD-9: V45.86 ICD-10: Z98.84 10/08/2016 Active Medications Medication Codes Instruc tions Start Date Stop Date Sta tus Fill Instructions Xanax 1 mg tablet RxNorm: 329995 Tablet(s) TAKE ONE TABLET BY MOUTH ONCE DAILY AT BEDTIME 06/27/2018 No Stop Date Active Livalo 2 mg tablet RxNorm: 714537 1 Tablet(s) PO QHS 06/25/2018 10/22/2018 Active Livalo 2 mg tablet RxNorm: 496670 1 Tablet(s) PO QHS 06/25/2018 06/24/2018 Inactive Lexapro 20 mg tablet RxNorm: 900413 TAKE 1/2 (ONE-HALF) TABLET BY MOUTH ONCE DAILY FOR ONE WEEK, THEN INCREASE TO 1 ONCE DAILY IN THE EVENING. 05/05/2018 No Stop Date Active Xanax 1 mg tablet RxNorm: 042833 Tablet(s) TAKE ONE TABLET BY MOUTH ONCE DAILY AT BEDTIME 04/01/2018 06/26/2018 Inactive Lexapro 20 mg tablet RxNorm: 276376 1 Tablet(s) PO QPM 12/31/2017 05/05/2018 Inactive 1/2 tab daily x 1 week then increase to a full tab mupirocin 2 % topica l ointment RxNorm: 109766 1 Application TOP BID 12/31/2017 01/09/2018 Inactive potassium chloride E R 20 mEq tablet,extended release RxNorm: 478338 TAKE ONE TABLET BY MOUTH ONCE DAILY IN THE MORNING 12/11/2017 No Stop Date Active hydrochlorothiazide 25 mg tablet RxNorm: 346048 TAKE ONE TABLET BY MO UTH ONCE DAILY IN THE MORNING 12/11/2017 No Stop Date Active Effexor XR 75 mg cap rashid,extended release RxNorm: 368240 1 Capsule(s) PO daily 12/09/2017 12/30/2017 In active permethrin 5 % topic al cream RxNorm: 137316 1 Application TOP onc e, may repeat in 14 days. 11/27/2017 01/06/2018 Inactive Xanax 1 mg tablet RxNorm: 252587 1 Tablet(s) PO QHS 09/30/2017 06/24/2018 Inactive citalopram 40 mg tablet RxNorm: 948595 TAKE ONE TABLET BY MOUTH ONCE DAILY IN T HE EVENING 08/05/2017 12/08/2017 Inactive Flagyl 500 mg tablet RxNorm: 295070 1 Tablet(s) PO TID 08/01/2017 08/05/2017 Inactive Xanax 1 mg tablet RxNorm: 787692 1 Tablet(s) PO QHS 07/05/2017 09/29/2017 Inactive Xanax 1 mg tablet RxNorm: 174062 TAKE ONE TABLET BY MOUTH ONCE DAILY AT B EDTIME 07/05/2017 03/31/2018 Inactive Zithromax Z-Cornell 250 mg tablet RxNorm: 354175 1 Tablet(s) PO UD 06/25/2017 07/04/2017 Inactive Trilipix 135 mg caps ule,delayed release RxNorm: 093510 1 Capsule(s) PO daily 05/22/2017 06/24/2018 In active triamcinolone aceton kaity 0.025 % topical cream RxNorm: 5557296 1 Application TOP BI D 05/15/2017 No Stop Date Active ketoconazole 2 % top ical cream RxNorm: 624316 1 TOP daily 05/15/2017 05/21/2017 Inactive Trilipix 135 mg caps ule,delayed release RxNorm: 778723 1 Capsule(s) PO daily 02/12/2017 05/21/2017 In active Trilipix 135 mg caps ule,delayed release RxNorm: 054945 1 Capsule(s) PO daily 02/12/2017 02/11/2017 In active acyclovir 800 mg tablet RxNorm: 923381 1 Tablet(s) PO QID 01/28/2017 02/06/2017 Inactive Fish Oil 1,000 mg ca psule RxNorm: 1 Capsule(s) PO BID 10/17/2016 02/13/2017 Inactive Fish Oil 1,000 mg ca psule RxNorm: 1 Capsule(s) PO BID 10/17/2016 10/16/2016 Inactive Vitamin D2 50,000 un it capsule RxNorm: 339004 1 Capsule(s) PO QW 10/17/2016 10/16/2016 Inactive Vitamin D3 2,000 uni t capsule RxNorm: 354263 1 Capsule(s) PO daily 10/17/2016 10/16/2016 Inactive Vitamin D2 50,000 un it capsule RxNorm: 809088 1 Capsule(s) PO QW 10/17/2016 01/14/2017 Inactive Vitamin D3 2,000 uni t capsule RxNorm: 814580 1 Capsule(s) PO daily 10/17/2016 01/14/2017 Inactive citalopram 40 mg tablet RxNorm: 959278 1 Tablet(s) PO QPM 10/08/2016 07/04/2017 Inactive potassium chloride E R 20 mEq tablet,extended release RxNorm: 979477 1 Tablet(s) PO QAM 10/08/2016 10/02/2017 Inactive hydrochlorothiazide 25 mg tablet RxNorm: 483428 1 Tablet(s) PO QAM 10/08/2016 10/02/2017 Inactive hydrochlorothiazide 25 mg tablet RxNorm: 098246 1 Tablet(s) PO QAM No Start Date 10/07/2016 Inactive Xanax 1 mg tablet RxNorm: 518155 1 Tablet(s) PO QHS et PRN as needed No Start Date 07/05/2017 Inactive citalopram 40 mg tablet RxNorm: 458613 1 Tablet(s) PO QPM No Start Date 10/07/2016 Inactive potassium chloride E R 20 mEq tablet,extended release RxNorm: 420541 1 Tablet(s) PO QAM No Start Date 10/07/2016 Inactive permethrin 5 % topic al cream RxNorm: 980300 1 Application TOP onc e, may repeat in 14 days. No Start Date 11/26/2017 Inactive Medication Administered No Medication Administered data Immunizations No Immunization data Assessments Condition Codes Effectiv e Dates Other allergic rhinitis ICD-10: J30. 89 ICD-9: [...] Visit Reason For Visit Effective Dates Notes chest pain/pressure 04/30/2018 depression 01/06/2018 depression 12/31/2017 [...] 30.0 pg 06/18/2018 Cbc With Differential Ord2 [place]% 6.0 % 06/18/2018 Cbc With Differential Ord2 [...] 2.01 K/ul 06/18/2018 Cbc With Differential Ord2 [place] ABS# 0.3 K/ul 06/18/2018 Cbc With Differential Ord2 Eos ABS# 0.3 K/ul 06/18/2018 Cbc With Differential Ord2 Baso ABS# 0.0 K/ul 06/18/2018 Comp Metabolic Zql628 NA 141 mEq/L 06/18/2018 Comp Metabolic Tms914 K 3.7 mEq/L 06/18/2018 Comp Metabolic Hgy543 CL 101 mEq/L 06/18/2018 Comp Metabolic Ikt385 CO2 31.0 mEq/L 06/18/2018 Comp Metabolic Xaw173 AN ION GAP 13 06/18/2018 Comp Metabolic Khl642 GL UCOSE 106 mg/dL 06/18/2018 Comp Metabolic Fmn260 Cr eat 0.9 mg/dL 06/18/2018 Comp Metabolic Cuq270 eG FR 68 ml/min/1.73m2 06/18 Comp Metabolic Whm716 BUN 16 mg/dL 06/18/2018 Comp Metabolic Oud785 B/ C Ratio 18.2 Ratio 06/18/2018 Comp Metabolic Vaw927 CA LCIUM 9.5 mg/dL 06/18/2018 Comp Metabolic Cqh035 AL K PHOS 82 U/L 06/18/2018 Comp Metabolic Ehd590 T(SGOT) 19 U/L 06/18/2018 Comp Metabolic Fku450 AL T(SGPT) 18 U/L 06/18/2018 Comp Metabolic Hxa443 BI LI T 0.5 mg/dL 06/18/2018 Comp Metabolic Ecl392 AL BUMIN 4.0 g/dL 06/18/2018 Comp Metabolic Lul684 TP RO 6.5 g/dL 06/18/2018 Comp Metabolic Nsb665 GL OB 2.5 g/dL 06/18/2018 Comp Metabolic Cdk421 A/ G Ratio 1.6 Ratio 06/18/2018 Comp Metabolic Rfv338 Os mo 283 mOsmo 06/18/2018 Tsh Ord6 TSH (3rd IS) 4.02 uIU/mL 06/18/2018 Lipid Ord30 CHOL 238 mg/dL 06/18/2018 Lipid Ord30 HDL 38.0 mg/dl 06/18/2018 Lipid Ord30 TRIG 369 mg/dL 06/18/2018 Lipid Ord30 LDL Unable to calculate Due to elevated trig lycerides mg/dL 06/18/2018 Lipid Ord30 C/HDL 6.3 Ratio 06/18/2018 Influenza A+B Flw283 Inf paul A+B Negative 06/18/2018 Free T4 Czg282 FREE T4 0.95 ng/dL 05/15/2017 Tsh Ord6 [...] 30.4 pg 05/15/2017 Cbc With Differential Ord2 [place]% 6.2 % 05/15/2017 Cbc With Differential Ord2 [...] 2.19 K/ul 05/15/2017 Cbc With Differential Ord2 [place] ABS# 0.4 K/ul 05/15/2017 Cbc With Differential Ord2 Eos ABS# 0.2 K/ul 05/15/2017 Cbc With Differential Ord2 Baso ABS# 0.0 K/ul 05/15/2017 Vitamin D 25 Oh Hrk1690 VITAMIN D, 25 HYDROXY 50.18 ng/mL 05/15/2017 Comp Metabolic Evn920 NA 141 mEq/L 05/15/2017 Comp Metabolic Hnb997 K 3.9 mEq/L 05/15/2017 Comp Metabolic Hhx795 CL 103 mEq/L 05/15/2017 Comp Metabolic Nnx342 CO2 29.0 mEq/L 05/15/2017 Comp Metabolic Ygs450 AN ION GAP 13 05/15/2017 Comp Metabolic Emz503 GL UCOSE 84 mg/dL 05/15/2017 Comp Metabolic Gof249 Cr eat 1.1 mg/dL 05/15/2017 Comp Metabolic Fzp404 eG FR 55 ml/min/1.73m2 05/15 Comp Metabolic Wmw132 BUN 19 mg/dL 05/15/2017 Comp Metabolic Txz333 B/ C Ratio 18.1 Ratio 05/15/2017 Comp Metabolic Ssq978 CA LCIUM 9.7 mg/dL 05/15/2017 Comp Metabolic Heb540 AL K PHOS 38 U/L 05/15/2017 Comp Metabolic Hpq035 T(SGOT) 21 U/L 05/15/2017 Comp Metabolic Hjd508 AL T(SGPT) 17 U/L 05/15/2017 Comp Metabolic Hiq602 BI LI T 0.4 mg/dL 05/15/2017 Comp Metabolic Jlt555 AL BUMIN 4.3 g/dL 05/15/2017 Comp Metabolic Ulh194 TP RO 6.5 g/dL 05/15/2017 Comp Metabolic Iff306 GL OB 2.3 g/dL 05/15/2017 Comp Metabolic Leg715 A/ G Ratio 1.9 Ratio 05/15/2017 Comp Metabolic Pvh524 Os mo 283 mOsmo 05/15/2017 Lipid Ord30 CHOL 231 mg/dL 01/18/2017 Lipid Ord30 HDL 48.0 mg/dl 01/18/2017 Lipid Ord30 TRIG 213 mg/dL 01/18/2017 Lipid Ord30 LDL 140 mg/dL 01/18/2017 Lipid Ord30 C/HDL 4.8 Ratio 01/18/2017 Vitamin D 25 Oh Wgw6689 VITAMIN D, 25 HYDROXY 33.28 ng/mL 10/10/2016 B12 Shw490 B12 377.00 pg/ml 10/10/2016 Comp Metabolic Ahn181 NA 142 mEq/L 10/10/2016 Comp Metabolic Vaw386 K 4.0 mEq/L 10/10/2016 Comp Metabolic Rfq415 CL 103 mEq/L 10/10/2016 Comp Metabolic Mtj380 CO2 29.0 mEq/L 10/10/2016 Comp Metabolic Tlg383 AN ION GAP 14 10/10/2016 Comp Metabolic Tey392 GL UCOSE 82 mg/dL 10/10/2016 Comp Metabolic Ycv237 Cr eat 0.8 mg/dL 10/10/2016 Comp Metabolic Wdv284 eG FR 77 ml/min/1.73m2 10/10 Comp Metabolic Gmi842 BUN 19 mg/dL 10/10/2016 Comp Metabolic Irm156 B/ C Ratio 24.1 Ratio 10/10/2016 Comp Metabolic Kzg967 CA LCIUM 9.8 mg/dL 10/10/2016 Comp Metabolic Smb569 AL K PHOS 87 U/L 10/10/2016 Comp Metabolic Pkq716 T(SGOT) 20 U/L 10/10/2016 Comp Metabolic Crq438 AL T(SGPT) 16 U/L 10/10/2016 Comp Metabolic Tdb956 BI LI T 0.5 mg/dL 10/10/2016 Comp Metabolic Qgk518 AL BUMIN 4.0 g/dL 10/10/2016 Comp Metabolic Rqo040 TP RO 6.7 g/dL 10/10/2016 Comp Metabolic Zdp356 GL OB 2.7 g/dL 10/10/2016 Comp Metabolic Qhc330 A/ G Ratio 1.5 Ratio 10/10/2016 Comp Metabolic Pdo186 Os mo 284 mOsmo 10/10/2016 Free T4 Lll481 FREE T4 0.68 ng/dL 10/10/2016 Cbc With [...] 30.6 pg 10/10/2016 Cbc With Differential Ord2 [place]% 5.2 % 10/10/2016 Cbc With Differential Ord2 [...] 2.11 K/ul 10/10/2016 Cbc With Differential Ord2 [place] ABS# 0.3 K/ul 10/10/2016 Cbc With Differential [...] Result Effective Dates Constitutional No recent illness 04/30/2018 Constitutional No [...] Dates Notes Full Exam - General 1994 Eyes conjunctiva/eyelids [...] 4: G0439 10/02/2017 Vital Signs Date Vital 04/30/2018 Blood Pressure 1: 128/64 Code: 8480-6 BMI: 41.3 Code: 55315-2 Heart Rate 1: 68 bpm Height: 5'5" SpO2: 96% Weight: 248 lbs 01/06/2018 Blood Pressure 1: 136/78 Code: 8480-6 Heart Rate 1: 71 bpm Height: 5'5" SpO2: 95% Weight: 12/31/2017 Blood Pressure 1: 134/76 Code: 8480-6 BMI: 39.8 Code: 98859-9 Heart Rate 1: 87 bpm Height: 5'5" SpO2: 97% Weight: 239 lbs 12/09/2017 Blood Pressure 1: 136/82 Code: 8480-6 BMI: 39.8 Code: 70951-4 Heart Rate 1: 73 bpm Height: 5'5" SpO2: 97% Weight: 239 lbs 10/02/2017 Blood Pressure 1: 130/72 Code: 8480-6 BMI: 39.4 Code: 02905-3 Heart Rate 1: 74 bpm Height: 5'5" SpO2: 93% Waist Measure (cm): 104 cm Weight: 237 lbs 08/01/2017 Blood Pressure 1: 132/74 Code: 8480-6 BMI: 39.3 Code: 36579-8 Heart Rate 1: 66 bpm Height: 5'5" SpO2: 92% Weight: 236 lbs 06/25/2017 Blood Pressure 1: 136/74 Code: 8480-6 BMI: 38.6 Code: 80391-0 Heart Rate 1: 61 bpm Height: 5'5" SpO2: 95% Weight: 232 lbs 05/15/2017 Blood Pressure 1: 143/76 Code: 8480-6 BMI: 38.6 Code: 60088-1 Heart Rate 1: 65 bpm Height: 5'5" SpO2: 97% Weight: 232 lbs 01/28/2017 Blood Pressure 1: 120/80 Code: 8480-6 BMI: 38.1 Code: 20387-3 Heart Rate 1: 55 bpm Height: 5'5" SpO2: 96% Weight: 229 lbs 10/08/2016 Blood Pressure 1: 130/74 Code: 8480-6 BMI: 36.9 Code: 99790-1 Heart Rate 1: 62 bpm Height: 5'5" SpO2: 92% Weight: 221 lbs 8 oz Functional Status No Functional Status data History of Present Illness Symptom Name Status Resu lt Effective Date Notes depression Quality chron ic 04/30/2018 None depression [...] when outdoors: y 10/02/2017 None hypothyroid Quality [place] 08/01/2017 None hypothyroid Onset and Resolution [...] right 06/25/2017 None neck swelling Quality ac [place] 06/25/2017 None neck swelling Onset and Resolution [...] Pertinent Findings itching 01/28/2017 None hypothyroid Quality blade [place] 10/08/2016 None hypothyroid Onset and Resolution [...] Loca tion Codes Date EST. PATIENT, LEVEL IV Diagnosis: Essential (primary) hypertension[ICD10: I10] Diagnosis: Major depressive disorder, recurrent, moderate[ICD10: F33.1] Diagnosis: Other allergic rhinitis[ICD10: J30.89] [facility] CPT-4: 18955 04/30/2018 ([id number] EST. P ATIENT, LEVEL III Diagnosis: Insect bite (nonvenomous), left lower leg, subsequent encounter[ICD10: S80.862D] Diagnosis: Insect bite (nonvenomous), right lower leg, subsequent encounter[ICD10: S80.861D] Stacie Milton MD, [facility] CPT-4: 08316 01/06/2018 ([id number]) 11618 EST. P ATIENT, LEVEL III Diagnosis: Rash and other nonspecific skin eruption[ICD10: R21] Diagnosis: Major depressive disorder, recurrent, moderate[ICD10: F33.1] Renetta Reese Milton MD, [facility] CPT-4: 49139 12/31/2017 ([id number]) 12100 EST. P ATIENT, LEVEL III Diagnosis: Essential (primary) hypertension[ICD10: I10] Diagnosis: Major depressive disorder, recurrent, moderate[ICD10: F33.1] Stacie Milton MD, [facility] CPT-4: 86088 12/09/2017 ([id number]) 20086 EST. P ATIENT, LEVEL IV Diagnosis: Atrophy of thyroid (acquired)[ICD10: E03.4] Diagnosis: Essential (primary) hypertension[ICD10: I10] Diagnosis: Other allergic rhinitis[ICD10: J30.89] Stacie Milton MD, [facility] CPT-4: 09852 08/01/2017 [id number] EST. PATIENT, LEVEL III Diagnosis: Other allergic rhinitis[ICD10: J30.89] Diagnosis: Otalgia, bilateral[ICD10: H92.03] Analisa Milton MD, [facility] CPT-4: 49003 06/25/2017 62288 EST. PATIENT, LEVEL III Diagnosis: Rash and other nonspecific skin eruption[ICD10: R21] Analisa Milton MD, [facility] CPT-4: 98565 05/15/2017 ([id number]) 76286 EST. P ATIENT, LEVEL III Diagnosis: Zoster without complications[ICD10: B02.9] Stacie Milton MD, [facility] CPT-4: 87338 01/28/2017 ([id number]) OFFICE VISI T, NEW - LEVEL 4 Diagnosis: Essential (primary) hypertension[ICD10: I10] Diagnosis: Bariatric surgery status[ICD10: Z98.84] Diagnosis: Atrophy of thyroid (acquired)[ICD10: E03.4] Diagnosis: Major depressive disorder, recurrent, moderate[ICD10: F33.1] [facility] CPT-4: 11192 10/08/2016 Plan of Care Planned Activity Notes [...] spray. 04/30/2018 [phone] ([facility] Moderate 04/30/2018 Patient Education: [...] outside. 01/06/2018 [phone] ([facility] Moderate 01/06/2018 Patient Education: [...] lexapro 12/31/2017 Appointment: Renetta Leigh WPtel: [phone] [facility] (15 min) Moderate 12/31/2017 Patient [...] venlafaxine. 12/09/2017 [phone] [facility] [place] (15 min) Moderate 12/09/2017 Patient [...] flagyl 08/01/2017 Appointment: Stacie Milton WPtel: [phone] [facility] (15 min) Moderate 08/01/2017 Patient Education: Patient [...] worsen. 06/25/2017 Appointment: Analisa Jin WPtel: [phone] [facility] (15 min) Moderate 06/25/2017 Patient Education: [...] discharge. 05/15/2017 Appointment: Analisa Jin WPtel: [phone] [facility] (15 min) Moderate 05/15/2017 Patient Education: [...] contagious. 01/28/2017 Appointment: Stacie Milton WPtel: [phone] [facility] (15 min) Moderate 01/28/2017 Patient Education: [...] supportive care. 10/08/2016 App[facility]ment[phone] [facility] [place] New Patient 10/08/2016 Patient Education: Patient [...] in the nasal steroid allergy spray. . Rash - not due to her [...] in cluding Vitamin D and TSH. Consider [place] [facility] for hypothyroidism Saline spray before using [...] in cluding Vitamin D and TSH. Consider [place] thyroid for hypothyroidism Saline spray before using [...]
--- OUTSIDE RECORDS SUMMARY | 2019-06-17 09:29 | XMS REPORT | CCD ---
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 05/05/2018 No Stop Date Active Xanax 1 mg tablet RxNorm: 796732 Tablet(s) TAKE ONE TABLET BY MOUTH ONCE DAILY AT BEDTIME 04/01/2018 No Stop Date Active Lexapro 20 mg tablet RxNorm: 376407 1 Tablet(s) PO QPM 12/31/2017 05/05/2018 Inactive 1/2 tab daily x 1 week then increase to a full tab mupirocin 2 % topica l ointment RxNorm: 413195 1 Application TOP BID 12/31/2017 01/09/2018 Inactive potassium chloride E R 20 mEq tablet,extended release RxNorm: 308880 TAKE ONE TABLET BY MOUTH ONCE DAILY IN THE MORNING 12/11/2017 No Stop Date Active hydrochlorothiazide 25 mg tablet RxNorm: 211025 TAKE ONE TABLET BY MO [facility] ONCE DAILY IN THE MORNING 12/11/2017 No Stop Date Active Effexor XR 75 mg cap rashid,extended release RxNorm: 700989 1 Capsule(s) PO daily 12/09/2017 12/30/2017 In active permethrin 5 % topic al cream RxNorm: 634339 1 Application TOP onc e, may repeat in 14 days. 11/27/2017 01/06/2018 Inactive Xanax 1 mg tablet RxNorm: 458198 1 Tablet(s) PO QHS 09/30/2017 06/24/2018 Inactive citalopram 40 mg tablet RxNorm: 292342 TAKE ONE TABLET BY MOUTH ONCE DAILY IN T HE EVENING 08/05/2017 12/08/2017 Inactive Flagyl 500 mg tablet RxNorm: 600860 1 Tablet(s) PO TID 08/01/2017 08/05/2017 Inactive Xanax 1 mg tablet RxNorm: 548425 1 Tablet(s) PO QHS 07/05/2017 09/29/2017 Inactive Xanax 1 mg tablet RxNorm: 630315 TAKE ONE TABLET BY MOUTH ONCE DAILY AT B EDTIME 07/05/2017 03/31/2018 Inactive Zithromax Z-Cornell 250 mg tablet RxNorm: 114741 1 Tablet(s) PO UD 06/25/2017 07/04/2017 Inactive Trilipix 135 mg caps ule,delayed release RxNorm: 931399 1 Capsule(s) PO daily 05/22/2017 06/24/2018 In active triamcinolone aceton kaity 0.025 % topical cream RxNorm: 3257476 1 Application TOP BI D 05/15/2017 No Stop Date Active ketoconazole 2 % top ical cream RxNorm: 268585 1 TOP daily 05/15/2017 05/21/2017 Inactive Trilipix 135 mg caps ule,delayed release RxNorm: 065636 1 Capsule(s) PO daily 02/12/2017 05/21/2017 In active Trilipix 135 mg caps ule,delayed release RxNorm: 623046 1 Capsule(s) PO daily 02/12/2017 02/11/2017 In active acyclovir 800 mg tablet RxNorm: 438741 1 Tablet(s) PO QID 01/28/2017 02/06/2017 Inactive Fish Oil 1,000 mg ca psule RxNorm: 1 Capsule(s) PO BID 10/17/2016 02/13/2017 Inactive Fish Oil 1,000 mg ca psule RxNorm: 1 Capsule(s) PO BID 10/17/2016 10/16/2016 Inactive Vitamin D2 50,000 un it capsule RxNorm: 057353 1 Capsule(s) PO QW 10/17/2016 10/16/2016 Inactive Vitamin D3 2,000 uni t capsule RxNorm: 569594 1 Capsule(s) PO daily 10/17/2016 10/16/2016 Inactive Vitamin D2 50,000 un it capsule RxNorm: 323862 1 Capsule(s) PO QW 10/17/2016 01/14/2017 Inactive Vitamin D3 2,000 uni t capsule RxNorm: 639106 1 Capsule(s) PO daily 10/17/2016 01/14/2017 Inactive citalopram 40 mg tablet RxNorm: 869831 1 Tablet(s) PO QPM 10/08/2016 07/04/2017 Inactive potassium chloride E R 20 mEq tablet,extended release RxNorm: 020888 1 Tablet(s) PO QAM 10/08/2016 10/02/2017 Inactive hydrochlorothiazide 25 mg tablet RxNorm: 973569 1 Tablet(s) PO QAM 10/08/2016 10/02/2017 Inactive hydrochlorothiazide 25 mg tablet RxNorm: 904311 1 Tablet(s) PO QAM No Start Date 10/07/2016 Inactive Xanax 1 mg tablet RxNorm: 574203 1 Tablet(s) PO QHS et PRN as needed No Start Date 07/05/2017 Inactive citalopram 40 mg tablet RxNorm: 237705 1 Tablet(s) PO QPM No Start Date 10/07/2016 Inactive potassium chloride E R 20 mEq tablet,extended release RxNorm: 461547 1 Tablet(s) PO QAM No Start Date 10/07/2016 Inactive permethrin 5 % topic al cream RxNorm: 475621 1 Application TOP onc e, may repeat [...] 30.0 pg 06/18/2018 Cbc With Differential Ord2 [place]% 6.0 % 06/18/2018 Cbc With Differential Ord2 [...] 2.01 K/ul 06/18/2018 Cbc With Differential Ord2 [place] ABS# 0.3 K/ul 06/18/2018 Cbc With Differential Ord2 Eos ABS# 0.3 K/ul 06/18/2018 Cbc With Differential Ord2 Baso ABS# 0.0 K/ul 06/18/2018 Comp Metabolic Apu235 NA 141 mEq/L 06/18/2018 Comp Metabolic Fgt921 K 3.7 mEq/L 06/18/2018 Comp Metabolic Bad001 CL 101 mEq/L 06/18/2018 Comp Metabolic Tnj947 CO2 31.0 mEq/L 06/18/2018 Comp Metabolic Rul071 AN ION GAP 13 06/18/2018 Comp Metabolic Acm963 GL UCOSE 106 mg/dL 06/18/2018 Comp Metabolic Pud570 Cr eat 0.9 mg/dL 06/18/2018 Comp Metabolic Whh293 eG FR 68 ml/min/1.73m2 06/18 Comp Metabolic Dgp726 BUN 16 mg/dL 06/18/2018 Comp Metabolic Otb761 B/ C Ratio 18.2 Ratio 06/18/2018 Comp Metabolic Zaf685 CA LCIUM 9.5 mg/dL 06/18/2018 Comp Metabolic Flm224 AL K PHOS 82 U/L 06/18/2018 Comp Metabolic Pfi812 T(SGOT) 19 U/L 06/18/2018 Comp Metabolic Ymz163 AL T(SGPT) 18 U/L 06/18/2018 Comp Metabolic Fxb277 BI LI T 0.5 mg/dL 06/18/2018 Comp Metabolic Yki614 AL BUMIN 4.0 g/dL 06/18/2018 Comp Metabolic Epp804 TP RO 6.5 g/dL 06/18/2018 Comp Metabolic Lvw751 GL OB 2.5 g/dL 06/18/2018 Comp Metabolic Ppv385 A/ G Ratio 1.6 Ratio 06/18/2018 Comp Metabolic Rtx105 Os mo 283 mOsmo 06/18/2018 Tsh Ord6 TSH (3rd IS) 4.02 uIU/mL 06/18/2018 Lipid Ord30 CHOL 238 mg/dL 06/18/2018 Lipid Ord30 HDL 38.0 mg/dl 06/18/2018 Lipid Ord30 TRIG 369 mg/dL 06/18/2018 Lipid Ord30 LDL Unable to calculate Due to elevated trig lycerides mg/dL 06/18/2018 Lipid Ord30 C/HDL 6.3 Ratio 06/18/2018 Influenza A+B Sdf669 Inf paul A+B Negative 06/18/2018 Free T4 Rmo192 FREE T4 0.95 ng/dL 05/15/2017 Tsh Ord6 [...] 30.4 pg 05/15/2017 Cbc With Differential Ord2 [place]% 6.2 % 05/15/2017 Cbc With Differential Ord2 [...] 2.19 K/ul 05/15/2017 Cbc With Differential Ord2 [place] ABS# 0.4 K/ul 05/15/2017 Cbc With Differential Ord2 Eos ABS# 0.2 K/ul 05/15/2017 Cbc With Differential Ord2 Baso ABS# 0.0 K/ul 05/15/2017 Vitamin D 25 Oh Bak4165 VITAMIN D, 25 HYDROXY 50.18 ng/mL 05/15/2017 Comp Metabolic Vlh421 NA 141 mEq/L 05/15/2017 Comp Metabolic Geu515 K 3.9 mEq/L 05/15/2017 Comp Metabolic Jyn752 CL 103 mEq/L 05/15/2017 Comp Metabolic Wre925 CO2 29.0 mEq/L 05/15/2017 Comp Metabolic Gqv656 AN ION GAP 13 05/15/2017 Comp Metabolic Fjn949 GL UCOSE 84 mg/dL 05/15/2017 Comp Metabolic Cyc674 Cr eat 1.1 mg/dL 05/15/2017 Comp Metabolic Sxo238 eG FR 55 ml/min/1.73m2 05/15 Comp Metabolic Bus669 BUN 19 mg/dL 05/15/2017 Comp Metabolic Cby071 B/ C Ratio 18.1 Ratio 05/15/2017 Comp Metabolic Hmg981 CA LCIUM 9.7 mg/dL 05/15/2017 Comp Metabolic Ahz200 AL K PHOS 38 U/L 05/15/2017 Comp Metabolic Pig998 T(SGOT) 21 U/L 05/15/2017 Comp Metabolic Hvn770 AL T(SGPT) 17 U/L 05/15/2017 Comp Metabolic Mit871 BI LI T 0.4 mg/dL 05/15/2017 Comp Metabolic Msy748 AL BUMIN 4.3 g/dL 05/15/2017 Comp Metabolic Cel188 TP RO 6.5 g/dL 05/15/2017 Comp Metabolic Uaz505 GL OB 2.3 g/dL 05/15/2017 Comp Metabolic Hlx679 A/ G Ratio 1.9 Ratio 05/15/2017 Comp Metabolic Ozc978 Os mo 283 mOsmo 05/15/2017 Lipid Ord30 CHOL 231 mg/dL 01/18/2017 Lipid Ord30 HDL 48.0 mg/dl 01/18/2017 Lipid Ord30 TRIG 213 mg/dL 01/18/2017 Lipid Ord30 LDL 140 mg/dL 01/18/2017 Lipid Ord30 C/HDL 4.8 Ratio 01/18/2017 Vitamin D 25 Oh Mby4395 VITAMIN D, 25 HYDROXY 33.28 ng/mL 10/10/2016 B12 Asr072 B12 377.00 pg/ml 10/10/2016 Comp Metabolic Fio301 NA 142 mEq/L 10/10/2016 Comp Metabolic Nem036 K 4.0 mEq/L 10/10/2016 Comp Metabolic Qko224 CL 103 mEq/L 10/10/2016 Comp Metabolic Gbt822 CO2 29.0 mEq/L 10/10/2016 Comp Metabolic Fcw257 AN ION GAP 14 10/10/2016 Comp Metabolic Ths746 GL UCOSE 82 mg/dL 10/10/2016 Comp Metabolic Pxm774 Cr eat 0.8 mg/dL 10/10/2016 Comp Metabolic Drv903 eG FR 77 ml/min/1.73m2 10/10 Comp Metabolic Vix938 BUN 19 mg/dL 10/10/2016 Comp Metabolic Dsr309 B/ C Ratio 24.1 Ratio 10/10/2016 Comp Metabolic Teg384 CA LCIUM 9.8 mg/dL 10/10/2016 Comp Metabolic Kyt980 AL K PHOS 87 U/L 10/10/2016 Comp Metabolic Ohl736 T(SGOT) 20 U/L 10/10/2016 Comp Metabolic Gay338 AL T(SGPT) 16 U/L 10/10/2016 Comp Metabolic Kej956 BI LI T 0.5 mg/dL 10/10/2016 Comp Metabolic Dwx860 AL BUMIN 4.0 g/dL 10/10/2016 Comp Metabolic Xgn190 TP RO 6.7 g/dL 10/10/2016 Comp Metabolic Tkq819 GL OB 2.7 g/dL 10/10/2016 Comp Metabolic Pud304 A/ G Ratio 1.5 Ratio 10/10/2016 Comp Metabolic Nyv245 Os mo 284 mOsmo 10/10/2016 Free T4 Wjd863 FREE T4 0.68 ng/dL 10/10/2016 Cbc With [...] 30.6 pg 10/10/2016 Cbc With Differential Ord2 [place]% 5.2 % 10/10/2016 Cbc With Differential Ord2 [...] 2.11 K/ul 10/10/2016 Cbc With Differential Ord2 [place] ABS# 0.3 K/ul 10/10/2016 Cbc With Differential [...] auscultation Overall: breath sounds clear bilaterally 12/31/2017 Full Exam - General 1994 Respiratory respiratory [...] 1: 128/64 Code: 8480-6 BMI: 41.3 Code: 37532-6 Heart Rate 1: 68 bpm Height: 5'5" SpO2: 96% Weight: 248 lbs 01/06/2018 Blood Pressure 1: 136/78 Code: 8480-6 Heart Rate 1: 71 bpm Height: 5'5" SpO2: 95% Weight: 12/31/2017 Blood Pressure 1: 134/76 Code: 8480-6 BMI: 39.8 Code: 43287-5 Heart Rate 1: 87 bpm Height: 5'5" SpO2: 97% Weight: 239 lbs 12/09/2017 Blood Pressure 1: 136/82 Code: 8480-6 BMI: 39.8 Code: 10167-1 Heart Rate 1: 73 bpm Height: 5'5" SpO2: 97% Weight: 239 lbs 10/02/2017 Blood Pressure 1: 130/72 Code: 8480-6 BMI: 39.4 Code: 60011-8 Heart Rate 1: 74 bpm Height: 5'5" SpO2: 93% Waist Measure (cm): 104 cm Weight: 237 lbs 08/01/2017 Blood Pressure 1: 132/74 Code: 8480-6 BMI: 39.3 Code: 88569-1 Heart Rate 1: 66 bpm Height: 5'5" SpO2: 92% Weight: 236 lbs 06/25/2017 Blood Pressure 1: 136/74 Code: 8480-6 BMI: 38.6 Code: 32314-4 Heart Rate 1: 61 bpm Height: 5'5" SpO2: 95% Weight: 232 lbs 05/15/2017 Blood Pressure 1: 143/76 Code: 8480-6 BMI: 38.6 Code: 46151-4 Heart Rate 1: 65 bpm Height: 5'5" SpO2: 97% Weight: 232 lbs 01/28/2017 Blood Pressure 1: 120/80 Code: 8480-6 BMI: 38.1 Code: 71616-9 Heart Rate 1: 55 bpm Height: 5'5" SpO2: 96% Weight: 229 lbs 10/08/2016 Blood Pressure 1: 130/74 Code: 8480-6 BMI: 36.9 Code: 45137-9 Heart Rate 1: 62 bpm Height: 5'5" [...] when outdoors: y 10/02/2017 None hypothyroid 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 P ATIENT, LEVEL III Diagnosis: Insect bite (nonvenomous), left lower leg, subsequent encounter[ICD10: S80.862D] Diagnosis: Insect bite (nonvenomous), right lower leg, subsequent encounter[ICD10: S80.861D] [facility] CPT-4: 92138 01/06/2018 ([id number]) 87368 EST. P ATIENT, LEVEL III Diagnosis: Rash and other nonspecific skin eruption[ICD10: R21] Diagnosis: Major depressive disorder, recurrent, moderate[ICD10: F33.1] Renetta Milton MD, [facility] CPT-4: 36321 12/31/2017 ([id number]) 36791 EST. P ATIENT, LEVEL III Diagnosis: Essential (primary) hypertension[ICD10: I10] Diagnosis: Major depressive disorder, recurrent, moderate[ICD10: F33.1] Stacie Milton MD, [facility] CPT-4: 58222 12/09/2017 ([id number]) 96506 EST. P ATIENT, LEVEL IV Diagnosis: Atrophy of thyroid (acquired)[ICD10: E03.4] Diagnosis: Essential (primary) hypertension[ICD10: I10] Diagnosis: Other allergic rhinitis[ICD10: J30.89] Stacie Milton MD, [facility] CPT-4: 37801 08/01/2017 [id number] EST. PATIENT, LEVEL III Diagnosis: Other allergic rhinitis[ICD10: J30.89] Diagnosis: Otalgia, bilateral[ICD10: H92.03] Analisa Milton MD, [facility] CPT-4: 82498 06/25/2017 [id number] EST. PATIENT, LEVEL III Diagnosis: Rash and other nonspecific skin eruption[ICD10: R21] Analisa Milton MD, [facility] CPT-4: 52538 05/15/2017 ([id number]) 30721 EST. P ATIENT, LEVEL III Diagnosis: Zoster without complications[ICD10: B02.9] Stacie Milton MD [facility] CPT-4: 25613 01/28/2017 ([id number]) OFFICE VISI T, NEW - LEVEL 4 Diagnosis: Essential (primary) hypertension[ICD10: I10] Diagnosis: Bariatric surgery status[ICD10: Z98.84] Diagnosis: Atrophy of thyroid (acquired)[ICD10: E03.4] Diagnosis: Major depressive disorder, recurrent, moderate[ICD10: F33.1] Stacie Milton MD, [facility] CPT-4: 51440 10/08/2016 Plan of Care Planned Activity Notes [...] allergy spray. 04/30/2018 [phone] [facility] ([facility]) Moderate 04/30/2018 Patient Education: Patient [...] outside. 01/06/2018 [phone] [facility] ([facility]) Moderate 01/06/2018 Patient Education: Patient [...] lexapro 12/31/2017 Appointment: Renetta Leigh WPtel: [phone] [id number] (15 min) Moderate 12/31/2017 Patient Education: [...] venlafaxine. 12/09/2017 Appointment: Stacie Milton WPtel: [phone] [facility] (15 min) Moderate 12/09/2017 Patient Education: [...] for flagyl 08/01/2017 Appointment: Stacie Milton WPtel: [facility] [address] (15 min) Moderate 08/01/2017 Patient Education: [...] acutely worsen. 06/25/2017 Appointment: Analisa Jin WPtel: [facility] (15 min) Moderate 06/25/2017 Patient Education: [...] warmth, discharge. 05/15/2017 Appointment: Analisa Jin WPtel: [facility] (15 min) Moderate 05/15/2017 Patient Education: [...] contagious. 01/28/2017 [phone] [facility] ([facility] min) Moderate 01/28/2017 Patient Education: Patient [...] care. 10/08/2016 App[facility]ment[phone] [facility] [place] New [facility] 10/08/2016 Patient Education: Patient [...] in cluding Vitamin D and TSH. Consider [place] thyroid for hypothyroidism Saline spray before using [...] in cluding Vitamin D and TSH. Consider [place] thyroid for hypothyroidism Saline spray before using [...]
--- OUTSIDE RECORDS SUMMARY | 2019-06-17 09:29 | XMS REPORT | CCD ---
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 05/05/2018 No Stop Date Active Xanax 1 mg tablet RxNorm: 807459 Tablet(s) TAKE ONE TABLET BY MOUTH ONCE DAILY AT BEDTIME 04/01/2018 No Stop Date Active Lexapro 20 mg tablet RxNorm: 020635 1 Tablet(s) PO QPM 12/31/2017 05/05/2018 Inactive 1/2 tab daily x 1 week then increase to a full tab mupirocin 2 % topica l ointment RxNorm: 183137 1 Application TOP BID 12/31/2017 01/09/2018 Inactive potassium chloride E R 20 mEq tablet,extended release RxNorm: 522247 TAKE ONE TABLET BY MOUTH ONCE DAILY IN THE MORNING 12/11/2017 No Stop Date Active hydrochlorothiazide 25 mg tablet RxNorm: 346738 TAKE ONE TABLET BY MO UTH ONCE DAILY IN THE MORNING 12/11/2017 No Stop Date Active Effexor XR 75 mg cap rashid,extended release RxNorm: 963249 1 Capsule(s) PO daily 12/09/2017 12/30/2017 In active permethrin 5 % topic al cream RxNorm: 376815 1 Application TOP onc e, may repeat in 14 days. 11/27/2017 01/06/2018 Inactive Xanax 1 mg tablet RxNorm: 434016 1 Tablet(s) PO QHS 09/30/2017 03/28/2018 Inactive citalopram 40 mg tablet RxNorm: 060784 TAKE ONE TABLET BY MOUTH ONCE DAILY IN T HE EVENING 08/05/2017 12/08/2017 Inactive Flagyl 500 mg tablet RxNorm: 834072 1 Tablet(s) PO TID 08/01/2017 08/05/2017 Inactive Xanax 1 mg tablet RxNorm: 806875 1 Tablet(s) PO QHS 07/05/2017 09/29/2017 Inactive Xanax 1 mg tablet RxNorm: 059514 TAKE ONE TABLET BY MOUTH ONCE DAILY AT B EDTIME 07/05/2017 03/31/2018 Inactive Zithromax Z-Cornell 250 mg tablet RxNorm: 366531 1 Tablet(s) PO UD 06/25/2017 07/04/2017 Inactive Trilipix 135 mg caps ule,delayed release RxNorm: 446060 1 Capsule(s) PO daily 05/22/2017 12/17/2017 In active triamcinolone aceton kaity 0.025 % topical cream RxNorm: 3821528 1 Application TOP BI D 05/15/2017 No Stop Date Active ketoconazole 2 % top ical cream RxNorm: 077828 1 TOP daily 05/15/2017 05/21/2017 Inactive Trilipix 135 mg caps ule,delayed release RxNorm: 295932 1 Capsule(s) PO daily 02/12/2017 05/21/2017 In active Trilipix 135 mg caps ule,delayed release RxNorm: 818476 1 Capsule(s) PO daily 02/12/2017 02/11/2017 In active acyclovir 800 mg tablet RxNorm: 641587 1 Tablet(s) PO QID 01/28/2017 02/06/2017 Inactive Fish Oil 1,000 mg ca psule RxNorm: 1 Capsule(s) PO BID 10/17/2016 02/13/2017 Inactive Fish Oil 1,000 mg ca psule RxNorm: 1 Capsule(s) PO BID 10/17/2016 10/16/2016 Inactive Vitamin D2 50,000 un it capsule RxNorm: 683698 1 Capsule(s) PO QW 10/17/2016 10/16/2016 Inactive Vitamin D3 2,000 uni t capsule RxNorm: 620854 1 Capsule(s) PO daily 10/17/2016 10/16/2016 Inactive Vitamin D2 50,000 un it capsule RxNorm: 936110 1 Capsule(s) PO QW 10/17/2016 01/14/2017 Inactive Vitamin D3 2,000 uni t capsule RxNorm: 266116 1 Capsule(s) PO daily 10/17/2016 01/14/2017 Inactive citalopram 40 mg tablet RxNorm: 297884 1 Tablet(s) PO QPM 10/08/2016 07/04/2017 Inactive potassium chloride E R 20 mEq tablet,extended release RxNorm: 404306 1 Tablet(s) PO QAM 10/08/2016 10/02/2017 Inactive hydrochlorothiazide 25 mg tablet RxNorm: 474560 1 Tablet(s) PO QAM 10/08/2016 10/02/2017 Inactive hydrochlorothiazide 25 mg tablet RxNorm: 869897 1 Tablet(s) PO QAM No Start Date 10/07/2016 Inactive Xanax 1 mg tablet RxNorm: 750379 1 Tablet(s) PO QHS et PRN as needed No Start Date 07/05/2017 Inactive citalopram 40 mg tablet RxNorm: 760553 1 Tablet(s) PO QPM No Start Date 10/07/2016 Inactive potassium chloride E R 20 mEq tablet,extended release RxNorm: 072893 1 Tablet(s) PO QAM No Start Date 10/07/2016 Inactive permethrin 5 % topic al cream RxNorm: 885380 1 Application TOP onc e, may repeat [...] 30.0 pg 06/18/2018 Cbc With Differential Ord2 Yancey% 6.0 % 06/18/2018 Cbc With Differential Ord2 [...] 2.01 K/ul 06/18/2018 Cbc With Differential Ord2 Yancey ABS# 0.3 K/ul 06/18/2018 Cbc With Differential Ord2 Eos ABS# 0.3 K/ul 06/18/2018 Cbc With Differential Ord2 Baso ABS# 0.0 K/ul 06/18/2018 Free T4 Ahi094 FREE T4 0.95 ng/dL 05/15/2017 Tsh Ord6 [...] 30.4 pg 05/15/2017 Cbc With Differential Ord2 Yancey% 6.2 % 05/15/2017 Cbc With Differential Ord2 [...] 2.19 K/ul 05/15/2017 Cbc With Differential Ord2 Yancey ABS# 0.4 K/ul 05/15/2017 Cbc With Differential Ord2 Eos ABS# 0.2 K/ul 05/15/2017 Cbc With Differential Ord2 Baso ABS# 0.0 K/ul 05/15/2017 Vitamin D 25 Oh Adi0842 VITAMIN D, 25 HYDROXY 50.18 ng/mL 05/15/2017 Comp Metabolic Lou536 NA 141 mEq/L 05/15/2017 Comp Metabolic Qjc658 K 3.9 mEq/L 05/15/2017 Comp Metabolic Rne150 CL 103 mEq/L 05/15/2017 Comp Metabolic Flw866 CO2 29.0 mEq/L 05/15/2017 Comp Metabolic Hus037 AN ION GAP 13 05/15/2017 Comp Metabolic Fkr069 GL UCOSE 84 mg/dL 05/15/2017 Comp Metabolic Vet445 Cr eat 1.1 mg/dL 05/15/2017 Comp Metabolic Vdr982 eG FR 55 ml/min/1.73m2 05/15 Comp Metabolic Isv442 BUN 19 mg/dL 05/15/2017 Comp Metabolic Tsc881 B/ C Ratio 18.1 Ratio 05/15/2017 Comp Metabolic Gqr979 CA LCIUM 9.7 mg/dL 05/15/2017 Comp Metabolic Eyz450 AL K PHOS 38 U/L 05/15/2017 Comp Metabolic Ymz974 T(SGOT) 21 U/L 05/15/2017 Comp Metabolic Lsh183 AL T(SGPT) 17 U/L 05/15/2017 Comp Metabolic Zbi584 BI LI T 0.4 mg/dL 05/15/2017 Comp Metabolic Lds696 AL BUMIN 4.3 g/dL 05/15/2017 Comp Metabolic Mut043 TP RO 6.5 g/dL 05/15/2017 Comp Metabolic Xao340 GL OB 2.3 g/dL 05/15/2017 Comp Metabolic Izx251 A/ G Ratio 1.9 Ratio 05/15/2017 Comp Metabolic Ukb209 Os mo 283 mOsmo 05/15/2017 Lipid Ord30 CHOL 231 mg/dL 01/18/2017 Lipid Ord30 HDL 48.0 mg/dl 01/18/2017 Lipid Ord30 TRIG 213 mg/dL 01/18/2017 Lipid Ord30 LDL 140 mg/dL 01/18/2017 Lipid Ord30 C/HDL 4.8 Ratio 01/18/2017 Vitamin D 25 Oh Igg8950 VITAMIN D, 25 HYDROXY 33.28 ng/mL 10/10/2016 B12 Bcl086 B12 377.00 pg/ml 10/10/2016 Comp Metabolic Dbf758 NA 142 mEq/L 10/10/2016 Comp Metabolic Typ041 K 4.0 mEq/L 10/10/2016 Comp Metabolic Bjq604 CL 103 mEq/L 10/10/2016 Comp Metabolic Iqc310 CO2 29.0 mEq/L 10/10/2016 Comp Metabolic Zsv912 AN ION GAP 14 10/10/2016 Comp Metabolic Ktl029 GL UCOSE 82 mg/dL 10/10/2016 Comp Metabolic Zvb307 Cr eat 0.8 mg/dL 10/10/2016 Comp Metabolic Irv649 eG FR 77 ml/min/1.73m2 10/10 Comp Metabolic Pcg346 BUN 19 mg/dL 10/10/2016 Comp Metabolic Nbn949 B/ C Ratio 24.1 Ratio 10/10/2016 Comp Metabolic Yiz410 CA LCIUM 9.8 mg/dL 10/10/2016 Comp Metabolic Qvv781 AL K PHOS 87 U/L 10/10/2016 Comp Metabolic Lze070 T(SGOT) 20 U/L 10/10/2016 Comp Metabolic Kis174 AL T(SGPT) 16 U/L 10/10/2016 Comp Metabolic Sid843 BI LI T 0.5 mg/dL 10/10/2016 Comp Metabolic Gkp178 AL BUMIN 4.0 g/dL 10/10/2016 Comp Metabolic Uyo111 TP RO 6.7 g/dL 10/10/2016 Comp Metabolic Ndd297 GL OB 2.7 g/dL 10/10/2016 Comp Metabolic Lct212 A/ G Ratio 1.5 Ratio 10/10/2016 Comp Metabolic Qvn446 Os mo 284 mOsmo 10/10/2016 Free T4 Yqh937 FREE T4 0.68 ng/dL 10/10/2016 Cbc With Differential Ord2 WBC 5.53 K/ul 10/10/2016 Cbc With Differential Ord2 RBC 4.28 M/ul 10/10/2016 Cbc With Differential Ord2 HGB 13.1 g/dl 10/10/2016 Cbc With Differential Ord2 Neut% 48.6 % 10/10/2016 Cbc With Differential Ord2 HCT 39.7 % 10/10/2016 Cbc With Differential Ord2 MCV 92.8 fl 10/10/2016 Cbc With Differential Ord2 Lymph% 38.2 % 10/10/2016 Cbc With Differential Ord2 Yancey% 5.2 % 10/10/2016 Cbc With Differential Ord2 MCH 30.6 pg 10/10/2016 Cbc With Differential Ord2 Eos% 7.8 % 10/10/2016 Cbc With Differential Ord2 MCHC 33.0 pg 10/10/2016 Cbc With Differential Ord2 Baso% 0.2 % 10/10/2016 Cbc With Differential Ord2 PLT 229 K/ul 10/10/2016 Cbc With Differential Ord2 RDW 14.6 % 10/10/2016 Cbc With Differential Ord2 Neut ABS# 2.69 K/ul 10/10/2016 Cbc With Differential Ord2 Lymph ABS# 2.11 K/ul 10/10/2016 Cbc With Differential Ord2 Yancey ABS# 0.3 K/ul 10/10/2016 Cbc With Differential [...] Dates Notes Full Exam - General 1995 Eyes conjunctiva/eyelids [...] 1: 128/64 Code: 8480-6 BMI: 41.3 Code: 41456-7 Heart Rate 1: 68 bpm Height: 5'5" SpO2: 96% Weight: 248 lbs 01/06/2018 Blood Pressure 1: 136/78 Code: 8480-6 Heart Rate 1: 71 bpm Height: 5'5" SpO2: 95% Weight: 12/31/2017 Blood Pressure 1: 134/76 Code: 8480-6 BMI: 39.8 Code: 55768-4 Heart Rate 1: 87 bpm Height: 5'5" SpO2: 97% Weight: 239 lbs 12/09/2017 Blood Pressure 1: 136/82 Code: 8480-6 BMI: 39.8 Code: 70228-9 Heart Rate 1: 73 bpm Height: 5'5" SpO2: 97% Weight: 239 lbs 10/02/2017 Blood Pressure 1: 130/72 Code: 8480-6 BMI: 39.4 Code: 25413-4 Heart Rate 1: 74 bpm Height: 5'5" SpO2: 93% Waist Measure (cm): 104 cm Weight: 237 lbs 08/01/2017 Blood Pressure 1: 132/74 Code: 8480-6 BMI: 39.3 Code: 33885-9 Heart Rate 1: 66 bpm Height: 5'5" SpO2: 92% Weight: 236 lbs 06/25/2017 Blood Pressure 1: 136/74 Code: 8480-6 BMI: 38.6 Code: 75012-3 Heart Rate 1: 61 bpm Height: 5'5" SpO2: 95% Weight: 232 lbs 05/15/2017 Blood Pressure 1: 143/76 Code: 8480-6 BMI: 38.6 Code: 20938-9 Heart Rate 1: 65 bpm Height: 5'5" SpO2: 97% Weight: 232 lbs 01/28/2017 Blood Pressure 1: 120/80 Code: 8480-6 BMI: 38.1 Code: 91552-6 Heart Rate 1: 55 bpm Height: 5'5" SpO2: 96% Weight: 229 lbs 10/08/2016 Blood Pressure 1: 130/74 Code: 8480-6 BMI: 36.9 Code: 85541-7 Heart Rate 1: 62 bpm Height: 5'5" [...] when outdoors: y 10/02/2017 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 P ATIENT, LEVEL III Diagnosis: Insect bite (nonvenomous), left lower leg, subsequent encounter[ICD10: S80.862D] Diagnosis: Insect bite (nonvenomous), right lower leg, subsequent encounter[ICD10: S80.861D] [facility] CPT-4: 93560 01/06/2018 [id number]) 27598 EST. P ATIENT, LEVEL III Diagnosis: Rash and other nonspecific skin eruption[ICD10: R21] Diagnosis: Major depressive disorder, recurrent, moderate[ICD10: F33.1] Renetta Milton MD, [facility] CPT-4: 71641 12/31/2017 ([id number]) 24618 EST. P ATIENT, LEVEL III Diagnosis: Essential (primary) hypertension[ICD10: I10] Diagnosis: Major depressive disorder, recurrent, moderate[ICD10: F33.1] Stacie Milton MD, [facility] CPT-4: 42854 12/09/2017 ([id number]) 37167 EST. P ATIENT, LEVEL IV Diagnosis: Atrophy of thyroid (acquired)[ICD10: E03.4] Diagnosis: Essential (primary) hypertension[ICD10: I10] Diagnosis: Other allergic rhinitis[ICD10: J30.89] Stacie Milton MD, [facility] CPT-4: 12870 08/01/2017 [id number] EST. PATIENT, LEVEL III Diagnosis: Other allergic rhinitis[ICD10: J30.89] Diagnosis: Otalgia, bilateral[ICD10: H92.03] Analisa Milton MD, [facility] CPT-4: 89777 06/25/2017 62632 EST. PATIENT, LEVEL III Diagnosis: Rash and other nonspecific skin eruption[ICD10: R21] Analisa Milton MD, [facility] CPT-4: 09159 05/15/2017 ([id number]) 86356 EST. P ATIENT, LEVEL III Diagnosis: Zoster without complications[ICD10: B02.9] Stacie Milton MD [facility] CPT-4: 26813 01/28/2017 ([id number]) OFFICE VISI T, NEW - LEVEL 4 Diagnosis: Essential (primary) hypertension[ICD10: I10] Diagnosis: Bariatric surgery status[ICD10: Z98.84] Diagnosis: Atrophy of thyroid (acquired)[ICD10: E03.4] Diagnosis: Major depressive disorder, recurrent, moderate[ICD10: F33.1] Stacie Milton MD, [facility] CPT-4: 49448 10/08/2016 Plan of Care Planned Activity Notes [...] spray. 04/30/2018 Appointment: Anal[facility] [phone] [facility] (15 min) Moderate 04/30/2018 Patient Education: Patient [...] outside. 01/06/2018 [phone] ([facility]) Moderate 01/06/2018 Patient Education: [...] -start lexapro 12/31/2017 Appointment: Renetta Leigh WPtel: [phone] [facility] (15 min) Moderate 12/31/2017 Patient Education: [...] venlafaxine. 12/09/2017 Appointment: Stacie Milton WPtel: [phone] [facility] (15 min) Moderate 12/09/2017 Patient Education: Patient [...] for flagyl 08/01/2017 Appointment: Stacie Milton WPtel: [facility] (15 min) [...] worsen. 06/25/2017 Appointment: Analisa Jin WPtel: [phone] [facility] (15 min) Moderate 06/25/2017 Patient Education: Patient [...] warmth, discharge. 05/15/2017 Appointment: Analisa Jin WPtel: [facility] [place] (15 min) Moderate 05/15/2017 Patient Education: [...] considered contagious. 01/28/2017 App[facility]ment: [facility] [phone] [facility] ([facility] min) Moderate 01/28/2017 Patient Education: [...] care. 10/08/2016 App[facility]ment: [facility] [phone] [facility] [place] New Patient 10/08/2016 Patient Education: [...] in cluding Vitamin D and TSH. Consider Mazon thyroid for hypothyroidism Saline spray before using [...] in cluding Vitamin D and TSH. Consider Mazon thyroid for hypothyroidism Saline spray before using [...]
--- OUTSIDE RECORDS SUMMARY | 2019-06-17 09:30 | XMS REPORT | CCD ---
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 05/05/2018 No Stop Date Active Xanax 1 mg tablet RxNorm: 536300 Tablet(s) TAKE ONE TABLET BY MOUTH ONCE DAILY AT BEDTIME 04/01/2018 No Stop Date Active Lexapro 20 mg tablet RxNorm: 536229 1 Tablet(s) PO QPM 12/31/2017 05/05/2018 Inactive 1/2 tab daily x 1 week then increase to a full tab mupirocin 2 % topica l ointment RxNorm: 141819 1 Application TOP BID 12/31/2017 01/09/2018 Inactive potassium chloride E R 20 mEq tablet,extended release RxNorm: 114041 TAKE ONE TABLET BY MOUTH ONCE DAILY IN THE MORNING 12/11/2017 No Stop Date Active hydrochlorothiazide 25 mg tablet RxNorm: 035813 TAKE ONE TABLET BY MO UTH ONCE DAILY IN THE MORNING 12/11/2017 No Stop Date Active Effexor XR 75 mg cap rashid,extended release RxNorm: 140075 1 Capsule(s) PO daily 12/09/2017 12/30/2017 In active permethrin 5 % topic al cream RxNorm: 193949 1 Application TOP onc e, may repeat in 14 days. 11/27/2017 01/06/2018 Inactive Xanax 1 mg tablet RxNorm: 497089 1 Tablet(s) PO QHS 09/30/2017 03/28/2018 Inactive citalopram 40 mg tablet RxNorm: 039934 TAKE ONE TABLET BY MOUTH ONCE DAILY IN T HE EVENING 08/05/2017 12/08/2017 Inactive Flagyl 500 mg tablet RxNorm: 480398 1 Tablet(s) PO TID 08/01/2017 08/05/2017 Inactive Xanax 1 mg tablet RxNorm: 259044 1 Tablet(s) PO QHS 07/05/2017 09/29/2017 Inactive Xanax 1 mg tablet RxNorm: 314500 TAKE ONE TABLET BY MOUTH ONCE DAILY AT B EDTIME 07/05/2017 03/31/2018 Inactive Zithromax Z-Cornell 250 mg tablet RxNorm: 081317 1 Tablet(s) PO UD 06/25/2017 07/04/2017 Inactive Trilipix 135 mg caps ule,delayed release RxNorm: 366299 1 Capsule(s) PO daily 05/22/2017 12/17/2017 In active triamcinolone aceton kaity 0.025 % topical cream RxNorm: 4991507 1 Application TOP BI D 05/15/2017 No Stop Date Active ketoconazole 2 % top ical cream RxNorm: 679127 1 TOP daily 05/15/2017 05/21/2017 Inactive Trilipix 135 mg caps ule,delayed release RxNorm: 516336 1 Capsule(s) PO daily 02/12/2017 05/21/2017 In active Trilipix 135 mg caps ule,delayed release RxNorm: 226660 1 Capsule(s) PO daily 02/12/2017 02/11/2017 In active acyclovir 800 mg tablet RxNorm: 294297 1 Tablet(s) PO QID 01/28/2017 02/06/2017 Inactive Fish Oil 1,000 mg ca psule RxNorm: 1 Capsule(s) PO BID 10/17/2016 02/13/2017 Inactive Fish Oil 1,000 mg ca psule RxNorm: 1 Capsule(s) PO BID 10/17/2016 10/16/2016 Inactive Vitamin D2 50,000 un it capsule RxNorm: 571551 1 Capsule(s) PO QW 10/17/2016 10/16/2016 Inactive Vitamin D3 2,000 uni t capsule RxNorm: 247762 1 Capsule(s) PO daily 10/17/2016 10/16/2016 Inactive Vitamin D2 50,000 un it capsule RxNorm: 360020 1 Capsule(s) PO QW 10/17/2016 01/14/2017 Inactive Vitamin D3 2,000 uni t capsule RxNorm: 208527 1 Capsule(s) PO daily 10/17/2016 01/14/2017 Inactive citalopram 40 mg tablet RxNorm: 214432 1 Tablet(s) PO QPM 10/08/2016 07/04/2017 Inactive potassium chloride E R 20 mEq tablet,extended release RxNorm: 861413 1 Tablet(s) PO QAM 10/08/2016 10/02/2017 Inactive hydrochlorothiazide 25 mg tablet RxNorm: 971499 1 Tablet(s) PO QAM 10/08/2016 10/02/2017 Inactive hydrochlorothiazide 25 mg tablet RxNorm: 784426 1 Tablet(s) PO QAM No Start Date 10/07/2016 Inactive Xanax 1 mg tablet RxNorm: 161190 1 Tablet(s) PO QHS et PRN as needed No Start Date 07/05/2017 Inactive citalopram 40 mg tablet RxNorm: 437562 1 Tablet(s) PO QPM No Start Date 10/07/2016 Inactive potassium chloride E R 20 mEq tablet,extended release RxNorm: 330238 1 Tablet(s) PO QAM No Start Date 10/07/2016 Inactive permethrin 5 % topic al cream RxNorm: 410110 1 Application TOP onc e, may repeat [...] Item Item Code Result Date Comp Metabolic Aen566 NA 141 mEq/L 05/15/2017 Comp Metabolic Epw826 K 3.9 mEq/L 05/15/2017 Comp Metabolic Nnr946 CL 103 mEq/L 05/15/2017 Comp Metabolic Zxa161 CO2 29.0 mEq/L 05/15/2017 Comp Metabolic Hqv389 AN ION GAP 13 05/15/2017 Comp Metabolic Ksn837 GL UCOSE 84 mg/dL 05/15/2017 Comp Metabolic Pcc574 Cr eat 1.1 mg/dL 05/15/2017 Comp Metabolic Sdf107 eG FR 55 ml/min/1.73m2 05/15 Comp Metabolic Iux990 BUN 19 mg/dL 05/15/2017 Comp Metabolic Dij721 B/ C Ratio 18.1 Ratio 05/15/2017 Comp Metabolic Xyr280 CA LCIUM 9.7 mg/dL 05/15/2017 Comp Metabolic Dgb128 AL K PHOS 38 U/L 05/15/2017 Comp Metabolic Hjh137 T(SGOT) 21 U/L 05/15/2017 Comp Metabolic Zoj915 AL T(SGPT) 17 U/L 05/15/2017 Comp Metabolic Szg453 BI LI T 0.4 mg/dL 05/15/2017 Comp Metabolic Yun209 AL BUMIN 4.3 g/dL 05/15/2017 Comp Metabolic Ojq766 TP RO 6.5 g/dL 05/15/2017 Comp Metabolic Ozh206 GL OB 2.3 g/dL 05/15/2017 Comp Metabolic Smj367 A/ G Ratio 1.9 Ratio 05/15/2017 Comp Metabolic Tcs821 Os mo 283 mOsmo 05/15/2017 Vitamin D 25 Oh Tgn2604 VITAMIN D, 25 HYDROXY 50.18 ng/mL 05/15/2017 Cbc With Differential Ord2 WBC 5.82 [...] 30.4 pg 05/15/2017 Cbc With Differential Ord2 Emery% 6.2 % 05/15/2017 Cbc With Differential Ord2 Eos% 2.9 % 05/15/2017 Cbc With Differential Ord2 MCHC 32.5 pg 05/15/2017 Cbc With Differential Ord2 PLT 249 K/ul 05/15/2017 Cbc With Differential Ord2 Baso% 0.3 % 05/15/2017 Cbc With Differential Ord2 Neut ABS# 3.08 K/ul 05/15/2017 Cbc With Differential Ord2 RDW 14.3 % 05/15/2017 Cbc With Differential Ord2 Lymph ABS# 2.19 K/ul 05/15/2017 Cbc With Differential Ord2 Emery ABS# 0.4 K/ul 05/15/2017 Cbc With Differential Ord2 Eos ABS# 0.2 K/ul 05/15/2017 Cbc With Differential Ord2 Baso ABS# 0.0 K/ul 05/15/2017 Lipid Ord30 CHOL 207 mg/dL 05/15/2017 Lipid Ord30 HDL 51.0 mg/dl 05/15/2017 Lipid Ord30 TRIG 211 mg/dL 05/15/2017 Lipid Ord30 LDL 114 mg/dL 05/15/2017 Lipid Ord30 C/HDL 4.1 Ratio 05/15/2017 Tsh Ord6 hTSH II 4.18 uIU/mL 05/15/2017 Free T4 Sdl168 FREE T4 0.95 ng/dL 05/15/2017 Lipid Ord30 CHOL 231 mg/dL 01/18/2017 Lipid Ord30 HDL 48.0 mg/dl 01/18/2017 Lipid Ord30 TRIG 213 mg/dL 01/18/2017 Lipid Ord30 LDL 140 mg/dL 01/18/2017 Lipid Ord30 C/HDL 4.8 Ratio 01/18/2017 Tsh Ord6 hTSH II 3.74 uIU/mL 10/10/2016 Free T4 Gln675 FREE T4 0.68 ng/dL 10/10/2016 Lipid Ord30 CHOL 216 mg/dL 10/10/2016 Lipid Ord30 HDL 44.0 mg/dl 10/10/2016 Lipid Ord30 TRIG 267 mg/dL 10/10/2016 Lipid Ord30 LDL 119 mg/dL 10/10/2016 Lipid Ord30 C/HDL 4.9 Ratio 10/10/2016 Cbc With Differential Ord2 WBC 5.53 K/ul 10/10/2016 Cbc With Differential Ord2 RBC 4.28 M/ul 10/10/2016 Cbc With Differential Ord2 HGB 13.1 g/dl 10/10/2016 Cbc With Differential Ord2 HCT 39.7 % 10/10/2016 Cbc With Differential Ord2 Neut% 48.6 % 10/10/2016 Cbc With Differential Ord2 Lymph% 38.2 % 10/10/2016 Cbc With Differential Ord2 MCV 92.8 fl 10/10/2016 Cbc With Differential Ord2 Emery% 5.2 % 10/10/2016 Cbc With Differential Ord2 MCH 30.6 pg 10/10/2016 Cbc With Differential Ord2 Eos% 7.8 % 10/10/2016 Cbc With Differential Ord2 MCHC 33.0 pg 10/10/2016 Cbc With Differential Ord2 Baso% 0.2 % 10/10/2016 Cbc With Differential Ord2 PLT 229 K/ul 10/10/2016 Cbc With Differential Ord2 Neut ABS# 2.69 K/ul 10/10/2016 Cbc With Differential Ord2 RDW 14.6 % 10/10/2016 Cbc With Differential Ord2 Lymph ABS# 2.11 K/ul 10/10/2016 Cbc With Differential Ord2 Emery ABS# 0.3 K/ul 10/10/2016 Cbc With Differential Ord2 Eos ABS# 0.4 K/ul 10/10/2016 Cbc With Differential Ord2 Baso ABS# 0.0 K/ul 10/10/2016 B12 Ker707 B12 377.00 pg/ml 10/10/2016 Vitamin D 25 Oh Zba2794 VITAMIN D, 25 HYDROXY 33.28 ng/mL 10/10/2016 Comp Metabolic Bbi087 NA 142 mEq/L 10/10/2016 Comp Metabolic Coq336 K 4.0 mEq/L 10/10/2016 Comp Metabolic Fhu746 CL 103 mEq/L 10/10/2016 Comp Metabolic Bab809 CO2 29.0 mEq/L 10/10/2016 Comp Metabolic Hsc465 AN ION GAP 14 10/10/2016 Comp Metabolic Ikz739 GL UCOSE 82 mg/dL 10/10/2016 Comp Metabolic Jhi187 Cr eat 0.8 mg/dL 10/10/2016 Comp Metabolic Kkr346 eG FR 77 ml/min/1.73m2 10/10 Comp Metabolic Lst121 BUN 19 mg/dL 10/10/2016 Comp Metabolic Yiw983 B/ C Ratio 24.1 Ratio 10/10/2016 Comp Metabolic Okl305 CA LCIUM 9.8 mg/dL 10/10/2016 Comp Metabolic Puj359 AL K PHOS 87 U/L 10/10/2016 Comp Metabolic Dtq898 T(SGOT) 20 U/L 10/10/2016 Comp Metabolic Wbb651 AL T(SGPT) 16 U/L 10/10/2016 Comp Metabolic Hsz357 BI LI T 0.5 mg/dL 10/10/2016 Comp Metabolic Yhi134 AL BUMIN 4.0 g/dL 10/10/2016 Comp Metabolic Vuu606 TP RO 6.7 g/dL 10/10/2016 Comp Metabolic Rtw103 GL OB 2.7 g/dL 10/10/2016 Comp Metabolic Nkk183 A/ G Ratio 1.5 Ratio 10/10/2016 Comp Metabolic Vpl182 Os mo 284 mOsmo 10/10/2016 Review of Systems System Result Effective [...] sounds 01/06/2018 None Full Exam - General 1995 Musculoskeletal [...] 1: 128/64 Code: 8480-6 BMI: 41.3 Code: 08876-6 Heart Rate 1: 68 bpm Height: 5'5" SpO2: 96% Weight: 248 lbs 01/06/2018 Blood Pressure 1: 136/78 Code: 8480-6 Heart Rate 1: 71 bpm Height: 5'5" SpO2: 95% Weight: 12/31/2017 Blood Pressure 1: 134/76 Code: 8480-6 BMI: 39.8 Code: 41528-5 Heart Rate 1: 87 bpm Height: 5'5" SpO2: 97% Weight: 239 lbs 12/09/2017 Blood Pressure 1: 136/82 Code: 8480-6 BMI: 39.8 Code: 51022-8 Heart Rate 1: 73 bpm Height: 5'5" SpO2: 97% Weight: 239 lbs 10/02/2017 Blood Pressure 1: 130/72 Code: 8480-6 BMI: 39.4 Code: 21016-2 Heart Rate 1: 74 bpm Height: 5'5" SpO2: 93% Waist Measure (cm): 104 cm Weight: 237 lbs 08/01/2017 Blood Pressure 1: 132/74 Code: 8480-6 BMI: 39.3 Code: 61859-1 Heart Rate 1: 66 bpm Height: 5'5" SpO2: 92% Weight: 236 lbs 06/25/2017 Blood Pressure 1: 136/74 Code: 8480-6 BMI: 38.6 Code: 39925-5 Heart Rate 1: 61 bpm Height: 5'5" SpO2: 95% Weight: 232 lbs 05/15/2017 Blood Pressure 1: 143/76 Code: 8480-6 BMI: 38.6 Code: 01764-9 Heart Rate 1: 65 bpm Height: 5'5" SpO2: 97% Weight: 232 lbs 01/28/2017 Blood Pressure 1: 120/80 Code: 8480-6 BMI: 38.1 Code: 50506-0 Heart Rate 1: 55 bpm Height: 5'5" SpO2: 96% Weight: 229 lbs 10/08/2016 Blood Pressure 1: 130/74 Code: 8480-6 BMI: 36.9 Code: 69027-5 Heart Rate 1: 62 bpm Height: 5'5" [...] outdoors: y 10/02/2017 None hypothyroid 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 PATIENT, LEVEL IV Diagnosis: Essential (primary) hypertension[ICD10: I10] Diagnosis: Major depressive disorder, recurrent, moderate[ICD10: F33.1] Diagnosis: Other allergic rhinitis[ICD10: J30.89] Analisa Milton MD, [facility] CPT-4: 82661 04/30/2018 ([id number]) 55341 EST. P ATIENT, LEVEL III Diagnosis: Insect bite (nonvenomous), left lower leg, subsequent encounter[ICD10: S80.862D] Diagnosis: Insect bite (nonvenomous), right lower leg, subsequent encounter[ICD10: S80.861D] Stacie Milton MD, [facility] CPT-4: 89507 01/06/2018 ([id number]) 13564 EST. P ATIENT, LEVEL III Diagnosis: Rash and other nonspecific skin eruption[ICD10: R21] Diagnosis: Major depressive disorder, recurrent, moderate[ICD10: F33.1] Renetta Milton MD, [facility] CPT-4: 94504 12/31/2017 ([id number]) 30466 EST. P ATIENT, LEVEL III Diagnosis: Essential (primary) hypertension[ICD10: I10] Diagnosis: Major depressive disorder, recurrent, moderate[ICD10: F33.1] Stacie Milton MD, [facility] CPT-4: 31662 12/09/2017 ([id number]) 64174 EST. P ATIENT, LEVEL IV Diagnosis: Atrophy of thyroid (acquired)[ICD10: E03.4] Diagnosis: Essential (primary) hypertension[ICD10: I10] Diagnosis: Other allergic rhinitis[ICD10: J30.89] Stacie Milton MD, [facility] CPT-4: 41201 08/01/2017 83324 EST. PATIENT, LEVEL III Diagnosis: Other allergic rhinitis[ICD10: J30.89] Diagnosis: Otalgia, bilateral[ICD10: H92.03] Analisa Milton MD, [facility] CPT-4: 20422 06/25/2017 [id number] EST. PATIENT, LEVEL III Diagnosis: Rash and other nonspecific skin eruption[ICD10: R21] Analisa Milton MD, [facility] CPT-4: 81536 05/15/2017 ([id number]) 10617 EST. [facility]: Zoster without complications[ICD10: B02.9] Stacie Milton MD, [facility] CPT-4: 65832 01/28/2017 ([id number]) OFFICE VISI Nitish [facility] - LEVEL 4 Diagnosis: Essential (primary) hypertension[ICD10: I10] Diagnosis: Bariatric surgery status[ICD10: Z98.84] Diagnosis: Atrophy of thyroid (acquired)[ICD10: E03.4] Diagnosis: Major depressive disorder, recurrent, moderate[ICD10: F33.1] Stacie Milton MD, [facility] CPT-4: 38473 10/08/2016 Plan of Care Planned Activity Notes [...] allergy spray. 04/30/2018 Appointment: Anal[facility] ([facility] min) Moderate 04/30/2018 Patient Education: [...] outside. 01/06/2018 Appointment: Stacie Milton WPtel: [phone] [facility] (15 min) Moderate 01/06/2018 Patient Education: [...] -start lexapro 12/31/2017 Appointment: Renetta Leigh WPtel: [phone] [facility] [place] [address] (15 min) Moderate 12/31/2017 Patient Education: Patient [...] on venlafaxine. 12/09/2017 Appointment: Stacie Milton WPtel: [phone] [facility] [place] (15 min) Moderate 12/09/2017 [...] 10/02/2017 Visit Plan: Hypertension - well con babiated - continue with current medications, continue with [...] for flagyl 08/01/2017 Appointment: Stacie Milton WPtel: [address] [place], [place] [address] (15 min) Moderate 08/01/2017 Patient Education: Patient [...] worsen. 06/25/2017 Appointment: Analisa Jin WPtel: [phone] [facility] (15 min) Moderate 06/25/2017 Patient [...] discharge. 05/15/2017 Appointment: Analisa Jin WPtel: [phone] [facility] (15 min) Moderate 05/15/2017 Patient [...] considered contagious. 01/28/2017 Appointment: Stacie Milton WPtel: [phone] [facility] (15 min) Moderate 01/28/2017 Patient [...] supportive care. 10/08/2016 Appointment: Stac[facility] Milton [facility]Ptel[facility] [place] New Patient 10/08/2016 Patient Education: [...] in cluding Vitamin D and TSH. Consider Busy thyroid for hypothyroidism Saline spray before using [...] in cluding Vitamin D and TSH. Consider Busy thyroid for hypothyroidism Saline spray before using [...]
--- OUTSIDE RECORDS SUMMARY | 2019-06-17 09:30 | XMS REPORT | CCD ---
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 10/08/[address]: 767460387 Never smoker 10/08/[address]: 189412159 Never drinks alcohol 10/08/2016 Has the patient [...] Fill Instructions Xanax 1 mg tablet RxNorm: 943596 Tablet(s) TAKE ONE TABLET BY MOUTH ONCE DAILY AT BEDTIME 04/01/2018 No Stop Date Active Lexapro 20 mg tablet RxNorm: 007930 1 Tablet(s) PO QPM 12/31/2017 04/29/2018 Inactive 1/2 tab daily x 1 week then increase to a full tab mupirocin 2 % topica l ointment RxNorm: 976103 1 Application TOP BID 12/31/2017 01/09/2018 Inactive potassium chloride E R 20 mEq tablet,extended release RxNorm: 779589 TAKE ONE TABLET BY MOUTH ONCE DAILY IN THE MORNING 12/11/2017 No Stop Date Active hydrochlorothiazide 25 mg tablet RxNorm: 091766 TAKE ONE TABLET BY MO UTH ONCE DAILY IN THE MORNING 12/11/2017 No Stop Date Active Effexor XR 75 mg cap rashid,extended release RxNorm: 786034 1 Capsule(s) PO daily 12/09/2017 12/30/2017 In active permethrin 5 % topic al cream RxNorm: 162477 1 Application TOP onc e, may repeat in 14 days. 11/27/2017 01/06/2018 Inactive Xanax 1 mg tablet RxNorm: 645818 1 Tablet(s) PO QHS 09/30/2017 03/28/2018 Inactive citalopram 40 mg tablet RxNorm: 904889 TAKE ONE TABLET BY MOUTH ONCE DAILY IN T HE EVENING 08/05/2017 12/08/2017 Inactive Flagyl 500 mg tablet RxNorm: 219887 1 Tablet(s) PO TID 08/01/2017 08/05/2017 Inactive Xanax 1 mg tablet RxNorm: 628916 1 Tablet(s) PO QHS 07/05/2017 09/29/2017 Inactive Xanax 1 mg tablet RxNorm: 910980 TAKE ONE TABLET BY MOUTH ONCE DAILY AT B EDTIME 07/05/2017 03/31/2018 Inactive Zithromax Z-Cornell 250 mg tablet RxNorm: 668504 1 Tablet(s) PO UD 06/25/2017 07/04/2017 Inactive Trilipix 135 mg caps ule,delayed release RxNorm: 760494 1 Capsule(s) PO daily 05/22/2017 12/17/2017 In active triamcinolone aceton kaity 0.025 % topical cream RxNorm: 9854513 1 Application TOP BI D 05/15/2017 No Stop Date Active ketoconazole 2 % top ical cream RxNorm: 177440 1 TOP daily 05/15/2017 05/21/2017 Inactive Trilipix 135 mg caps ule,delayed release RxNorm: 816852 1 Capsule(s) PO daily 02/12/2017 05/21/2017 In active Trilipix 135 mg caps ule,delayed release RxNorm: 719205 1 Capsule(s) PO daily 02/12/2017 02/11/2017 In active acyclovir 800 mg tablet RxNorm: 456488 1 Tablet(s) PO QID 01/28/2017 02/06/2017 Inactive Fish Oil 1,000 mg ca psule RxNorm: 1 Capsule(s) PO BID 10/17/2016 02/13/2017 Inactive Fish Oil 1,000 mg ca psule RxNorm: 1 Capsule(s) PO BID 10/17/2016 10/16/2016 Inactive Vitamin D2 50,000 un it capsule RxNorm: 301303 1 Capsule(s) PO QW 10/17/2016 10/16/2016 Inactive Vitamin D3 2,000 uni t capsule RxNorm: 513415 1 Capsule(s) PO daily 10/17/2016 10/16/2016 Inactive Vitamin D2 50,000 un it capsule RxNorm: 812168 1 Capsule(s) PO QW 10/17/2016 01/14/2017 Inactive Vitamin D3 2,000 uni t capsule RxNorm: 535022 1 Capsule(s) PO daily 10/17/2016 01/14/2017 Inactive citalopram 40 mg tablet RxNorm: 360441 1 Tablet(s) PO QPM 10/08/2016 07/04/2017 Inactive potassium chloride E R 20 mEq tablet,extended release RxNorm: 167138 1 Tablet(s) PO QAM 10/08/2016 10/02/2017 Inactive hydrochlorothiazide 25 mg tablet RxNorm: 232472 1 Tablet(s) PO QAM 10/08/2016 10/02/2017 Inactive hydrochlorothiazide 25 mg tablet RxNorm: 579529 1 Tablet(s) PO QAM No Start Date 10/07/2016 Inactive Xanax 1 mg tablet RxNorm: 346196 1 Tablet(s) PO QHS et PRN as needed No Start Date 07/05/2017 Inactive citalopram 40 mg tablet RxNorm: 916532 1 Tablet(s) PO QPM No Start Date 10/07/2016 Inactive potassium chloride E R 20 mEq tablet,extended release RxNorm: 155499 1 Tablet(s) PO QAM No Start Date 10/07/2016 Inactive permethrin 5 % topic al cream RxNorm: 031026 1 Application TOP onc e, may repeat [...] Observation Code Item Item Code Result Date Free T4 Qai614 FREE T4 0.95 ng/dL 05/15/2017 Tsh Ord6 [...] 0.0 K/ul 05/15/2017 Vitamin D 25 Oh Pcm4622 VITAMIN D, 25 HYDROXY 50.18 ng/mL 05/15/2017 Comp Metabolic Yvh637 NA 141 mEq/L 05/15/2017 Comp Metabolic Zmq415 K 3.9 mEq/L 05/15/2017 Comp Metabolic Fep002 CL 103 mEq/L 05/15/2017 Comp Metabolic Uso611 CO2 29.0 mEq/L 05/15/2017 Comp Metabolic Ppy271 AN ION GAP 13 05/15/2017 Comp Metabolic Iyc985 GL UCOSE 84 mg/dL 05/15/2017 Comp Metabolic Ugu749 Cr eat 1.1 mg/dL 05/15/2017 Comp Metabolic Bek440 eG FR 55 ml/min/1.73m2 05/15 Comp Metabolic Dpy362 BUN 19 mg/dL 05/15/2017 Comp Metabolic Wzz195 B/ C Ratio 18.1 Ratio 05/15/2017 Comp Metabolic Yvv225 CA LCIUM 9.7 mg/dL 05/15/2017 Comp Metabolic Ror772 AL K PHOS 38 U/L 05/15/2017 Comp Metabolic Abk573 T(SGOT) 21 U/L 05/15/2017 Comp Metabolic Xtm103 AL T(SGPT) 17 U/L 05/15/2017 Comp Metabolic Heo759 BI LI T 0.4 mg/dL 05/15/2017 Comp Metabolic Kbm119 AL BUMIN 4.3 g/dL 05/15/2017 Comp Metabolic Oek153 TP RO 6.5 g/dL 05/15/2017 Comp Metabolic Yit609 GL OB 2.3 g/dL 05/15/2017 Comp Metabolic Nol245 A/ G Ratio 1.9 Ratio 05/15/2017 Comp Metabolic Qvw696 Os mo 283 mOsmo 05/15/2017 Lipid Ord30 CHOL 231 mg/dL 01/18/2017 Lipid Ord30 HDL 48.0 mg/dl 01/18/2017 Lipid Ord30 TRIG 213 mg/dL 01/18/2017 Lipid Ord30 LDL 140 mg/dL 01/18/2017 Lipid Ord30 C/HDL 4.8 Ratio 01/18/2017 Vitamin D 25 Oh Jze2521 VITAMIN D, 25 HYDROXY 33.28 ng/mL 10/10/2016 B12 Cxg628 B12 377.00 pg/ml 10/10/2016 Comp Metabolic Dqw177 NA 142 mEq/L 10/10/2016 Comp Metabolic Qjz399 K 4.0 mEq/L 10/10/2016 Comp Metabolic Bmt756 CL 103 mEq/L 10/10/2016 Comp Metabolic Amz863 CO2 29.0 mEq/L 10/10/2016 Comp Metabolic Zfv078 AN ION GAP 14 10/10/2016 Comp Metabolic Zkj758 GL UCOSE 82 mg/dL 10/10/2016 Comp Metabolic Dfu787 Cr eat 0.8 mg/dL 10/10/2016 Comp Metabolic Qao349 eG FR 77 ml/min/1.73m2 10/10 Comp Metabolic Hvj378 BUN 19 mg/dL 10/10/2016 Comp Metabolic Inh772 B/ C Ratio 24.1 Ratio 10/10/2016 Comp Metabolic Gmf326 CA LCIUM 9.8 mg/dL 10/10/2016 Comp Metabolic Yqr764 AL K PHOS 87 U/L 10/10/2016 Comp Metabolic Oud918 T(SGOT) 20 U/L 10/10/2016 Comp Metabolic Vuu315 AL T(SGPT) 16 U/L 10/10/2016 Comp Metabolic Wav305 BI LI T 0.5 mg/dL 10/10/2016 Comp Metabolic Cgt432 AL BUMIN 4.0 g/dL 10/10/2016 Comp Metabolic Tnm064 TP RO 6.7 g/dL 10/10/2016 Comp Metabolic Scr430 GL OB 2.7 g/dL 10/10/2016 Comp Metabolic Mcu910 A/ G Ratio 1.5 Ratio 10/10/2016 Comp Metabolic Nqi700 Os mo 284 mOsmo 10/10/2016 Free T4 Ddq057 FREE T4 0.68 ng/dL 10/10/2016 Cbc With [...] 7.8 % 10/10/2016 Cbc With Differential Ord2 Baso% 0.2 [...] 1: 128/64 Code: 8480-6 BMI: 41.3 Code: 38088-4 Heart Rate 1: 68 bpm Height: 5'5" SpO2: 96% Weight: 248 lbs 01/06/2018 Blood Pressure 1: 136/78 Code: 8480-6 Heart Rate 1: 71 bpm Height: 5'5" SpO2: 95% Weight: 12/31/2017 Blood Pressure 1: 134/76 Code: 8480-6 BMI: 39.8 Code: 63136-9 Heart Rate 1: 87 bpm Height: 5'5" SpO2: 97% Weight: 239 lbs 12/09/2017 Blood Pressure 1: 136/82 Code: 8480-6 BMI: 39.8 Code: 93151-1 Heart Rate 1: 73 bpm Height: 5'5" SpO2: 97% Weight: 239 lbs 10/02/2017 Blood Pressure 1: 130/72 Code: 8480-6 BMI: 39.4 Code: 12238-6 Heart Rate 1: 74 bpm Height: 5'5" SpO2: 93% Waist Measure (cm): 104 cm Weight: 237 lbs 08/01/2017 Blood Pressure 1: 132/74 Code: 8480-6 BMI: 39.3 Code: 47121-8 Heart Rate 1: 66 bpm Height: 5'5" SpO2: 92% Weight: 236 lbs 06/25/2017 Blood Pressure 1: 136/74 Code: 8480-6 BMI: 38.6 Code: 44487-4 Heart Rate 1: 61 bpm Height: 5'5" SpO2: 95% Weight: 232 lbs 05/15/2017 Blood Pressure 1: 143/76 Code: 8480-6 BMI: 38.6 Code: 51517-5 Heart Rate 1: 65 bpm Height: 5'5" SpO2: 97% Weight: 232 lbs 01/28/2017 Blood Pressure 1: 120/80 Code: 8480-6 BMI: 38.1 Code: 03092-4 Heart Rate 1: 55 bpm Height: 5'5" SpO2: 96% Weight: 229 lbs 10/08/2016 Blood Pressure 1: 130/74 Code: 8480-6 BMI: 36.9 Code: 49020-9 Heart Rate 1: 62 bpm Height: 5'5" [...] when outdoors: y 10/02/2017 None hypothyroid 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 PATIENT, LEVEL IV Diagnosis: Essential (primary) hypertension[ICD10: I10] Diagnosis: Major depressive disorder, recurrent, moderate[ICD10: F33.1] Diagnosis: Other allergic rhinitis[ICD10: J30.89] Analisa Milton MD, [facility] CPT-4: 98714 04/30/2018 ([id number]) 42524 EST. P ATIENT, LEVEL III Diagnosis: Insect bite (nonvenomous), left lower leg, subsequent encounter[ICD10: S80.862D] Diagnosis: Insect bite (nonvenomous), right lower leg, subsequent encounter[ICD10: S80.861D] Stacie Milton MD, [facility] CPT-4: 38550 01/06/2018 ([id number]) 01603 EST. P ATIENT, LEVEL III Diagnosis: Rash and other nonspecific skin eruption[ICD10: R21] Diagnosis: Major depressive disorder, recurrent, moderate[ICD10: F33.1] Renetta Milton MD, [facility] CPT-4: 96513 12/31/2017 ([id number]) 44133 EST. P ATIENT, LEVEL III Diagnosis: Essential (primary) hypertension[ICD10: I10] Diagnosis: Major depressive disorder, recurrent, moderate[ICD10: F33.1] Stacie Milton MD, [facility] CPT-4: 67737 12/09/2017 ([id number]) 76026 EST. P ATIENT, LEVEL IV Diagnosis: Atrophy of thyroid (acquired)[ICD10: E03.4] Diagnosis: Essential (primary) hypertension[ICD10: I10] Diagnosis: Other allergic rhinitis[ICD10: J30.89] Stacie Milton MD, [facility] CPT-4: 45638 08/01/2017 41677 EST. PATIENT, LEVEL III Diagnosis: Other allergic rhinitis[ICD10: J30.89] Diagnosis: Otalgia, bilateral[ICD10: H92.03] Analisa Milton MD, [facility] CPT-4: 73296 06/25/2017 01020 EST. PATIENT, LEVEL III Diagnosis: Rash and other nonspecific skin eruption[ICD10: R21] Analisa Milton MD, [facility] CPT-4: 01827 05/15/2017 ([id number]) 39313 EST. P ATIENT, LEVEL III Diagnosis: Zoster without complications[ICD10: B02.9] Stacie Milton MD, [facility] CPT-4: 49432 01/28/2017 ([id number]) OFFICE VISI T, [facility] - LEVEL 4 Diagnosis: Essential (primary) hypertension[ICD10: I10] Diagnosis: Bariatric surgery status[ICD10: Z98.84] Diagnosis: Atrophy of thyroid (acquired)[ICD10: E03.4] Diagnosis: Major depressive disorder, recurrent, moderate[ICD10: F33.1] Stacie Milton MD, [facility] CPT-4: 55621 10/08/2016 Plan of Care Planned Activity Notes C odes Status Date Patient Education: Patient Medication Summary Completed 04/30/2018 Patient Education: Depression Completed 04/30/2018 Appointment: Stacie Milton WPtel: [phone] [facility] [place] (15 min) Moderate 01/06/2018 Patient Education: Patient Medication Summary Completed 01/06/2018 Appointment: Renetta Leigh WPtel: [phone] [phone] [place] (15 min) Moderate 12/31/2017 Patient Education: Patient Medication Summary Completed 12/31/2017 [phone] [facility] [place] ([facility] min) Moderate 12/09/2017 Patient Education: Patient Medication Summary Completed 12/09/2017 Patient Education: Patient Medication Summary Completed 10/02/2017 [facility]ment[facility] [phone] [facility] [place] (15 min) Moderate 08/01/2017 Patient Education: Patient Medication Summary Completed 08/01/2017 [phone] [facility] [place] (15 min) Moderate 06/25/2017 Patient Education: Patient Medication Summary Completed 06/25/2017 App[facility]ment: [facility] [phone] [facility] [place] (15 min) Moderate 05/15/2017 Patient Education: Patient Medication Summary Completed 05/15/2017 Patient Education: Obesity Completed 05/15/2017 [facility] [phone] [facility] ([facility] min) Moderate 01/28/2017 Patient Education: Patient Medication Summary Completed 01/28/2017 Patient Education: Obesity Completed 01/28/2017 [facility]: [facility] [phone] [facility] New Patient 10/08/2016 Patient Education: Patient Medication Summary Completed 10/08/2016 Instructions No Instructions
--- OUTSIDE RECORDS SUMMARY | 2019-06-17 09:31 | XMS REPORT | CCD ---
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 Unknown Has never used illegal drugs 017 Allergies, Adverse Reactions, Alerts Allergies, Adverse Reactions, Alerts data not found Past Medical History Illness Codes Condition Status Onset Date Resolved Date Rash and other nonsp ecific skin eruption ICD-9: 782.1 ICD-10: R21 Active 05/15/2017 Unknown Zoster without compl ications ICD-9: 053.9 ICD-10: B02.9 Active 01/28/2017 Unknown 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 ICD-10: E03.4 Active 10/08/[address] [place] ICD-9: V45.86 ICD-10: Z98.84 Active 10/08/2016 Unknown Essential (primary) hypertension ICD-9: 401.1 ICD-10: I10 Active 10/08/2016 Unknown Major depressive dis order, recurrent, moderate ICD-9: 296.32 ICD-10: F33.1 Active 10/08/2016 Unknown Problems Condition Codes Effectiv e Dates Condition Status Rash and other nonsp ecific skin eruption ICD-9: 782.1 ICD-10: R21 05/15/2017 Active Zoster without compl ications ICD-9: 053.9 ICD-10: B02.9 01/28/2017 Active 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 ICD-10: E03.4 10/08/[address] [facility] ICD-9: V45.86 ICD-10: Z98.84 10/08/2016 Active Essential (primary) hypertension ICD-9: 401.1 ICD-10: I10 10/08/2016 Active Major depressive dis order, recurrent, moderate ICD-9: 296.32 ICD-10: F33.1 10/08/2016 Active Medications Medication Codes Instruc tions Start Date Stop Date Sta tus Fill Instructions Xanax 1 mg tablet RxNorm: 806319 1 Tablet(s) PO QHS 07/05/2017 10/02/2017 Active Xanax 1 mg tablet RxNorm: 743295 TAKE ONE TABLET BY MOUTH ONCE DAILY AT B EDTIME 07/05/2017 No Stop Date Active Zithromax Z-Cornell 250 mg tablet RxNorm: 676660 1 Tablet(s) PO UD 06/25/2017 07/04/2017 Inactive Trilipix 135 mg caps ule,delayed release RxNorm: 650053 1 Capsule(s) PO daily 05/22/2017 12/17/2017 Ac tive triamcinolone aceton kaity 0.025 % topical cream RxNorm: 5663967 1 Application TOP BI D 05/15/2017 No Stop Date Active ketoconazole 2 % top ical cream RxNorm: 735943 1 TOP daily 05/15/2017 05/21/2017 Inactive Trilipix 135 mg caps ule,delayed release RxNorm: 021305 1 Capsule(s) PO daily 02/12/2017 05/21/2017 In active Trilipix 135 mg caps ule,delayed release RxNorm: 184035 1 Capsule(s) PO daily 02/12/2017 02/11/2017 In active acyclovir 800 mg tablet RxNorm: 441707 1 Tablet(s) PO QID 01/28/2017 02/06/2017 Inactive Fish Oil 1,000 mg ca psule RxNorm: 1 Capsule(s) PO BID 10/17/2016 02/13/2017 Inactive Fish Oil 1,000 mg ca psule RxNorm: 1 Capsule(s) PO BID 10/17/2016 10/16/2016 Inactive Vitamin D2 50,000 un it capsule RxNorm: 626389 1 Capsule(s) PO QW 10/17/2016 10/16/2016 Inactive Vitamin D3 2,000 uni t capsule RxNorm: 854475 1 Capsule(s) PO daily 10/17/2016 10/16/2016 Inactive Vitamin D2 50,000 un it capsule RxNorm: 690826 1 Capsule(s) PO QW 10/17/2016 01/14/2017 Inactive Vitamin D3 2,000 uni t capsule RxNorm: 088910 1 Capsule(s) PO daily 10/17/2016 01/14/2017 Inactive citalopram 40 mg tablet RxNorm: 530770 1 Tablet(s) PO QPM 10/08/2016 07/04/2017 Inactive potassium chloride E R 20 mEq tablet,extended release RxNorm: 479546 1 Tablet(s) PO QAM 10/08/2016 10/02/2017 Active hydrochlorothiazide 25 mg tablet RxNorm: 778989 1 Tablet(s) PO QAM 10/08/2016 10/02/2017 Active Xanax 1 mg tablet RxNorm: 967245 1 Tablet(s) PO QHS et PRN as needed No Start Date 07/05/2017 Inactive hydrochlorothiazide 25 mg tablet RxNorm: 158037 1 Tablet(s) PO QAM No Start Date 10/07/2016 Inactive citalopram 40 mg tablet RxNorm: 006168 1 Tablet(s) PO QPM No Start Date 10/07/2016 Inactive potassium chloride E R 20 mEq tablet,extended release RxNorm: 671074 1 Tablet(s) PO QAM No Start Date 10/07/2016 Inactive Medication Administered No Medication Administered data Immunizations No Immunization data Assessments Condition Codes Effectiv e Dates Rash and other nonspecific skin eruption ICD-10: R21 ICD-9: 782.1 05/15/2017 Zoster without complications ICD-10: B02.9 ICD-9: 053.9 01/28/2017 Major depressive disorder, recurrent, moderate ICD-10: F33.1 ICD-9: 296.32 10/08/2016 Atrophy of thyroid (acquired) ICD-10 : E03.4 ICD-9: 244.8 10/08/2016 Essential (primary) hypertension ICD -10: I10 ICD-9: 401.1 10/08/2016 Bariatric surgery status ICD-10: Z98 .84 ICD-9: V45.86 10/08/2016 Reason For Visit Reason For Visit Effective Dates Notes rash 05/15/2017 rash 01/28/2017 hypothyroid 10/08/2016 Results Observation Observation Code Item Item Code Result Date Free T4 Mtz682 FREE T4 0.95 ng/dL 05/15/2017 Tsh Ord6 [...] 30.4 pg 05/15/2017 Cbc With Differential Ord2 Alexander% 6.2 % 05/15/2017 Cbc With Differential Ord2 [...] 2.19 K/ul 05/15/2017 Cbc With Differential Ord2 Alexander ABS# 0.4 K/ul 05/15/2017 Cbc With Differential Ord2 Eos ABS# 0.2 K/ul 05/15/2017 Cbc With Differential Ord2 Baso ABS# 0.0 K/ul 05/15/2017 Vitamin D 25 Oh Gdw9721 VITAMIN D, 25 HYDROXY 50.18 ng/mL 05/15/2017 Comp Metabolic Xzb261 NA 141 mEq/L 05/15/2017 Comp Metabolic Gsd581 K 3.9 mEq/L 05/15/2017 Comp Metabolic Sqf780 CL 103 mEq/L 05/15/2017 Comp Metabolic Bhq299 CO2 29.0 mEq/L 05/15/2017 Comp Metabolic Yxi016 AN ION GAP 13 05/15/2017 Comp Metabolic Sxe977 GL UCOSE 84 mg/dL 05/15/2017 Comp Metabolic Vgs518 Cr eat 1.1 mg/dL 05/15/2017 Comp Metabolic Fql831 eG FR 55 ml/min/1.73m2 05/15 Comp Metabolic Aom755 BUN 19 mg/dL 05/15/2017 Comp Metabolic Ilv351 B/ C Ratio 18.1 Ratio 05/15/2017 Comp Metabolic Ozw527 CA LCIUM 9.7 mg/dL 05/15/2017 Comp Metabolic Aac111 AL K PHOS 38 U/L 05/15/2017 Comp Metabolic Hcj377 T(SGOT) 21 U/L 05/15/2017 Comp Metabolic Mys735 AL T(SGPT) 17 U/L 05/15/2017 Comp Metabolic Tgj385 BI LI T 0.4 mg/dL 05/15/2017 Comp Metabolic Tew183 AL BUMIN 4.3 g/dL 05/15/2017 Comp Metabolic Uhh638 TP RO 6.5 g/dL 05/15/2017 Comp Metabolic Spp510 GL OB 2.3 g/dL 05/15/2017 Comp Metabolic Awe636 A/ G Ratio 1.9 Ratio 05/15/2017 Comp Metabolic Wjv071 Os mo 283 mOsmo 05/15/2017 Lipid Ord30 CHOL 231 mg/dL 01/18/2017 Lipid Ord30 HDL 48.0 mg/dl 01/18/2017 Lipid Ord30 TRIG 213 mg/dL 01/18/2017 Lipid Ord30 LDL 140 mg/dL 01/18/2017 Lipid Ord30 C/HDL 4.8 Ratio 01/18/2017 Vitamin D 25 Oh Qur9326 VITAMIN D, 25 HYDROXY 33.28 ng/mL 10/10/2016 B12 Mzc300 B12 377.00 pg/ml 10/10/2016 Comp Metabolic Che004 NA 142 mEq/L 10/10/2016 Comp Metabolic Vyb046 K 4.0 mEq/L 10/10/2016 Comp Metabolic Hrd817 CL 103 mEq/L 10/10/2016 Comp Metabolic Qkp713 CO2 29.0 mEq/L 10/10/2016 Comp Metabolic Yvt915 AN ION GAP 14 10/10/2016 Comp Metabolic Qbq321 GL UCOSE 82 mg/dL 10/10/2016 Comp Metabolic Bxn920 Cr eat 0.8 mg/dL 10/10/2016 Comp Metabolic Jcq495 eG FR 77 ml/min/1.73m2 10/10 Comp Metabolic Irl963 BUN 19 mg/dL 10/10/2016 Comp Metabolic Trn650 B/ C Ratio 24.1 Ratio 10/10/2016 Comp Metabolic Ekn177 CA LCIUM 9.8 mg/dL 10/10/2016 Comp Metabolic Fyb504 AL K PHOS 87 U/L 10/10/2016 Comp Metabolic Aet702 T(SGOT) 20 U/L 10/10/2016 Comp Metabolic Nfh013 AL T(SGPT) 16 U/L 10/10/2016 Comp Metabolic Cum435 BI LI T 0.5 mg/dL 10/10/2016 Comp Metabolic Ctw655 AL BUMIN 4.0 g/dL 10/10/2016 Comp Metabolic Fmz286 TP RO 6.7 g/dL 10/10/2016 Comp Metabolic Wwz678 GL OB 2.7 g/dL 10/10/2016 Comp Metabolic Ezu871 A/ G Ratio 1.5 Ratio 10/10/2016 Comp Metabolic Zue012 Os mo 284 mOsmo 10/10/2016 Free T4 Hjx771 FREE T4 0.68 ng/dL 10/10/2016 Cbc With [...] 30.6 pg 10/10/2016 Cbc With Differential Ord2 Alexander% 5.2 % 10/10/2016 Cbc With Differential Ord2 [...] 2.11 K/ul 10/10/2016 Cbc With Differential Ord2 Alexander ABS# 0.3 K/ul 10/10/2016 Cbc With Differential [...] Result Effective Dates Constitutional No recent illness 05/15/2017 Constitutional No [...] Result Effective Dates Notes Full Exam - Dermatology Constitutional general appearance [...] back - under breasts, benign appearing Procedures No Procedures data Vital Signs Date Vital 05/15/2017 Blood Pressure 1: 143/76 Code: 8480-6 BMI: 38.6 Code: 17678-9 Heart Rate 1: 65 bpm Height: 5'5" SpO2: 97% Weight: 232 lbs 01/28/2017 Blood Pressure 1: 120/80 Code: 8480-6 BMI: 38.1 Code: 35778-1 Heart Rate 1: 55 bpm Height: 5'5" SpO2: 96% Weight: 229 lbs 10/08/2016 Blood Pressure 1: 130/74 Code: 8480-6 BMI: 36.9 Code: 21508-4 Heart Rate 1: 62 bpm Height: 5'5" SpO2: 92% Weight: 221 lbs 8 oz Functional Status No Functional Status data History of Present Illness Symptom Name Status Resu lt Effective Date Notes rash Location-Major on t he neck 05/15/2017 [...] Pertinent Findings itching 01/28/2017 None 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 PATIENT, LEVEL III Diagnosis: Rash and other nonspecific skin eruption[ICD10: R21] Analisa Milton MD, [facility] CPT-4: 19009 05/15/2017 ([id number]) 90256 EST. P ATIENT, LEVEL III Diagnosis: Zoster without complications[ICD10: B02.9] Stacie Milton MD, [facility] CPT-4: 15066 01/28/2017 ([id number]) OFFICE VISI T, [facility] - LEVEL 4 Diagnosis: Essential (primary) hypertension[ICD10: I10] Diagnosis: Bariatric surgery status[ICD10: Z98.84] Diagnosis: Atrophy of thyroid (acquired)[ICD10: E03.4] Diagnosis: Major depressive disorder, recurrent, moderate[ICD10: F33.1] Stacie Milton MD, [facility] CPT-4: 57985 10/08/2016 Plan of Care Planned Activity Notes C odes Status Date App[facility]ment: [facility] [phone] [facility] [place] (15 min) Moderate 06/25/2017 Appointment: [facility] [phone] [facility] [place] (15 min) Moderate 05/15/2017 Patient Education: Patient Medication Summary Completed 05/15/2017 Patient Education: Obesity Completed 05/15/2017 [phone] [facility] (15 min) Moderate 01/28/2017 Patient Education: Patient Medication Summary Completed 01/28/2017 Patient Education: Obesity Completed 01/28/2017 App[facility]ment: [facility] [phone] [facility] [place] New Patient 10/08/2016 Patient Education: Patient Medication Summary Completed 10/08/2016 Instructions No Instructions
--- OUTSIDE RECORDS SUMMARY | 2019-06-17 09:31 | XMS REPORT | CCD ---
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/[address]: 131865707 Never smoker 10/08/[address]: 861687455 Never drinks alcohol 10/08/2016 Has the patient [...] Fill Instructions Xanax 1 mg tablet RxNorm: 390589 1 Tablet(s) PO QHS 07/05/2017 10/02/2017 Active Xanax 1 mg tablet RxNorm: 716318 TAKE ONE TABLET BY MOUTH ONCE DAILY AT B EDTIME 07/05/2017 No Stop Date Active Zithromax Z-Cornell 250 mg tablet RxNorm: 414457 1 Tablet(s) PO UD 06/25/2017 07/04/2017 Inactive Trilipix 135 mg caps ule,delayed release RxNorm: 706093 1 Capsule(s) PO daily 05/22/2017 12/17/2017 Ac tive triamcinolone aceton kaity 0.025 % topical cream RxNorm: 2834921 1 Application TOP BI D 05/15/2017 No Stop Date Active ketoconazole 2 % top ical cream RxNorm: 485117 1 TOP daily 05/15/2017 05/21/2017 Inactive Trilipix 135 mg caps ule,delayed release RxNorm: 321286 1 Capsule(s) PO daily 02/12/2017 05/21/2017 In active Trilipix 135 mg caps ule,delayed release RxNorm: 250434 1 Capsule(s) PO daily 02/12/2017 02/11/2017 In active acyclovir 800 mg tablet RxNorm: 195445 1 Tablet(s) PO QID 01/28/2017 02/06/2017 Inactive Fish Oil 1,000 mg ca psule RxNorm: 1 Capsule(s) PO BID 10/17/2016 02/13/2017 Inactive Fish Oil 1,000 mg ca psule RxNorm: 1 Capsule(s) PO BID 10/17/2016 10/16/2016 Inactive Vitamin D2 50,000 un it capsule RxNorm: 188556 1 Capsule(s) PO QW 10/17/2016 10/16/2016 Inactive Vitamin D3 2,000 uni t capsule RxNorm: 957557 1 Capsule(s) PO daily 10/17/2016 10/16/2016 Inactive Vitamin D2 50,000 un it capsule RxNorm: 757451 1 Capsule(s) PO QW 10/17/2016 01/14/2017 Inactive Vitamin D3 2,000 uni t capsule RxNorm: 717212 1 Capsule(s) PO daily 10/17/2016 01/14/2017 Inactive citalopram 40 mg tablet RxNorm: 904037 1 Tablet(s) PO QPM 10/08/2016 07/04/2017 Inactive potassium chloride E R 20 mEq tablet,extended release RxNorm: 119914 1 Tablet(s) PO QAM 10/08/2016 10/02/2017 Active hydrochlorothiazide 25 mg tablet RxNorm: 255040 1 Tablet(s) PO QAM 10/08/2016 10/02/2017 Active Xanax 1 mg tablet RxNorm: 330022 1 Tablet(s) PO QHS et PRN as needed No Start Date 07/05/2017 Inactive hydrochlorothiazide 25 mg tablet RxNorm: 063398 1 Tablet(s) PO QAM No Start Date 10/07/2016 Inactive citalopram 40 mg tablet RxNorm: 410394 1 Tablet(s) PO QPM No Start Date 10/07/2016 Inactive potassium chloride E R 20 mEq tablet,extended release RxNorm: 961606 1 Tablet(s) PO QAM No Start Date [...] Item Item Code Result Date Free T4 Vli974 FREE T4 0.95 ng/dL 05/15/2017 Tsh Ord6 [...] 30.4 pg 05/15/2017 Cbc With Differential Ord2 Martin% 6.2 % 05/15/2017 Cbc With Differential Ord2 [...] 2.19 K/ul 05/15/2017 Cbc With Differential Ord2 Martin ABS# 0.4 K/ul 05/15/2017 Cbc With Differential Ord2 Eos ABS# 0.2 K/ul 05/15/2017 Cbc With Differential Ord2 Baso ABS# 0.0 K/ul 05/15/2017 Vitamin D 25 Oh Lax9658 VITAMIN D, 25 HYDROXY 50.18 ng/mL 05/15/2017 Comp Metabolic Gic275 NA 141 mEq/L 05/15/2017 Comp Metabolic Puf248 K 3.9 mEq/L 05/15/2017 Comp Metabolic Cam281 CL 103 mEq/L 05/15/2017 Comp Metabolic Gny258 CO2 29.0 mEq/L 05/15/2017 Comp Metabolic Drt499 AN ION GAP 13 05/15/2017 Comp Metabolic Lmm658 GL UCOSE 84 mg/dL 05/15/2017 Comp Metabolic Ggu630 Cr eat 1.1 mg/dL 05/15/2017 Comp Metabolic Ehs109 eG FR 55 ml/min/1.73m2 05/15 Comp Metabolic Iou229 BUN 19 mg/dL 05/15/2017 Comp Metabolic Fnk311 B/ C Ratio 18.1 Ratio 05/15/2017 Comp Metabolic Mkm548 CA LCIUM 9.7 mg/dL 05/15/2017 Comp Metabolic Ruo700 AL K PHOS 38 U/L 05/15/2017 Comp Metabolic Dyn151 T(SGOT) 21 U/L 05/15/2017 Comp Metabolic Jcy657 AL T(SGPT) 17 U/L 05/15/2017 Comp Metabolic Fqy097 BI LI T 0.4 mg/dL 05/15/2017 Comp Metabolic Kyk144 AL BUMIN 4.3 g/dL 05/15/2017 Comp Metabolic Aks970 TP RO 6.5 g/dL 05/15/2017 Comp Metabolic Hnz996 GL OB 2.3 g/dL 05/15/2017 Comp Metabolic Czx363 A/ G Ratio 1.9 Ratio 05/15/2017 Comp Metabolic Cua851 Os mo 283 mOsmo 05/15/2017 Lipid Ord30 CHOL 231 mg/dL 01/18/2017 Lipid Ord30 HDL 48.0 mg/dl 01/18/2017 Lipid Ord30 TRIG 213 mg/dL 01/18/2017 Lipid Ord30 LDL 140 mg/dL 01/18/2017 Lipid Ord30 C/HDL 4.8 Ratio 01/18/2017 Vitamin D 25 Oh Ssz7421 VITAMIN D, 25 HYDROXY 33.28 ng/mL 10/10/2016 B12 Dbr237 B12 377.00 pg/ml 10/10/2016 Comp Metabolic Xpt272 NA 142 mEq/L 10/10/2016 Comp Metabolic Fzm542 K 4.0 mEq/L 10/10/2016 Comp Metabolic Rxk246 CL 103 mEq/L 10/10/2016 Comp Metabolic Ddl241 CO2 29.0 mEq/L 10/10/2016 Comp Metabolic Lki194 AN ION GAP 14 10/10/2016 Comp Metabolic Mbx471 GL UCOSE 82 mg/dL 10/10/2016 Comp Metabolic Url559 Cr eat 0.8 mg/dL 10/10/2016 Comp Metabolic Nbp757 eG FR 77 ml/min/1.73m2 10/10 Comp Metabolic Xjw762 BUN 19 mg/dL 10/10/2016 Comp Metabolic Fsf116 B/ C Ratio 24.1 Ratio 10/10/2016 Comp Metabolic Rxo955 CA LCIUM 9.8 mg/dL 10/10/2016 Comp Metabolic Bvg064 AL K PHOS 87 U/L 10/10/2016 Comp Metabolic Fuu893 T(SGOT) 20 U/L 10/10/2016 Comp Metabolic Ldk103 AL T(SGPT) 16 U/L 10/10/2016 Comp Metabolic Gii387 BI LI T 0.5 mg/dL 10/10/2016 Comp Metabolic Eka460 AL BUMIN 4.0 g/dL 10/10/2016 Comp Metabolic Nja251 TP RO 6.7 g/dL 10/10/2016 Comp Metabolic Ido396 GL OB 2.7 g/dL 10/10/2016 Comp Metabolic Nrj158 A/ G Ratio 1.5 Ratio 10/10/2016 Comp Metabolic Ovp956 Os mo 284 mOsmo 10/10/2016 Free T4 Bqx694 FREE T4 0.68 ng/dL 10/10/2016 Cbc With [...] 30.6 pg 10/10/2016 Cbc With Differential Ord2 Martin% 5.2 % 10/10/2016 Cbc With Differential Ord2 [...] 2.11 K/ul 10/10/2016 Cbc With Differential Ord2 Martin ABS# 0.3 K/ul 10/10/2016 Cbc With Differential [...] 1: 143/76 Code: 8480-6 BMI: 38.6 Code: 12077-8 Heart Rate 1: 65 bpm Height: 5'5" SpO2: 97% Weight: 232 lbs 01/28/2017 Blood Pressure 1: 120/80 Code: 8480-6 BMI: 38.1 Code: 78889-7 Heart Rate 1: 55 bpm Height: 5'5" SpO2: 96% Weight: 229 lbs 10/08/2016 Blood Pressure 1: 130/74 Code: 8480-6 BMI: 36.9 Code: 24499-1 Heart Rate 1: 62 bpm Height: 5'5" [...] Pertinent Findings itching 01/28/2017 None 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 P ATIENT, LEVEL III Diagnosis: Zoster without complications[ICD10: B02.9] Stacie Milton MD, [facility] CPT-4: 70230 01/28/2017 ([id number]) OFFICE VISI T, [facility] - LEVEL 4 Diagnosis: Essential (primary) hypertension[ICD10: I10] Diagnosis: Bariatric surgery status[ICD10: Z98.84] Diagnosis: Atrophy of thyroid (acquired)[ICD10: E03.4] Diagnosis: Major depressive disorder, recurrent, moderate[ICD10: F33.1] Stacie Milton MD, [facility] CPT-4: 59348 10/08/2016 Plan of Care Planned Activity Notes C odes Status Date App[facility]ment: [facility] [phone] [facility] [place] (15 min) Moderate 06/25/2017 Appointment: [facility] [phone] [facility] [place] (15 min) Moderate 05/15/2017 Patient Education: Patient Medication Summary Completed 05/15/2017 Patient Education: Obesity Completed 05/15/2017 Appointment: Stac[facility] Milton [facility] [phone] [facility] (15 min) Moderate 01/28/2017 Patient Education: Patient Medication Summary Completed 01/28/2017 Patient Education: Obesity Completed 01/28/2017 Appointment: Stacie Milton WPtel: [phone] [facility] [place] New Patient 10/08/2016 Patient Education: Patient Medication Summary Completed 10/08/2016 Instructions No Instructions
--- OUTSIDE RECORDS SUMMARY | 2019-06-17 09:31 | XMS REPORT | CCD ---
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 10/08/[address]: 487070096 Never smoker 10/08/[address]: 008205645 Never drinks alcohol 10/08/2016 Has the patient [...] Inactive Date Active * NO KNOWN FOOD MNEDEZ RGIES Unknown 10/08/2016 No Inactive Date Active [...] Fill Instructions Xanax 1 mg tablet RxNorm: 823172 Tablet(s) TAKE ONE TABLET BY MOUTH ONCE DAILY AT BEDTIME 04/01/2018 No Stop Date Active Lexapro 20 mg tablet RxNorm: 248302 1 Tablet(s) PO QPM 12/31/2017 04/29/2018 Inactive 1/2 tab daily x 1 week then increase to a full tab mupirocin 2 % topica l ointment RxNorm: 354550 1 Application TOP BID 12/31/2017 01/09/2018 Inactive potassium chloride E R 20 mEq tablet,extended release RxNorm: 811654 TAKE ONE TABLET BY MOUTH ONCE DAILY IN THE MORNING 12/11/2017 No Stop Date Active hydrochlorothiazide 25 mg tablet RxNorm: 133942 TAKE ONE TABLET BY MO UTH ONCE DAILY IN THE MORNING 12/11/2017 No Stop Date Active Effexor XR 75 mg cap rashid,extended release RxNorm: 000127 1 Capsule(s) PO daily 12/09/2017 12/30/2017 In active permethrin 5 % topic al cream RxNorm: 908236 1 Application TOP onc e, may repeat in 14 days. 11/27/2017 01/06/2018 Inactive Xanax 1 mg tablet RxNorm: 291728 1 Tablet(s) PO QHS 09/30/2017 03/28/2018 Inactive citalopram 40 mg tablet RxNorm: 052223 TAKE ONE TABLET BY MOUTH ONCE DAILY IN T HE EVENING 08/05/2017 12/08/2017 Inactive Flagyl 500 mg tablet RxNorm: 924801 1 Tablet(s) PO TID 08/01/2017 08/05/2017 Inactive Xanax 1 mg tablet RxNorm: 186101 1 Tablet(s) PO QHS 07/05/2017 09/29/2017 Inactive Xanax 1 mg tablet RxNorm: 634605 TAKE ONE TABLET BY MOUTH ONCE DAILY AT B EDTIME 07/05/2017 03/31/2018 Inactive Zithromax Z-Cornell 250 mg tablet RxNorm: 699732 1 Tablet(s) PO UD 06/25/2017 07/04/2017 Inactive Trilipix 135 mg caps ule,delayed release RxNorm: 720146 1 Capsule(s) PO daily 05/22/2017 12/17/2017 In active triamcinolone aceton kaity 0.025 % topical cream RxNorm: 6852285 1 Application TOP BI D 05/15/2017 No Stop Date Active ketoconazole 2 % top ical cream RxNorm: 061903 1 TOP daily 05/15/2017 05/21/2017 Inactive Trilipix 135 mg caps ule,delayed release RxNorm: 085504 1 Capsule(s) PO daily 02/12/2017 05/21/2017 In active Trilipix 135 mg caps ule,delayed release RxNorm: 576997 1 Capsule(s) PO daily 02/12/2017 02/11/2017 In active acyclovir 800 mg tablet RxNorm: 508607 1 Tablet(s) PO QID 01/28/2017 02/06/2017 Inactive Fish Oil 1,000 mg ca psule RxNorm: 1 Capsule(s) PO BID 10/17/2016 02/13/2017 Inactive Fish Oil 1,000 mg ca psule RxNorm: 1 Capsule(s) PO BID 10/17/2016 10/16/2016 Inactive Vitamin D2 50,000 un it capsule RxNorm: 891697 1 Capsule(s) PO QW 10/17/2016 10/16/2016 Inactive Vitamin D3 2,000 uni t capsule RxNorm: 855452 1 Capsule(s) PO daily 10/17/2016 10/16/2016 Inactive Vitamin D2 50,000 un it capsule RxNorm: 508885 1 Capsule(s) PO QW 10/17/2016 01/14/2017 Inactive Vitamin D3 2,000 uni t capsule RxNorm: 402147 1 Capsule(s) PO daily 10/17/2016 01/14/2017 Inactive citalopram 40 mg tablet RxNorm: 993775 1 Tablet(s) PO QPM 10/08/2016 07/04/2017 Inactive potassium chloride E R 20 mEq tablet,extended release RxNorm: 402586 1 Tablet(s) PO QAM 10/08/2016 10/02/2017 Inactive hydrochlorothiazide 25 mg tablet RxNorm: 570675 1 Tablet(s) PO QAM 10/08/2016 10/02/2017 Inactive hydrochlorothiazide 25 mg tablet RxNorm: 327249 1 Tablet(s) PO QAM No Start Date 10/07/2016 Inactive Xanax 1 mg tablet RxNorm: 040522 1 Tablet(s) PO QHS et PRN as needed No Start Date 07/05/2017 Inactive citalopram 40 mg tablet RxNorm: 235378 1 Tablet(s) PO QPM No Start Date 10/07/2016 Inactive potassium chloride E R 20 mEq tablet,extended release RxNorm: 829297 1 Tablet(s) PO QAM No Start Date 10/07/2016 Inactive permethrin 5 % topic al cream RxNorm: 971673 1 Application TOP onc e, may repeat [...] Item Item Code Result Date Free T4 Sxk862 FREE T4 0.95 ng/dL 05/15/2017 Tsh Ord6 [...] 30.4 pg 05/15/2017 Cbc With Differential Ord2 [place]% 6.2 % 05/15/2017 Cbc With Differential Ord2 [...] 2.19 K/ul 05/15/2017 Cbc With Differential Ord2 [place] ABS# 0.4 K/ul 05/15/2017 Cbc With Differential Ord2 Eos ABS# 0.2 K/ul 05/15/2017 Cbc With Differential Ord2 Baso ABS# 0.0 K/ul 05/15/2017 Vitamin D 25 Oh Fst3908 VITAMIN D, 25 HYDROXY 50.18 ng/mL 05/15/2017 Comp Metabolic Esq029 NA 141 mEq/L 05/15/2017 Comp Metabolic Sdw071 K 3.9 mEq/L 05/15/2017 Comp Metabolic Cjd512 CL 103 mEq/L 05/15/2017 Comp Metabolic Jon167 CO2 29.0 mEq/L 05/15/2017 Comp Metabolic Saj138 AN ION GAP 13 05/15/2017 Comp Metabolic Ixc030 GL UCOSE 84 mg/dL 05/15/2017 Comp Metabolic Wph632 Cr eat 1.1 mg/dL 05/15/2017 Comp Metabolic Ibm575 eG FR 55 ml/min/1.73m2 05/15 Comp Metabolic Can727 BUN 19 mg/dL 05/15/2017 Comp Metabolic Pui945 B/ C Ratio 18.1 Ratio 05/15/2017 Comp Metabolic Gfl665 CA LCIUM 9.7 mg/dL 05/15/2017 Comp Metabolic Bfg393 AL K PHOS 38 U/L 05/15/2017 Comp Metabolic Sng762 T(SGOT) 21 U/L 05/15/2017 Comp Metabolic Hht841 AL T(SGPT) 17 U/L 05/15/2017 Comp Metabolic Syu007 BI LI T 0.4 mg/dL 05/15/2017 Comp Metabolic Otk662 AL BUMIN 4.3 g/dL 05/15/2017 Comp Metabolic Haj222 TP RO 6.5 g/dL 05/15/2017 Comp Metabolic Mut268 GL OB 2.3 g/dL 05/15/2017 Comp Metabolic Uap877 A/ G Ratio 1.9 Ratio 05/15/2017 Comp Metabolic Epm278 Os mo 283 mOsmo 05/15/2017 Lipid Ord30 CHOL 231 mg/dL 01/18/2017 Lipid Ord30 HDL 48.0 mg/dl 01/18/2017 Lipid Ord30 TRIG 213 mg/dL 01/18/2017 Lipid Ord30 LDL 140 mg/dL 01/18/2017 Lipid Ord30 C/HDL 4.8 Ratio 01/18/2017 Vitamin D 25 Oh Uhq0373 VITAMIN D, 25 HYDROXY 33.28 ng/mL 10/10/2016 B12 Bww923 B12 377.00 pg/ml 10/10/2016 Comp Metabolic Idt846 NA 142 mEq/L 10/10/2016 Comp Metabolic Rin620 K 4.0 mEq/L 10/10/2016 Comp Metabolic Ptc518 CL 103 mEq/L 10/10/2016 Comp Metabolic Lhv005 CO2 29.0 mEq/L 10/10/2016 Comp Metabolic Qas850 AN ION GAP 14 10/10/2016 Comp Metabolic Mem933 GL UCOSE 82 mg/dL 10/10/2016 Comp Metabolic Cwy684 Cr eat 0.8 mg/dL 10/10/2016 Comp Metabolic Uyn848 eG FR 77 ml/min/1.73m2 10/10 Comp Metabolic Nhf880 BUN 19 mg/dL 10/10/2016 Comp Metabolic Usi528 B/ C Ratio 24.1 Ratio 10/10/2016 Comp Metabolic Hkc239 CA LCIUM 9.8 mg/dL 10/10/2016 Comp Metabolic Pvy499 AL K PHOS 87 U/L 10/10/2016 Comp Metabolic Awp344 T(SGOT) 20 U/L 10/10/2016 Comp Metabolic Hee547 AL T(SGPT) 16 U/L 10/10/2016 Comp Metabolic Xsq253 BI LI T 0.5 mg/dL 10/10/2016 Comp Metabolic Glp928 AL BUMIN 4.0 g/dL 10/10/2016 Comp Metabolic Wzq213 TP RO 6.7 g/dL 10/10/2016 Comp Metabolic Feg396 GL OB 2.7 g/dL 10/10/2016 Comp Metabolic Qgn617 A/ G Ratio 1.5 Ratio 10/10/2016 Comp Metabolic Zog039 Os mo 284 mOsmo 10/10/2016 Free T4 Bax302 FREE T4 0.68 ng/dL 10/10/2016 Cbc With [...] 30.6 pg 10/10/2016 Cbc With Differential Ord2 [place]% 5.2 % 10/10/2016 Cbc With Differential Ord2 [...] 2.11 K/ul 10/10/2016 Cbc With Differential Ord2 [place] ABS# 0.3 K/ul 10/10/2016 Cbc With Differential [...] 1: 128/64 Code: 8480-6 BMI: 41.3 Code: 31440-5 Heart Rate 1: 68 bpm Height: 5'5" SpO2: 96% Weight: 248 lbs 01/06/2018 Blood Pressure 1: 136/78 Code: 8480-6 Heart Rate 1: 71 bpm Height: 5'5" SpO2: 95% Weight: 12/31/2017 Blood Pressure 1: 134/76 Code: 8480-6 BMI: 39.8 Code: 17469-9 Heart Rate 1: 87 bpm Height: 5'5" SpO2: 97% Weight: 239 lbs 12/09/2017 Blood Pressure 1: 136/82 Code: 8480-6 BMI: 39.8 Code: 36668-3 Heart Rate 1: 73 bpm Height: 5'5" SpO2: 97% Weight: 239 lbs 10/02/2017 Blood Pressure 1: 130/72 Code: 8480-6 BMI: 39.4 Code: 43182-1 Heart Rate 1: 74 bpm Height: 5'5" SpO2: 93% Waist Measure (cm): 104 cm Weight: 237 lbs 08/01/2017 Blood Pressure 1: 132/74 Code: 8480-6 BMI: 39.3 Code: 76002-3 Heart Rate 1: 66 bpm Height: 5'5" SpO2: 92% Weight: 236 lbs 06/25/2017 Blood Pressure 1: 136/74 Code: 8480-6 BMI: 38.6 Code: 94976-3 Heart Rate 1: 61 bpm Height: 5'5" SpO2: 95% Weight: 232 lbs 05/15/2017 Blood Pressure 1: 143/76 Code: 8480-6 BMI: 38.6 Code: 42518-8 Heart Rate 1: 65 bpm Height: 5'5" SpO2: 97% Weight: 232 lbs 01/28/2017 Blood Pressure 1: 120/80 Code: 8480-6 BMI: 38.1 Code: 14171-9 Heart Rate 1: 55 bpm Height: 5'5" SpO2: 96% Weight: 229 lbs 10/08/2016 Blood Pressure 1: 130/74 Code: 8480-6 BMI: 36.9 Code: 31880-8 Heart Rate 1: 62 bpm Height: 5'5" [...] when outdoors: y 10/02/2017 None 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 PATIENT, LEVEL IV Diagnosis: Essential (primary) hypertension[ICD10: I10] Diagnosis: Major depressive disorder, recurrent, moderate[ICD10: F33.1] Diagnosis: Other allergic rhinitis[ICD10: J30.89] Analisa Milton MD, [facility] CPT-4: 97295 04/30/2018 ([id number]) 18453 EST. P ATIENT, LEVEL III Diagnosis: Insect bite (nonvenomous), left lower leg, subsequent encounter[ICD10: S80.862D] Diagnosis: Insect bite (nonvenomous), right lower leg, subsequent encounter[ICD10: S80.861D] Stacie Milton MD, [facility] CPT-4: 60419 01/06/2018 ([id number]) 09492 EST. P ATIENT, LEVEL III Diagnosis: Rash and other nonspecific skin eruption[ICD10: R21] Diagnosis: Major depressive disorder, recurrent, moderate[ICD10: F33.1] Renetta Milton MD, [facility] CPT-4: 69616 12/31/2017 ([id number]) 84352 EST. P ATIENT, LEVEL III Diagnosis: Essential (primary) hypertension[ICD10: I10] Diagnosis: Major depressive disorder, recurrent, moderate[ICD10: F33.1] Stacie Milton MD, [facility] CPT-4: 17898 12/09/2017 ([id number]) 16206 EST. P ATIENT, LEVEL IV Diagnosis: Atrophy of thyroid (acquired)[ICD10: E03.4] Diagnosis: Essential (primary) hypertension[ICD10: I10] Diagnosis: Other allergic rhinitis[ICD10: J30.89] Stacie Milton MD, [facility] CPT-4: 39980 08/01/2017 12450 EST. PATIENT, LEVEL III Diagnosis: Other allergic rhinitis[ICD10: J30.89] Diagnosis: Otalgia, bilateral[ICD10: H92.03] Analisa Milton MD, [facility] CPT-4: 90006 06/25/2017 93005 EST. PATIENT, LEVEL III Diagnosis: Rash and other nonspecific skin eruption[ICD10: R21] Analisa Milton MD, [facility] CPT-4: 17592 05/15/2017 ([id number]) 24560 EST. P ATIENT, LEVEL III Diagnosis: Zoster without complications[ICD10: B02.9] Stacie Milton MD, [facility] CPT-4: 44191 01/28/2017 ([id number]) OFFICE VISI T, NEW - LEVEL 4 Diagnosis: Essential (primary) hypertension[ICD10: I10] Diagnosis: Bariatric surgery status[ICD10: Z98.84] Diagnosis: Atrophy of thyroid (acquired)[ICD10: E03.4] Diagnosis: Major depressive disorder, recurrent, moderate[ICD10: F33.1] Stacie Milton MD, [facility] CPT-4: 54326 10/08/2016 Plan of Care Planned Activity Notes [...] in the nasal steroid allergy spray. 04/30/2018 Patient Education: Patient Medication Summary Completed [...] going outside. 01/06/2018 Appointment: Stacie Milton WPtel: [address] [place], [place] [phone] (15 min) Moderate 01/06/2018 Patient Education: Patient [...] -start lexapro 12/31/2017 Appointment: Renetta Leigh WPtel: [phone] [facility] (15 min) Moderate 12/31/2017 Patient Education: [...] on venlafaxine. 12/09/2017 Appointment: Stacie Milton WPtel: [phone] [facility] (15 min) Moderate 12/09/2017 Patient Education: [...] 10/02/2017 Visit Plan: Hypertension - well con tromaggied [...] flagyl 08/01/2017 Appointment: Stacie Milton WPtel: [phone] [facility] (15 min) Moderate 08/01/2017 Patient Education: [...] 06/25/2017 Appointment: Analisa Jin WPtel: [phone] [facility] (15 min) Moderate 06/25/2017 Patient Education: Patient [...] 05/15/2017 Appointment: Analisa Jin WPtel: [phone] [facility] (15 min) Moderate 05/15/2017 Patient Education: Patient [...] contagious. 01/28/2017 Appointment: [facility] Milton [phone] [facility] (15 min) Moderate 01/28/2017 Patient Education: Patient [...] - continue with supportive care. 10/08/2016 Appointment: Karine Stacie [facility]Ptel[facility] [phone] [facility] New Patient 10/08/2016 Patient Education: Patient Medication [...] in cluding Vitamin D and TSH. Consider [place] thyroid for hypothyroidism Saline spray before using [...] in cluding Vitamin D and TSH. Consider [place] thyroid for hypothyroidism Saline spray before using [...]
--- OUTSIDE RECORDS SUMMARY | 2019-06-17 09:32 | XMS REPORT | CCD ---
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 ICD-10: E03.4 Active 10/08/2016 Unknown Essential (primary) hypertension ICD-9: 401.1 ICD-10: I10 Active 10/08/2016 Unknown Other allergic rhinitis ICD-9: 477.8 ICD-10: J30.89 Active 06/25/2017 Unknown Otalgia, bilateral ICD- 9: 388.70 ICD-10: H92.03 Active 06/25/2017 Unknown Rash and other nonsp ecific skin eruption ICD-9: 782.1 ICD-10: R21 Active 05/15/2017 Unknown Zoster without compl ications ICD-9: 053.9 ICD-10: B02.9 Active 01/28/2017 Unknown Bariatric surgery [facility] ICD-9: V45.86 ICD-10: Z98.84 Active 10/08/2016 Unknown Major depressive dis order, recurrent, moderate ICD-9: 296.32 ICD-10: F33.1 Active 10/08/2016 Unknown Problems Condition Codes Effectiv e Dates Condition Status 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 ICD-10: E03.4 10/08/2016 Active Essential (primary) hypertension ICD-9: 401.1 ICD-10: I10 10/08/2016 Active Other allergic rhinitis ICD-9: 477.8 ICD-10: J30.89 06/25/2017 Active Otalgia, bilateral ICD- 9: 388.70 ICD-10: H92.03 06/25/2017 Active Rash and other nonsp ecific skin eruption ICD-9: 782.1 ICD-10: R21 05/15/2017 Active Zoster without compl ications ICD-9: 053.9 ICD-10: B02.9 01/28/2017 Active Bariatric surgery [facility] ICD-9: V45.86 ICD-10: Z98.84 10/08/2016 Active Major depressive dis order, recurrent, moderate ICD-9: 296.32 ICD-10: F33.1 10/08/2016 Active Medications Medication Codes Instruc tions Start Date Stop Date Sta tus Fill Instructions Flagyl 500 mg tablet RxNorm: 965158 1 Tablet(s) PO TID 08/01/2017 08/05/2017 Active Xanax 1 mg tablet RxNorm: 994444 1 Tablet(s) PO QHS 07/05/2017 10/02/2017 Active Xanax 1 mg tablet RxNorm: 631197 TAKE ONE TABLET BY MOUTH ONCE DAILY AT B EDTIME 07/05/2017 No Stop Date Active Zithromax Z-Cornell 250 mg tablet RxNorm: 400642 1 Tablet(s) PO UD 06/25/2017 07/04/2017 Inactive Trilipix 135 mg caps ule,delayed release RxNorm: 681326 1 Capsule(s) PO daily 05/22/2017 12/17/2017 Ac tive triamcinolone aceton kaity 0.025 % topical cream RxNorm: 8319299 1 Application TOP BI D 05/15/2017 No Stop Date Active ketoconazole 2 % top ical cream RxNorm: 599459 1 TOP daily 05/15/2017 05/21/2017 Inactive Trilipix 135 mg caps ule,delayed release RxNorm: 176498 1 Capsule(s) PO daily 02/12/2017 05/21/2017 In active Trilipix 135 mg caps ule,delayed release RxNorm: 977211 1 Capsule(s) PO daily 02/12/2017 02/11/2017 In active acyclovir 800 mg tablet RxNorm: 135047 1 Tablet(s) PO QID 01/28/2017 02/06/2017 Inactive Fish Oil 1,000 mg ca psule RxNorm: 1 Capsule(s) PO BID 10/17/2016 02/13/2017 Inactive Fish Oil 1,000 mg ca psule RxNorm: 1 Capsule(s) PO BID 10/17/2016 10/16/2016 Inactive Vitamin D2 50,000 un it capsule RxNorm: 979169 1 Capsule(s) PO QW 10/17/2016 10/16/2016 Inactive Vitamin D3 2,000 uni t capsule RxNorm: 196020 1 Capsule(s) PO daily 10/17/2016 10/16/2016 Inactive Vitamin D2 50,000 un it capsule RxNorm: 912444 1 Capsule(s) PO QW 10/17/2016 01/14/2017 Inactive Vitamin D3 2,000 uni t capsule RxNorm: 505222 1 Capsule(s) PO daily 10/17/2016 01/14/2017 Inactive citalopram 40 mg tablet RxNorm: 190949 1 Tablet(s) PO QPM 10/08/2016 07/04/2017 Inactive potassium chloride E R 20 mEq tablet,extended release RxNorm: 024711 1 Tablet(s) PO QAM 10/08/2016 10/02/2017 Active hydrochlorothiazide 25 mg tablet RxNorm: 303014 1 Tablet(s) PO QAM 10/08/2016 10/02/2017 Active hydrochlorothiazide 25 mg tablet RxNorm: 407520 1 Tablet(s) PO QAM No Start Date 10/07/2016 Inactive Xanax 1 mg tablet RxNorm: 697156 1 Tablet(s) PO QHS et PRN as needed No Start Date 07/05/2017 Inactive citalopram 40 mg tablet RxNorm: 661317 1 Tablet(s) PO QPM No Start Date 10/07/2016 Inactive potassium chloride E R 20 mEq tablet,extended release RxNorm: 090505 1 Tablet(s) PO QAM No Start Date 10/07/2016 Inactive Medication Administered No Medication Administered data Immunizations No Immunization data Assessments Condition Codes Effectiv e Dates Essential (primary) hypertension ICD -10: I10 ICD-9: 401.1 08/01/2017 Other allergic rhinitis ICD-10: J30. 89 ICD-9: 477.8 08/01/2017 Atrophy of thyroid (acquired) ICD-10 : E03.4 ICD-9: 244.8 08/01/2017 Otalgia, bilateral ICD-10: H92.03 ICD-9: 388.70 06/25/2017 Rash and other nonspecific skin eruption ICD-10: R21 ICD-9: 782.1 05/15/2017 Zoster without complications ICD-10: B02.9 ICD-9: 053.9 01/28/2017 Major depressive disorder, recurrent, moderate ICD-10: F33.1 ICD-9: 296.32 10/08/2016 Bariatric surgery status ICD-10: Z98 .84 ICD-9: V45.86 10/08/2016 Reason For Visit Reason For Visit Effective Dates Notes hypothyroid 08/01/2017 earache 06/25/2017 rash 05/15/2017 rash 01/28/2017 hypothyroid 10/08/2016 Results Observation Observation Code Item Item Code Result Date Free T4 Hzh883 FREE T4 0.95 ng/dL 05/15/2017 Tsh Ord6 [...] 30.4 pg 05/15/2017 Cbc With Differential Ord2 Cotton% 6.2 % 05/15/2017 Cbc With Differential Ord2 [...] 2.19 K/ul 05/15/2017 Cbc With Differential Ord2 Cotton ABS# 0.4 K/ul 05/15/2017 Cbc With Differential Ord2 Eos ABS# 0.2 K/ul 05/15/2017 Cbc With Differential Ord2 Baso ABS# 0.0 K/ul 05/15/2017 Vitamin D 25 Oh Seu4725 VITAMIN D, 25 HYDROXY 50.18 ng/mL 05/15/2017 Comp Metabolic Reu417 NA 141 mEq/L 05/15/2017 Comp Metabolic Xvr599 K 3.9 mEq/L 05/15/2017 Comp Metabolic Pug560 CL 103 mEq/L 05/15/2017 Comp Metabolic Zzz602 CO2 29.0 mEq/L 05/15/2017 Comp Metabolic Xui818 AN ION GAP 13 05/15/2017 Comp Metabolic Iyl540 GL UCOSE 84 mg/dL 05/15/2017 Comp Metabolic Pns122 Cr eat 1.1 mg/dL 05/15/2017 Comp Metabolic Hct665 eG FR 55 ml/min/1.73m2 05/15 Comp Metabolic Aeb329 BUN 19 mg/dL 05/15/2017 Comp Metabolic Lzn501 B/ C Ratio 18.1 Ratio 05/15/2017 Comp Metabolic Dhl754 CA LCIUM 9.7 mg/dL 05/15/2017 Comp Metabolic Aby598 AL K PHOS 38 U/L 05/15/2017 Comp Metabolic Eqa007 T(SGOT) 21 U/L 05/15/2017 Comp Metabolic Hmp397 AL T(SGPT) 17 U/L 05/15/2017 Comp Metabolic Vkb828 BI LI T 0.4 mg/dL 05/15/2017 Comp Metabolic Spy057 AL BUMIN 4.3 g/dL 05/15/2017 Comp Metabolic Kla846 TP RO 6.5 g/dL 05/15/2017 Comp Metabolic Erf098 GL OB 2.3 g/dL 05/15/2017 Comp Metabolic Txm513 A/ G Ratio 1.9 Ratio 05/15/2017 Comp Metabolic Yjs621 Os mo 283 mOsmo 05/15/2017 Lipid Ord30 CHOL 231 mg/dL 01/18/2017 Lipid Ord30 HDL 48.0 mg/dl 01/18/2017 Lipid Ord30 TRIG 213 mg/dL 01/18/2017 Lipid Ord30 LDL 140 mg/dL 01/18/2017 Lipid Ord30 C/HDL 4.8 Ratio 01/18/2017 Vitamin D 25 Oh Vby3445 VITAMIN D, 25 HYDROXY 33.28 ng/mL 10/10/2016 B12 Zii250 B12 377.00 pg/ml 10/10/2016 Comp Metabolic Jgw433 NA 142 mEq/L 10/10/2016 Comp Metabolic Fpx964 K 4.0 mEq/L 10/10/2016 Comp Metabolic Lnc278 CL 103 mEq/L 10/10/2016 Comp Metabolic Bww557 CO2 29.0 mEq/L 10/10/2016 Comp Metabolic Knv700 AN ION GAP 14 10/10/2016 Comp Metabolic Mwa296 GL UCOSE 82 mg/dL 10/10/2016 Comp Metabolic Mkt953 Cr eat 0.8 mg/dL 10/10/2016 Comp Metabolic Vyt993 eG FR 77 ml/min/1.73m2 10/10 Comp Metabolic Bxe605 BUN 19 mg/dL 10/10/2016 Comp Metabolic Eeu873 B/ C Ratio 24.1 Ratio 10/10/2016 Comp Metabolic Fwn178 CA LCIUM 9.8 mg/dL 10/10/2016 Comp Metabolic Hzm908 AL K PHOS 87 U/L 10/10/2016 Comp Metabolic Hfc148 T(SGOT) 20 U/L 10/10/2016 Comp Metabolic Bln733 AL T(SGPT) 16 U/L 10/10/2016 Comp Metabolic Vxu155 BI LI T 0.5 mg/dL 10/10/2016 Comp Metabolic Tmb583 AL BUMIN 4.0 g/dL 10/10/2016 Comp Metabolic Qxg545 TP RO 6.7 g/dL 10/10/2016 Comp Metabolic Aww318 GL OB 2.7 g/dL 10/10/2016 Comp Metabolic Hvk063 A/ G Ratio 1.5 Ratio 10/10/2016 Comp Metabolic Cvq095 Os mo 284 mOsmo 10/10/2016 Free T4 Obq088 FREE T4 0.68 ng/dL 10/10/2016 Cbc With [...] 30.6 pg 10/10/2016 Cbc With Differential Ord2 Cotton% 5.2 % 10/10/2016 Cbc With Differential Ord2 Eos% 7.8 % 10/10/2016 Cbc With Differential Ord2 MCHC 33.0 pg 10/10/2016 Cbc With Differential Ord2 PLT 229 K/ul 10/10/2016 Cbc With Differential Ord2 Baso% 0.2 % 10/10/2016 Cbc With Differential Ord2 RDW 14.6 % 10/10/2016 Cbc With Differential Ord2 Neut ABS# 2.69 K/ul 10/10/2016 Cbc With Differential Ord2 Lymph ABS# 2.11 K/ul 10/10/2016 Cbc With Differential Ord2 Cotton ABS# 0.3 K/ul 10/10/2016 Cbc With Differential [...] Result Effective Dates Constitutional No recent illness 08/01/2017 Constitutional No [...] intact 10/08/2016 None Full Exam - General 1995 Integument inspection of skin Overall: few scattered moles, no gross abnormalities 10/08/2016 seborrheic keratosis of back - under breasts, benign appearing Procedures No Procedures data Vital Signs Date Vital 08/01/2017 Blood Pressure 1: 132/74 Code: 8480-6 BMI: 39.3 Code: 64837-7 Heart Rate 1: 66 bpm Height: 5'5" SpO2: 92% Weight: 236 lbs 06/25/2017 Blood Pressure 1: 136/74 Code: 8480-6 BMI: 38.6 Code: 25723-9 Heart Rate 1: 61 bpm Height: 5'5" SpO2: 95% Weight: 232 lbs 05/15/2017 Blood Pressure 1: 143/76 Code: 8480-6 BMI: 38.6 Code: 41907-9 Heart Rate 1: 65 bpm Height: 5'5" SpO2: 97% Weight: 232 lbs 01/28/2017 Blood Pressure 1: 120/80 Code: 8480-6 BMI: 38.1 Code: 32383-1 Heart Rate 1: 55 bpm Height: 5'5" SpO2: 96% Weight: 229 lbs 10/08/2016 Blood Pressure 1: 130/74 Code: 8480-6 BMI: 36.9 Code: 52152-4 Heart Rate 1: 62 bpm Height: 5'5" SpO2: 92% Weight: 221 lbs 8 oz Functional Status No Functional Status data History of Present Illness Symptom Name Status Resu lt Effective Date Notes hypothyroid Quality weight recorder izabella 08/01/2017 None hypothyroid Onset and Resolution [...] Pertinent Findings itching 01/28/2017 None hypothyroid Quality weight recorder izabella 10/08/2016 None hypothyroid Onset and Resolution [...] Encounters Encounter Performer Loca tion Codes Date ([id number]) [id number] EST. P ATIENT, LEVEL IV Diagnosis: Atrophy of thyroid (acquired)[ICD10: E03.4] Diagnosis: Essential (primary) hypertension[ICD10: I10] Diagnosis: Other allergic rhinitis[ICD10: J30.89] Stacie Milton MD, [facility] CPT-4: 80349 08/01/2017 [id number] EST. PATIENT, LEVEL III Diagnosis: Other allergic rhinitis[ICD10: J30.89] Diagnosis: Otalgia, bilateral[ICD10: H92.03] Analisa Milton MD, [facility] CPT-4: 89542 06/25/2017 70044 EST. PATIENT, LEVEL III Diagnosis: Rash and other nonspecific skin eruption[ICD10: R21] Analisa Milton MD, [facility] CPT-4: 55507 05/15/2017 ([id number]) 42253 EST. P ATIENT, LEVEL III Diagnosis: Zoster without complications[ICD10: B02.9] Stacie Milton MD, [facility] CPT-4: 52046 01/28/2017 ([id number]) OFFICE VISI T, NEW - LEVEL 4 Diagnosis: Essential (primary) hypertension[ICD10: I10] Diagnosis: Bariatric surgery status[ICD10: Z98.84] Diagnosis: Atrophy of thyroid (acquired)[ICD10: E03.4] Diagnosis: Major depressive disorder, recurrent, moderate[ICD10: F33.1] Stacie Milton MD, [facility] CPT-4: 13398 10/08/2016 Plan of Care Planned Activity Notes [...] Vaginal discharge - rx for flagyl 08/01/2017 Patient Education: Patient Medication Summary Completed [...] worsen. 06/25/2017 [phone] [id number] ([facility]) Moderate 06/25/2017 Patient Education: Patient [...] discharge. 05/15/2017 [phone] [facility] ([facility] min) Moderate 05/15/2017 Patient Education: Patient [...] considered contagious. 01/28/2017 Appointment: Stacie Milton WPtel: [facility]8 [facility] (15 min) Moderate 01/28/2017 Patient Education: Patient [...] supportive care. 10/08/2016 Appointment: Stacie Milton WPtel: [facility]5 [facility] New Patient 10/08/2016 Patient Education: Patient Medication Summary Completed 10/08/2016 Instructions Comment . Shingles - Herpes Zoster - acute [...] increase in pain, worsening redness, warmth, discharge. Fasting lab work, in cluding Vitamin D and TSH. Consider [place] thyroid for hypothyroidism Saline spray before using [...] in cluding Vitamin D and TSH. Consider [place] thyroid for hypothyroidism Saline spray before using [...]
--- OUTSIDE RECORDS SUMMARY | 2019-06-17 09:32 | XMS REPORT | Continuity of Care Document ---
Author Organization Unknown Address Unknown Phone Unavailable Allergies Active Description Code Type Severity Reaction Onset Reported/Identified Relationship to Patient Clinical Status Yes levothyroxine sodium [id number] Drug Allergy Unknown N/A 12/03/2018 Yes Eciedqm-Tgk-Zlq Reductase Inhibitor [id number] Drug Allergy Unknown N/A 12/03/2018 Yes fenofibrate [id number] Drug Aller gy Unknown leg pains 05/13/2019 Yes venlafaxine [id number] Drug Aller gy Unknown depression 05/13/2019 Yes vitamin c vitamin c Unknown fever 05/13/2019 Medications There is no data. Problems Date Dx Coded Attending Type Code Diagnosis Diagnosed By 03/22/2017 FRANCISCA BECERRA APRN Ot Z12.31 ENCNTR SCREEN MAMMOGRAM FOR MALIGNANT NE 06/28/2017 FRANCISCA BECERRA LOSS MITIGATION SPECIALIST Ot K11.8 OTHER DISEASES OF SALIVARY GLANDS 07/18/2017 FRANCISCA BECERRA LOSS MITIGATION SPECIALIST Ot K11.8 OTHER DISEASES OF SALIVARY GLANDS 07/18/2017 FRANCISCA BECERRA LOSS MITIGATION SPECIALIST Ot K11.8 OTHER DISEASES OF SALIVARY GLANDS 10/02/2017 FRANCISCA BECERRA LOSS MITIGATION SPECIALIST Ot Z12.31 ENCNTR SCREEN MAMMOGRAM FOR MALIGNANT NE 10/02/2017 FRANCISCA BECERRA APRN Ot K11.8 OTHER DISEASES OF SALIVARY GLANDS 08/01/2018 FRANCISCA BECERRA LOSS MITIGATION SPECIALIST Ot Z12.31 ENCNTR SCREEN MAMMOGRAM FOR MALIGNANT NE 08/01/2018 FRANCISCA BECERRA LOSS MITIGATION SPECIALIST Ot K11.8 OTHER DISEASES OF SALIVARY GLANDS 08/01/2018 FRANCISCA BECERRA APRN Ot R53.83 OTHER FATIGUE 10/20/2018 KASIA GONZALEZ MD Ot Z12.31 ENCNTR SCREEN MAMMOGRAM FOR MALIGNANT NE 2018 FRANCISCA BECERRA APRN Ot Z12.31 ENCNTR SCREEN MAMMOGRAM FOR MALIGNANT NE 2018 FRANCISCA BECERRA APRN Ot K11.8 OTHER DISEASES OF SALIVARY GLANDS 2018 FRANCISCA BECERRA APRN Ot R53.83 OTHER FATIGUE 2018 PHILIPP DONG LOSS MITIGATION SPECIALIST Ot J98.11 ATELECTASIS 2018 IKERPHILIPP WILLIS LOSS MITIGATION SPECIALIST Ot R07.81 PLEURODYNIA 2018 PHILIPP DONG LOSS MITIGATION SPECIALIST Ot W19.XXXA UNSPECIFIED FALL, INITIAL ENCOUNTER 2018 KASIA GONZALEZ MD Ot Z12.31 ENCNTR SCREEN MAMMOGRAM FOR MALIGNANT NE 10/23/2018 KASIA GONZALEZ MD Ot Z12.31 ENCNTR SCREEN MAMMOGRAM FOR MALIGNANT NE 10/27/2018 KASIA GONZALEZ MD Ot Z12.31 ENCNTR SCREEN MAMMOGRAM FOR MALIGNANT NE 12/07/2018 JULIUS DORSEY MD Ot E78. 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 89 OTHER CHEST PAIN 12/07/2018 JULIUS DORSEY MD Ot Z98. 84 BARIATRIC SURGERY STATUS 04/27/2019 QUIRINO OYUNG MD Ot K14 .8 OTHER DISEASES OF TONGUE 05/11/2019 QUIRINO YOUNG MD Ot K14 .8 OTHER DISEASES OF TONGUE 05/13/2019 QUIRINO YOUNG MD Ot J35 .1 HYPERTROPHY OF TONSILS 05/13/2019 QUIRINO YOUNG MD Ot K14 .8 OTHER DISEASES OF TONGUE 05/13/2019 QUIRINO YOUNG MD Ot Z01.818 ENCOUNTER FOR OTHER PREPROCEDURAL EXAMIN 05/19/2019 QUIRINO YOUNG MD Ot J35 .1 HYPERTROPHY OF TONSILS 05/19/2019 QUIRINO YOUNG MD Ot K14 .8 OTHER DISEASES OF TONGUE 05/19/2019 QUIRINO YOUNG MD Ot Z01.818 ENCOUNTER FOR OTHER PREPROCEDURAL EXAMIN 05/22/2019 QUIRINO YOUNG MD Ot E66.01 MORBID (SEVERE) OBESITY DUE TO EXCESS CA 05/22/2019 QUIRINO YOUNG MD Ot F32 .9 MAJOR DEPRESSIVE DISORDER, SINGLE EPISOD 05/22/2019 QUIRINO YOUNG MD Ot F41 .9 ANXIETY DISORDER, UNSPECIFIED 05/22/2019 QUIRINO YOUNG MD Ot G47.33 OBSTRUCTIVE SLEEP APNEA (ADULT) (PEDIATR 05/22/2019 QUIRINO YOUNG MD, Ot G89.29 OTHER CHRONIC PAIN 05/22/2019 QUIRINO YOUNG MD, Ot I10 ESSENTIAL (PRIMARY) HYPERTENSION 05/22/2019 QUIRINO YOUNG MD Ot K14 .8 OTHER DISEASES OF TONGUE 05/22/2019 QUIRINO YOUNG MD, Ot K21 .9 GASTRO-ESOPHAGEAL REFLUX DISEASE WITHOUT 05/22/2019 QUIRINO YOUNG MD Ot Z68.41 BODY MASS INDEX (BMI) 40.0-44.9, ADULT 05/22/2019 QUIRINO YOUNG MD, Ot Z79.899 OTHER CORRECTION (CURRENT) DRUG THERAPY 05/22/2019 QUIRINO YOUNG MD Ot Z88 .8 ALLERGY STATUS TO OTH DRUG/MEDS/BIOL SUB 05/22/2019 QUIRINO YOUNG MD Ot Z90.49 ACQUIRED ABSENCE OF OTHER SPECIFIED PART 05/22/2019 QUIRINO YOUNG MD, Ot Z99.89 DEPENDENCE ON OTHER ENABLING MACHINES AN 05/27/2019 QUIRINO YOUNG MD, Ot E66.01 MORBID (SEVERE) OBESITY DUE TO EXCESS CA 05/27/2019 QUIRINO YOUNG MD Ot F32 .9 MAJOR DEPRESSIVE DISORDER, SINGLE EPISOD 05/27/2019 QUIRINO YOUNG MD, Ot F41 .9 ANXIETY DISORDER, UNSPECIFIED 05/27/2019 QUIRINO YOUNG MD, Ot G47.33 OBSTRUCTIVE SLEEP APNEA (ADULT) (PEDIATR 05/27/2019 QUIRINO YOUNG MD, Ot G89.29 OTHER CHRONIC PAIN 05/27/2019 QUIRINO YOUNG MD Ot I10 ESSENTIAL (PRIMARY) HYPERTENSION 05/27/2019 QUIRINO YOUNG MD Ot K14 .8 OTHER DISEASES OF TONGUE 05/27/2019 QUIRINO YOUNG MD, Ot K21 .9 GASTRO-ESOPHAGEAL REFLUX DISEASE WITHOUT 05/27/2019 QUIRINO YOUNG MD, Ot Z68.41 BODY MASS INDEX (BMI) 40.0-44.9, ADULT 05/27/2019 QUIRINO YOUNG MD, Ot Z79.899 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 Results Test Result Range Influenza virus A and B antigen detectio n - 06/26/17 10:40 FLU RESULT NEGATIVE FOR INFLUENZA A AND B ANTIGENS BY [facility] Complete blood count (CBC) with automate d white blood cell (WBC) differential - 06/26/17 10:55 Blood leukocytes automated count (number/volume) 5.0 10*3/uL 4.3-11.0 Blood erythrocytes automated count (number/volume) 4.10 10*6/uL 4.35-5.85 Venous blood hemoglobin measurement (mass/volume) 12.7 g/dL 11.5-16.0 Blood hematocrit (volume fraction) 37 % 35-52 Automated erythrocyte mean corpuscular volume 91 [ foz_us] 80-99 Automated erythrocyte mean corpuscular h emoglobin (mass per erythrocyte) 31 pg 25-34 Automated erythrocyte mean corpuscular h emoglobin concentration measurement (mass/volume) 34 g/dL 32-36 Automated erythrocyte distribution width ratio 13. 8 % 10.0- 14.5 Automated blood platelet count (count/volume) 228 10*3/uL 130-400 Automated blood platelet mean volume measurement 10.0 [foz_us] 7.4-10.4 Automated blood neutrophils/100 leukocytes 51 % 42-75 Automated blood lymphocytes/100 leukocytes 38 % 12-44 Blood monocytes/100 leukocytes 6 % 0-12 Automated blood eosinophils/100 leukocytes 4 % 0-10 Automated blood basophils/100 leukocytes 0 % 0-10 Blood neutrophils automated count (number/volume) 2.6 10*3 1.8-7.8 Blood lymphocytes automated count (number/volume) 1.9 10*3 1.0-4.0 Blood monocytes automated count (number/volume) 0. 3 10*3 0.0-1.0 Automated eosinophil count 0.2 10*3/uL 0 .0-0.3 Automated blood basophil count (count/volume) 0.0 10*3/uL 0.0-0.1 THYROID STIMULATING HORMONE - 10/02/17 1 5:54 THYROID STIMULATING HORMONE 2.63 u[iU]/mL 0.35-4.94 Serum or plasma thyroxine (T4) free dianne urement (mass/volume) - 10/02/17 15:54 Serum or plasma thyroxine (T4) free measurement (mass/ volume) 0.99 ng/dL 0.70-1.48 [id number] - 04/23/19 08:30 Serum or plasma urea nitrogen measurement (mass/volume ) 14 mg/dL 7-18 Serum or plasma creatinine measurement (mass/volume) 0.94 mg/dL 0.60-1.30 Serum or plasma urea nitrogen/creatinine mass ratio 15 NRG Serum or plasma creatinine measurement w ith calculation of estimated glomerular filtration rate 59 NRG Complete blood count (CBC) with automate d white blood cell (WBC) differential - 05/13/19 11:20 Blood leukocytes automated count (number/volume) 6.1 10*3/uL 4.3-11.0 Blood erythrocytes automated count (number/volume) 4.40 10*6/uL 4.35-5.85 Venous blood hemoglobin measurement (mass/volume) 13.1 g/dL 11.5-16.0 Blood hematocrit (volume fraction) 40 % 35-52 Automated erythrocyte mean corpuscular volume 91 [ foz_us] 80-99 Automated erythrocyte mean corpuscular h emoglobin (mass per erythrocyte) 30 pg 25-34 Automated erythrocyte mean corpuscular h emoglobin concentration measurement (mass/volume) 33 g/dL 32-36 Automated erythrocyte distribution width ratio 13. 7 % 10.0- 14.5 Automated blood platelet count (count/volume) 211 10*3/uL 130-400 Automated blood platelet mean volume measurement 9.6 [foz_us] 7.4-10.4 Automated blood neutrophils/100 leukocytes 55 % 42-75 Automated blood lymphocytes/100 leukocytes 34 % 12-44 Blood monocytes/100 leukocytes 5 % 0-12 Automated blood eosinophils/100 leukocytes 5 % 0-10 Automated blood basophils/100 leukocytes 1 % 0-10 Blood neutrophils automated count (number/volume) 3.4 10*3 1.8-7.8 Blood lymphocytes automated count (number/volume) 2.1 10*3 1.0-4.0 Blood monocytes automated count (number/volume) 0. 3 10*3 0.0-1.0 Automated eosinophil count 0.3 10*3/uL 0 .0-0.3 Automated blood basophil count (count/volume) 0.0 10*3/uL 0.0-0.1 Whole blood basic metabolic panel - 04/18 01/02 11:20 Serum or plasma sodium measurement (moles/volume) 141 mmol/L 135-145 Serum or plasma potassium measurement (moles/volume) 3.6 mmol/L 3.6-5.0 Serum or plasma chloride measurement (moles/volume) 104 mmol/L 98-107 Carbon dioxide 24 mmol/L 21-32 Serum or plasma anion gap determination (moles/volume) 13 mmol/L 5-14 Serum or plasma urea nitrogen measurement (mass/volume ) 13 mg/dL 7-18 Serum or plasma creatinine measurement (mass/volume) 0.87 mg/dL 0.60-1.30 Serum or plasma urea nitrogen/creatinine mass ratio 15 NRG Serum or plasma creatinine measurement w ith calculation of estimated glomerular filtration rate > NRG Serum or plasma glucose measurement (mass/volume) 125 mg/dL 70-105 Serum or plasma calcium measurement (mass/volume) 9.5 mg/dL 8.5-10.1 Methicillin resistant Staphylococcus aur eus (MRSA) screening culture - 05/13/19 11:20 Methicillin resistant Staphylococcus aureus (MRSA) scr eening culture NEG NRG Encounters ACCT No. Visit Date/Time Discharge Status Pt. Type Provider Facility Loc./Unit Complaint [id number] 02/03/2019 13:20:00 02/03/2019 23:59: 59 CLS Outpatient VICKY LAC, [facility] [id number] 05/22/2019 07:51:00 11:38:00 DIS Outpatient QUIRINO YOUNG MD [facility] SDC POSTERIOR TONGUE LESION [id number] 05/13/2019 10:50:00 11:25:00 DIS Outpatient QUIRINO YOUNG MD [facility] PREOP DIRECT LARYNGOSCOPY; EX CISION TONGUE LESION [id number] 04/23/2019 08:04:00 23:59:59 CLS Outpatient QUIRINO YOUNG MD [facility] RAD TONGUE LESION [id number] 12/03/2018 10:33:00 23:59:59 CLS Outpatient JULIUS DORSEY MD [facility] CARD ANTERIOR CHEST WALL RODNEY N,HX OF SLEEVE GASTRECTOMY [id number] 11/07/2018 10:05:00 23:59:59 CLS Preadmit SUNITA ROD, JULIUS Jones [facility] CARD ANTERIOR CHEST WALL RODNEY N,HX OF SLEEVE GASTRECTOMY [id number] 2018 10:06:00 019 23:59:59 CLS Outpatient CARLOS ROD, KASIA Puga [facility] RAD SCREENING [id number] 08/01/2018 13:53:00 019 23:59:59 CLS Outpatient PHILIPP DONG LOSS MITIGATION SPECIALIST [facility] RAD DYSPNEA, OTHER CHEST PA IN, FALL [id number] 04/30/2018 11:36:00 018 23:59:59 CLS Preadmit FRANCISCA BECERRA LOSS MITIGATION SPECIALIST [facility] RAD SCREENING [id number] 10/02/2017 15:38:00 018 23:59:59 CLS Outpatient FRANCISCA BECERRA LOSS MITIGATION SPECIALIST [facility] LAB FATIGUE [id number] 06/26/2017 10:26:00 018 23:59:59 CLS Outpatient FRANCISCA BECERRA LOSS MITIGATION SPECIALIST [facility] LAB K11.8 [id number] 02/26/2017 10:22:00 017 23:59:59 CLS Outpatient FRANCISCA BECERRA LOSS MITIGATION SPECIALIST [facility] RAD SCREENING
== END 2019-05-22 11:38 | disposition home or self-care (01) ==
LOC: SDC 07:51
PROVIDERS: ATTEND Otolaryngology Otolaryngology/Facial Plastic Surgery
DX: K14.8 Other diseases of tongue (principal); I10 Essential (primary) hypertension; G47.33 Obstructive sleep apnea (adult) (pediatric); E66.01 Morbid (severe) obesity due to excess calories; G89.29 Other chronic pain; K21.9 Gastro-esophageal reflux disease without esophagitis; F41.9 Anxiety disorder, unspecified; F32.9 Major depressive disorder, single episode, unspecified; Z88.8 Allergy status to other drugs, medicaments and biological substances; Z79.899 Other long term (current) drug therapy; Z99.89 Dependence on other enabling machines and devices; Z68.41 Body mass index [BMI] 40.0-44.9, adult; Z90.49 Acquired absence of other specified parts of digestive tract
CPT/HCPCS: 88305

== ENCOUNTER → 2020-08-31 | Outpatient (CLI) | payer MEDICARE ==
[~2020-08-31] MED LIST changes: +2% VISCOUS LIDOCAINE PO; +HYDR15SO8 PO
--- NOTE | 2020-08-31 15:36 | Diagnostic Imaging Report ---
INDICATION: Shortness of breath. EXAMINATION: PA and lateral chest. FINDINGS: The heart size and pulmonary vascularity are normal. The lungs are clear. There are no effusions or pneumothoraces. IMPRESSION: Negative chest. Dictated by: Dictated on workstation # [id number]
== END ==
LOC: CARD 13:00
PROVIDERS: ATTEND Internal Medicine Cardiovascular Disease
DX: R07.9 Chest pain, unspecified (principal); I10 Essential (primary) hypertension
CPT/HCPCS: 71046; 93306

== ENCOUNTER → 2020-09-28 | Outpatient (CLI) | payer MEDICARE ==
[~2020-09-28] VITALS: Ht 165 cm; Wt 109.0 kg
[~2020-09-28] MED LIST changes: +CATHETER FLUSH 10 ML SYR IV PRN; +REGADENOSON 0.4 MG/5 ML SYR (LEXISCAN) IV ONE
[2020-09-28 09:06] VITALS: BP 154/75
--- NOTE | 2020-09-28 14:16 | Cardiology Stress Test Report ---
Stress Test Report Date of Procedure/Referring: Date of Procedure: Sep 28, 2020 PCP Julius Church MD Admitting Physician Stacie Milton MD Indications: Hypertension Baseline Heart Rate: 58 Baseline Blood Pressure: Blood Pressure Systolic: 154 Blood Pressure Diastolic: 75 Baseline Vitals Vital Signs Date Time Temp Pulse Resp B/P (MAP) Pulse Ox O2 Delivery O2 Flow Rate FiO2 09/28/20 09:06 57 18 154/75 (101) 98 Room Air Baseline EKG: Baseline EKG: NSR Summary After explaining the procedure to the patient, she signed a consent and then brought to the stress nuclear laboratory. Patient received 0.4 mg Lexiscan for stress test, ECG, heart rate and blood pressure were monitored continuously. Resting and stress dose of radio tracer were injected, imaging was acquired and reviewed in short axis, horizontal long axis and vertical long axis views. TID: 1.06 SSS: 2 SDS: 2 EF: 61 1. Patient tolerated Lexiscan well 2. Breast attenuation with mild decreased uptake at the basal to mid anterior wall with subtle reversibility, no significant ischemia or infarction on SPECT images 3. Normal left ventricular size, EF 61% JULIUS CHURCH MD Sep 28, 2020 14:16
== END ==
LOC: CARD 07:30
PROVIDERS: ATTEND Internal Medicine Cardiovascular Disease
DX: I10 Essential (primary) hypertension (principal); R07.9 Chest pain, unspecified
CPT/HCPCS: 78452; 93017; A9502

== ENCOUNTER → 2021-06-27 | Outpatient (CLI) | payer MEDICARE ==
[~2021-06-27] MED LIST changes: -CATHETER FLUSH 10 ML SYR IV PRN; -DULO60CA6 PO; +DULO60CA7 PO; +POTA-169 PO; -POTA20TA8 PO; -REGADENOSON 0.4 MG/5 ML SYR (LEXISCAN) IV ONE
== END ==
LOC: LABNPT 08:35
PROVIDERS: ATTEND Family Medicine
DX: U07.1 COVID-19 (principal)
CPT/HCPCS: 87635

== ENCOUNTER → 2021-09-05 | Outpatient (CLI) | payer MEDICARE ==
[~2021-09-05] MED LIST changes: +GADOTERATE 0.5 MMOL/ML (CLARISCAN) 20 ML VIAL IV ONE
--- NOTE | 2021-09-05 09:28 | Diagnostic Imaging Report ---
PROCEDURE: MR imaging of the brain with and without contrast. TECHNIQUE: Multiplanar, multisequence MR imaging of the brain was performed with and without contrast. INDICATION: Memory problems. COMPARISON: none FINDINGS: No acute ischemia, mass, or hemorrhage. No abnormal enhancement. Areas of T2 hyperintense signal are visualized in the periventricular and subcortical white matter, greatest in the peritrigonal white matter in the left parietal lobe. The ventricles, cortical sulci, and basilar cisterns are symmetric and unremarkable. The sellar and suprasellar regions have a normal appearance. The brainstem and posterior fossa are unremarkable. The paranasal sinuses and mastoid air cells demonstrate normal signal characteristics. The globes and orbits are symmetric and unremarkable. The scalp and calvarium have a normal appearance. IMPRESSION: 1. No acute ischemia, mass, or hemorrhage. No abnormal intracranial enhancement. 2. Chronic microvascular disease scattered in the periventricular and subcortical white matter. Dictated by: Dictated on workstation # [id number]
[2021-09-05 09:34] LABS: CALCIUM 9.5 MG/DL (8.5-10.1); CREATININE SERUM 0.92 MG/DL (0.60-1.30); POTASSIUM 3.6 MMOL/L (3.6-5.0)
== END ==
LOC: RAD 08:15
PROVIDERS: ATTEND Nurse Practitioner Family
DX: I67.89 Other cerebrovascular disease (principal)
CPT/HCPCS: 36415; 70553; 80048

== ENCOUNTER 2021-12-07 09:51 | Emergency (ER) | payer MEDICARE ==
[~2021-12-07] VITALS: Ht 165.1 cm; Wt 108.0 kg
[~2021-12-07 09:51] MED LIST changes: -GADOTERATE 0.5 MMOL/ML (CLARISCAN) 20 ML VIAL IV ONE
--- NOTE | 2021-12-07 10:36 | ED General ---
General Chief Complaint: Back Problems Stated Complaint: BACK PAIN - FEVER Source of Information: Patient Exam Limitations: No Limitations History of Present Illness Date Seen by Provider: Dec 07, 2021 Time Seen by Provider: 10:23 Initial Comments Patient is a 71-year-old female who presents to the emergency department today with a chief complaint of bilateral lower extremity cramping that seems to radiate up into her back. She tells me that this has been ongoing for about 10 days. She states about 20 days ago she developed some "sores" on her scalp. She saw Dr. Milton's midlevel and was placed on doxycycline. She did not have improvement in her symptoms so they changed her over to Bactrim. She took this for 3 or 4 days and then developed the cramping and discontinue the Bactrim. She states the sores on her scalp have been improving. She has been using an antifungal shampoo and some creams. She states the cramping in her muscles in her legs and low back has been worsening however. She complains of a "low- grade" 99-100 temperature. No dysuria, urgency or frequency. She is not really nauseous. She has been taking Tylenol and applying ice packs. Nothing makes the pain any better or any worse. She is not on any statin type drugs. She has not noticed any darkening of her urine however it was darker than normal about a week ago. She had labs done through Dr. Milton's office and they were reported to her as within normal limits. No chest pain or shortness of breath, no URI symptoms. All other review of systems reviewed and negative except as stated Timing/Duration: Constant, Getting Worse (10 days) Severity: Moderate Associated Systoms: Fever/Chills Allergies and Home Medications Allergies Coded Allergies: Gieouwm-Gbr-Wjj Reductase Inhibitor (Unverified Allergy, Unknown, 12/03/18) fenofibrate (Verified Allergy, Unknown, leg pains, 05/13/19) levothyroxine sodium (Unverified Allergy, Unknown, 12/03/18) venlafaxine (Verified Allergy, Unknown, depression, 05/13/19) Uncoded Allergies: vitamin c (Allergy, Unknown, fever, 05/13/19) Patient Home Medication List Home Medication List Reviewed: Yes Alprazolam (Xanax) 1 Mg Tablet, 1 MG PO HS, (Reported) Entered as Reported by: INES DOVE on 05/13/19 115 Cholecalciferol (Vitamin D3) (Vitamin D3) 1,000 Unit Tablet, 1,000 UNIT PO DAILY, (Reported) Entered as Reported by: INES DOVE on 05/13/19 115 Docusate Sodium (Stool Softener) 100 Mg Tablet, 100 MG PO BID, (Reported) Entered as Reported by: INES DOVE on 05/13/19 115 Duloxetine HCl (Cymbalta) 60 Mg Capsule.dr, 60 MG PO DAILY, (Reported) Entered as Reported by: INES DOVE on 05/13/19 115 Hydrochlorothiazide (Hydrochlorothiazide) 25 Mg Tablet, 25 MG PO DAILY, (Reported) Entered as Reported by: INES DOVE on 05/13/19 115 Hydrocodone/Acetaminophen (Hydrocodon-Acetamin 7.5-325/15 ML) 15 Ml Solution, 1- 2 TSP PO Q4H Prescribed by: NATACHA OLIVARES on 05/22/19 1048 Melatonin/Pyridoxine HCl (B6) (Melatonin 10 mg Tablet) 1 Each Tab.mphase, 10 MG PO HS, (Reported) Entered as Reported by: INES DOVE on 05/13/19 115 Potassium Chloride (Klor-Con M20) 20 Meq Tab.er.prt, 20 MEQ PO DAILY, (Reported) Entered as Reported by: INES DOVE on 05/13/19 115 Trazodone HCl (Trazodone HCl) 50 Mg Tablet, 50 MG PO HS, (Reported) Entered as Reported by: INES DOVE on 05/13/19 115 Ubidecarenone (Coq-10) 100 Mg Capsule, 100 MG PO DAILY, (Reported) Entered as Reported by: INES DOVE on 05/13/19 115 [2% Viscous Lidocaine] , 1 TSP PO Q2-3HR PRN for PAIN Prescribed by: NATACHA OLIVARES on 05/22/19 1048 Review of Systems Review of Systems Constitutional: see HPI EENTM: no symptoms reported Respiratory: no symptoms reported Cardiovascular: no symptoms reported Gastrointestinal: no symptoms reported Genitourinary: no symptoms reported : No Musculoskeletal: back pain, muscle cramps Skin: no symptoms reported Psychiatric/Neurological: No Symptoms Reported All Other Systems Reviewed Negative Unless Noted: Yes Past Sgkgsba-Twinon-Herhvw Hx Patient Social History Tobacco Use?: No Smoking Status: Never a Smoker Smokeless Tobacco Frequency: Never a User Use of E-Cig and/or Vaping Oscar: Never a User Substance use?: No Alcohol Use?: No Pt feels they are or have been: No Immunizations Up To Date COVID19 Vaccine Legal Arbitrator: MODERNA Seasonal Allergies Seasonal Allergies: Yes Past Medical History Surgeries: Yes (gastric sleeve) Gallbladder Respiratory: Yes Sleep Apnea Currently Using CPAP: Yes Cardiac: Yes Hypertension Neurological: No Genitourinary: No Gastrointestinal: Yes Gastroesophageal Reflux Musculoskeletal: Yes Gout Endocrine: Yes (prediabetes) HEENT: Yes Cancer: Yes Skin Psychosocial: Yes Anxiety, Depression Integumentary: No Blood Disorders: No Physical Exam Vital Signs Vital Signs - First Documented 12/07/21 10:15 Temp 36.9 Pulse 88 Resp 18 B/P (MAP) 150/114 (126) O2 Delivery Room Air Capillary Refill : Height, Weight, BMI Height: 5'5.00" Weight: 246lbs. 0.0oz. 111.392645ni; 40.03 BMI Method: General Appearance: No Apparent Distress, WD/WN Eyes: Bilateral Eye Normal Inspection, Bilateral Eye PERRL, Bilateral Eye EOMI HEENT: PERRL/EOMI Neck: Normal Inspection Respiratory: Lungs Clear, Normal Breath Sounds, No Accessory Muscle Use, No Respiratory Distress Cardiovascular: Regular Rate, Rhythm Gastrointestinal: Non Tender, Soft Extremity: Normal Capillary Refill, Normal Inspection, Normal Range of Motion, Non Tender, No Calf Tenderness, No Pedal Edema Neurologic/Psychiatric: Alert, Oriented x3, No Motor/Sensory Deficits, Normal Mood/Affect, [employer] II-XII Norm as Tested Skin: Normal Color, Warm/Dry, Other (3-4 small areas of macular erythema, along and adjacent to the hairline. no crusting or raised areas. non tender. no drainage. appear to be healing) Progress/Results/Core Measures Suspected Sepsis SIRS Temperature: Pulse: Respiratory Rate: Laboratory Tests 12/07/21 10:40: White Blood Count 2.9L Blood Pressure / Mean: Laboratory Tests 12/07/21 10:40: Creatinine 0.86, Platelet Count 156, Total Bilirubin 0.5 Results/Orders Lab Results Laboratory Tests Test 12/07/21 10:40 12/07/21 10:51 Range/Units White Blood Count 2.9 L 4.3-11.0 10^3/uL Red Blood Count 4.12 3.80-5.11 10^6/uL Hemoglobin 12.1 11.5-16.0 g/dL Hematocrit 37 35-52 % Mean Corpuscular Volume 89 80-99 fL Mean Corpuscular Hemoglobin 29 25-34 pg Mean Corpuscular Hemoglobin Concent 33 32-36 g/dL Red Cell Distribution Width 13.8 10.0-14.5 % Platelet Count 156 130-400 10^3/uL Mean Platelet Volume 9.4 9.0-12.2 fL Immature Granulocyte % (Auto) 1 % Neutrophils (%) (Auto) 59 42-75 % Lymphocytes (%) (Auto) 34 12-44 % Monocytes (%) (Auto) 5 0-12 % Eosinophils (%) (Auto) 1 0-10 % Basophils (%) (Auto) 1 0-10 % Neutrophils # (Auto) 1.7 L 1.8-7.8 10^3/uL Lymphocytes # (Auto) 1.0 1.0-4.0 10^3/uL Monocytes # (Auto) 0.1 0.0-1.0 10^3/uL Eosinophils # (Auto) 0.0 0.0-0.3 10^3/uL Basophils # (Auto) 0.0 0.0-0.1 10^3/uL Immature Granulocyte # (Auto) 0.0 0.0-0.1 10^3/uL Sodium Level 140 135-145 MMOL/L Potassium Level 3.9 3.6-5.0 MMOL/L Chloride Level 106 98-107 MMOL/L Carbon Dioxide Level 23 21-32 MMOL/L Anion Gap 11 5-14 MMOL/L Blood Urea Nitrogen 10 7-18 MG/DL Creatinine 0.86 0.60-1.30 MG/DL Estimat Glomerular Filtration Rate 72 BUN/Creatinine Ratio 12 Glucose Level 112 H 70-105 MG/DL Calcium Level 9.0 8.5-10.1 MG/DL Corrected Calcium 9.2 8.5-10.1 MG/DL Total Bilirubin 0.5 0.1-1.0 MG/DL Aspartate Amino Transf (AST/SGOT) 38 H 5-34 U/L Alanine Aminotransferase (ALT/SGPT) 40 0-55 U/L Alkaline Phosphatase 104 40-136 U/L Total Creatine Kinase 33 29-168 U/L Total Protein 6.9 6.4-8.2 GM/DL Albumin 3.7 3.2-4.5 GM/DL Urine Color YELLOW Urine Clarity SL CLOUDY Urine pH 5.5 5-9 Urine Specific [place] >=1.030 1.016-1.022 Urine Protein TRACE H NEGATIVE Urine Glucose (UA) NEGATIVE NEGATIVE Urine Ketones NEGATIVE NEGATIVE Urine Nitrite NEGATIVE NEGATIVE Urine Bilirubin NEGATIVE NEGATIVE Urine Urobilinogen 0.2 < = 1.0 MG/DL Urine Leukocyte Esterase 1+ H NEGATIVE Urine RBC (Auto) NEGATIVE NEGATIVE Urine RBC RARE /HPF Urine WBC 5-10 H /HPF Urine Squamous Epithelial Cells 2-5 /HPF Urine Crystals NONE /LPF Urine Bacteria TRACE /HPF Urine Casts NONE /LPF Urine Mucus SMALL H /LPF Urine Culture Indicated YES My Orders Orders - BARNEY OCONNOR MD Ed Iv/Invasive Line Start (12/07/21 10:31) Cbc With Automated Diff (12/07/21 10:31) Comprehensive Metabolic Panel (12/07/21 10:31) Creatine Kinase (12/07/21 10:31) Ua Culture If Indicated (12/07/21 10:31) Ibuprofen Tablet (Motrin Tablet) (12/07/21 10:45) Urine Culture (12/07/21 10:51) Ns Iv 1000 Ml (Sodium Chloride 0.9%) (12/07/21 12:00) Medications Given in ED Current Medications Medications Dose Ordered Sig/Terrence Route Start Time Stop Time Status Last Admin Dose Admin Ibuprofen 600 mg ONCE ONCE PO 12/07/21 10:45 12/07/21 10:46 DC 12/07/21 10:51 600 MG Vital Signs/I&O 12/07/21 10:15 Temp 36.9 Pulse 88 Resp 18 B/P (MAP) 150/114 (126) O2 Delivery Room Air Capillary Refill : Less Than 3 Seconds Progress Note : Time: 12:23 Progress Note Patient reevaluated after ibuprofen and during fluid administration. She states the ibuprofen "took the pain away". We reviewed her labs I advised her that I spoke with Dr. MILTON and what the recommendations were Dr. Milton would like her to recheck in the office in about a week. Ibuprofen dosing was discussed. 600 mg every 6-8 hours with food as needed for pain. She is comfortable with the plan of care. All questions are sought and answered Departure Impression Primary Impression: Myalgia Disposition: HOME, SELF-CARE Condition: Improved Departure-Patient Inst. Decision time for Depature: 12:24 Referrals: KASIA MILTON MD (PCP/Family) Primary Care Physician Patient Instructions: Muscle and Bone Pain (DC) Add. Discharge Instructions: Drink plenty of fluids over the next 2 to 3 days so that you stay well-hydrated. Your urine should be clear. Take bywg-uny-kpxsmsw ibuprofen/Advil/Motrin 3 tablets which is 600 mg every 6-8 hours with food as needed for pain. Please come back to the emergency department if you develop any worsening pain especially with fever over 101, redness, swelling, nausea vomiting or any other emergent concerning symptoms. Please call Dr. Milton's office today to schedule a follow-up appointment in 1 week. Copy Copies To 1: KASIA MILTON MD, KATHRYN M MD Dec 07, 2021 10:36
[2021-12-07] MEDS ORDERED: IBUPROFEN 600 MG (MOTRIN) TAB PO ONE (10:45)
[2021-12-07 11:08] LABS: BASOPHILS % (AUTO) 1 % (0-10); EOSINOPHILS % (AUTO) 1 % (0-10); HEMATOCRIT 37 % (35-52); HEMOGLOBIN 12.1 g/dL (11.5-16.0); LYMPHOCYTES % (AUTO) 34 % (12-44); MEAN CORPUSCULAR HEMOGLOBIN 29 pg (25-34); MEAN CORPUSCULAR HGB CONC 33 g/dL (32-36); MEAN CORPUSCULAR VOLUME 89 fL (80-99); MEAN PLATELET VOLUME 9.4 fL (9.0-12.2); MONOCYTES # (AUTO) 0.1 10^3/uL (0.0-1.0); MONOCYTES % (AUTO) 5 % (0-12); NEUTROPHILS # (AUTO) 1.7 10^3/uL (1.8-7.8); NEUTROPHILS % (AUTO) 59 % (42-75); PLATELET COUNT 156 10^3/uL (130-400); WHITE BLOOD COUNT 2.9 10^3/uL (4.3-11.0)
[2021-12-07 11:08] LABS: BILIRUBIN,URINE NEGATIVE (NEGATIVE); CLARITY,URINE SL CLOUDY; COLOR,URINE YELLOW; GLUCOSE, URINE (UA) NEGATIVE (NEGATIVE); KETONES,URINE NEGATIVE (NEGATIVE); LEUKOCYTE ESTERASE ,URINE 1+ (NEGATIVE); NITRITE,URINE NEGATIVE (NEGATIVE); PH,URINE 5.5 (5-9); PROTEIN,URINE TRACE (NEGATIVE)
[2021-12-07 11:13] LABS: ALBUMIN 3.7 GM/DL (3.2-4.5); POTASSIUM 3.9 MMOL/L (3.6-5.0)
[2021-12-07 11:15] LABS: TOTAL PROTEIN 6.9 GM/DL (6.4-8.2)
[2021-12-07 11:17] LABS: BILIRUBIN,TOTAL 0.5 MG/DL (0.1-1.0)
[2021-12-07 11:19] LABS: CREATININE SERUM 0.86 MG/DL (0.60-1.30)
[2021-12-07 11:25] LABS: BACTERIA,URINE TRACE /HPF; RBC,URINE RARE /HPF
[2021-12-07] MEDS ORDERED: NS IV 1000 ML 1,000 ML IV SCH (12:00)
[2021-12-07 12:57] VITALS: BP 157/88
== END 2021-12-07 12:59 | disposition home or self-care (01) ==
LOC: EDUNIT# 09:51 → ER 09:53
DX: M79.10 Myalgia, unspecified site (principal); G47.30 Sleep apnea, unspecified; Z99.89 Dependence on other enabling machines and devices
CPT/HCPCS: 36415; 80053; 81000; 82550; 85025; 87088

== ENCOUNTER → 2022-12-10 | Outpatient (CLI) | payer MEDICARE ==
[~2022-12-10] MED LIST changes: +ACHD5005 PO; -MELA1TAB20 PO; +MELA1TAB72 PO
--- NOTE | 2022-12-10 17:30 | Diagnostic Imaging Report ---
INDICATION: Back pain with radiculopathy Lumbar spine AP and lateral views of the lumbar spine show very subtle grade 1 spondylolisthesis at L4-L5. There are some hypertrophic changes of the facets at L4-L5. There are no compression fractures. The other intervertebral disc spaces are well maintained. IMPRESSION: Degenerative changes L4-L5 with a slight spondylolisthesis and some facet arthropathy. Dictated by: Dictated on workstation # [id number]
== END ==
LOC: RAD 15:13
PROVIDERS: ATTEND Physician Assistant
DX: M47.26 Other spondylosis with radiculopathy, lumbar region (principal); M43.16 Spondylolisthesis, lumbar region
CPT/HCPCS: 72100

== ENCOUNTER 2022-12-12 18:43 | Emergency (ER) | payer MEDICARE ==
[~2022-12-12] VITALS: Ht 165.1 cm; Wt 107.5 kg
[~2022-12-12 18:43] MED LIST changes: -ACHD5005 PO
--- NOTE | 2022-12-12 19:21 | ED Back Pain ---
General Chief Complaint: Back Problems Stated Complaint: PAIN IN LEGS Source of Information: Patient History of Present Illness Date Seen by Provider: Dec 12, 2022 Time Seen by Provider: 19:08 Initial Comments PT ARRIVES VIA POV FROM HOME WITH DAUGHTER C/O BACK PAIN, RADIATING DOWN BOTH LEGS FOR AT LEAST A WEEK HAS OCCASIONAL TINGLING AND BURNING DOWN BOTH LEGS HAS BEEN CONSTIPATED FOR THE LAST 6 WEEKS NO CHANGES IN BLADDER FUNCTION NO INJURY NO MOTOR DEFICITS OR NUMBNESS STATES SHE "CAN'T GET OUT OF BED--CAN'T STAND" DUE TO PAIN HAS HAD OCCASIONAL SCIATICA IN THE PAST, BUT USUALLY DOES NOT LAST MORE THAN 3 DAYS NO INJURY SEEN BY PROSPER HERNANDEZ AT DR. GONZALEZ'S OFFICE ON Saturday12/10/22, AND HAD AN IM STEROID SHOT, OUTPATIENT XRAYS OF HER BACK, AND WAS PRESCRIBED TRAMADOL, PREDNISONE, ZOFRAN AND PEPCID RESULTS OF XRAYS ARE NOT KNOWN SHE HAS NOT FOLLOWED UP WITH DR. GONZALEZ'S OFFICE SINCE THEN. SYMPTOMS NO DIFFERENT TONIGHT PT IS NON-INSULIN DEPENDENT DIABETIC, HAS HTN, HYPERLIPIDEMIA, HYPOTHYROIDISM. SHE HAD A STEROID SHOT IN HER RIGHT KNEE A FEW WEEKS AGO AT DR. BHATIA'S OFFICE Other Comments PCP: DR. GONZALEZ / PROSPER HERNANDEZ Allergies and Home Medications Allergies Coded Allergies: Idwagrt-Wkw-Ntc Reductase Inhibitor (Unverified Allergy, Unknown, 12/03/18) fenofibrate (Verified Allergy, Unknown, leg pains, 05/13/19) levothyroxine sodium (Unverified Allergy, Unknown, 12/03/18) venlafaxine (Verified Allergy, Unknown, depression, 05/13/19) Uncoded Allergies: vitamin c (Allergy, Unknown, fever, 05/13/19) Patient Home Medication List Home Medication List Reviewed: Yes Alprazolam (Xanax) 1 Mg Tablet, 1 MG PO HS, (Reported) Entered as Reported by: INES DOVE on 05/13/19 1153 Cholecalciferol (Vitamin D3) (Vitamin D3) 1,000 Unit Tablet, 1,000 UNIT PO DAILY, (Reported) Entered as Reported by: INES DOVE on 05/13/19 1153 Docusate Sodium (Stool Softener) 100 Mg Tablet, 100 MG PO BID, (Reported) Entered as Reported by: INES DOVE on 05/13/19 1153 Duloxetine HCl (Cymbalta) 60 Mg Capsule.dr, 60 MG PO DAILY, (Reported) Entered as Reported by: INES DOVE on 05/13/19 115 Hydrochlorothiazide (Hydrochlorothiazide) 25 Mg Tablet, 25 MG PO DAILY, (Reported) Entered as Reported by: INES DOVE on 05/13/19 115 Hydrocodone/Acetaminophen (Hydrocodon-Acetamin 7.5-325/15 ML) 15 Ml Solution, 1- 2 TSP PO Q4H Prescribed by: NATACHA OLIVARES on 05/22/19 1048 Hydrocodone/Acetaminophen (Hydrocodone-Acetamin 5-325 mg) 5 Mg-325 Mg Tablet, 1 EACH PO Q4-6 HOURS PRN for PAIN Prescribed by: DIMITRI JAMIL on 12/12/222025 Melatonin/Pyridoxine HCl (B6) (Melatonin 10 mg Tablet) 1 Each Tab.mphase, 10 MG PO HS, (Reported) Entered as Reported by: INES DOVE on 05/13/19 115 Potassium Chloride (Klor-Con M20) 20 Meq Tab.er.prt, 20 MEQ PO DAILY, (Reported) Entered as Reported by: INES DOVE on 05/13/19 115 Trazodone HCl (Trazodone HCl) 50 Mg Tablet, 50 MG PO HS, (Reported) Entered as Reported by: INES DOVE on 05/13/19 115 Ubidecarenone (Coq-10) 100 Mg Capsule, 100 MG PO DAILY, (Reported) Entered as Reported by: INES DOVE on 05/13/19 1153 [2% Viscous Lidocaine] , 1 TSP PO Q2-3HR PRN for PAIN Prescribed by: NATACHA OLIVARES on 05/22/19 1048 Review of Systems Constitutional: no symptoms reported Respiratory: no symptoms reported Cardiovascular: no symptoms reported Gastrointestinal: see HPI, constipation Genitourinary: no symptoms reported Musculoskeletal: see HPI Skin: no symptoms reported Psychiatric/Neurological: See HPI Past Utfrwmj-Msavkc-Zjcncp Hx Patient Social History Tobacco Use?: No Substance use?: No Alcohol Use?: No Seasonal Allergies Seasonal Allergies: Yes Past Medical History Surgeries: Yes (GASTRIC SLEEVE) Abdominal, Gallbladder Respiratory: Yes Sleep Apnea Currently Using CPAP: Yes Cardiac: Yes High Cholesterol, Hypertension Neurological: No Genitourinary: No Gastrointestinal: Yes Gastroesophageal Reflux Musculoskeletal: Yes (SCIATICA) Arthritis, Gout Endocrine: Yes (OBESITY) Hypothyroidsim, Diabetes, Non-Insulin dep HEENT: Yes Cancer: Yes Skin Did You Recieve Any Treatments: Yes What Type of Treatment Did You: Surgical Intervention Psychosocial: Yes Anxiety, Depression Integumentary: Yes (SKIN CANCER) Blood Disorders: No Physical Exam Vital Signs Vital Signs - First Documented 12/12/22 18:56 Temp 37.1 Pulse 68 Resp 20 B/P (MAP) 177/81 (113) Pulse Ox 94 Capillary Refill : Height, Weight, BMI Height: 5'5.00" Weight: 246lbs. 0.0oz. 111.287982rk; 39.00 BMI Method: General Appearance: No Apparent Distress, WD/WN, Obese Cardiovascular: Regular Rate, Rhythm, Normal Peripheral Pulses Respiratory: Normal Breath Sounds Peripheral Pulses: 1+ Dorsalis Pedis (R), 1+ Left Dors-Pedis (L) Gastrointestinal: Non Tender Back: Other (THERE IS NO TENDERNESS TO HER BACK. STATES IT ONLY HURTS WHEN SHE TRIES TO STAND OR WALK. NEGATIVE STRAIGHT LEG RAISING BILATERALLY. ) Neurologic/Psychiatric: Alert, Oriented x3, No Motor/Sensory Deficits, Normal Mood/Affect, protection mgr II-XII Norm as Tested, Other (DTR'S INTACT; STRENGTH IS EQUAL BILATERLLY) Skin: Normal Color, Warm/Dry; No Rash Progress/Results/Core Measures Results/Orders My Orders Orders - DIMITRI JAMIL DO Ct Thoracic/Lumbar Spine Wo (12/12/22 19:13) Hydrocodone/Apap 5/325 Tablet (Lortab 5 (12/12/22 20:00) Ondansetron Oral Dissolve Tab (Zofran (12/12/22 20:00) Rx-Hydrocodone/Apap 5-325 Mg (Rx-Vicodin (12/12/22 20:00) Vital Signs/I&O 12/12/22 12/12/22 18:56 20:32 Temp 37.1 Pulse 68 61 Resp 20 B/P (MAP) 177/81 (113) 156/80 Pulse Ox 94 95 Progress Progress Note : Progress Note DISCUSSED TEST RESULTS, ANTICIPATED COURSE, SYMPTOMATIC TREATMENT, MEDICATIONS, NEED FOR FOLLOW UP AND RETURN PRECAUTIONS PT STATES SHE HAS TAKEN HYDROCODONE IN THE PAST AND IT JUST CAUSES NAUSEA--NO ACTUAL ALLERGIC REACTION, PT IS WILLING TO TRY IT WITH PRESCRIBED ZOFRAN FOR THE NAUSEA. REVIEWED PRIOR RECORDS--SINGLE ER VISIT, AND ONE OUTPATIENT PROCEDURE. Diagnostic Imaging Comments CT THORACIC/LUMBAR SPINE--PER RADIOLOGIST REPORT AT 1947 COMPARISON: Lumbar spine radiographs from 12/10/2022 FINDINGS: Thoracic spine: Alignment of the thoracic spine appears normal with no spondylolisthesis. Vertebral body heights are preserved. There are mild degenerative changes with disc height loss and small endplate osteophytes. There does appear to be a hemangioma at T6. No bony fragments or hyperdense fluid collections are seen in the spinal canal. There is dependent atelectasis in the lungs. Postsurgical changes are noted at the stomach. There is a small hiatal hernia. Lumbar spine: Alignment of the lumbar spine demonstrates grade 1 anterolisthesis at L4-L5. Vertebral body heights are preserved. Disc heights are generally well preserved. There are small disc bulges present at multiple levels. There is marked facet arthropathy in the lower lumbar spine. No acute fracture is seen. There does appear to be spinal canal stenosis at multiple levels including L2-L3, L3-L4 and L4-L5. This appears most severe at L3-L4 and L4-L5. There is left foraminal stenosis at L3-L4 and L4-L5. IMPRESSION: 1. No acute osseous abnormality is seen in the thoracic and lumbar spine. 2. Degenerative changes, particularly in the lumbar spine, resulting in multilevel spinal canal stenosis. This is most severe at L3-L4 and L4-L5. There is left foraminal stenosis at these levels as well. Reviewed: Reviewed by Me Departure Impression Primary Impression: Lumbar degenerative disc disease Additional Impressions: Degenerative lumbar spinal stenosis Low back pain with bilateral sciatica Disposition: HOME, SELF-CARE Condition: Stable Departure-Patient Inst. Decision time for Depature: 20:05 Referrals: KASIA GONZALEZ MD (PCP/Family) Primary Care Physician Patient Instructions: Sciatica ED, Degenerative Disc Disease ED, Spinal Stenosis (DC) Add. Discharge Instructions: HOME, REST CONTINUE PREDNISONE, ZOFRAN AND PEPCID DO NOT TAKE TRAMADOL IF YOU ARE TAKING THE HYDROCODONE--TAKE ONE OR THE OTHER, NOT BOTH. FOLLOW UP WITH DR. GONZALEZ THIS WEEK FOR FURTHER CARE--CALL IN THE MORNING TO SCHEDULE AN APPOINTMENT All discharge instructions reviewed with patient and/or family. Voiced understanding. Scripts Hydrocodone/Acetaminophen (Hydrocodone-Acetamin 5-325 mg) 5 Mg-325 Mg Tablet 1 EACH PO Q4-6 HOURS PRN for PAIN, #20 TAB Prov: DIMITRI JAMIL DO 12/12/22 DIMITRI JAMIL DO Dec 12, 2022 19:21
--- NOTE | 2022-12-12 19:39 | Diagnostic Imaging Report ---
PROCEDURE: CT thoracic and lumbar spine without contrast. TECHNIQUE: Multiple contiguous axial images were obtained through the thoracic and lumbar spine without the use of intravenous contrast. Sagittal and coronal reformations were then performed. All CT scans use one or more of the following dose optimizing techniques: automated exposure control, MA and/or KvP adjustment based on a patient size and exam type, or iterative reconstruction. INDICATION: Pain in the mid to lower back with radiculopathy to the feet. COMPARISON: Lumbar spine radiographs from 12/10/2022 FINDINGS: Thoracic spine: Alignment of the thoracic spine appears normal with no spondylolisthesis. Vertebral body heights are preserved. There are mild degenerative changes with disc height loss and small endplate osteophytes. There does appear to be a hemangioma at T6. No bony fragments or hyperdense fluid collections are seen in the spinal canal. There is dependent atelectasis in the lungs. Postsurgical changes are noted at the stomach. There is a small hiatal hernia. Lumbar spine: Alignment of the lumbar spine demonstrates grade 1 anterolisthesis at L4-L5. Vertebral body heights are preserved. Disc heights are generally well preserved. There are small disc bulges present at multiple levels. There is marked facet arthropathy in the lower lumbar spine. No acute fracture is seen. There does appear to be spinal canal stenosis at multiple levels including L2-L3, L3-L4 and L4-L5. This appears most severe at L3-L4 and L4-L5. There is left foraminal stenosis at L3-L4 and L4-L5. IMPRESSION: 1. No acute osseous abnormality is seen in the thoracic and lumbar spine. 2. Degenerative changes, particularly in the lumbar spine, resulting in multilevel spinal canal stenosis. This is most severe at L3-L4 and L4-L5. There is left foraminal stenosis at these levels as well. Dictated by: Dictated on workstation # [id number]
[2022-12-12] MEDS ORDERED: ONDANSETRON 4 MG (ZOFRAN) ORAL DISSOLVE TAB PO ONE (20:00)
[2022-12-12] MEDS ORDERED: HYDROcodone/APAP 5 MG/325 MG (LORTAB) TAB PO ONE (20:00)
[2022-12-12] MEDS ORDERED: ACHD5005 PO (20:25)
[2022-12-12 20:32] VITALS: BP 156/80
== END 2022-12-12 20:33 | disposition home or self-care (01) ==
LOC: EDUNIT# 18:43 → ER 18:44
DX: M51.16 Intervertebral disc disorders with radiculopathy, lumbar region (principal); M48.061 Spinal stenosis, lumbar region without neurogenic claudication; G47.30 Sleep apnea, unspecified; E66.9 Obesity, unspecified; Z68.39 Body mass index [BMI] 39.0-39.9, adult; Z99.89 Dependence on other enabling machines and devices
CPT/HCPCS: 72128; 72131

== ENCOUNTER → 2022-12-27 | Outpatient (CLI) | payer MEDICARE ==
[~2022-12-27] MED LIST changes: +ACHD5005 PO
--- NOTE | 2022-12-27 16:25 | Diagnostic Imaging Report ---
PROCEDURE: MRI lumbar spine without contrast. TECHNIQUE: Multiplanar, multisequence MRI of the lumbar spine was performed without contrast. INDICATION: Low back pain. Sciatica. COMPARISON: 12/12/2022. FINDINGS: 5 lumbar type vertebral bodies are visualized with the last well-formed disc space designated L5-S1. No acute fracture or dislocation is seen in the lumbar spine. Alignment is anatomic. Vertebral body heights and disc spaces are well-maintained. Hemangioma is seen in the L1 vertebral body. The conus terminates at the L1 level. No masses are seen associated with the conus or nerve roots of the cauda equina. No epidural collections are identified. Multilevel degenerative changes are seen in the lumbar spine with disc bulges, facet hypertrophy, and buckling of the ligamentum flavum. T12-L1: No significant spinal canal or foraminal stenosis. L1-L2: No significant spinal canal or foraminal stenosis. L2-L3: Facet hypertrophy and buckling of the ligamentum flavum results in mild to moderate spinal canal narrowing and mild bilateral foraminal narrowing. L3-L4: Broad-based disc bulge with annular fissure, facet hypertrophy, and buckling of ligamentum flavum results in severe spinal canal stenosis and moderate right and gkxq-rr-oqihgqny left foraminal stenosis. L4-L5: Broad-based disc bulge, facet hypertrophy, and buckling of the ligamentum flavum results in moderate to severe spinal canal stenosis and mild bilateral foraminal narrowing. L5-S1: No significant spinal canal stenosis and no significant foraminal stenosis. Paravertebral soft tissues are unremarkable. IMPRESSION: 1. No acute fracture or dislocation in the lumbar spine. 2. Multilevel degenerative changes in the lumbar spine, greatest at L3-L4 and L4-L5. Dictated by: Dictated on workstation # [id number]
== END ==
LOC: RAD 14:16
PROVIDERS: ATTEND Family Medicine
DX: M47.816 Spondylosis without myelopathy or radiculopathy, lumbar region (principal)
CPT/HCPCS: 72148

== ENCOUNTER → 2023-05-21 | Outpatient (CLI) | payer MEDICARE ==
[~2023-05-21] MED LIST changes: +HYDR15SO11 PO; -HYDR15SO8 PO
--- NOTE | 2023-05-21 16:16 | Diagnostic Imaging Report ---
EXAMINATION: 3D bilateral screening mammogram with CAD. COMPARISON: This study was compared to the prior exam of 10/21/2018. PERSONAL HISTORY: At this time, there are no current complaints. FINDINGS: There are scattered areas of fibroglandular density. Overall, there does not appear to have been any significant change when compared to the prior exam. There is no primary or secondary sign of malignancy noted. IMPRESSION: 1. There is no evidence for malignancy. 2. The patient should have her annual bilateral screening mammogram on schedule in May 2024. ACR BI-RADS Category 1: Negative. Result letter will be mailed to the patient. Note: At least 10% of breast cancer is not imaged by mammography. Dictated by: Dictated on workstation # [id number]
== END ==
LOC: RAD 09:11
PROVIDERS: ATTEND Nurse Practitioner Family
DX: Z12.31 Encounter for screening mammogram for malignant neoplasm of breast (principal)
CPT/HCPCS: 77063; 77067